=== PATIENT | female | born 1950 | race Caucasian/White ===

== ENCOUNTER → 2017-08-01 07:16 | Outpatient (CLI) | payer MEDICARE, BC, SELFPAY ==
[2017-08-01 10:32] LABS: Hemoglobin A1c 7.8 % (4.2-6.3)
[2017-08-01 10:50] LABS: Anion Gap 10 (5-15); BUN 14 mg/dL (7-18); BUN/Creat Ratio 23.4 RATIO (10-20); Chloride 99 mmol/L (98-107); Cholesterol 176 mg/dL (200); EST Glomerular Filtration Rate 106 mL/min (>60); Est Glom Filt Rate - Afr Amer 128 mL/min (>60); Glucose 83 mg/dL (74-106); High Density Lipoprotein 38 mg/dL; Potassium 3.8 mmol/L (3.5-5.1); Sodium Level 135 mmol/L (136-145); Triglycerides 194 mg/dL; Very Low Density Lipoprotein 39 mg/dL (5-40)
== END ==
PROVIDERS: Family Provider Family Medicine; PCP Family Medicine; Visit Provider Family Medicine
DX: I10 Essential (primary) hypertension (principal); E78.5 Hyperlipidemia, unspecified; E11.9 Type 2 diabetes mellitus without complications
CPT/HCPCS: 36415; 80048; 80061; 83036

== ENCOUNTER → 2018-01-31 08:13 | Outpatient (CLI) | payer MEDICARE, BC, SELFPAY ==
[2018-01-31 10:51] LABS: Hemoglobin A1c 7.4 % (4.2-6.3)
[2018-01-31 11:04] LABS: Cholesterol 183 mg/dL (200); Glucose 93 mg/dL (74-106); High Density Lipoprotein 36 mg/dL; Triglycerides 245 mg/dL; Very Low Density Lipoprotein 49 mg/dL (5-40)
== END ==
PROVIDERS: Family Provider Family Medicine; PCP Family Medicine; Visit Provider Family Medicine
DX: E11.9 Type 2 diabetes mellitus without complications (principal); E78.5 Hyperlipidemia, unspecified
CPT/HCPCS: 36415; 80061; 82947; 83036

== ENCOUNTER → 2018-07-31 07:00 | Outpatient (CLI) | payer MEDICARE, BC, SELFPAY ==
[2018-07-31 10:17] LABS: Anion Gap 9 (5-15); BUN 13 mg/dL (7-18); BUN/Creat Ratio 21.4 RATIO (10-20); Calcium,Total 8.7 mg/dL (8.5-10.1); Chloride 99 mmol/L (98-107); Cholesterol 175 mg/dL (200); Creatinine, Serum 0.61 mg/dL (0.55-1.02); EST Glomerular Filtration Rate 104 mL/min (>60); Est Glom Filt Rate - Afr Amer 125 mL/min (>60); Glucose 87 mg/dL (74-106); High Density Lipoprotein 41 mg/dL; Potassium 3.8 mmol/L (3.5-5.1); Sodium Level 134 mmol/L (136-145); Triglycerides 233 mg/dL; Very Low Density Lipoprotein 47 mg/dL (5-40)
== END ==
PROVIDERS: Family Provider Family Medicine; PCP Family Medicine; Referring Provider Family Medicine; Visit Provider Family Medicine
DX: E11.9 Type 2 diabetes mellitus without complications (principal); I10 Essential (primary) hypertension
CPT/HCPCS: 36415; 80048; 80061; 83036

== ENCOUNTER → 2019-03-22 09:38 | Outpatient (CLI) | payer MEDICARE, BC, SELFPAY ==
[2019-03-22 12:21] LABS: Hemoglobin A1c 7.6 % (4.2-6.3)
[2019-03-22 12:25] LABS: Anion Gap 6 (5-15); BUN 13 mg/dL (7-18); BUN/Creat Ratio 20.7 RATIO (10-20); Calcium,Total 9.1 mg/dL (8.5-10.1); Chloride 103 mmol/L (98-107); Cholesterol 193 mg/dL (200); Creatinine, Serum 0.63 mg/dL (0.55-1.02); EST Glomerular Filtration Rate 100 mL/min (>60); Est Glom Filt Rate - Afr Amer 121 mL/min (>60); Glucose 108 mg/dL (74-106); High Density Lipoprotein 40 mg/dL; Potassium 3.9 mmol/L (3.5-5.1); Sodium Level 135 mmol/L (136-145); Triglycerides 240 mg/dL; Very Low Density Lipoprotein 48 mg/dL (5-40)
== END ==
PROVIDERS: Family Provider Family Medicine; PCP Family Medicine; Referring Provider Family Medicine; Visit Provider Family Medicine
DX: E11.9 Type 2 diabetes mellitus without complications (principal); I10 Essential (primary) hypertension; E78.5 Hyperlipidemia, unspecified
CPT/HCPCS: 36415; 80048; 80061; 83036

== ENCOUNTER → 2019-03-27 09:10 | Outpatient (CLI) | payer MEDICARE, BC, SELFPAY ==
--- NOTE | 2019-03-27 09:13 | RAD_ITS ---
STUDY: X-RAY - PARANASAL SINUSES REASON FOR EXAM: Female, 68 years old. Sinus pain. TECHNIQUE: 3 view(s) of the paranasal sinuses were obtained. COMPARISON: None. FINDINGS: No air-fluid levels are seen. Increased density of the right maxillary sinus when compared to the left. This may represent mucosal thickening from chronic sinusitis. Normal visualized facial bones. The soft tissue structures are unremarkable. RAD/Sinuses min 3 Views IMPRESSION: No air-fluid levels are seen. Possible chronic sinusitis of the right maxillary sinus. Electronically Signed: Gino Norris MD at 23:20 EDT , Service support ,
== END ==
PROVIDERS: Family Provider Family Medicine; PCP Family Medicine; Referring Provider Family Medicine; Visit Provider Family Medicine
DX: J34.89 Other specified disorders of nose and nasal sinuses (principal)
CPT/HCPCS: 70220

== ENCOUNTER → 2019-04-17 07:57 | Outpatient (CLI) | payer MEDICARE, BC, SELFPAY ==
--- NOTE | 2019-04-17 08:03 | BI_ITS ---
MAMMOGRAPHY - BILATERAL SCREENING REASON FOR EXAM: Female, 68 years old. Routine annual screening examination. PERTINENT HISTORY: Non-contributory. TECHNIQUE: Digital bilateral breast mary anne (3D mammographic acquisition) in the CC and MLO projections. 2-D mediolateral oblique (MLO) and craniocaudad (CC) views of both breasts were obtained. CAD: Full Field Digital Mammography with Computer Added Detection was performed. COMPARISON: Comparison is made with prior study dated May 27, 2017 and August 07, 2013. FINDINGS: Breast Composition: The breasts are almost entirely fatty. There are no dominant masses or suspicious calcifications. Stable macrocalcifications in the medial retroareolar region of the right breast Stable benign-appearing left axillary lymph node. No other significant abnormalities are identified. There has been no significant change since the prior study. BI/SCREEN MAMM (CAD) W/MARY ANNE BILAT IMPRESSION: Stable bilateral screening mammogram. Yearly follow-up mammogram recommended. (A) ASSESSMENT CATEGORY: BIRADS Category 2: Benign. A letter regarding these results will be sent to the patient by the facility within 30 days. Approximately 10% of breast cancers are not detected by mammography. A normal mammogram should not delay biopsy of a clinically suspicious abnormality. [id number] Electronically Signed: Tez Purdy, at 9:04 EST , Service support ,
== END ==
PROVIDERS: Family Provider Family Medicine; PCP Family Medicine; Referring Provider Family Medicine; Visit Provider Family Medicine
DX: Z12.31 Encounter for screening mammogram for malignant neoplasm of breast (principal)
CPT/HCPCS: 77063; 77067

== ENCOUNTER → 2019-07-23 10:31 | Outpatient (CLI) | payer MEDICARE, BC, SELFPAY ==
[2019-07-23 12:49] LABS: Anion Gap 8 (5-15); BUN 13 mg/dL (7-18); BUN/Creat Ratio 18.7 RATIO (10-20); Calcium,Total 9.8 mg/dL (8.5-10.1); Chloride 102 mmol/L (98-107); EST Glomerular Filtration Rate 89 mL/min (>60); Est Glom Filt Rate - Afr Amer 107 mL/min (>60); Glucose 95 mg/dL (74-106); Potassium 3.8 mmol/L (3.5-5.1); Sodium Level 136 mmol/L (136-145)
[2019-07-23 13:40] LABS: Hemoglobin A1c 7.3 % (4.2-6.3)
== END ==
PROVIDERS: PCP Family Medicine; Referring Provider Family Medicine; Visit Provider Family Medicine
DX: E11.9 Type 2 diabetes mellitus without complications (principal)
CPT/HCPCS: 36415; 80048; 83036

== ENCOUNTER → 2020-01-14 09:56 | Outpatient (CLI) | payer MEDICARE, BC, SELFPAY ==
[2020-01-14 13:29] LABS: ALB/GLOB Ratio 0.9 RATIO (0.9-2.4); AST(SGOT) 17 U/L (15-37); Alanine Aminotransfer ALT/SGPT 19 U/L (13-56); Albumin, Serum 3.7 g/dL (3.2-5.0); Alkaline Phosphatase 129 U/L (45-117); Anion Gap 8 (5-15); BUN 13 mg/dL (7-18); BUN/Creat Ratio 19.9 RATIO (10-20); Calcium,Total 9.3 mg/dL (8.5-10.1); Chloride 101 mmol/L (98-107); Cholesterol 194 mg/dL (200); Creatinine, Serum 0.65 mg/dL (0.55-1.02); EST Glomerular Filtration Rate 95 mL/min (>60); Est Glom Filt Rate - Afr Amer 115 mL/min (>60); Globulin 3.9 g/dL (2.2-4.2); Glucose 61 mg/dL (74-106); High Density Lipoprotein 39 mg/dL; Potassium 3.6 mmol/L (3.5-5.1); Protein, Total 7.6 g/dL (6.4-8.2); Sodium Level 136 mmol/L (136-145); Triglycerides 202 mg/dL; Very Low Density Lipoprotein 40 mg/dL (5-40)
[2020-01-14 13:37] LABS: Hemoglobin A1c 6.6 % (3.8-5.6)
[2020-01-14 13:42] LABS: Microalbumin:Creatinine Ratio 282.4 mg/g CRE (<30 mg/g CRE)
== END ==
PROVIDERS: PCP Family Medicine; Referring Provider Family Medicine; Visit Provider Family Medicine
DX: E11.9 Type 2 diabetes mellitus without complications (principal)
CPT/HCPCS: 36415; 80053; 80061; 82043; 82570; 83036

== ENCOUNTER → 2020-02-21 | Outpatient (CLI) | payer MEDICARE, BC, SELFPAY | END | disposition home or self-care (01) | LOC: LABSPEC 15:37 | PROVIDERS: Referring Provider Family Medicine; Visit Provider Family Medicine | DX: Z03.818 Encounter for observation for suspected exposure to other biological agents ruled out (principal); Z11.59 Encounter for screening for other viral diseases | CPT/HCPCS: 87635; U0003 ==

== ENCOUNTER → 2020-03-06 06:50 | Outpatient (CLI) | payer MEDICARE, BC, SELFPAY ==
[2020-02-27 11:08] VITALS: BMI 39.9
--- NOTE | 2020-03-06 06:50 | ECHOCS_ITS ---
Reason For Study: MURMUR Procedure This was a 2D Doppler, Color Flow transthoracic echocardiogram. Exam performed in department. Left Ventricle Normal LV size. Left ventricular systolic function is normal. The estimated ejection fraction is 65 %. Stage 2 diastolic dysfunction. No regional wall motion abnormalities noted. Right Ventricle Normal RV size. Normal systolic function. Atria Normal left atrium. Normal right atrium. Mitral Valve Normal mitral valve. Tricuspid Valve Normal tricuspid valve. Aortic Valve Trisinus/trileaflet aortic valve. Mild focal aortic valve calcification. Peak aortic valve gradient 47 mmHg. Mean aortic valve gradient 30 mmHg. Moderate aortic stenosis. Mild (1+) eccentric aortic valve insufficiency. Pulmonic Valve Normal pulmonic valve. Great Vessels Normal aortic root. The pulmonary artery is normal size. Normal inferior vena cava. Pericardium/Pleural No pericardial effusion. Medication Diluted definity 2ml given slow IV push to enhance endocardial definition. MMode/2D Measurements & Calculations LVIDd: 4.7 cm IVSd: 1.0 cm LVOT diam: 2.0 cm LVIDs: 3.3 cm LVPWd: 1.1 cm RVDd: 3.5 cm FS: 29.5 % LVOT area: 3.1 cm2 Ao root diam: 3.0 cm LAV(MOD-bp): 78.1 ml LVAd ap4: 32.1 cm2 LAV(MOD-bp) Indexed: 39.4 ml/m2 EDV(MOD-sp4): 114.2 ml LAV(MOD-sp2): 63.2 ml EDV(sp4-el): 118.4 ml LAV(MOD-sp4): 71.7 ml LVAs ap4: 18.5 cm2 ESV(MOD-sp4): 44.9 ml ESV(sp4-el): 45.4 ml EF(MOD-sp4): 60.7 % EF(sp4-el): 61.6 % SV(MOD-sp4): 69.3 ml SV(sp4-el): 73.0 ml LA A4 area: 23.9 cm2 LA dimension(2D): 4.2 cm RA A4 area: 17.0 cm2 Time Measurements MV dec time: 0.27 sec Doppler Measurements & Calculations MV E max jeff: 113.9 cm/sec Lat Peak E' Jeff: 10.1 cm/sec Med Peak E' Jeff: 6.2 cm/sec MV A max jeff: 93.5 cm/sec E/E' lat: 11.2 E/E' med: 18.2 MV E/A: 1.2 Ao V2 max: 342.5 cm/sec AI max jeff: 297.0 cm/sec LV V1 max: 98.7 cm/sec Ao max P.0 mmHg AI max P.3 mmHg LV V1 max P.9 mmHg Ao V2 mean: 261.1 cm/sec AI dec slope: 145.5 cm/sec2 LV V1 mean P.9 mmHg Ao mean P.7 mmHg AI P1/2t: 597.7 msec LV V1 mean: 62.0 cm/sec Ao V2 VTI: 83.7 cm LV V1 VTI: 24.8 cm IAIN(I,D): 0.93 cm2 IAIN(V,D): 0.91 cm2 SV(LVOT): 78.1 ml PA V2 max: 118.5 cm/sec Interpretation Summary Normal LV size. Left ventricular systolic function is normal. The estimated ejection fraction is 65 %. Stage 2 diastolic dysfunction. Moderate aortic stenosis. Contrast injection was performed. Ordering Physician: Jesus Andrea Referring Physician: MIRTHA CARLIN Performed By: Katie Ackerman RDCS
--- NOTE | 2020-03-06 11:52 | STRESSREP ---
Stress Test Report Exercise myocardial perfusion stress test. 69-year-old lady with a history of hypertension, diabetes mellitus and mild aortic stenosis. Stress protocol: Resting EKG demonstrates normal sinus rhythm with a rate of 68 bpm normal intervals are noted resting blood pressure 144/72 mmHg. The patient exercised according to regular Adalid protocol for total duration of 3 minutes and 16 seconds. The maximum heart rate attained was 144 bpm which was 96% of max impacted heart rate the maximum workload was 4.6 metabolic equivalents. At rest there were no ST or T wave changes noted at peak exercise upsloping ST changes were noted with no meet the criteria for ischemia. The test was terminated due to dyspnea. The peak blood pressure 198/60 mmHg. Myocardial perfusion protocol. 11.2 mCi of technetium 99m sestamibi was injected at rest. The patient exercised for 3 minutes and 16 seconds attaining 96% of max impacted heart rate. At peak exercise 33.0 mCi of technetium 99m sestamibi was injected stress images were obtained stress and rest images were reconstructed and compared in the short axis vertical long horizontal long axis. Gated images were also obtained P Perfusion SPECT analysis: Review of the stress images demonstrate normal uptake of tracer noted in all areas of the myocardium the resting images similar demonstrate normal uptake of tracer noted in all areas of the myocardium. No reversibility is noted to suggest ischemia no previous infarct is noted. Gated SPECT analysis: The gated ejection fraction is 57%. Conclusion: Normal exercise myocardial perfusion stress test at a low workload. The low workload may affect sensitivity for detection of ischemia.
== END ==
PROVIDERS: PCP Family Medicine; Referring Provider Internal Medicine Cardiovascular Disease; Visit Provider Internal Medicine Cardiovascular Disease
DX: R07.9 Chest pain, unspecified (principal); Z03.818 Encounter for observation for suspected exposure to other biological agents ruled out; Z11.59 Encounter for screening for other viral diseases
CPT/HCPCS: 78452; 87635; 93017; 93306; A9500; Q9957; A4216; C8929; U0003

== ENCOUNTER → 2020-03-06 | Outpatient (CLI) | payer MEDICARE, BC, SELFPAY ==
[2020-02-27 11:08] VITALS: BMI 39.9
== END | disposition home or self-care (01) ==
LOC: LABSPEC 03-07 05:55
PROVIDERS: Referring Provider Family Medicine; Visit Provider Family Medicine
DX: Z03.818 Encounter for observation for suspected exposure to other biological agents ruled out (principal); Z11.59 Encounter for screening for other viral diseases
CPT/HCPCS: 87635; U0003

== ENCOUNTER → 2020-03-20 | Outpatient (CLI) | payer MEDICARE, BC, SELFPAY ==
[2020-02-27 11:08] VITALS: BMI 39.9
== END | disposition home or self-care (01) ==
PROVIDERS: Referring Provider Family Medicine; Visit Provider Family Medicine
DX: Z03.818 Encounter for observation for suspected exposure to other biological agents ruled out (principal); Z11.59 Encounter for screening for other viral diseases
CPT/HCPCS: 87635; U0003

== ENCOUNTER 2020-03-31 07:59 | Day surgery (SDC) | payer MEDICARE, BC, SELFPAY ==
[2020-02-27 11:08] VITALS: BMI 39.9
--- NOTE | 2020-03-25 11:55 | RAD_ITS ---
STUDY: X-RAY CHEST REASON FOR EXAM: Female, 69 years old. PRE HEART CATH TECHNIQUE: Frontal and lateral views of the chest COMPARISON: 08 February 2017 FINDINGS: The lungs are clear and expanded. There is no demonstrated pleural abnormality. Heart is mildly enlarged.. Normal mediastinum and jen. Normal visualized pulmonary arteries. Normal visualized aortic arch and descending thoracic aorta. There are expected age-related degenerative changes in the spine and shoulders. There is no demonstrated abnormality of the visualized soft tissue structures of the upper abdomen. Appearance is stable since prior. RAD/Chest PA and Lateral IMPRESSION: Unremarkable chest radiograph. No acute disease. Mild cardiac megaly. Electronically Signed: Brianna Cox, at 12:21 EDT Tel , Service support ,
[2020-03-25 12:33] LABS: Absolute Lymphocyte Count 2.21 X10^3/uL (0.83-4.51); Absolute Neutrophil Count 5.7 X10^3/uL (2.0-7.7); Basophil# 0.06 X10^3/uL; Basophil% 0.7 % (0-1); Eosinophil# 0.58 X10^3/uL; Eosinophils% 6.3 % (0-5); Hematocrit 36.6 % (37-47); Hemoglobin 11.2 g/dL (12.0-15.0); Lymphocyte # 2.21 X10^3/ul (4.0); Lymphocyte % 24.2 % (19-41); Mean Corp Hgb Conc 30.6 g/dL (32-36); Mean Corpuscular Volume 81.7 fL (81-99); Mean Platelet Vol. 9.7 fl (6.2-12.0); Monocyte# 0.53 X10^3/uL; Monocyte% 5.8 % (0-10); NRBC Flagged by Analyzer 0 % (0-5); Neutrophil # 5.73 X10^3/uL (2.7-7.7); Neutrophil % 62.7 % (47-70); Platelet Count 387 K/mm3 (150-450); RBC Distribution Width CV 15.4 % (11.6-14.6); RBC Distribution Width SD 46.3 fl (35.1-43.9); Red Blood Count 4.48 M/mm3 (4.2-5.4); White Blood Count 9.1 K/mm3 (4.4-11.0)
[2020-03-25 13:01] LABS: Anion Gap 10 (5-15); BUN 13 mg/dL (7-18); BUN/Creat Ratio 16.1 RATIO (10-20); Calcium,Total 9.5 mg/dL (8.5-10.1); Chloride 101 mmol/L (98-107); EST Glomerular Filtration Rate 75 mL/min (>60); Est Glom Filt Rate - Afr Amer 90 mL/min (>60); Glucose 139 mg/dL (74-106); Potassium 4.2 mmol/L (3.5-5.1); Sodium Level 136 mmol/L (136-145)
[2020-03-27 11:21] VITALS: BMI 39.9
[2020-03-31] VITALS (8 sets, daily range): BP systolic 136–158; BP diastolic 48–72; PULSE 71–84; RESP 16–18; TEMP 36.7–37; O2SAT 96–97; BMI 39.9
--- NOTE | 2020-03-31 09:43 | HP_ITS ---
HPI HPI History of Present Illness Details: Pleasant 69-year-old lady with no previously diagnosed history other than hypertension, obesity, diabetes mellitus and mild aortic stenosis. She tells me that over the last 6 months she has had chest discomfort as well as dyspnea with exertion or when going up an incline. It appears to dissipate when she is at rest. She mentioned this to you after she had seen you and prompted the referral. She has had no chest pain at rest no paroxysmal nocturnal dyspnea no pedal edema. 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 Her last echocardiogram had demonstrated mild aortic stenosis with an aortic valve area of 1.4 cm?. Her EKG from today demonstrates normal sinus rhythm with a rate of [address] changes noted. Her most recent lipid profile demonstrated a total cholesterol of 194, HDL of 39 and LDL of 115. She has been keeping track of her blood pressures at home and they have been elevated in the 150 to 160 mmHg range. Her physical exam here today demonstrates clear lung renteria regular rate and rhythm 2/6 systolic murmur noted left sternal border and no pedal edema. Intake Vital Signs 02/27/20 Height 5 ft 2 in 02/27/20 Weight: 218 lb 02/27/20 BMI 39.9 02/27/20 BP 164/77 H 02/27/20 Respiration 16 02/27/20 Pulse 74 02/27/20 Pulse Oximetry (%) 98 Intake Visit Reasons: PCP ref'd for AVS, HTN Allergies etodolac Allergy (Verified 02/25/20 21:38) Swelling Medications albuterol sulfate 90 mcg/actuation aerosol inhaler 2 puff INHALATION Q6H PRN 02/25/20 [History Confirmed 02/25/20] atorvastatin 10 mg tablet 10 mg PO QHS tab 02/25/20 [History Confirmed 02/27/20] calcium carbonate 200 mg calcium (500 mg) chewable tablet 200 mg PO BID PRN 02/25/20 [History Confirmed 02/27/20] fexofenadine 60 mg tablet 60 mg PO BID 02/25/20 [History Confirmed 02/27/20] glipizide 10 mg tablet, extended release 24 hr 10 mg PO DAILY tab 02/25/20 [History Confirmed 02/27/20] hydrochlorothiazide 25 mg tablet 25 mg PO DAILY tab 02/25/20 [History Confirmed 02/27/20] insulin glargine 100 unit/mL subcutaneous solution 50 unit SC BID ml 02/25/20 [History Confirmed 02/27/20] lisinopril 20 mg tablet 20 mg PO BID tab 02/25/20 [History Confirmed 02/27/20] metformin 500 mg tablet 1,000 mg PO BID tab 02/25/20 [History Confirmed 02/27/20] omeprazole 20 mg capsule,delayed release 20 mg PO DAILY 02/25/20 [History Confirmed 02/27/20] acetaminophen 500 mg capsule 500 mg PO Q6H PRN 02/27/20 [History Confirmed 02/27/20] amlodipine 5 mg tablet 5 mg PO DAILY tab 02/27/20 [History Confirmed 02/27/20] aspirin-caffeine 400 mg-32 mg tablet 2 tab PO BID tab 02/27/20 [History Confirmed 02/27/20] fluticasone propionate 50 mcg/actuation nasal spray,suspension 1 spray INTRANASAL DAILY 02/27/20 [History Confirmed 02/27/20] ibuprofen 200 mg capsule 200 mg PO Q6H PRN 02/27/20 [History Confirmed 02/27/20] omega-3 900 mg-dha 320 mg-epa 580 mg-fish oil 1,360 mg capsule cap PO 02/27/20 [History Confirmed 02/27/20] vit A 7,160 unit-vit C 113 mg-vit E 100 uevy-iytb-juaahi tablet tab PO 02/27/20 [History Confirmed 02/27/20] PFSH Medical History Nonrheumatic aortic (valve) stenosis (Chronic) Essential (primary) hypertension (Chronic) Hyperlipidemia (Chronic) Allergic rhinitis (Chronic) GERD (gastroesophageal reflux disease) (Chronic) Obesity (Chronic) Obstructive sleep apnea (Chronic) Type 2 diabetes mellitus (Chronic) Surgical History History of tonsillectomy (Resolved) Family History Father Heart disease Idiopathic CMP 73 2 brothers and sister with Idiopathic CMP Mother Hypertension Social History (Updated 02/27/20 @ 11:[address] Jesus Andrea MD) Smoking Status: Never smoker alcohol intake: never ROS Const Const: Negative for fatigue, weakness, headache(s), frequent falls, difficulty sleeping or excessive sweating Eyes Eyes: Negative for loss of peripheral vision, transient loss of vision, blurry vision, double vision or tunnel vision ENT ENT: Negative for headache(s), dizziness, Nosebleed/epistaxis or balance problems Cardio Chest Pain: Yes (when walking up an incline or hurrying) Character: tightness Onset: exercise Location: mid sternal Duration: minutes Exacerbation: activity Relieving: rest Palpitations: No Edema: None Muscle aches with walking: None Resp Respiratory: Positive for SOB with activity (when walking up an incline or hurrying); negative for SOB at rest, SOB orthopnea\SOB lying down, Cough or paroxysmal nocturnal dyspnea GI GI: Negative nausea, vomiting, heartburn or black,tarry stools : Negative for hematuria Musc Musc: Negative for muscle aches/ myalgia, muscle weakness, joint pain or balance problems Skin Skin: Negative non-healing lesions, rash or unusual bruising Neuro Neuro: Negative for dizziness, lightheadedness, near syncope, syncope, orthostatic symptoms, frequent falls, headache(s), weakness, blurry vision, double vision or lack of coordination [place] Hematologic/Lymphatic: Negative for easy bleeding or easy bruising Endo Endo: Negative for fatigue, excessive sweating or increased thirst/drinking Psych Psych: Negative for anxiety or depression Allergy Allergy/Immunology: Negative for hives, Negative for rash Cardiology Exam Const Appearance: cooperative, healthy appearing, no acute distress, well developed and well groomed Nutritional Appearance: average body habitus and well nourished Orientation: alert, awake and oriented x3 Head Head: normal to inspection, normocephalic and atraumatic Ears: hearing grossly normal bilaterally and external ears normal Nose: external nose normal, nares normal, nasal mucous membranes and turbinates normal, septum normal, no nasal discharge Face and Sinus: face symmetric Mouth: oral mucosae normal, tongue normal, oropharynx normal and moist mucous membranes Teeth and gingiva: dentition normal Throat: posterior oropharynx normal, tonsils normal and uvula midline Eyes General: appearance normal, both eyes and all related structures Eyelids: eyelids normal Conjunctivae: conjunctivae normal Pupils: PERRL, normal by confrontation and accommodation normal EOM: EOM intact bilaterally Neck Neck: normal visual inspection, trachea midline and no JVD JVD: +5 Carotids: normal carotid upstroke and bounding pulses Chest Chest inspection: normal inspection of the chest, symmetric chest movement and normal respiratory effort Auscultation: Bilateral: Clear to Auscultation Cardio Palpation: normal PMI Rate: regular rate Rhythm: regular rhythm Heart sounds: S1 normal, S2 normal and normal, physiologic split S2; negative rub, gallop or murmur Murmur: Grade 2/6, early systolic and LLSB GI GI: normal to inspection, soft, no hepatosplenomegaly and bowel sounds present Neuro General: alert, awake, oriented x3, gait normal, moves all extremities and no focal sensory deficit Skin Skin: no rashes or lesions noted Extremities Pulses: Normal: Right Femoral Pulse, Left Femoral Pulse, Right Dorsalis Pedis Pulse, Left Dorsalis Pedis Pulse, Right Posterior Tibial Pulse, Left Posterior Tibial Pulse, Right Radial Pulse, Left Radial Pulse Lower Extremity Edema: None: Bilateral Musculoskel Musculoskeletal: No joint tenderness Psych Psychological: normal affect Assessment & Plan 1. Chest pain R07.9 Plan She does have chest discomfort which is concerning for angina. She however has aortic stenosis and my recommendation at this time would be to control her blood pressure better, obtain an echocardiogram to assess her aortic valve area and also obtain an exercise myocardial perfusion stress test. Depending on the results of those tests further recommendations will then be made. I would however have a low threshold in performing a left heart catheterization. Orders Orders: Echo Complete Today Nuclear Stress Test - Treadmil Today 2. Nonrheumatic aortic (valve) stenosis I35.0 Plan She does have mild aortic stenosis. My recommendation at this time would be to obtain an echocardiogram to assess her left ventricular function as well as the aortic valve integrity. Orders Orders: 12 Lead EKG performed by [facility] Today 3. Essential (primary) hypertension I10 Plan She does have a history of hypertension which is not very well controlled. I would like to increase her amlodipine to 10 mg a day. I would have been more inclined to add a beta-anju but she is already on 3 blood pressure medications and I would cautiously increase this and see how she does. Orders Orders: 12 Lead EKG performed by [facility] Today 4. Hyperlipidemia E78.5 Plan She does have a history of hyperlipidemia with a total cholesterol 194, LDL 115 and HDL of 39. Risk factor modification have been emphasized. Thank you for allowing me to participate in the care of your patient. Please don't hesitate to call if any issues arise. 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) Coding Level of Care Code Off vis,new,level 4 Diagnoses Chest pain R07.9 Nonrheumatic aortic (valve) stenosis I35.0 Essential (primary) hypertension I10 Hyperlipidemia E78.5 Coding Level of Care Code Off vis,new,level 4 Diagnoses Chest pain R07.9 Nonrheumatic aortic (valve) stenosis I35.0 Essential (primary) hypertension I10 Hyperlipidemia E78.5 Supplemental Info Supplemental Information Labs LDL Cholesterol 115 mg/dL (0-130) 01/14/20 HDL Cholesterol 39 mg/dL (40-) L 01/14/20 Triglycerides 202 mg/dL (-199) H 01/14/20 VLDL Cholesterol 40 mg/dL (5-40) 01/14/20 Diagnostics Electrocardiogram 02/27/20 Chest X-Ray 02/08/17
--- NOTE | 2020-03-31 10:26 | CL.D_ITS ---
Patient Name: JITENDRA VASQUEZ Study Date: 03/31/2020 Performing: Jesus Andrea MD Ht: 61.81 inches 157 cm : 1950 Wt: 218.26 lbs 99 kg Age: 69 Gender: female BSA: 1.98 PROCEDURE(S) PERFORMED [id number] CLINICAL PROFILE AND INDICATIONS Indications: Worsening Angina Heart Failure: None Stress/Imaging Date: 03/06/2020Stress Test with SPECT MPI: Negative CAD Presentations: Unstable angina. CONCLUSIONS Coronary artery disease involving a diffusely diseased right coronary artery of up to 70%, preserved ejection fraction, mild LAD disease and mild to moderate aortic stenosis.. RECOMMENDATIONS Referred for immediate PCI DESCRIPTION OF PROCEDURE The patient arrived to the procedure lab. The risks and benefits of the procedure as well as a full d escription of our services here and current unavailability of surgical backup were fully explained to the patient and/or their significant other prior to the catheterization. The Timeout was completed, verifying the correct patient and procedure. The patient's procedural site was prepped and draped in the usual fashion. Local anesthetic was given subcutaneously to right radial region with Lidocaine 2% . Using a modified Seldinger technique, arterial access was obtained via the right radial artery, a 6 Fr sheath was inserted. Left Coronary Artery selective angiography was performed in multiple views u sing a 5 Fr. 4.0 Jones catheter. Right Coronary Artery selective angiography was then performed in mu ltiple views using a 5 Fr. 4.0 Jones catheter. Right Coronary Artery selective angiography was then p erformed in multiple views using a 5 Fr. JR 5 catheter. LV to AO pullback pressures were then recorded. CORONARY ANGIOGRAPHY DOMINANCE: Right Dominant LEFT HEART ASSESSMENT Left Ventricular Ejection Fraction: by Echo 60 % Normal LV wall motion Normal Left Ventricular systolic function LEFT MAIN: Mild calcification LEFT ANTERIOR DESCENDING ARTERY: Mild luminal irregularities less than 30% OSTIAL LAD: 60 % Stenosis CIRCUMFLEX ARTERY: Mild calcification, Mild luminal irregularities less than 30% RIGHT CORONARY ARTERY: MID RCA: Diffusely diseased up to 70 % RT PDA: Ostial - 60 % Stenosis VALVE FINDINGS: Aortic Valve Stenosis - moderate COMPLICATIONS PROCEDURE MEDICATIONS Versed 1 mg IV Versed 1 mg IV Oxygen: 2 L/min via nasal cannula Heparin diluted in 23cc Heparinized saline. Patient given 10cc IA of this solution. 03/31/2020 09:56 :06 Verapamil 2.5mg, Ntg 100mcgs, 2000 units of Heparin diluted in 23cc Heparinized saline. Patient give n 10cc IA of this solution. 03/31/2020 09:56:06 SUMMARY OF HEMODYNAMIC DATA Time AIR REST ECG 08:32:33 AO 155/77 (110) SA 10:02:16 LV 156/15, 29 10:11:52 LV 152/11, 22 10:12:00 LVp 154/18, 54 10:12:15 AOp 147/67 (101) 10:12:20 Signed By Jesus Andrea MD On 03/31/2020 10:25:32 Jesus Andrea MD
[2020-03-31] MEDS: 0.9% Normal Saline 1,000 ML 60 ML IV (11:20)
--- NOTE | 2020-03-31 11:30 | EKG12_ITS ---
Test Reason : POST PCI Blood Pressure : / mmHG Vent. Rate : 073 BPM Atrial Rate : 073 BPM P-R Int : 156 ms QRS Dur : 094 ms QT Int : 380 ms P-R-T Axes : 081 -02 046 degrees QTc Int : 418 ms Normal sinus rhythm with sinus arrhythmia Normal ECG Confirmed by AMANUEL BAZZI, CLAYTON ([id number]), assignment editor AGUSTINA JOHNSON ([id number]) on 04/03/2020 9:24:08 AM Referred By: Jesus Andrea Confirmed By:CLAYTON VITAL MD
--- NOTE | 2020-03-31 14:49 | CRPHASE1 ---
Patient Communication Former Patient:: Phase I PHII Cardiac Rehab Discussed with Patient:: Yes Guide to Cardiac Rehab Given to Patient:: Yes Cardiac Rehab Facility Choice List Given to Patient:: Yes Choice Program [facility] CR PHII:: Communication Given to CR Choice Program Other:: Communication Given to CR Last Puller:: Alfonso Owens Phase II Cardiac Rehab:: Yes Sessions:: 36 sessions - 3 days/wk, 12 weeks Risk Factors/Lifestyle Smoking Status: Never smoker Second-Hand Smoke:: No Hx Hypertension: Yes Hx Diabetes Mellitus Type 1: No Hx Diabetes Mellitus Type 2: Yes Hx Metabolic Disorders: No Hx Dyslipidemia: Yes Hx Obesity: Yes Post-Menopausal: Yes Stress: Long-standing ETOH: No Caffeine: No Substance Abuse: No Risk Factor for Sedentary Lifestyle: Moderate Risk Family History: Family History (Last Reviewed 02/27/20 @ 11:[address] Jesus Andrea MD) Father Heart disease Mother Hypertension Past Cardiac Illness: Coronary Artery Disease Phase I Education Given On:: [place], Nutrition, Antiplatelet medication, Diabetes - Type II Issues Affecting Care:: None Knowledge of Condition:: Yes Cardiac Rehabilitation Info Cardiac Rehabilitation Program Information: Cardiac Rehabilitation is important for patients like you who are recovering from a heart problem. Cardiac rehabilitation programs are recognized as integral to the continued care of the patient with coronary heart disease. The cardiac rehabilitation program is designed to optimize a patient's physical, psychological, and social functioning. Health career development counselor work in cardiac rehabilitation programs and assist you with getting the treatments you need to get stronger and healthier - like exercise, healthy eating habits, and medications. Cardiac rehabilitation has been show to help people with heart problems live longer and have better life enjoyment than people who do not go to cardiac rehabilitation. Please contact the Cardiac Rehabilitation Program at [facility] at in two weeks if you have not heard from them.
--- NOTE | 2020-03-31 14:51 | CRPH1.INSTRU ---
General Education CAD and cardiac anatomy and function:: Patient communicates acknowledgment Explanation of diagnoses and procedures:: Patient communicates acknowledgment Sign/Symptoms of ID:: Patient communicates acknowledgment Antiplatelet therapy: Patient communicates acknowledgment Proper use of NTG-SL: Patient communicates acknowledgment Emergency procedures and activation of EMS: Patient communicates acknowledgment Compliance of all prescribed medications: Patient communicates acknowledgment Dyslipidemia Patient Dyslipidemia Risk Factors Are:: Total Cholesterol, Triglycerides, HDL, LDL Recommendations Include:: Lipid profile provided, Reviewed NCEP/ATP guidelines, Therapeutic Lifestyle Change dietary guidelines Dyslipidemia Response Code:: Patient communicates acknowledgment Overweight/Obesity Patient Overweight/Obesity Risk Factors Are:: Obesity - > or = 30 Recommendations Include:: Weight loss of 5-10%, Reduced calorie diet, Exercise 5-7 times/week Overweight/Obesity:: Patient communicates acknowledgment Hypertension Recommendations Include:: Maintain BP <130/85, DASH dietary guidelines, Decrease/maintain normal body weight, Moderation of ETOH Hypertension:: Patient communicates acknowledgment Diabetes Patient Diabetes Risk Factors Are:: Elevated blood sugars Recommendations Include:: Maintain fasting blood sugars 70-110 md/dL, Maintain HgbA1c of 6% or less, Monitor blood sugar as prescribed, Diabetic dietary guidelines, Decrease/maintain body weight Diabetes:: Patient communicates acknowledgment Sedentary Patient Sedentary Risk Factors Are:: Lack of regular exercise Recommendations Include:: Aerobic exercise 5-7 times/week for 20-30 minutes continuously, Benefits of regular exercise, Discussed home walking program, Monitored Outpatient Cardiac Rehab Sedentary Response Code:: Patient communicates acknowledgment Stress Patient Stress Risk Factors Are:: Patient denies stress as a risk factor Recommendations Include:: Identification of stressors, and assessment of coping skills, Stress management techniques Stress Response Code:: Patient communicates acknowledgment
[2020-03-31] MEDS: metFORMIN HCl 1,000 MG Tablet 1000 MG PO (17:34)
[2020-03-31 21:01] LABS: Bedside Glucose 102 mg/dL (70-110)
[2020-03-31] MEDS: INSULIN GLARGINE,HUM.REC.ANLOG 100 UNIT/ML INSULN.PEN 50 UNIT SQ (21:03)
[2020-03-31] MEDS: Atorvastatin Calcium 10 MG Tablet PO (21:03)
[2020-03-31] MEDS: 0.9% Saline Lock 10 ML Syringe IV (21:03)
[2020-03-31] MEDS: Lisinopril 20 MG Tablet PO (21:03)
[2020-03-31] MEDS: Acetaminophen 500 MG Tablet PO (21:03)
--- NOTE | 2020-03-31 21:13 | NURSING ---
pt's BG 102. Asked patient what she would normally do if her sugar was 102 at home and she stated that she would take the 50 units because she was recently decreased from 55 units to 50 units. Pt administered her home medication (previously verified by Rx) to the [facility], per patient request.
[2020-04-01 03:00] VITALS: PULSE 74
[2020-04-01 03:14] VITALS: BP 124/58; PULSE 75; RESP 16; TEMP 36.9; O2SAT 95
[2020-04-01 06:19] LABS: Hematocrit 36.2 % (37-47); Hemoglobin 11.2 g/dL (12.0-15.0); Mean Corp Hgb Conc 30.9 g/dL (32-36); Mean Corpuscular Hgb 25.2 pg (27.0-32.0); Mean Corpuscular Volume 81.3 fL (81-99); Mean Platelet Vol. 9.6 fl (6.2-12.0); Platelet Count 358 K/mm3 (150-450); RBC Distribution Width CV 15.5 % (11.6-14.6); Red Blood Count 4.45 M/mm3 (4.2-5.4)
[2020-04-01 06:48] LABS: ALB/GLOB Ratio 0.9 RATIO (0.9-2.4); AST(SGOT) 17 U/L (15-37); Alanine Aminotransfer ALT/SGPT 19 U/L (13-56); Albumin, Serum 3.5 g/dL (3.2-5.0); Alkaline Phosphatase 120 U/L (45-117); Anion Gap 9 (5-15); BUN 16 mg/dL (7-18); BUN/Creat Ratio 24.9 RATIO (10-20); Calcium,Total 9.2 mg/dL (8.5-10.1); Chloride 101 mmol/L (98-107); Creatinine, Serum 0.64 mg/dL (0.55-1.02); EST Glomerular Filtration Rate 97 mL/min (>60); Est Glom Filt Rate - Afr Amer 117 mL/min (>60); Estimated Creatinine Clearance 40.81 ml/min; Globulin 3.8 g/dL (2.2-4.2); Glucose 55 mg/dL (74-106); Potassium 3.5 mmol/L (3.5-5.1); Protein, Total 7.3 g/dL (6.4-8.2); Sodium Level 136 mmol/L (136-145)
[2020-04-01 07:04] VITALS: PULSE 75
[2020-04-01 07:39] VITALS: O2SAT 98
--- NOTE | 2020-04-01 07:44 | PCM.PN.CARD ---
Subjectve: Patient seen and evaluated. Appears to be doing well. Has had no cardiac issues. Underwent angioplasty and stenting of the right coronary artery yesterday. Objective: Vital Signs Temp Pulse Resp BP Pulse Ox 98.5 F 75 16 124/58 H 95 04/01/20 03:14 04/01/20 03:14 04/01/20 03:14 04/01/20 03:14 04/01/20 03:14 Oxygen Delivery Method Room Air Weight: 214 lb 8.156 oz Body Mass Index (BMI) 39.9 Intake and Output for Last 24 Hours 03/30/20 03/31/20 04/01/20 23:59 23:59 23:59 Intake Total 935 / 935 700 / 700 Balance 935 / 935 700 / 700 General: Awake, Alert, Oriented x 3 HEENT: PERRL, EOMI, Sclera Non Icteric Neck: Supple, Good ROM, No Lymph Node Enlargement Lungs: Clear to auscultation Cardiovascular: Regular Rhythm, Normal S1, Normal S2, No Murmurs, No Rubs, No Gallops 04/01/20 05:20: WBC 10.0, RBC 4.45, Hgb 11.2 L, Hct 36.2 L, MCV 81.3, MCH 25.2 L, MCHC 30.9 L, Plt Count 358, MPV 9.6 04/01/20 05:20: Sodium 136, Potassium 3.5, Chloride 101, Carbon Dioxide 26.0, Anion Gap 9, BUN 16, Creatinine 0.64, Est GFR (MDRD) Af Amer 117, Est GFR (MDRD) Non-Af 97, BUN/Creatinine Ratio 24.9 H, Glucose 55 L, Calcium 9.2, Total Bilirubin 0.40 Rhythm: EKG: ECHO: Stress Test: Cardiac Cath: PCI: CT Surgery: Holter monitor: EPS: PPM: CXR: Chest CT Scan: Medical Necessity - Tobacco Use Smoking Status: Never smoker Assessment/Plan 1. Status post angioplasty and stenting of the right coronary artery. This morning patient appears to be asymptomatic. The plan will be to continue the current medical therapy with no changes. Cardiac rehabilitation will be instituted. We will discharge patient for outpatient follow-up.
--- NOTE | 2020-04-01 09:48 | PCM.DC.CCA ---
Discharge Diet: Low fat/ Low Cholesterol Call your doctor if your incision/area has: Increased Pain/ Swelling, Increased Redness, Foul Smelling Discharge, Swelling at the incision site Call your doctor if you observe: Fever of 101 or Higher Additional Dressing/Incision Instructions:: Keep the dressing (bandage) on until the next morning. You may then shower, but do not take a tub bath for 5 days after your test. It is normal to have some tenderness and discomfort at the puncture site. Sometimes bruising also occurs. However, if pain, numbness, or coldness occurs below the puncture site (in your leg, toes, arms or fingers) call your doctor at once. You may have a small, marble sized knot at the puncture site. This is normal. Do not rub it. It will go away in 4-6 weeks. Bleeding can occur from the area where the puncture was done. Blood may spurt or drip from the site. If blood spurts, apply pressure right away to stop bleeding and call 911. Although rare, bleeding into the tissue (hematoma) can also occur. If this happens, a large, firm area goose egg under the skin will appear. If any of these occur, lie down as flat as you can and have someone apply firm pressure to the cath site with a gauze pad or a clean washcloth for 10-15 minutes. Call 911 or go to the Emergency Department. Allergies/Adverse Reactions: Allergies etodolac Allergy (Verified 02/25/20 21:38) Swelling lodine Medications to take at Discharge albuterol sulfate 90 mcg/actuation aerosol inhaler 2 puff INHALATION Q6H PRN 02/25/20 atorvastatin 10 mg tablet 10 mg PO QHS tab 02/25/20 calcium carbonate 200 mg calcium (500 mg) chewable tablet 200 mg PO BID 02/25/20 fexofenadine 60 mg tablet 60 mg PO BID 02/25/20 glipizide 10 mg tablet, extended release 24 hr 10 mg PO DAILY tab 02/25/20 hydrochlorothiazide 25 mg tablet 25 mg PO DAILY tab 02/25/20 insulin glargine 100 unit/mL subcutaneous solution 50 unit SC BID ml 02/25/20 lisinopril 20 mg tablet 20 mg PO BID tab 02/25/20 metformin 500 mg tablet 1,000 mg PO BID tab 09/21/20 omeprazole 20 mg capsule,delayed release 20 mg PO DAILY 02/25/20 acetaminophen 500 mg capsule 500 mg PO Q6H PRN 02/27/20 aspirin-caffeine 400 mg-32 mg tablet 2 tab PO BID tab 02/27/20 fluticasone propionate 50 mcg/actuation nasal spray,suspension 1 spray INTRANASAL DAILY 02/27/20 ibuprofen 200 mg capsule 200 mg PO Q6H PRN 02/27/20 omega-3 900 mg-dha 320 mg-epa 580 mg-fish oil 1,360 mg capsule cap PO 02/27/20 vit A 7,160 unit-vit C 113 mg-vit E 100 knka-mraw-yqsppt tablet tab PO 02/27/20 amlodipine 10 mg tablet 10 mg PO DAILY #90 tab 02/28/20 clopidogrel 75 mg tablet 75 mg PO DAILY #30 tab 03/10/20 Aspirin E.C. [Ecotrin] 81 mg PO DAILY@0800 tab 04/01/20 Primary Care Physician: Julio Montes MD [Primary Care Provider] - Test Results: Test results from this visit will be discussed in further detail at your follow-up appointment, if applicable. When: office follow up Proposed Discharge Date: 04/01/20 Cardiac Rehabilitation Info Cardiac Rehabilitation Program Information: Cardiac Rehabilitation is important for patients like you who are recovering from a heart problem. Cardiac rehabilitation programs are recognized as integral to the continued care of the patient with coronary heart disease. The cardiac rehabilitation program is designed to optimize a patient's physical, psychological, and social functioning. Health long term acute care registered nurse work in cardiac rehabilitation programs and assist you with getting the treatments you need to get stronger and healthier - like exercise, healthy eating habits, and medications. Cardiac rehabilitation has been show to help people with heart problems live longer and have better life enjoyment than people who do not go to cardiac rehabilitation. Please contact the Cardiac Rehabilitation Program at [facility] at in two weeks if you have not heard from them.
[2020-04-01 10:13] VITALS: BP 146/70; PULSE 83; RESP 15; TEMP 36.6; O2SAT 98
--- NOTE | 2020-04-03 11:42 | CL.I_ITS ---
Patient Name: JITENDRA VASQUEZ Study Date: 03/31/2020 Performing: Stephen Owens MD Ht: 62 inches 157 cm : 1950 Wt: 218.5 lbs 99 kg Age: 69 Gender: female BSA: 1.98 PROCEDURE(S) PERFORMED [id number] W OR WO PTCA, SINGLE CORONARY ARTERY CLINICAL PROFILE AND CO-MORBIDITIES Indications: Worsening Angina Heart Failure: None Stress/Imaging Date: 03/06/2020 Stress Test with SPECT MPI: Negative CAD Presentations: Unstable angina. CONCLUSIONS Successful PCI with Drug eluting stent to the mRCA RECOMMENDATIONS ASA Indefinitely, DAPT for 1 year DESCRIPTION OF PROCEDURE The patient arrived to the procedure lab. The risks and benefits of the procedure as well as a full d escription of our services here and current unavailability of surgical backup were fully explained to the patient and/or their significant other prior to the catheterization. The Timeout was completed, verifying the correct patient and procedure. The patient's procedural site was prepped and draped in the usual fashion. Local anesthetic was given subcutaneously to right radial region with Lidocaine 2% Using a modified Seldinger technique,arterial access was obtained via the right radial artery, a 6Fr sheath was inserted. Left Coronary Artery selective angiography was performed in multiple views usin g a 5 Fr. 4.0 [place] catheter. Right Coronary Artery selective angiography was then performed in multi ple views using a 5 Fr. 4.0 [place] catheter. Right Coronary Artery selective angiography was then perf ormed in multiple views using a 5 Fr. JR 5 catheter. LV to AO pullback pressures were then recorded.The images were reviewed and options discussed. A decision was then made to proceed with an Intervention, IVUS or other adjunct procedure. JR4 Guide catheter was inserted and engaged into the RCA. [employer] [place] Guide wire was advanced t o the RCA. Emerge 3.0 x 20 Balloon catheter was inserted. Balloon catheter was advanced across lesion in the right coronary, mid. PTCA balloon inflated at 12 atms for 50 secs. PTCA balloon inflated at 1 2 atms for 27 secs. [place] 3.0 x 10 Cutting balloon catheter was inserted [place] 3.0 x 10 Cutti ng balloon catheter was inserted Cutting balloon catheter was advanced to the lesion in the right cor onary, mid. Cutting balloon catheter was advanced to the lesion in the right coronary, mid. [place] Emerge 3.0 x 12 Balloon catheter was inserted. Balloon catheter was advanced across lesion in the right cor onary, mid. PTCA balloon inflated at 18 atms for 12 secs. PTCA balloon inflated at 18 atms for 16 sec s. PTCA balloon inflated at 20 atms for 25 secs. Synergy 3.0 x 28 Drug Eluting stent was inserted. Dr ug Eluting stent was advanced across the lesion in the right coronary, mid. Angiogram performed pre stent deployment. Angiogram performed post stent deployment. The arterial sheath was pulled and a TR Band was applied for hemostasis INTERVENTION INFORMATION LESION SITE: RCA (Mid) Lesion Complexity: High/C, chronic total occlusion: No, lesion at bifurcation: No, thrombus present: No, lesion length: 28 mm, culprit lesion: Yes, Previously treated lesion: No Pre Stenosis: 80 % Pre intervention JEREMY flow: 3 PROCEDURE: Cutting Balloon Angioplasty, Drug Eluting Stent with pre dilatation. Post Stenosis: 0 % Post intervention JEREMY flow: 3 Lesion Devices: [place] .014 [employer] [place] Straight 190cm Medtronic 6 Fr JR4.0 100cm Guide Catheter Freddie Sci EMERGE MR 3.00x20 BALLOON Freddie Sci [place] cutting balloon 3.0x10 Freddie Sci [place] EMERGE MR 3.00x12 BALLOON Freddie Sci Synergy MR BERNADINE 3.00x28 COMPLICATIONS No Complications PROCEDURE MEDICATIONS Versed 1 mg IV Versed 1 mg IV Oxygen: 2 L/min via nasal cannula Heparin diluted in 23cc Heparinized saline. Patient given 10cc IA of this solution. 03/31/2020 09:56 :06 Heparin 7000 unit(s) IV 03/31/2020 10:43:37 Verapamil 2.5mg, Ntg 100mcgs, 2000 units of Heparin diluted in 23cc Heparinized saline. Patient give n 10cc IA of this solution. 03/31/2020 09:56:06 SUMMARY OF HEMODYNAMIC DATA Time AIR REST ECG 08:32:33 AO 155/77 (110) SA 10:02:16 LV 156/15, 29 10:11:52 LV 152/11, 22 10:12:00 LVp 154/18, 54 10:12:15 AOp 147/67 (101) 10:12:20 Signed By Stephen Owens MD On 04/03/2020 11:41:49 AM Stephen Owens MD
== END 2020-04-01 07:48 | disposition home or self-care (01) ==
LOC: CLSP 07:59 → PCU 04-01 10:28
PROVIDERS: Specialist; PCP Family Medicine; Referring Provider Internal Medicine Cardiovascular Disease; Visit Provider Internal Medicine Cardiovascular Disease
DX: I25.110 Atherosclerotic heart disease of native coronary artery with unstable angina pectoris (principal); E11.9 Type 2 diabetes mellitus without complications; I10 Essential (primary) hypertension; I35.0 Nonrheumatic aortic (valve) stenosis; E78.5 Hyperlipidemia, unspecified; K21.9 Gastro-esophageal reflux disease without esophagitis; G47.33 Obstructive sleep apnea (adult) (pediatric); E66.9 Obesity, unspecified; Z79.82 Long term (current) use of aspirin; Z79.4 Long term (current) use of insulin; Z79.899 Other long term (current) drug therapy
CPT/HCPCS: 36415; 71046; 80048; 80053; 82962; 85025; 85027; 92928; 93005; 93454; C1725; J7030; J7040; Q9967; A4216; C1769; C1874; C1887; C1894; C9600

== ENCOUNTER → 2020-04-10 11:57 | Outpatient (CLI) | payer MEDICARE, BC, SELFPAY ==
[2020-03-31 15:41] VITALS: BMI 39.9
--- NOTE | 2020-04-10 12:03 | CR.ITP_ITS ---
Diagnosis - General Information Admitting Diagnosis: PCI W/CORONARY STENT PLACEMENT Personal Learning Style:: Audio/Visual, Written Barriers to Learning: Vision Impairment Stage of change r/t lifestyle modifications:: Action Gave educational material for:: Treating Heart Disease, Emotions & Heart Disease, Stress Management & Relaxation, Sleep Disorders & Heart Disease, How The Heart Works, What it means to have Heart Disease, How Coronary Artery Disease is Diagnosed, Heart Procedures, What Heart Medications Do, Risk Factors & Modifications, Living an Active Life, Nutrition - Education/Goals Individual Counseling: Initial Assessment: Abnormal Cholesterol Levels, High Blood Pressure, Overweight/Obesity, Diabetes, B. Waist Circumference >35/Females >40/Males, C. High Triglycerides >150 - 202, Hypertension - 164/74, Low HDL <40/Males or <50/Females - 39 Cardiac Rehabilitation Goals: 1. Maintain the individual as the primary focus of care. 2. To improve the patient's quality of life. 3. Identification of cardiac risk factors and provide cardiac risk factor management. 4. Enhance the psychosocial status of the patient. 5. Reconditioning enough to allow the patient to resume customary activities. 6. Control symptoms of cardiac disease Personal Goals: Initial Assessment: Improve management of stress and emotions, Improve energy level, Participate in home exercise program, Improve muscle strength and endurance, Control risk factors (learn risk factor modification) Scale for measuring improvement of personal goals: Enter appropriate number in Comments. 2 = Unchanged. 3 = Slightly Better. 4 = Moderate Improvement. 5 = Met my Goal - Diagnosis & Disease Process Outcomes/Goals: Pt IDs own risk factors & lifestyle modifications by Session 10, Verbalizes symptoms of angina & response by session 3., Pt independently manages Plan/Interventions: Assist Pt to ID & engage in lifestyle modification to reduce CVD risk, Instruct on individual risk factors, Review symptoms of angina & emergency actions, Review secondary diagnosis & identify educational needs. - Safety Referral to Physical Therapy: No Referral to [facility] Case Management: No Fall Risk Assessed:: Yes Assistive Devices:: None Exercise - Initial Assessment - Visit Date of Eval: 04/10/20 Session #:: 0 - PRE-CARDIAC REHAB Mets: Pre-: >5 METS for 30 minutes by discharge - Physician Prescribed Exercise Modalities: Treadmill, Airdyne, NuStep, SciFit Frequency: 3x/week for 12 weeks [36 sessions] Intensity: 60-80% of age predicted maximum heart rate reserve Current METSs:: 3.0 Target Heart Rate:: 96-126 EKG Type: NSR w/ sinus arrhythmia - Outcomes & Goals Goals:: Verbalizes understanding of THR, RPE & goal METS by session 6, Documents in home exercise log/reports 30 min aerobic 5 day/wk by DC, Demonstrates accurate pulse taking by DC - Intervention & Plan Exercise Program Goals: Instruct on personal THR & RPE, Instruct on MET level & personal MET goal, Show patient to take own pulse /validate performance until accurate, Instruct on home exercise - Physical Activity Home Exercise Physical Activity - Home Exercise: Safe Exercise, Warm-up, Self-monitoring, Cool-Down, Home Exercise > 30 min Daily, Sitting Time <3 hours/daily - Outcomes & Goals Outcomes/Goals: Demonstrates correct Warm-up/exercise Cool-Down (S3) if = 2.5 METs, Verbalizes symptoms of exercise intolerance by Session 3 (S3), Demonstrate safe equipment use (S3) & follows exercise prescrition (6) - Intervention & Plan Plan/Intervention: Instruct warm-up & cool-down if exercising at > 2 METs, Instruct on symptoms of exercise intolerance & actions to take, Instruct & monitor on saf, Assess intial functional capacity & safety risk Nutrition - Initial Assessment - Program Goals Nutrition Program Goals: LDL <100 optimal. 100 - 129 Near optimal. 130 - 159 Borderline High. 160 - 189 High. Total Cholesterol <200 desirable. 200 - 239 Borderline High. >/= 240 High. HDL < 40 Low >/=60 High. Triglycerides <150 desirable. <199 optimal. VlDL 5 - 40. HgbA1C <7%. BMI <25 Patient has diagnosis of Hyperlipidemia (ICD E78)?: Yes - Visit Date of Assessment:: 04/10/20 Session #:: 0 - PRE-CARDIAC REHAB - Cholesterol/Lipids Triglycerides (mg/dL): 202 - 01/14/2020 Total Cholesterol (mg/dL): 150 LDL Cholesterol (mg/dL): 115 HDL Cholesterol (mg/dL): 39 Determine presence & major risk factors that modify LDL goal: Hypertension or hypertensive medication, Low HDL cholesterol <40 mg/dL*, Family history of premature CHD in Male < 55 years: female <65 yearsFa, Age men > 45 years; women >/= 55 years Outcomes/Goals: Pt IDs own risk factors & lifestyle modifications by Session 10, Verbalizes symptoms of angina & response by session 3., Pt independently manages Intervention/Plan: Instruct on personal lipid levels & lipid goals/NCEP guidelines, Instruct on cholesterol Referral to dietitian:: Yes - MEDICAL NUTRITION THERAPY and DSMN & MNT - Diabetes (Other Core Measures) Diabetes Type: Diagnosis Type II ICD-10 E11 Fasting blood glucose:: 55 Hgb A1C (4.2 - 6.3): 6.6% Insulin dependent injection/pump?: Yes - GLARGINE Non-Insulin Dependent?: Yes - METFORMIN Do you monitor your blood sugar at home?: Yes Referral to Diabetic Clinic:: Yes Outcomes/Goals:: Able to state symptoms of, Able to state, Able to state Intervention/Plan:: Instruct on, Refer to, Instruct on - Weight Mgt (Other Care) Not Applicable: No Height: 5 ft 2 in Weight:: 218 lb BMI: 39.9 Diagnosis Overweight/Obesity BMI> 30% ICD-10 E66: Yes Diagnosis High BMI/Morbid Obesity BMI> 35% ICD-10 Z68: Yes Outcomes/Goals: Pt sets, maintains & shows weight loss goal & trend during rehab Intervention/Plan: Instruct on ideal BMI & set weight loss goal w/patient, Assist pt to ID & incorporate diet changes for weight loss by S9, Refer to Structured Weight Loss program as appropriate, Encourage goal of using 250- 300dcal per session for weight loss - Healthy Eating Habits Will attend diet classes:: Yes Outcomes/Goals:: Consume diet rich in vegs,fruits,whole grain/high fiber,fish,lean meat, Limit sat/trans fats,cholesterol & added salts & sugars Intervention/Plan:: Assess current eating habits - Education Gave educational materials for:: Signs & symptoms of hypoglycemia, Signs & symptoms of hyperglycemia, Relate diabetes to coronary artery disease, Healthy eating Medical - Initial Assessment - Visit Date of Eval: 04/10/20 Session #:: 0 - PRE-CARDIAC REHAB - Medication Compliance Preventative Medication(s):: Aspirin, Clopidogrel/P2Y12 inhibit, Statin/lipid, Beta anju H/O mental health issues: depression, anxiety, or addiction?: No Doesn?t believe in the benefits of treatment?: No Believes medications are unnecessary or harmful?: No Has a concern about medication side effects?: No Expresses concern over the cost of medications?: No Outcomes/Goals: Verbalizes medications,desired effect & common side effects @ DC, Pt self-reports following medication regimen, Keeps card in wallet w/medications listed by DC Interventions/plans: Instruct on medication effects & side effects, Review medication list w/patient every two weeks, Instruct importance of taking meds as ordered & assist problem solving - Tobacco Use Tobacco Use: Non-smoker - Hypertension Hypertension Diagnosis:: Hypertension ICD-10 I10 Resting Blood Pressure:: 164/74 [place] [employer] Hypertension Guidelines: [place] [employer] Hypertension Guidelines. Normal BP Less than 120/80. Elevated BP 120/80. Hypertension Stage 1: BP 130-139/80-89. Hypertesnion Stage 2: BP 140 or higher/90 or higher. Hypertension Crisis: BP higher than 180/120 Outcomes/Goals: Able to verbalize/achieve optimal blood pressure <130/80, Incor porates diet changes & exercise for blood pressure control by DC Interventions/plan: Instruct on optimal blood pressure, hypertension & medications, Instruct on effects of sodium, alcohol, stress, exercise &hypertension - Tobacco Cessation Referral Smoking Cessation Referral:: No Individual Education/Counseling:: No Education Schedule Given:: Yes Psychosocial - Initial Assess - VIsit Date of Eval: 04/10/20 Session #:: 0 - PRE-CARDIAC REHAB Not Applicable: Yes History of previous Mental disease:: No - Target Goals Target Goals: Assess presence or absence of depression. Using a valid screening tool, maximizes coping skills. Positive support system - Psychosocial Test Tool Used:: Vince Houser QOL Cardiac, PHQ-9 Questionnaire phq-9 Severity: Severity. 1-4 Minimal Depression. 5-9 Mild Depression. 10-14 Moderate Depression. 15-19 Moderately Sever Depression. 20-27 Severe Depression. Rule: - Referral to Behavioral Health PS - Interventions: Yes Attend Stress Management Classes, No Referral to Behavioral Health if PHQ-9 score >9:, No Referral to [facility], No Referral to Physician if PHQ-9 if score is 5-9: - Outcomes/Goals: See list Psychosocial Outcomes/Goals:: ID's personal stressors & 2 strategies to manage stress by discharge - Intervention/Plan: See List Interventions/Plan:: Assess stressors,coping strategies & signs of derpression on admission, Instruct/assist pt to develop coping & personal stress Mgt strategies, Instruct patient to recognize signs & symptoms of depression, I nstruct patient to recog Patient Health Questionnaire Initial Assessment 1. Little interest or pleasure in doing things: Not at all 2. Feeling down, depressed, or hopeless: Not at all 3. Trouble falling or staying asleep, or sleeping too much: Not at all 4. Feeling tired or having little energy: Several days 5. Poor appetite or overeating: Not at all 6. Feeling bad about yourself -- or that you are a failure or have let yourself or your family down: Not at all 7. Trouble concentrating on things, such as reading the newspaper or watching television: Not at all 8. Moving or speaking so slowly that other people could have noticed. Or the opposite - being so fidgety or restless that you have been moving around a lot more than usual: Not at all 9. Thoughts that you would be better off , or of hurting yourself in some way: Not at all How difficult have these problems made it for you to do your work, take care of things at home, or get along with other people?: Not difficult at all Total Score: 1 YOLANDA-Q SV Test - Statements CAD is a disease of the arteries in the heart: False Examples of risk factors for heart disease: True Angina is chest pain or discomfort: True The benefits of resistance training include: True Eating more meat and dairy products: False Anti-platelet medications such as aspirin are important: True The only effective way to manage stress: False An exercise warm-up slowly increases heart rate: True Prepared, processed foods usually have high sodium: True Depression is common after a heart attack: True The statin medications lower cholesterol: True To control blood pressure, lower the amount of sodium: True If someone gets chest discomfort during walking: False Transfats are partially hydrogenated vegetable oils: True Sleep apnea that is not treated increases the risk: I Don't Know To control cholesterol, one should become a vegetarian: False Someone knows if he/she is exercising at the right level: True Diabetes cannot be prevented with exercise & health eating: False Stress is a large risk for heart attack: True A diet that can help lower blood pressure is rich in: True - Total Score Total Correct Responses: 19 Self-Efficacy Initial Assessment We would like to know how confident you are in doing certain activities. Please select your confidence level for:: Select your confidence level for the following using the scale 1-10 where 1 is not at all confident and 10 is totally confident. Your score is the average of all 6 responses. Fatigue: How confident are you that you can keep the fatigue caused by your disease from interfering with the things you want to do? Select Number: 2 Physical Discomfort or Pain: How confident are you that you can keep the physical discomfort or pain of your disease from interfering with the things you want to do? Select Number: 2 Emotional Distress: How confident are you that you can keep the emotional distress caused by your disease from interfering with the things you want to do? Select Number: 6 Other Symptoms or Health Problems: How confident are you that you can keep other symptoms or health problems from interfering with the things you want to do? Select Number: 4 Different Tasks and Activities: How confident are you that you can do the different tasks and activities needed to manage your health condition so as to reduce your need to see a doctor? Select Number: 3 Medication: How confident are you that you can do things other than just taking medication to reduce how much your illness affects your everyday life? Select Number: 4 Total Score:: 3 Nutrition Survey - Nutrition Survey Instructions Scoring Instructions: Scoring is as follows: Yes = 1 points. No = 0 point. Patient score that is >/=12 is considered to be at potential nutritional risk and could benefit from a referral to a registered dietitian. - Nutrition Survey Initial Have you lost >10 lbs over the past 2 months without trying?: No Are you following a special diet at home for diabetes, low fat, or low salt?: No Are you interested in meeting with a dietitian for help understanding your diet?: No Do you eat less than 3 meals a day?: No Do you eat fatty meats (carter, sausage, ribs, etc), fried foods, desserts, large amounts of salad dressings, margarine, butter, or cheese most days?: No Do you have food allergies? [Enter types in comment field]: No Do you eat in restaurants more than 3 times a week?: No Do you season food with salt, seasoning salt, or garlic salt?: Yes Do you used canned, boxed, frozen meals, or soups, seasoning packets?: Yes Total Score:: 2
--- NOTE | 2020-04-10 12:03 | PCM.CR.HP2 ---
CR - History & Physical - General Arrival date:: 04/10/20 Arrival time:: 12:06 Date of Referral:: 03/31/20 Date of CR Evaluation:: 04/10/20 Referring Physician: DR. JESUS BENAVIDES Primary Diagnosis: PCI W/CORONARY STENT PLACEMENT - History of Present Cardiac Event Onset Date: Enter Onset Date of cardiac illnesses in Comment field below PTCA or coronary stenting:: Yes - 03/31/2020 Type of Symptoms:: EXTREME SHORTNESS OF BREATH ON INCLINES AND FLAT END OF SUMMER TO PCP, WAS REFERRED TO DR. BENAVIDES DUE TO INCREASE IN SYMPTOMS AND AORTIC VALVE INSUFFICIENCY. DR. BENAVIDES THEN BEGAN WITH STRESS TEST, ECHO AND HEART CATH AND SUBSEQUENTLY HAD ONE STENT PLACED IN CORONARY ARTERY. Were there any complications?: NO - Medications Home Medications: Ambulatory Orders Medication Instructions Recorded albuterol sulfate 90 mcg/actuation 2 puff INHALATION Q6H PRN 02/25/20 aerosol inhaler atorvastatin 10 mg tablet 10 mg PO QHS tab 02/25/20 calcium carbonate 200 mg calcium 200 mg PO BID 02/25/20 (500 mg) chewable tablet fexofenadine 60 mg tablet 60 mg PO BID 02/25/20 glipizide 10 mg tablet, extended 10 mg PO DAILY tab 02/25/20 release 24 hr hydrochlorothiazide 25 mg tablet 25 mg PO DAILY tab 02/25/20 insulin glargine 100 unit/mL 50 unit SC BID ml 02/25/20 subcutaneous solution lisinopril 20 mg tablet 20 mg PO BID tab 02/25/20 metformin 500 mg tablet 1,000 mg PO BID tab 02/25/20 omeprazole 20 mg capsule,delayed 20 mg PO DAILY 02/25/20 release acetaminophen 500 mg capsule 500 mg PO Q6H PRN 02/27/20 fluticasone propionate 50 1 spray INTRANASAL DAILY 02/27/20 mcg/actuation nasal spray,suspension ibuprofen 200 mg capsule 200 mg PO Q6H PRN 02/27/20 omega-3 900 mg-dha 320 mg-epa 580 cap PO 02/27/20 mg-fish oil 1,360 mg capsule vit A 7,160 unit-vit C 113 mg-vit tab PO 02/27/20 E 100 [id number] tablet amlodipine 10 mg tablet 10 mg PO DAILY #90 tab 02/28/20 clopidogrel 75 mg tablet 75 mg PO DAILY #30 tab 03/10/20 Aspirin E.C. [Ecotrin] 81 mg PO DAILY@0800 tab 04/01/20 - Allergies Allergies/Adverse Reactions: Allergies etodolac Allergy (Verified 02/25/20 21:38) [facility] - Sleep Disorder Evaluation Hx of Sleep Apnea: Yes Do you snore loudly (louder than talking or can be heard through closed doors)?: Yes - Diagnosed with DIANA has home equipment. 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 Living Will: No Advance Directives Information Provided: Yes Advance Directives on File: No DNR Order?:: No - MOLST See MOLST form: No Past Medical History - Covid-19 Screening Fever: No Unexplained muscle aches: No Current respiratory symptoms: No Upper respiratory infections symptoms: No - Gastro-intestinal symptoms: Yes - H/O GERD Mng-Jvhk-Qfwesa symptoms: No Has tested positive for COVID-19 in last 30 days: No Had contact w/person w/symptoms or Covid-19 (+) last 14 days: No Has High Risk Exposures ID'd by Health dept/Inf Control team: No 65 years or older:: No Lives in Assisted Living facility:: No Has a chronic lung disease or moderate to severe asthma:: No Has a serious heart condition:: Yes Immunocompromised:: No Severely obese (Body Mass Index of 40 or higher):: Yes Diabetic:: Yes Has chronic kidney disease undergoing dialysis:: Yes Has liver disease:: No - Past Medical Illness Medical History: Past Medical History (Last Updated 03/31/20 @ 10:31 by Sandrita William) Atherosclerotic heart disease of [place] coronary artery without angina pectoris (Chronic) I25.10 Nonrheumatic aortic (valve) stenosis (Chronic) I35.0 Essential (primary) hypertension (Chronic) I10 Hyperlipidemia (Chronic) E78.5 Left ventricular diastolic dysfunction (Chronic) I51.9 Allergic rhinitis J30.9 GERD (gastroesophageal reflux disease) K21.9 Obesity E66.9 Obstructive sleep apnea G47.33 Type 2 diabetes mellitus E11.9 - Past Surgical History Surgical History: Past Surgical History (Last Updated 03/31/20 @ 20:08 by Sandrita William) History of coronary artery stent placement (Chronic) Onset Date: 03/31/20 Z95.5 PCI-Cutting balloon angioplasty and BERNADINE-Mid RCA w/ 3.0 x 28 mm Synergy Stent 03/31/2020 History of tonsillectomy Z90.89 - Family History Summary Family History: Family History (Last Reviewed 02/27/20 @ 11:[address] 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 - Hobbies, Recreation, Social Activities Hobbies: Reading, Other - grandchildren, family, volunteer work. Recreational Activities: I am able to engage in most, but not all activities Social Environment - Status Marital Status: - Current Living Arrangements Living Environment:: Alone - Children How many children do you have?: 4 - daughters Do any of your children live nearby?: Yes - Safety Do you feel safe in your surroundings?: Yes - Assistance Do you need any assistance at home?: no Review of Systems - Review of Systems Hints: Right click = Denies (Slash). Left click = Reports ([place]) Review of Present Symptoms: Reports: Shortness of Breath with Exertion - minimally shortness of breath still with inclines but not waht it was like prior to the stent., Angina - still has some occasional angina, Fatigue, Appetite - Normal, Sleep - Normal. Denies: Shortness of Breath at Rest, Dizziness/Lightheadedness, Appetite - Special Diet - Pain Is Patient Pain Free?: Yes Pain Location: none Pain Level: 0/10 Risk Factor Assessment - Chief Complaint Chief Complaint: [address] BENAVIDES WHO PRESENTS TO CARDIAC REHAB TODAY FOLLOWING RECENT HOSPITALIZATION AND CARDIAC TESTING. SHE UNDERWENT A HEART CATH ON 03/31/2020 AND SUBSEQUENTLY HAD COROANRY STENT PLACEMENT. - Vital Signs Temperature: 97.3 F Respiratory Rate: 16 Pulse Ox: 98 Blood Pressure: 164/74 - Pulse Pulse Rate: 74 Pulse Rhythm: Regular - Hypertension Blood Pressure Sitting - Left Arm: 164/74 - Blood Cholesterol/Lipids Total Cholesterol (mg/dL) Goal = less than 200 mg/dL: 150 - 01/14/2020 HDL Cholesterol (mg/dL) Goal = less than 40 mg/dL: 39 LDL Cholesterol (mg/dL) Goal = less than 70 mg/dL: 115 Triglycerides (mg/dL) Goal = less than 150 mg/dL: 202 - Diabetes Diabetic History: Type II Nutrition Referral for Diabetes: Yes - Obesity Height: 5 ft 2 in Weight:: 218 lb Weight in Pounds: 218.0 lbs Weight Source: Standing Scale Body Mass Index (BMI): 39.9 Nutritional Referral for Obesity: Yes - Physical Inactivity Physical Inactivity: Reg Exercise 30 min/day, Recreational activity - Risk Stratification Risk Guidelines: Lowest Risk: Risk Factor for Smoking, Risk Factor for Sedentary Lifestyle, Risk Factor for Depression, Moderate Risk: Risk Factor for Dyslipidemia, Risk Factor for Diabetes - FSBS 55; A1C 6.6%, Risk Factor for Hypertension - 164/74 ON MEDICATIONS, Highest Risk: Risk Factor for Obesity - For Smoking Smoking Risk Guidelines: Smoking Low Risk: None or quit greater than 6 months ago. Smoking Moderate Risk: Smoker or quit 6 months or less ago. Smoking High Risk: Smoker - For Dyslipidemia Dyslipidemia Risk Guidelines: Low Risk: Moderate Risk: High Risk: 15-25% fat 25.1-29% fat >/= 30% fat. <7% sat fat 7-9% sat fat >9% sat fat. <150 mg chol 150-299 mg chol >/= 300 mg chol. LDL <100 LDL 100-129 LDL >/= 130. Chol/HDL ratio <5.0 Chol/HDL ratio 5.0-6.0 Chol/HDL ratio >6.0. Triglycerides <100 Triglycerides 100-149 Triglycerides >/= 150 - For Diabetes Mellitus Diabetes Risk Guidelines: Diabetes Low Risk: HgA1c <6.5% and/or FBG <120. Diabetes Moderate Risk: HgA1c 6.6-7.9% and/or FBG 120-180. Diabetes High Risk: HgA1c >/= 8% and/or FBG >180 - For Obesity/Overweight Obesity/Overweight Risk Guidelines: Obesity Low Risk: BMI <25.0. Obesity Moderate Risk: BMI 25-29.9. Obesity High Risk: BMI >/= 30.0 - For Hypertension Hypertension Risk Guidelines: Hypertension Low Risk: Systolic <120 and Diastolic <80. Hypertension Moderate Risk: Systolic 120-139 and Diastolic 80-89. Hypertension High Risk: Systolic >/= 140 and Diastolic >/= 90 - For Sedentary Lifestyle Sedentary Lifestyle Risk Guidelines: Sedentary Lifestyle Low Risk: >/= 1,500 kcal/week. Sedentary Lifestyle Moderate Risk: 700-1,499 kcal/week. Sedentary Lifestyle High Risk: < 700 kcal/week - For Depression Depression Risk Guidelines: Depression Low Risk: Not clinically depressed. Depression Moderate Risk: Mildly depressed. Depression High Risk: Clinically depressed - Family History Family History: Family History (Last Reviewed 02/27/20 @ 11:[address] Jesus Benavides MD) Father Heart disease Mother Hypertension Motivation - Motivation to Participate On a scale of 1 to 10, how prepared are you to commit to attending program?: 4 - what my heart tells me. My head says a 9!! What do you see as barriers to successfully being able to complete the program?: Flat foot w/rigged braces, walk to much hurts arches-Dont use then hip hurt What do you see as the benefits of succesfully completing the program? In other words, what do you hope to get out of participating in the program?: Healthy, increase stamina and energy adn be able to do things normally. Are there issues you are dealing with that will interfere with completing the program?: still having some residual shortness of breath and angina. Do you have a spouse or signficant other, family or friends who will help support you to complete the program?: yes.
[2020-04-10 12:24] VITALS: BP 164/74; BMI 39.9
[2020-04-10 12:37] VITALS: BP 164/74; PULSE 74; RESP 16; TEMP 36.3; O2SAT 98; BMI 39.9
== END ==
PROVIDERS: PCP Family Medicine; Referring Provider Internal Medicine Cardiovascular Disease; Visit Provider Internal Medicine Cardiovascular Disease
DX: R06.00 Dyspnea, unspecified (principal); R07.9 Chest pain, unspecified; I25.10 Atherosclerotic heart disease of native coronary artery without angina pectoris; I35.0 Nonrheumatic aortic (valve) stenosis; E11.9 Type 2 diabetes mellitus without complications; I10 Essential (primary) hypertension; E78.5 Hyperlipidemia, unspecified; E66.9 Obesity, unspecified; Z95.5 Presence of coronary angioplasty implant and graft

== ENCOUNTER → 2020-04-17 | Outpatient (CLI) | payer MEDICARE, BC, SELFPAY ==
[2020-03-31 15:41] VITALS: BMI 39.9
[2020-04-10 12:24] VITALS: BMI 39.9
[2020-04-10 12:37] VITALS: BMI 39.9
== END | disposition home or self-care (01) ==
LOC: LABSPEC 13:38
PROVIDERS: PCP Family Medicine; Referring Provider Family Medicine; Visit Provider Family Medicine
DX: Z03.818 Encounter for observation for suspected exposure to other biological agents ruled out (principal)
CPT/HCPCS: 87635; U0003

== ENCOUNTER → 2020-04-21 09:49 | Outpatient (CLI) | payer MEDICARE, BC, SELFPAY ==
[2020-04-10 12:24] VITALS: BMI 39.9
[2020-04-10 12:37] VITALS: BMI 39.9
[2020-04-21 12:35] LABS: Absolute Lymphocyte Count 1.64 X10^3/uL (0.83-4.51); Absolute Neutrophil Count 5.3 X10^3/uL (2.0-7.7); Basophil# 0.04 X10^3/uL; Basophil% 0.5 % (0-1); Eosinophils% 6.2 % (0-5); Hematocrit 37.1 % (37-47); Hemoglobin 11.3 g/dL (12.0-15.0); Lymphocyte # 1.64 X10^3/ul (4.0); Lymphocyte % 20.3 % (19-41); Mean Corp Hgb Conc 30.5 g/dL (32-36); Mean Corpuscular Hgb 25.3 pg (27.0-32.0); Mean Platelet Vol. 9.7 fl (6.2-12.0); Monocyte# 0.56 X10^3/uL; Monocyte% 6.9 % (0-10); NRBC Flagged by Analyzer 0 % (0-5); Neutrophil # 5.33 X10^3/uL (2.7-7.7); Neutrophil % 65.9 % (47-70); Platelet Count 375 K/mm3 (150-450); RBC Distribution Width CV 15.7 % (11.6-14.6); RBC Distribution Width SD 47.6 fl (35.1-43.9); Red Blood Count 4.47 M/mm3 (4.2-5.4); White Blood Count 8.1 K/mm3 (4.4-11.0)
[2020-04-21 12:49] LABS: Vitamin B12 396 pg/mL (211-911)
[2020-04-21 13:35] LABS: Ferritin 8 ng/mL (8-252); Iron 38 ug/dL (50-170); Iron Binding Capacity,Total 432 ug/dL (250-450)
== END ==
PROVIDERS: PCP Family Medicine; Visit Provider Family Medicine
DX: D64.9 Anemia, unspecified (principal)
CPT/HCPCS: 36415; 82607; 82728; 82746; 83540; 83550; 85025

== ENCOUNTER → 2020-04-24 15:04 | Outpatient (CLI) | payer MEDICARE, BC, SELFPAY ==
[2020-04-10 12:24] VITALS: BMI 39.9
[2020-04-24 12:24] VITALS: BMI 39.9
[2020-04-24 16:58] LABS: BNP,B-Type NATRIURETIC PEPTIDE 42.6 pg/mL (0-100)
== END ==
PROVIDERS: PCP Family Medicine; Visit Provider Internal Medicine Cardiovascular Disease
DX: R06.00 Dyspnea, unspecified (principal)
CPT/HCPCS: 36415; 83880

== ENCOUNTER 2020-05-05 10:15 | Outpatient (RCR) | payer MEDICARE, BC, SELFPAY ==
[2020-04-10 12:24] VITALS: BMI 39.9
[2020-04-10 12:37] VITALS: BMI 39.9
== END 2020-05-05 23:59 ==
LOC: CR 10:15
PROVIDERS: PCP Family Medicine; Visit Provider Internal Medicine Cardiovascular Disease
DX: I25.10 Atherosclerotic heart disease of native coronary artery without angina pectoris (principal); Z95.5 Presence of coronary angioplasty implant and graft; I35.0 Nonrheumatic aortic (valve) stenosis; I10 Essential (primary) hypertension; E78.5 Hyperlipidemia, unspecified; R06.00 Dyspnea, unspecified; R07.9 Chest pain, unspecified
CPT/HCPCS: 93798

== ENCOUNTER 2020-05-26 10:15 | Outpatient (RCR) | payer MEDICARE, BC, SELFPAY ==
[2020-04-10 12:24] VITALS: BMI 39.9
[2020-04-24 12:24] VITALS: BMI 39.9
--- NOTE | 2020-05-09 09:26 | CR.ITP_ITS ---
Exercise - 30-day Assessment - Visit Date of Eval: 05/09/20 Session #:: 10 - Physician Prescribed Exercise Modalities: Treadmill, NuStep, SciFit Frequency: 3x/week for 12 weeks [36 sessions] Intensity: 60-80% of age predicted maximum heart rate reserve Current METSs:: 3 Target Heart Rate:: 96-126 Current RPE:: 12-13 Maximum Excercise HR:: 133 Resting Blood Pressure: 160/60 Maximum Exercise Blood Pressure: 180/70 EKG Type: NSR w/Sinus Arrythmia - Outcomes & Goals Goals:: Verbalizes understanding of THR, RPE & goal METS by session 6, Documents in home exercise log/reports 30 min aerobic 5 day/wk by DC, Demonstrates accurate pulse taking by DC, Other additional outcome/goals: see below - Intervention & Plan Exercise Program Goals: Instruct on personal THR & RPE, Instruct on MET level & personal MET goal, Show patient to take own pulse /validate performance until accurate, Instruct on home exercise, Other additional plan/int - 30-day Reassessments 30 day Reassessments:: Progressing - Physical Activity Home Exercise Physical Activity - Home Exercise: Safe Exercise, Warm-up, Self-monitoring, Cool-Down, Home Exercise > 30 min Daily, Sitting Time <3 hours/daily - Outcomes & Goals Outcomes/Goals: Demonstrates correct Warm-up/exercise Cool-Down (S3) if = 2.5 METs, Verbalizes symptoms of exercise intolerance by Session 3 (S3), Demonstrate safe equipment use (S3) & follows exercise prescrition (6), Other: See below - Intervention & Plan Plan/Intervention: Instruct warm-up & cool-down if exercising at > 2 METs, Instruct on symptoms of exercise intolerance & actions to take, Instruct & monitor on saf, Assess intial functional capacity & safety risk, Other See below - 30-day Reassessments 30 day Reassessments:: Progressing Nutrition - 30-Day Assessment - Program Goals Nutrition Program Goals: LDL <100 optimal. 100 - 129 Near optimal. 130 - 159 Borderline High. 160 - 189 High. Total Cholesterol <200 desirable. 200 - 239 Borderline High. >/= 240 High. HDL < 40 Low >/=60 High. Triglycerides <150 desirable. <199 optimal. VlDL 5 - 40. HgbA1C <7%. BMI <25 Patient has diagnosis of Hyperlipidemia (ICD E78)?: Yes - Visit Date of Assessment:: 05/09/20 Session #:: 10 - Cholesterol/Lipids Determine presence & major risk factors that modify LDL goal: Hypertension or hypertensive medication, Low HDL cholesterol <40 mg/dL*, Family history of premature CHD in Male < 55 years: female <65 yearsFa, Age men > 45 years; women >/= 55 years Outcomes/Goals: Pt IDs own risk factors & lifestyle modifications by Session 10, Verbalizes symptoms of angina & response by session 3., Pt independently manages, Other Additional Outcomes/Goals: Intervention/Plan: Advocate for lipid panel cholesterol medication if applicable, Instruct on personal lipid levels & lipid goals/NCEP guidelines, Instruct on cholesterol, Other additional plan/int Referral to dietitian:: Yes 30-day Reassessments:: Progressing - Diabetes (Other Core Measures) Diabetes Type: Diagnosis Type II ICD-10 E11 Insulin dependent injection/pump?: Yes - glargine Non-Insulin Dependent?: Yes - metformin Do you monitor your blood sugar at home?: Yes Referral to Diabetic Clinic:: Yes Outcomes/Goals:: Able to state symptoms of, Able to state, Able to state, Other additional Intervention/Plan:: Instruct on, Refer to, Instruct on, Other 30-day Reassessments:: Progressing - Weight Mgt (Other Care) Height: 5 ft 2 in Weight:: 98.883 kg BMI: 39.9 Diagnosis Overweight/Obesity BMI> 30% ICD-10 E66: Yes Diagnosis High BMI/Morbid Obesity BMI> 35% ICD-10 Z68: Yes Outcomes/Goals: Pt sets, maintains & shows weight loss goal & trend during rehab, Other additional outcomes/goals 30 day Reassessments:: Progressing - Healthy Eating Habits Will attend diet classes:: Yes Outcomes/Goals:: Consume diet rich in vegs,fruits,whole grain/high fiber,fish,lean meat, Limit sat/trans fats,cholesterol & added salts & sugars, Other additional outcome/goals: 30-day Reassessments:: Progressing Medical- 30-Day Assessment - Visit Date of Eval: 05/09/20 Session #:: 10 - Medication Compliance Preventative Medication(s):: Aspirin, Clopidogrel/P2Y12 inhibit, Statin/lipid, Beta anju H/O mental health issues: depression, anxiety, or addiction?: No Doesn?t believe in the benefits of treatment?: No Believes medications are unnecessary or harmful?: No Has a concern about medication side effects?: No Expresses concern over the cost of medications?: No Outcomes/Goals: Verbalizes medications,desired effect & common side effects @ DC, Pt self-reports following medication regimen, Keeps card in wallet w/medications listed by DC, Other additional outcome/goals: Interventions/plans: Instruct on medication effects & side effects, Review medication list w/patient every two weeks, Instruct importance of taking meds as ordered & assist problem solving, Other additional 30-day Reassessments:: Progressing - Tobacco Use Tobacco Use: Non-smoker Do you use smokeless tobacco?: No 30-day Reassessments:: Progressing - Hypertension Hypertension Diagnosis:: Hypertension ICD-10 I10 Resting Blood Pressure:: 160/60 Citizen [place] Heart [employer] Hypertension Guidelines: Citizen [place] Heart [employer] Hypertension Guidelines. Normal BP Less than 120/80. Elevated BP 120/80. Hypertension Stage 1: BP 130-139/80-89. Hypertesnion Stage 2: BP 140 or higher/90 or higher. Hypertension Crisis: BP higher than 180/120 Peak Exercise Blood Pressure:: 180/70 Outcomes/Goals: Able to verbalize/achieve optimal blood pressure <130/80, Incorporates diet changes & exercise for blood pressure control by DC, Other additional outcomes/goals Interventions/plan: Instruct on optimal blood pressure, hypertension & medications, Instruct on effects of sodium, alcohol, stress, exercise &hypertension, Other additional plan/interventions 30 day Reassessments:: Progressing - Tobacco Cessation Referral Smoking Cessation Referral:: No Individual Education/Counseling:: No Education Schedule Given:: Yes Psychosocial - 30-Day Assess - VIsit Date of Eval: 05/09/20 Session #:: 10 - Target Goals Target Goals: Assess presence or absence of depression. Using a valid screening tool, maximizes coping skills. Positive support system - Psychosocial Test phq-9 Severity: Severity. 1-4 Minimal Depression. 5-9 Mild Depression. 10-14 Moderate Depression. 15-19 Moderately Sever Depression. 20-27 Severe Depression. Rule: - Outcomes/Goals: See list Psychosocial Outcomes/Goals:: ID's personal stressors & 2 strategies to manage stress by discharge, Other Additional outcome/goals: - Intervention/Plan: See List Interventions/Plan:: Assess stressors,coping strategies & signs of derpression on admission, Instruct/assist pt to develop coping & personal stress Mgt strategies, Refer to Behavioral Health if appropriate, Refer to Physician if appropriate, Instruct patient to recognize signs & symptoms of depression, Instruct patient to recog, Other additional plan/intervention - 30-day Reassessments: 30 day Reassessments:: Progressing Patient Health Questionnaire 30-Day Re-eval Assessment 1. Little interest or pleasure in doing things: Not at all 2. Feeling down, depressed, or hopeless: Not at all 3. Trouble falling or staying asleep, or sleeping too much: Not at all 4. Feeling tired or having little energy: Several days 5. Poor appetite or overeating: Not at all 6. Feeling bad about yourself -- or that you are a failure or have let yourself or your family down: Not at all 7. Trouble concentrating on things, such as reading the newspaper or watching television: Not at all 8. Moving or speaking so slowly that other people could have noticed. Or the opposite - being so fidgety or restless that you have been moving around a lot more than usual: Not at all 9. Thoughts that you would be better off , or of hurting yourself in some way: Not at all How difficult have these problems made it for you to do your work, take care of things at home, or get along with other people?: Not difficult at all Total Score: 1 Self-Efficacy 30-Day Re-eval Assessment We would like to know how confident you are in doing certain activities. Please select your confidence level for:: Select your confidence level for the following using the scale 1-10 where 1 is not at all confident and 10 is totally confident. Your score is the average of all 6 responses. Fatigue: How confident are you that you can keep the fatigue caused by your disease from interfering with the things you want to do? Select Number: 2 Physical Discomfort or Pain: How confident are you that you can keep the physical discomfort or pain of your disease from interfering with the things you want to do? Select Number: 2 Emotional Distress: How confident are you that you can keep the emotional distress caused by your disease from interfering with the things you want to do? Select Number: 6 Other Symptoms or Health Problems: How confident are you that you can keep other symptoms or health problems from interfering with the things you want to do? Select Number: 4 Different Tasks and Activities: How confident are you that you can do the different tasks and activities needed to manage your health condition so as to reduce your need to see a doctor? Select Number: 3 Medication: How confident are you that you can do things other than just taking medication to reduce how much your illness affects your everyday life? Select Number: 4 Total Score:: 3
[2020-05-09 09:38] VITALS: BP 160/60; BP 180/70; BMI 39.9
== END 2020-06-05 23:59 ==
LOC: CR 10:15
PROVIDERS: PCP Family Medicine; Referring Provider Internal Medicine Cardiovascular Disease; Visit Provider Internal Medicine Cardiovascular Disease
DX: I25.10 Atherosclerotic heart disease of native coronary artery without angina pectoris (principal); I35.0 Nonrheumatic aortic (valve) stenosis; I11.9 Hypertensive heart disease without heart failure; E78.5 Hyperlipidemia, unspecified; R06.00 Dyspnea, unspecified; R07.9 Chest pain, unspecified; Z95.5 Presence of coronary angioplasty implant and graft
CPT/HCPCS: 93798

== ENCOUNTER → 2020-07-02 09:30 | Outpatient (CLI) | payer MEDICARE, BC, SELFPAY ==
[2020-04-24 12:24] VITALS: BMI 39.9
[2020-05-09 09:38] VITALS: BMI 39.9
[2020-07-02 11:29] LABS: Anion Gap 6 (5-15); BUN 12 mg/dL (7-18); BUN/Creat Ratio 19.3 RATIO (10-20); Calcium,Total 9.6 mg/dL (8.5-10.1); Chloride 103 mmol/L (98-107); Creatinine, Serum 0.62 mg/dL (0.55-1.02); EST Glomerular Filtration Rate 101 mL/min (>60); Est Glom Filt Rate - Afr Amer 122 mL/min (>60); Glucose 114 mg/dL (74-106); Potassium 4.2 mmol/L (3.5-5.1); Sodium Level 136 mmol/L (136-145)
== END ==
PROVIDERS: PCP Family Medicine; Referring Provider Internal Medicine Cardiovascular Disease; Visit Provider Internal Medicine Cardiovascular Disease
DX: I10 Essential (primary) hypertension (principal); E78.5 Hyperlipidemia, unspecified; I25.10 Atherosclerotic heart disease of native coronary artery without angina pectoris; I35.0 Nonrheumatic aortic (valve) stenosis; R06.00 Dyspnea, unspecified; Z95.5 Presence of coronary angioplasty implant and graft
CPT/HCPCS: 36415; 80048

== ENCOUNTER 2020-07-04 10:15 | Outpatient (RCR) | payer MEDICARE, BC, SELFPAY ==
[2020-04-24 12:24] VITALS: BMI 39.9
[2020-05-09 09:38] VITALS: BMI 39.9
[2020-06-06 00:33] VITALS: BP 160/60; BP 180/70
== END 2020-07-06 23:59 ==
LOC: CR 10:15
PROVIDERS: PCP Family Medicine; Referring Provider Internal Medicine Cardiovascular Disease; Visit Provider Internal Medicine Cardiovascular Disease
DX: I25.10 Atherosclerotic heart disease of native coronary artery without angina pectoris (principal); I35.0 Nonrheumatic aortic (valve) stenosis; I11.9 Hypertensive heart disease without heart failure; E78.5 Hyperlipidemia, unspecified; R06.00 Dyspnea, unspecified; R07.9 Chest pain, unspecified; Z95.5 Presence of coronary angioplasty implant and graft
CPT/HCPCS: 93798

== ENCOUNTER 2020-07-21 10:00 | Outpatient (RCR) | payer MEDICARE, BC, SELFPAY ==
[2020-04-24 12:24] VITALS: BMI 39.9
[2020-05-09 09:38] VITALS: BMI 39.9
[2020-07-07 00:30] VITALS: BP 160/60; BP 180/70
--- NOTE | 2020-07-11 08:15 | CR.ITP_ITS ---
Exercise - 90-day Assessment - Visit Date of Eval: 07/11/20 Session #:: 32 - Physician Prescribed Exercise Modalities: Treadmill, Airdyne, NuStep Frequency: 3x/week for 12 weeks [36 sessions] Intensity: 60-80% of age predicted maximum heart rate reserve Current METSs:: 3.5 limited by physical disability (feet ankles) Target Heart Rate:: 96-126 Current RPE:: 12-13 Maximum Excercise HR:: 128 Resting Blood Pressure: 128/64 Maximum Exercise Blood Pressure: 170/62 EKG Type: NSR to sinus tachycardia with rare PVCs - Outcomes & Goals Goals:: Verbalizes understanding of THR, RPE & goal METS by session 6, Documents in home exercise log/reports 30 min aerobic 5 day/wk by DC, Demonstrates accurate pulse taking by DC - Intervention & Plan Exercise Program Goals: Instruct on personal THR & RPE, Instruct on MET level & personal MET goal, Show patient to take own pulse /validate performance until accurate, Instruct on home exercise - 30-day Reassessments 30 day Reassessments:: Not Met - Physical Activity Home Exercise Physical Activity - Home Exercise: Safe Exercise, Warm-up, Self-monitoring, Cool-Down, Home Exercise > 30 min Daily, Sitting Time <3 hours/daily - Outcomes & Goals Outcomes/Goals: Demonstrates correct Warm-up/exercise Cool-Down (S3) if = 2.5 METs, Verbalizes symptoms of exercise intolerance by Session 3 (S3), Demonstrate safe equipment use (S3) & follows exercise prescrition (6) - Intervention & Plan Plan/Intervention: Instruct warm-up & cool-down if exercising at > 2 METs, Instruct on symptoms of exercise intolerance & actions to take, Instruct & monitor on saf, Assess intial functional capacity & safety risk - 30-day Reassessments 30 day Reassessments:: Not Met Nutrition - 90-Day Assessment - Program Goals Nutrition Program Goals: LDL <100 optimal. 100 - 129 Near optimal. 130 - 159 Borderline High. 160 - 189 High. Total Cholesterol <200 desirable. 200 - 239 Borderline High. >/= 240 High. HDL < 40 Low >/=60 High. Triglycerides <150 desirable. <199 optimal. VlDL 5 - 40. HgbA1C <7%. BMI <25 Patient has diagnosis of Hyperlipidemia (ICD E78)?: Yes - Visit Date of Assessment:: 07/11/20 Session #:: 32 - Cholesterol/Lipids Determine presence & major risk factors that modify LDL goal: Hypertension or hypertensive medication Outcomes/Goals: Pt IDs own risk factors & lifestyle modifications by Session 10, Verbalizes symptoms of angina & response by session 3., Pt independently manages Intervention/Plan: Instruct on personal lipid levels & lipid goals/NCEP guidelines, Instruct on cholesterol Referral to dietitian:: No - Patient declined 30-day Reassessments:: Progressing - Diabetes (Other Core Measures) Diabetes Type: Diagnosis Type II ICD-10 E11 Insulin dependent injection/pump?: Yes Do you monitor your blood sugar at home?: Yes Referral to Diabetic Clinic:: No - patient declined Outcomes/Goals:: Able to state symptoms of, Able to state, Able to state Intervention/Plan:: Instruct on, Instruct on 30-day Reassessments:: Progressing - Weight Mgt (Other Care) Not Applicable: No Height: 5 ft 2 in Weight:: 214 lb BMI: 39.1 Diagnosis Overweight/Obesity BMI> 30% ICD-10 E66: Yes Diagnosis High BMI/Morbid Obesity BMI> 35% ICD-10 Z68: Yes Outcomes/Goals: Pt sets, maintains & shows weight loss goal & trend during rehab Intervention/Plan: Instruct on ideal BMI & set weight loss goal w/patient, Assist pt to ID & incorporate diet changes for weight loss by S9, Encourage goal of using 250-300dcal per session for weight loss 30 day Reassessments:: Not Met - no weight loss - Healthy Eating Habits Will attend diet classes:: Yes Outcomes/Goals:: Consume diet rich in vegs,fruits,whole grain/high fiber,fish,lean meat, Limit sat/trans fats,cholesterol & added salts & sugars Intervention/Plan:: Assess current eating habits 30-day Reassessments:: Not Met Medical- 90-Day Assessment - Visit Date of Eval: 07/11/20 Session #:: 32 - Medication Compliance Preventative Medication(s):: Aspirin, Ticagrelor/P2Y12 inhibitor, Statin/lipid, Beta anju H/O mental health issues: depression, anxiety, or addiction?: No Doesn?t believe in the benefits of treatment?: No Believes medications are unnecessary or harmful?: No Has a concern about medication side effects?: No Expresses concern over the cost of medications?: No Outcomes/Goals: Verbalizes medications,desired effect & common side effects @ DC, Pt self-reports following medication regimen, Keeps card in wallet w/medications listed by DC Interventions/plans: Instruct on medication effects & side effects, Review medication list w/patient every two weeks, Instruct importance of taking meds as ordered & assist problem solving 30-day Reassessments:: Progressing - Tobacco Use Tobacco Use: Non-smoker - Hypertension Hypertension Diagnosis:: Hypertension ICD-10 I10 Resting Blood Pressure:: 128/64 [place] [employer] Hypertension Guidelines: [place] [employer] Hypertension Guidelines. Normal BP Less than 120/80. Elevated BP 120/80. Hypertension Stage 1: BP 130-139/80-89. Hypertesnion Stage 2: BP 140 or higher/90 or higher. Hypertension Crisis: BP higher than 180/120 Peak Exercise Blood Pressure:: 170/62 Outcomes/Goals: Able to verbalize/achieve optimal blood pressure <130/80, Incorporates diet changes & exercise for blood pressure control by DC Interventions/plan: Instruct on optimal blood pressure, hypertension & medications, Instruct on effects of sodium, alcohol, stress, exercise &hypertension 30 day Reassessments:: Progressing - Tobacco Cessation Referral Smoking Cessation Referral:: No Individual Education/Counseling:: No Education Schedule Given:: Yes Psychosocial - 90-Day Assess - VIsit Date of Eval: 07/11/20 Session #:: 32 Not Applicable: Yes History of previous Mental disease:: No - Target Goals Target Goals: Assess presence or absence of depression. Using a valid screening tool, maximizes coping skills. Positive support system - Psychosocial Test Tool Used:: PHQ-9 Questionnaire phq-9 Severity: Severity. 1-4 Minimal Depression. 5-9 Mild Depression. 10-14 Moderate Depression. 15-19 Moderately Sever Depression. 20-27 Severe Depression. Rule: - Referral to Behavioral Health PS - Interventions: Yes Attend Stress Management Classes, No Referral to Behavioral Health if PHQ-9 score >9:, No Referral to [facility], No Referral to Physician if PHQ-9 if score is 5-9: - Outcomes/Goals: See list Psychosocial Outcomes/Goals:: ID's personal stressors & 2 strategies to manage stress by discharge - Intervention/Plan: See List Interventions/Plan:: Assess stressors,coping strategies & signs of derpression on admission, Instruct/assist pt to develop coping & personal stress Mgt strategies, Instruct patient to recognize signs & symptoms of depression, Instruct patient to recog - 30-day Reassessments: 30 day Reassessments:: Progressing Patient Health Questionnaire 90-Day Re-eval Assessment 1. Little interest or pleasure in doing things: Not at all 2. Feeling down, depressed, or hopeless: Not at all 3. Trouble falling or staying asleep, or sleeping too much: Not at all 4. Feeling tired or having little energy: Not at all 5. Poor appetite or overeating: Not at all 6. Feeling bad about yourself -- or that you are a failure or have let yourself or your family down: Not at all 7. Trouble concentrating on things, such as reading the newspaper or watching television: Not at all 8. Moving or speaking so slowly that other people could have noticed. Or the opposite - being so fidgety or restless that you have been moving around a lot more than usual: Not at all 9. Thoughts that you would be better off , or of hurting yourself in some way: Not at all How difficult have these problems made it for you to do your work, take care of things at home, or get along with other people?: Not difficult at all Total Score: 0 Self-Efficacy 90-Day Re-eval Assessment We would like to know how confident you are in doing certain activities. Please select your confidence level for:: Select your confidence level for the following using the scale 1-10 where 1 is not at all confident and 10 is totally confident. Your score is the average of all 6 responses. Fatigue: How confident are you that you can keep the fatigue caused by your disease from interfering with the things you want to do? Select Number: 10 Physical Discomfort or Pain: How confident are you that you can keep the physical discomfort or pain of your disease from interfering with the things you want to do? Select Number: 10 Emotional Distress: How confident are you that you can keep the emotional distress caused by your disease from interfering with the things you want to do? Select Number: 10 Other Symptoms or Health Problems: How confident are you that you can keep other symptoms or health problems from interfering with the things you want to do? Select Number: 10 Different Tasks and Activities: How confident are you that you can do the dif ferent tasks and activities needed to manage your health condition so as to reduce your need to see a doctor? Select Number: 10 Medication: How confident are you that you can do things other than just taking medication to reduce how much your illness affects your everyday life? Select Number: 10 Total Score:: 10
[2020-07-11 08:24] VITALS: BP 128/64; BP 170/62; BMI 39.1
== END 2020-08-03 23:59 ==
LOC: CR 10:00
PROVIDERS: PCP Family Medicine; Referring Provider Internal Medicine Cardiovascular Disease; Visit Provider Internal Medicine Cardiovascular Disease
DX: I25.10 Atherosclerotic heart disease of native coronary artery without angina pectoris (principal); I35.0 Nonrheumatic aortic (valve) stenosis; I11.9 Hypertensive heart disease without heart failure; E78.5 Hyperlipidemia, unspecified; R06.00 Dyspnea, unspecified; R07.9 Chest pain, unspecified; Z95.5 Presence of coronary angioplasty implant and graft
CPT/HCPCS: 93798

== ENCOUNTER → 2020-08-28 10:51 | Outpatient (CLI) | payer MEDICARE, BC, SELFPAY ==
[2020-04-24 12:24] VITALS: BMI 39.9
[2020-07-11 08:24] VITALS: BMI 39.1
[2020-08-28 12:38] LABS: Absolute Neutrophil Count 6.5 X10^3/uL (2.0-7.7); Basophil# 0.04 X10^3/uL; Basophil% 0.5 % (0-1); Eosinophil# 0.34 X10^3/uL; Eosinophils% 3.8 % (0-5); Hemoglobin 13.2 g/dL (12.0-15.0); Lymphocyte % 14.7 % (19-41); Mean Corp Hgb Conc 32.2 g/dL (32-36); Mean Corpuscular Hgb 27.8 pg (27.0-32.0); Mean Corpuscular Volume 86.5 fL (81-99); Mean Platelet Vol. 9.8 fl (6.2-12.0); Monocyte# 0.63 X10^3/uL; Monocyte% 7.1 % (0-10); NRBC Flagged by Analyzer 0 % (0-5); Neutrophil # 6.52 X10^3/uL (2.7-7.7); Neutrophil % 73.4 % (47-70); Platelet Count 359 K/mm3 (150-450); RBC Distribution Width CV 13.3 % (11.6-14.6); RBC Distribution Width SD 42.1 fl (35.1-43.9); Red Blood Count 4.74 M/mm3 (4.2-5.4); White Blood Count 8.9 K/mm3 (4.4-11.0)
[2020-08-28 12:53] LABS: AST(SGOT) 22 U/L (15-37); Alanine Aminotransfer ALT/SGPT 29 U/L (13-56); Alkaline Phosphatase 177 U/L (45-117); Anion Gap 7 (5-15); BUN 10 mg/dL (7-18); BUN/Creat Ratio 15.2 RATIO (10-20); Calcium,Total 9.6 mg/dL (8.5-10.1); Chloride 97 mmol/L (98-107); Creatinine, Serum 0.66 mg/dL (0.55-1.02); EST Glomerular Filtration Rate 94 mL/min (>60); Est Glom Filt Rate - Afr Amer 114 mL/min (>60); Ferritin 17 ng/mL (8-252); Globulin 3.9 g/dL (2.2-4.2); Glucose 185 mg/dL (74-106); Protein, Total 7.9 g/dL (6.4-8.2); Sodium Level 130 mmol/L (136-145)
== END ==
PROVIDERS: PCP Family Medicine; Referring Provider Family Medicine; Visit Provider Family Medicine
DX: E11.9 Type 2 diabetes mellitus without complications (principal); D50.9 Iron deficiency anemia, unspecified
CPT/HCPCS: 36415; 80053; 82728; 85025

== ENCOUNTER → 2020-09-17 09:07 | Outpatient (CLI) | payer MEDICARE, BC, SELFPAY ==
[2020-04-24 12:24] VITALS: BMI 39.9
[2020-07-11 08:24] VITALS: BMI 39.1
[2020-09-17 10:46] LABS: BNP,B-Type NATRIURETIC PEPTIDE 100.4 pg/mL (0-100)
[2020-09-17 11:01] LABS: Albumin, Serum 3.6 g/dL (3.2-5.0); BUN 12 mg/dL (7-18); BUN/Creat Ratio 22.2 RATIO (10-20); Creatinine, Serum 0.54 mg/dL (0.55-1.02); EST Glomerular Filtration Rate 118 mL/min (>60); Est Glom Filt Rate - Afr Amer 143 mL/min (>60); Glucose 87 mg/dL (74-106); Protein, Total 7.1 g/dL (6.4-8.2)
[2020-09-17 11:02] LABS: AST(SGOT) 12 U/L (15-37); Alanine Aminotransfer ALT/SGPT 19 U/L (13-56); Alkaline Phosphatase 154 U/L (45-117); Anion Gap 7 (5-15); Chloride 103 mmol/L (98-107); Globulin 3.5 g/dL (2.2-4.2); Potassium 3.6 mmol/L (3.5-5.1); Sodium Level 136 mmol/L (136-145)
== END ==
PROVIDERS: PCP Family Medicine; Referring Provider Family Medicine; Visit Provider Family Medicine
DX: I10 Essential (primary) hypertension (principal); R06.00 Dyspnea, unspecified; R05 Cough
CPT/HCPCS: 36415; 80053; 83880

== ENCOUNTER → 2020-10-03 11:58 | Outpatient (CLI) | payer MEDICARE, BC, SELFPAY ==
[2020-04-24 12:24] VITALS: BMI 39.9
[2020-07-11 08:24] VITALS: BMI 39.1
[2020-10-03 18:45] LABS: ALB/GLOB Ratio 1.2 RATIO (0.9-2.4); AST(SGOT) 13 U/L (15-37); Alanine Aminotransfer ALT/SGPT 19 U/L (13-56); Albumin, Serum 3.8 g/dL (3.2-5.0); Alkaline Phosphatase 135 U/L (45-117); Anion Gap 12 (5-15); BUN 18 mg/dL (7-18); BUN/Creat Ratio 24.2 RATIO (10-20); Calcium,Total 9.4 mg/dL (8.5-10.1); Chloride 99 mmol/L (98-107); Creatinine, Serum 0.74 mg/dL (0.55-1.02); EST Glomerular Filtration Rate 82 mL/min (>60); Est Glom Filt Rate - Afr Amer 99 mL/min (>60); Globulin 3.2 g/dL (2.2-4.2); Glucose 262 mg/dL (74-106); Potassium 4.2 mmol/L (3.5-5.1); Sodium Level 134 mmol/L (136-145)
== END ==
PROVIDERS: PCP Family Medicine; Referring Provider Family Medicine; Visit Provider Family Medicine
DX: I10 Essential (primary) hypertension (principal)
CPT/HCPCS: 36415; 80053

== ENCOUNTER → 2020-10-29 08:08 | Outpatient (CLI) | payer MEDICARE, BC, SELFPAY ==
[2020-07-11 08:24] VITALS: BMI 39.1
[2020-10-22 09:34] VITALS: BMI 39.9
--- NOTE | 2020-10-29 10:27 | PFTCOMP_ITS ---
COMPLETE PULMONARY FUNCTION TEST INTERPRETATION Brief HPI: Patient is a 69 year old female, currently under the care of Julio Baldwin, who presents to [facility] for complete pulmonary function tests secondary to diagnosis of dyspnea. Respiratory therapist reports good effort and reproducible results. Interpretation: Forced expiration spirometry shows a mild large airways obstructive ventilatory defect with an FEV1 of 91% predicted. There is no significant bronchodilator response by strict ATS criteria. Spirograms are of good quality and plateau slowly, indicating slowly emptying areas of the lungs. The respiratory flow volume loop shows decreased expiratory flow rates at all lung volumes consistent with airway obstruction. Lung volumes by body plethysmography show a normal total lung capacity at 3.98 L, 90% predicted. All other lung volumes are within normal limits. Diffusion capacity by carbon monoxide is normal at 92% predicted. The airway resistance is elevated. No previous pulmonary function tests were available for review. Impression: Irreversible mild large airways obstructive ventilatory defect with preserved lung volumes and diffusing capacity.
== END ==
PROVIDERS: PCP Family Medicine; Referring Provider Nurse Practitioner Family; Visit Provider Nurse Practitioner Family
DX: R06.00 Dyspnea, unspecified (principal)
CPT/HCPCS: 94060; 94726; 94729

== ENCOUNTER → 2020-11-05 09:14 | Outpatient (CLI) | payer MEDICARE, BC, SELFPAY ==
[2020-07-11 08:24] VITALS: BMI 39.1
[2020-10-22 09:34] VITALS: BMI 39.9
[2020-11-05 10:34] LABS: Anion Gap 6 (5-15); BUN 12 mg/dL (7-18); BUN/Creat Ratio 24.2 RATIO (10-20); Calcium,Total 9.7 mg/dL (8.5-10.1); Chloride 99 mmol/L (98-107); EST Glomerular Filtration Rate 130 mL/min (>60); Est Glom Filt Rate - Afr Amer 158 mL/min (>60); Glucose 82 mg/dL (74-106); Potassium 3.9 mmol/L (3.5-5.1); Sodium Level 133 mmol/L (136-145)
== END ==
PROVIDERS: PCP Family Medicine; Referring Provider Family Medicine; Visit Provider Family Medicine
DX: I10 Essential (primary) hypertension (principal)
CPT/HCPCS: 36415; 80048

== ENCOUNTER → 2020-12-01 09:19 | Outpatient (CLI) | payer MEDICARE, BC, SELFPAY ==
[2020-07-11 08:24] VITALS: BMI 39.1
[2020-10-22 09:34] VITALS: BMI 39.9
[2020-12-01 10:19] LABS: Anion Gap 9 (5-15); BUN 10 mg/dL (7-18); BUN/Creat Ratio 18.3 RATIO (10-20); Calcium,Total 9.3 mg/dL (8.5-10.1); Chloride 100 mmol/L (98-107); Creatinine, Serum 0.55 mg/dL (0.55-1.02); EST Glomerular Filtration Rate 117 mL/min (>60); Est Glom Filt Rate - Afr Amer 141 mL/min (>60); Glucose 86 mg/dL (74-106); Potassium 3.8 mmol/L (3.5-5.1); Sodium Level 139 mmol/L (136-145)
== END ==
PROVIDERS: PCP Family Medicine; Visit Provider Family Medicine
DX: I10 Essential (primary) hypertension (principal)
CPT/HCPCS: 36415; 80048

== ENCOUNTER → 2021-01-29 13:56 | Outpatient (CLI) | payer MEDICARE, BC, SELFPAY ==
[2020-07-11 08:24] VITALS: BMI 39.1
--- NOTE | 2021-01-29 13:58 | ECHOD_ITS ---
Reason For Study: NONRHEUMATIC AORTIC VALVE STENOSIS Procedure This was a 2D Doppler, Color Flow transthoracic echocardiogram. Exam performed in department. Left Ventricle Normal LV size. Left ventricular systolic function is normal. The estimated ejection fraction is 55 %. Stage 1 diastolic dysfunction. No regional wall motion abnormalities noted. Right Ventricle Normal RV size. Normal systolic function. Atria Normal left atrium. Normal right atrium. Mitral Valve Normal mitral valve. Tricuspid Valve Normal tricuspid valve. Aortic Valve Trisinus/trileaflet aortic valve. Mild focal aortic valve calcification. Peak aortic valve gradient 50 mmHg. Mean aortic valve gradient 29 mmHg. Moderate aortic stenosis. Calculated aortic valve area (continuity equation) is 0.9 cm2. Mild (1+) aortic valve insufficiency. Pulmonic Valve Normal pulmonic valve. Great Vessels Normal aortic root. The pulmonary artery is normal size. Normal inferior vena cava. Pericardium/Pleural No pericardial effusion. MMode/2D Measurements & Calculations LVIDd: 5.1 cm IVSd: 1.1 cm LVOT diam: 2.0 cm LVIDs: 3.1 cm LVPWd: 1.1 cm LVOT area: 3.0 cm2 RVDd: 3.1 cm FS: 39.3 % Ao root diam: 3.3 cm LAV(MOD-bp): 57.0 ml LA A4 area: 19.0 cm2 LAV(MOD-bp) Indexed: 29.0 ml/m2 LAV(MOD-sp2): 54.9 ml LAV(MOD-sp4): 56.6 ml LA dimension(2D): 4.3 cm Time Measurements MV dec time: 0.24 sec Doppler Measurements & Calculations MV E max jeff: 95.3 cm/sec Lat Peak E' Jeff: 6.9 cm/sec Med Peak E' Jeff: 7.1 cm/sec MV A max jeff: 103.7 cm/sec E/E' lat: 13.8 E/E' med: 13.5 MV E/A: 0.92 Ao V2 max: 355.1 cm/sec LV V1 max: 115.1 cm/sec SV(LVOT): 75.3 ml Ao max P.5 mmHg LV V1 max P.3 mmHg Ao V2 mean: 258.1 cm/sec LV V1 mean P.3 mmHg Ao mean P.2 mmHg LV V1 mean: 87.6 cm/sec Ao V2 VTI: 75.0 cm LV V1 VTI: 24.8 cm IAIN(I,D): 1.0 cm2 IAIN(V,D): 0.98 cm2 PA V2 max: 107.7 cm/sec ECHO/Echo Complete Interpretation Summary Normal LV size. Left ventricular systolic function is normal. The estimated ejection fraction is 55 %. Moderate aortic stenosis. Stage 1 diastolic dysfunction. Compared to the previous echo the gradient across the aortic valve is essential ly unchanged. Ordering Physician: Julio Baldwin Referring Physician: Julio Montes Performed By: Orquidea Amaya RDCS, RVT
== END ==
PROVIDERS: PCP Family Medicine; Referring Provider Nurse Practitioner Family; Visit Provider Nurse Practitioner Family
DX: I35.0 Nonrheumatic aortic (valve) stenosis (principal); R06.00 Dyspnea, unspecified
CPT/HCPCS: 93306

== ENCOUNTER → 2021-02-05 06:53 | Outpatient (CLI) | payer MEDICARE, BC, SELFPAY ==
[2020-07-11 08:24] VITALS: BMI 39.1
[2021-02-05] MEDS: Methacholine Chloride 18 ml neb kit INHALATION (07:13)
--- NOTE | 2021-02-05 16:12 | BRONCHALL ---
Bronchoprovocation Challenge Bronchoprovocation Challenge Bronchoprovocation Challenge: BRONCHOPROVOCATION STUDY INTERPRETATION Brief HPI: Patient is a 70 year old female, currently under the care of Dr. Santillan, who presents to [facility] for a bronchoprovocation study secondary to diagnosis of dyspnea. Respiratory therapist reports good effort and reproducible results. Interpretation: Initial spirometry showed no large airways obstructive ventilatory defect. The patient was then given increasingly concentrated doses of methacholine in a stepwise/standardized fashion, using a modified ATS protocol. The patient had a significant reduction in FEV1 by 29% and a calculated PD20 of 0.314. Impression: Positive bronchoprovocation study in a range consistent with increased bronchial reactivity
== END ==
PROVIDERS: PCP Family Medicine; Referring Provider Internal Medicine Critical Care Medicine; Visit Provider Internal Medicine Critical Care Medicine
DX: R06.00 Dyspnea, unspecified (principal)
CPT/HCPCS: 94070; 95070

== ENCOUNTER 2021-06-08 08:09 | Outpatient (CLI) | payer MEDICARE, BC, SELFPAY ==
[2020-07-11 08:24] VITALS: BMI 39.1
[2021-06-08 10:12] LABS: Hemoglobin 12.9 g/dL (12.0-15.0); Mean Corp Hgb Conc 33.1 g/dL (32-36); Mean Corpuscular Hgb 29.1 pg (27.0-32.0); Mean Corpuscular Volume 87.8 fL (81-99); Mean Platelet Vol. 9.6 fl (6.2-12.0); Platelet Count 336 K/mm3 (150-450); RBC Distribution Width CV 12.9 % (11.6-14.6); RBC Distribution Width SD 41.5 fl (35.1-43.9); Red Blood Count 4.44 M/mm3 (4.2-5.4); White Blood Count 9.2 K/mm3 (4.4-11.0)
[2021-06-08 11:00] LABS: ALB/GLOB Ratio 0.8 RATIO (0.9-2.4); AST(SGOT) 12 U/L (15-37); Alanine Aminotransfer ALT/SGPT 23 U/L (13-56); Albumin, Serum 3.5 g/dL (3.2-5.0); Alkaline Phosphatase 152 U/L (45-117); Anion Gap 9 (5-15); BUN 15 mg/dL (7-18); BUN/Creat Ratio 22.8 RATIO (10-20); Calcium,Total 9.9 mg/dL (8.5-10.1); Chloride 101 mmol/L (98-107); Cholesterol 192 mg/dL (200); Creatinine, Serum 0.66 mg/dL (0.55-1.02); EST Glomerular Filtration Rate 94 mL/min (>60); Est Glom Filt Rate - Afr Amer 113 mL/min (>60); Globulin 4.2 g/dL (2.2-4.2); Glucose 107 mg/dL (74-106); High Density Lipoprotein 51 mg/dL; Potassium 3.7 mmol/L (3.5-5.1); Protein, Total 7.7 g/dL (6.4-8.2); Sodium Level 136 mmol/L (136-145); Triglycerides 174 mg/dL; Very Low Density Lipoprotein 35 mg/dL (5-40)
== END 2021-06-08 23:59 | disposition short-term general hospital (02) ==
LOC: MTLAB 08:11
PROVIDERS: Referring Provider Registered Nurse; Visit Provider Registered Nurse
DX: E11.9 Type 2 diabetes mellitus without complications (principal)
CPT/HCPCS: 36415; 80053; 80061; 83036; 85027

== ENCOUNTER → 2021-12-02 | Outpatient (CLI) | payer MEDICARE, BC, SELFPAY ==
[2020-07-11 08:24] VITALS: BMI 39.1
--- NOTE | 2021-12-02 08:15 | BI_ITS ---
MAMMOGRAPHY - BILATERAL SCREENING REASON FOR EXAM: Female, 70 years old. Routine annual screening examination. PERTINENT HISTORY: Non-contributory. TECHNIQUE: Digital bilateral breast mary anne (3D mammographic acquisition) in the CC and MLO projections. 2-D mediolateral oblique (MLO) and craniocaudad (CC) views of both breasts were obtained. CAD: Full Field Digital Mammography with Computer Added Detection was performed. COMPARISON: Comparison is made with prior study dated 04/17/2019 and 05/27/2017. FINDINGS: Breast Composition: The breasts are almost entirely fatty. There are no dominant masses or suspicious calcifications. Stable benign-appearing bilateral axillary lymph nodes. Stable calcifications along the medial inferior retroareolar region of the right breast. No other significant abnormalities are identified. There has been no significant change since the prior study. BI/SCRN MAMM (CAD)W/MARY ANNE BILAT IMPRESSION: Stable bilateral screening mammogram. Yearly follow-up mammogram recommended. (A) ASSESSMENT CATEGORY: BIRADS Category 2: Benign. A letter regarding these results will be sent to the patient by the facility within 30 days. Approximately 10% of breast cancers are not detected by mammography. A normal mammogram should not delay biopsy of a clinically suspicious abnormality. [id number] Electronically Signed: Tez Purdy MD at 10:33 EDT ,
== END | disposition home or self-care (01) ==
LOC: OPBI 08:14
PROVIDERS: PCP Family Medicine; Visit Provider Family Medicine
DX: Z12.31 Encounter for screening mammogram for malignant neoplasm of breast (principal)
CPT/HCPCS: 77063; 77067

== ENCOUNTER → 2022-01-06 | Outpatient (CLI) | payer MEDICARE, BC, SELFPAY ==
[2020-07-11 08:24] VITALS: BMI 39.1
[2022-01-06 10:03] LABS: Absolute Lymphocyte Count 2.26 X10^3/uL (0.83-4.51); Absolute Neutrophil Count 4.5 X10^3/uL (2.0-7.7); Basophil# 0.02 X10^3/uL; Basophil% 0.2 % (0-1); Eosinophil# 0.48 X10^3/uL; Eosinophils% 5.9 % (0-5); Hematocrit 38.5 % (37-47); Lymphocyte # 2.26 X10^3/ul (0.83-4.51); Mean Corp Hgb Conc 33.8 g/dL (32-36); Mean Corpuscular Hgb 29.3 pg (27.0-32.0); Mean Corpuscular Volume 86.7 fL (81-99); Mean Platelet Vol. 9.6 fl (6.2-12.0); Monocyte% 9.9 % (0-10); NRBC Flagged by Analyzer 0 % (0-5); Neutrophil # 4.48 X10^3/uL (2.7-7.7); Neutrophil % 55.6 % (47-70); Platelet Count 306 K/mm3 (150-450); RBC Distribution Width CV 12.5 % (11.6-14.6); RBC Distribution Width SD 39.8 fl (35.1-43.9); Red Blood Count 4.44 M/mm3 (4.2-5.4); White Blood Count 8.1 K/mm3 (4.4-11.0)
[2022-01-06 10:17] LABS: Hemoglobin A1c 6.8 % (3.8-5.6)
[2022-01-06 10:23] LABS: ALB/GLOB Ratio 1.1 RATIO (0.9-2.4); AST(SGOT) 20 U/L (15-37); Alanine Aminotransfer ALT/SGPT 24 U/L (13-56); Albumin, Serum 3.6 g/dL (3.2-5.0); Alkaline Phosphatase 113 U/L (45-117); Anion Gap 7 (5-15); BUN 10 mg/dL (7-18); BUN/Creat Ratio 17.6 RATIO (10-20); Calcium,Total 9.3 mg/dL (8.5-10.1); Chloride 99 mmol/L (98-107); Cholesterol 164 mg/dL (200); Creatinine, Serum 0.57 mg/dL (0.55-1.02); EST Glomerular Filtration Rate 111 mL/min (>60); Est Glom Filt Rate - Afr Amer 135 mL/min (>60); Globulin 3.2 g/dL (2.2-4.2); Glucose 85 mg/dL (74-106); High Density Lipoprotein 49 mg/dL; Potassium 3.7 mmol/L (3.5-5.1); Protein, Total 6.8 g/dL (6.4-8.2); Sodium Level 131 mmol/L (136-145); Triglycerides 164 mg/dL; Very Low Density Lipoprotein 33 mg/dL (5-40)
[2022-01-06 10:29] LABS: Microalbumin,Random Urine 53.5 mg/L (NO RANGE EST.)
== END | disposition home or self-care (01) ==
LOC: MTLAB 07:24
PROVIDERS: PCP Family Medicine; Referring Provider Family Medicine; Visit Provider Family Medicine
DX: E11.69 Type 2 diabetes mellitus with other specified complication (principal); J45.909 Unspecified asthma, uncomplicated
CPT/HCPCS: 36415; 80053; 80061; 82043; 82570; 83036; 85025

== ENCOUNTER → 2022-02-10 | Outpatient (CLI) | payer MEDICARE, BC, SELFPAY ==
[2020-07-11 08:24] VITALS: BMI 39.1
--- NOTE | 2022-02-10 14:34 | ECHOD_ITS ---
Version 2 Reason For Study: Valve Replacement Eval Procedure This was a 2D Doppler, Color Flow transthoracic echocardiogram. Exam performed in department. Left Ventricle Normal LV size. Left ventricular systolic function is normal. The estimated ejection fraction is 60 %. No regional wall motion abnormalities noted. Right Ventricle Normal RV size. Normal systolic function. Atria Normal left atrium. Normal right atrium. Patent foramen ovale. Mitral Valve There is mild mitral annular calcification. The mitral papillary muscle appears thickened and/or calcified. Trivial eccentric mitral valve insufficiency. Tricuspid Valve Normal tricuspid valve. Trivial tricuspid valve insufficiency. Aortic Valve Trisinus/trileaflet aortic valve. Moderate focal aortic valve calcification. Peak aortic valve gradient 70 mmHg. Mean aortic valve gradient 38 mmHg. Severe aortic stenosis. Pulmonic Valve Normal pulmonic valve. Great Vessels Calcified aortic root. The pulmonary artery is normal size. Normal inferior vena cava. Pericardium/Pleural No pericardial effusion. MMode/2D Measurements & Calculations LVIDd: 4.5 cm IVSd: 1.0 cm LVOT diam: 2.0 cm LVIDs: 3.1 cm LVPWd: 1.2 cm LVOT area: 3.1 cm2 RVDd: 2.8 cm FS: 29.8 % Ao root diam: 3.2 cm LAV(MOD-bp): 59.4 ml LVAd ap4: 22.6 cm2 LAV(MOD-bp) Indexed: 30.6 ml/m2 LVLd ap4: 6.7 cm LAV(MOD-sp2): 47.3 ml EDV(MOD-sp4): 63.6 ml LAV(MOD-sp4): 68.7 ml EDV(sp4-el): 64.2 ml LVAs ap4: 11.6 cm2 LVLs ap4: 5.2 cm ESV(MOD-sp4): 22.7 ml ESV(sp4-el): 21.8 ml EF(MOD-sp4): 64.3 % EF(sp4-el): 66.0 % SV(MOD-sp4): 40.9 ml SV(sp4-el): 42.3 ml Aortic Valve Planimetry: 0.78 cm2 LA A4 area: 21.7 cm2 LA dimension(2D): 3.8 cm RA A4 area: 9.6 cm2 Doppler Measurements & Calculations MV E max jeff: 93.2 cm/sec Lat Peak E' Jeff: 6.7 cm/sec Med Peak E' Jeff: 6.2 cm/sec MV A max jeff: 99.1 cm/sec E/E' lat: 13.9 E/E' med: 15.1 MV E/A: 0.94 Ao V2 max: 418.6 cm/sec LV V1 max: 95.8 cm/sec SV(LVOT): 61.7 ml Ao max P.2 mmHg LV V1 max P.7 mmHg Ao V2 mean: 286.3 cm/sec LV V1 mean P.0 mmHg Ao mean P.8 mmHg LV V1 mean: 66.8 cm/sec Ao V2 VTI: 92.7 cm LV V1 VTI: 20.1 cm IAIN(I,D): 0.67 cm2 IAIN(V,D): 0.70 cm2 PA V2 max: 119.2 cm/sec TR max jeff: 180.6 cm/sec TR max P.0 mmHg ECHO/Echo Complete Interpretation Summary Normal LV size. Left ventricular systolic function is normal. The estimated ejection fraction is 60 %. Moderate focal aortic valve calcification. Mean aortic valve gradient 38 mmHg. Severe aortic stenosis. Prior to the previous echo the aortic stenosis is worse. Patent foramen ovale. Ordering Physician: Jesus Andrea Referring Physician: Jareth Hidalgo Performed By: Elsy Baldwin, PABLO, RVT
== END | disposition home or self-care (01) ==
LOC: CVS 14:33
PROVIDERS: PCP Family Medicine; Referring Provider Internal Medicine Cardiovascular Disease; Visit Provider Internal Medicine Cardiovascular Disease
DX: I35.0 Nonrheumatic aortic (valve) stenosis (principal); R06.00 Dyspnea, unspecified; I25.10 Atherosclerotic heart disease of native coronary artery without angina pectoris; I10 Essential (primary) hypertension; E78.5 Hyperlipidemia, unspecified; I51.9 Heart disease, unspecified; J45.20 Mild intermittent asthma, uncomplicated; G47.10 Hypersomnia, unspecified; Z95.5 Presence of coronary angioplasty implant and graft
CPT/HCPCS: 93306

== ENCOUNTER → 2022-02-25 | Outpatient (CLI) | payer MEDICARE, BC, SELFPAY ==
[2020-07-11 08:24] VITALS: BMI 39.1
--- NOTE | 2022-02-25 14:44 | RAD_ITS ---
INDICATION: chest pain EXAMINATION/TECHNIQUE: X-RAY - XR Chest 2 Views COMPARISON: Chest x-rays dating back to 05/06/2016. FINDINGS: LINES/DEVICES: None. LUNGS: There is a soft tissue density visualized along the inferomedial aspect of the right hemithorax, this demonstrated gradual progression in comparison to the prior studies, also visualized on the lateral view measuring 8.8 x 4.9 cm on the frontal view, differential diagnosis would include a mass or a diaphragmatic hernia. Note is made of slight increased distance between the medial aspect of the right ribs at this level in comparison to the left Prominence of the right hilum is visualized, peribronchial cuffing is visualized. No evidence of focal lung consolidation is seen. No evidence of pneumothorax or pleural effusion. MEDIASTINUM AND CARDIOVASCULAR STRUCTURES: Cardiac silhouette not enlarged. BONES AND SOFT TISSUES: Degenerative bone changes seen. RAD/Chest PA and Lateral IMPRESSION: Soft tissue density along the inferomedial aspect of the right hemithorax would recommend a CT scan of the chest for optimal evaluation. Electronically Signed: Benjamin Mueller MD at 15:54 EDT ,
[2022-02-25 15:47] LABS: Absolute Lymphocyte Count 1.98 X10^3/uL (0.83-4.51); Basophil# 0.04 X10^3/uL; Basophil% 0.4 % (0-1); Eosinophil# 0.26 X10^3/uL; Eosinophils% 2.9 % (0-5); Hematocrit 37.3 % (37-47); Hemoglobin 12.5 g/dL (12.0-15.0); Lymphocyte # 1.98 X10^3/ul (0.83-4.51); Lymphocyte % 22.2 % (19-41); Mean Corp Hgb Conc 33.5 g/dL (32-36); Mean Corpuscular Hgb 28.7 pg (27.0-32.0); Mean Corpuscular Volume 85.6 fL (81-99); Mean Platelet Vol. 9.4 fl (6.2-12.0); Monocyte# 0.59 X10^3/uL; Monocyte% 6.6 % (0-10); NRBC Flagged by Analyzer 0 % (0-5); Neutrophil % 67.5 % (47-70); Platelet Count 330 K/mm3 (150-450); RBC Distribution Width CV 13.5 % (11.6-14.6); RBC Distribution Width SD 42.3 fl (35.1-43.9); Red Blood Count 4.36 M/mm3 (4.2-5.4); White Blood Count 8.9 K/mm3 (4.4-11.0)
[2022-02-25 16:53] LABS: Anion Gap 9 (5-15); BUN 9 mg/dL (7-18); BUN/Creat Ratio 14.5 RATIO (10-20); Calcium,Total 9.5 mg/dL (8.5-10.1); Chloride 97 mmol/L (98-107); Creatinine, Serum 0.62 mg/dL (0.55-1.02); EST Glomerular Filtration Rate 100 mL/min (>60); Est Glom Filt Rate - Afr Amer 121 mL/min (>60); Glucose 169 mg/dL (74-106); Potassium 3.7 mmol/L (3.5-5.1); Sodium Level 131 mmol/L (136-145)
== END | disposition home or self-care (01) ==
PROVIDERS: PCP Family Medicine; Referring Provider Internal Medicine Cardiovascular Disease; Visit Provider Internal Medicine Cardiovascular Disease
DX: R07.9 Chest pain, unspecified (principal); R06.00 Dyspnea, unspecified; I25.10 Atherosclerotic heart disease of native coronary artery without angina pectoris; I35.0 Nonrheumatic aortic (valve) stenosis; I10 Essential (primary) hypertension; E78.5 Hyperlipidemia, unspecified; Z95.5 Presence of coronary angioplasty implant and graft
CPT/HCPCS: 36415; 71046; 80048; 85025

== ENCOUNTER 2022-03-01 07:45 | Day surgery (SDC) | payer MEDICARE, BC, SELFPAY ==
[2020-07-11 08:24] VITALS: BMI 39.1
[2022-02-26 07:26] VITALS: BMI 38.0
--- NOTE | 2022-03-01 09:22 | CL.D_ITS ---
Patient Name: JITENDRA VASQUEZ Study Date: 03/01/2022 Performing: Jesus Andrea MD Ht: 62 inches 157.48 cm : 1950 Wt: 208.01 lbs 94.35 kg Age: 71 Gender: female BSA: 1.94 PROCEDURE(S) PERFORMED [id number]-([id number])[facility] CL[facility]ICAL PROFILE AND INDICATIONS Indications: Valvular Disease Heart Failure: None Stress/Imaging Stress/Image Study Performed: No CAD Presentations: Symptom unlikely to be ischemic. CONCLUSIONS Mild to moderate coronary disease with previously stented right coronary artery which is patent RECOMMENDATIONS We will send for TAVR evaluation DESCRIPTION OF PROCEDURE The patient arrived to the procedure lab. The risks and benefits of the procedure as well as a full description of our services here and current unavailability of surgical backup were fully explained to the patient and/or their significant other prior to the catheterization. The Timeout was completed, verifying the correct patient and procedure. The patient's procedural site was prepped and draped in the usual fashion. Local anesthetic was given subcutaneously to right radial region with Lidocaine 2%. Using a modified Seldinger technique, arterial access was obtained via the right radial artery, a 6Fr sheath was inserted. Left Coronary Artery selective angiography was performed in multiple views using a 5 Fr. 4.0 [place] catheter. Right Coronary Artery selective angiography was then performed in multiple views using a 5 Fr. 4.0 [place] catheter.The arterial sheath was pulled and a TR Band was applied for hemostasis CORONARY ANGIOGRAPHY DOMINANCE: Right Dominant LEFT HEART ASSESSMENT Left Ventricular Ejection Fraction: by LV Gram 70 % Normal LV wall motion Normal Left Ventricular systolic function LEFT MAIN: Mild calcification, Distal 30% % Stenosis LEFT ANTERIOR DESCENDING ARTERY: Mild luminal irregularities less than 30% DISTAL LAD: 65 % Stenosis CIRCUMFLEX ARTERY: Mild luminal irregularities RIGHT CORONARY ARTERY: Diffusely diseased up to 40 % MID RCA: Previously placed stent is patent RT PDA: Ostial - 60 % Stenosis VALVE FINDINGS: Aortic Valve Calcification - moderate Aortic Valve Stenosis - severe COMPLICATIONS No Complications PROCEDURE MEDICATIONS Fentanyl 50 mcg IV Versed 1 mg IV Oxygen: 2 L/min via nasal cannula Heparin given IA 03/01/2022 08:52:58 Verapamil 2.5mg, Ntg 100mcgs, 3000 units of Heparin given IA 03/01/2022 08:52:58 SUMMARY OF HEMODYNAMIC DATA Time AIR REST ECG 08:08:59 ECG 08:34:57 Art 176/58 (94) 08:46:21 AO 133/58 (88) SA 08:54:33 09:15:43 Signed By Jesus Andrea MD On 03/01/2022 09:21:51 Jesus Andrea MD
== END 2022-03-01 10:20 | disposition home or self-care (01) ==
LOC: CLSP 07:46
PROVIDERS: PCP Family Medicine; Referring Provider Internal Medicine Cardiovascular Disease; Visit Provider Internal Medicine Cardiovascular Disease
DX: I25.10 Atherosclerotic heart disease of native coronary artery without angina pectoris (principal); E11.9 Type 2 diabetes mellitus without complications; Z79.4 Long term (current) use of insulin; I35.0 Nonrheumatic aortic (valve) stenosis; Z95.5 Presence of coronary angioplasty implant and graft; I10 Essential (primary) hypertension; E66.9 Obesity, unspecified; G47.33 Obstructive sleep apnea (adult) (pediatric); Z79.82 Long term (current) use of aspirin; Z79.02 Long term (current) use of antithrombotics/antiplatelets; Z79.899 Other long term (current) drug therapy
CPT/HCPCS: 93454; 99152; 99153; J7040; C1769; C1894; Q9967

== ENCOUNTER → 2022-03-04 | Outpatient (CLI) | payer MEDICARE, BC, SELFPAY ==
[2020-07-11 08:24] VITALS: BMI 39.1
--- NOTE | 2022-03-04 13:35 | CT_ITS ---
STUDY: CT CHEST WITH CONTRAST REASON FOR EXAM: Female, 71 years old. Soft tissue density along the inferomedial aspect RADIATION DOSAGE (If Supplied By Facility): CTDIvol = ( 13.30 ) mGy, DLP = ( 741.18 ) mGycm TECHNIQUE: Transaxial imaging was performed following intravenous administration of IV 100mL Isovue-300. Multiplanar coronal and sagittal images were reformatted. Individualized dose optimization techniques were used for this CT. COMPARISON: Comparison is made with prior chest radiograph dated 02/25/2022. FINDINGS: CHEST Mild linear scarring at the lung bases. The possible soft tissue density seen on the chest radiograph represents large amount of pericardial fat deposition more prominent at the right lung base. There is no demonstrated pleural abnormality. There are calcifications of the coronary arteries. Normal mediastinum. Normal hilar regions. Normal unenhanced pulmonary arteries. There is atherosclerotic calcification of the aortic arch with tortuosity and elongation of the aortic arch and descending thoracic aorta. There are multi-level degenerative changes of the thoracic spine. There is no demonstrated abnormality of the visualized upper abdomen. CT/Chest WITH Contrast IMPRESSION: No acute abnormality is seen. Electronically Signed: Tez Purdy MD at 14:37 EDT ,
== END | disposition home or self-care (01) ==
LOC: CT 13:35
PROVIDERS: PCP Family Medicine; Referring Provider Internal Medicine Cardiovascular Disease; Visit Provider Internal Medicine Cardiovascular Disease
DX: R91.8 Other nonspecific abnormal finding of lung field (principal); R06.00 Dyspnea, unspecified; R07.9 Chest pain, unspecified; G47.33 Obstructive sleep apnea (adult) (pediatric); J45.909 Unspecified asthma, uncomplicated; I35.0 Nonrheumatic aortic (valve) stenosis; I25.10 Atherosclerotic heart disease of native coronary artery without angina pectoris; Z95.5 Presence of coronary angioplasty implant and graft
CPT/HCPCS: 71260; Q9967

== ENCOUNTER → 2022-03-29 | Outpatient (CLI) | payer MEDICARE, BC, SELFPAY ==
[2020-07-11 08:24] VITALS: BMI 39.1
[2022-03-29 09:38] LABS: Anion Gap 6 (5-15); BUN 10 mg/dL (7-18); BUN/Creat Ratio 18.8 RATIO (10-20); Calcium,Total 9.4 mg/dL (8.5-10.1); Chloride 98 mmol/L (98-107); Creatinine, Serum 0.53 mg/dL (0.55-1.02); EST Glomerular Filtration Rate 119 mL/min (>60); Est Glom Filt Rate - Afr Amer 144 mL/min (>60); Glucose 130 mg/dL (74-106); Sodium Level 132 mmol/L (136-145)
== END | disposition home or self-care (01) ==
LOC: LAB 08:26
PROVIDERS: PCP Family Medicine
DX: I35.0 Nonrheumatic aortic (valve) stenosis (principal)
CPT/HCPCS: 36415; 80048

== ENCOUNTER → 2022-05-04 | Outpatient (CLI) | payer MEDICARE, BC, SELFPAY ==
[2020-07-11 08:24] VITALS: BMI 39.1
[2022-05-04 16:22] LABS: Hematocrit 39.9 % (37-47); Hemoglobin 12.9 g/dL (12.0-15.0); Mean Corp Hgb Conc 32.3 g/dL (32-36); Mean Corpuscular Hgb 28.4 pg (27.0-32.0); Mean Corpuscular Volume 87.9 fL (81-99); Mean Platelet Vol. 9.4 fl (6.2-12.0); Platelet Count 373 K/mm3 (150-450); RBC Distribution Width CV 13.2 % (11.6-14.6); RBC Distribution Width SD 42.5 fl (35.1-43.9); Red Blood Count 4.54 M/mm3 (4.2-5.4); White Blood Count 11.9 K/mm3 (4.4-11.0)
[2022-05-04 17:18] LABS: Anion Gap 11 (5-15); BUN 15 mg/dL (7-18); BUN/Creat Ratio 17.3 RATIO (10-20); Calcium,Total 9.7 mg/dL (8.5-10.1); Chloride 98 mmol/L (98-107); Creatinine, Serum 0.87 mg/dL (0.55-1.02); EST Glomerular Filtration Rate 68 mL/min (>60); Est Glom Filt Rate - Afr Amer 82 mL/min (>60); Glucose 268 mg/dL (74-106); Potassium 4.3 mmol/L (3.5-5.1); Sodium Level 133 mmol/L (136-145); Thyroid Stim Hormone (TSH) 0.34 uIU/mL (0.358-3.74)
== END | disposition home or self-care (01) ==
LOC: LAB 15:55
PROVIDERS: PCP Family Medicine; Visit Provider Internal Medicine Cardiovascular Disease
DX: R00.0 Tachycardia, unspecified (principal); R00.2 Palpitations; Z95.2 Presence of prosthetic heart valve
CPT/HCPCS: 36415; 80048; 84443; 85027

== ENCOUNTER → 2022-05-06 | Outpatient (CLI) | payer MEDICARE, BC, SELFPAY ==
[2020-07-11 08:24] VITALS: BMI 39.1
[2022-05-06 11:10] LABS: Hemoglobin A1c 6.7 % (3.8-5.6)
[2022-05-06 11:32] LABS: ALB/GLOB Ratio 1.2 RATIO (0.9-2.4); AST(SGOT) 11 U/L (15-37); Alanine Aminotransfer ALT/SGPT 23 U/L (13-56); Albumin, Serum 3.7 g/dL (3.2-5.0); Alkaline Phosphatase 98 U/L (45-117); BUN 14 mg/dL (7-18); BUN/Creat Ratio 22.8 RATIO (10-20); Calcium,Total 9.2 mg/dL (8.5-10.1); Cholesterol 184 mg/dL (200); Creatinine, Serum 0.61 mg/dL (0.55-1.02); EST Glomerular Filtration Rate 102 mL/min (>60); Est Glom Filt Rate - Afr Amer 123 mL/min (>60); Globulin 3.1 g/dL (2.2-4.2); Glucose 118 mg/dL (74-106); Protein, Total 6.8 g/dL (6.4-8.2); Triglycerides 253 mg/dL
[2022-05-06 11:33] LABS: Anion Gap 11 (5-15); Chloride 96 mmol/L (98-107); High Density Lipoprotein 50 mg/dL; Potassium 3.5 mmol/L (3.5-5.1); Sodium Level 131 mmol/L (136-145); Very Low Density Lipoprotein 51 mg/dL (5-40)
== END | disposition home or self-care (01) ==
LOC: PSN 09:51 → LAB 10:19
PROVIDERS: PCP Family Medicine; Referring Provider Nurse Practitioner Family; Visit Provider Nurse Practitioner Family
DX: R00.0 Tachycardia, unspecified (principal); E11.69 Type 2 diabetes mellitus with other specified complication
CPT/HCPCS: 36415; 80053; 80061; 83036; 93225; 93226

== ENCOUNTER → 2022-05-12 | Outpatient (CLI) | payer MEDICARE, BC, SELFPAY ==
[2020-07-11 08:24] VITALS: BMI 39.1
== END | disposition home or self-care (01) ==
PROVIDERS: PCP Family Medicine; Referring Provider Nurse Practitioner Family; Visit Provider Nurse Practitioner Family
DX: R00.0 Tachycardia, unspecified (principal)
CPT/HCPCS: 93225; 93226

== ENCOUNTER → 2022-05-25 | Outpatient (CLI) | payer MEDICARE, BC, SELFPAY ==
[2020-07-11 08:24] VITALS: BMI 39.1
[2022-05-25 16:48] LABS: Hepatitis B Surface Antibody Non-Reactive; Hepatitis B Surface Antigen Non-Reactive (Nonreactive); Hepatitis C Antibody Non-Reactive (Nonreactive)
[2022-05-27 16:28] LABS: Hepatitis B Core Ab Total Negative (Negative)
== END | disposition home or self-care (01) ==
LOC: MTLAB 12:37
PROVIDERS: PCP Family Medicine; Referring Provider Physician Assistant; Visit Provider Physician Assistant
DX: L40.0 Psoriasis vulgaris (principal); L43.8 Other lichen planus; L89.319 Pressure ulcer of right buttock, unspecified stage; L89.159 Pressure ulcer of sacral region, unspecified stage
CPT/HCPCS: 36415; 86704; 86706; 86803; 87340

== ENCOUNTER → 2022-07-12 | Outpatient (CLI) | payer MEDICARE, BC, SELFPAY ==
[2020-07-11 08:24] VITALS: BMI 39.1
--- NOTE | 2022-07-12 09:30 | CR.HP_ITS ---
CR - History & Physical - General Arrival date:: 07/12/22 Arrival time:: 09:20 Date of Referral:: 06/17/22 Date of CR Evaluation:: 07/12/22 Referring Physician: DR. ALLYSSA BENAVIDES Primary Diagnosis: S/P TAVR PROCEDURE - History of Present Cardiac Event Onset Date: Enter Onset Date of cardiac illnesses in Comment field below Acute Myocardial Infarction within 12 months:: Yes - 03/31/2020 Heart valve replacement or repair:: Yes - TAVR PROCEDURE @ [facility] [place] PTCA or coronary stenting:: Yes - 03/31/2020 Were there any complications?: NO - Sleep Disorder Evaluation Hx of Sleep Apnea: Yes Do you snore loudly (louder than talking or can be heard through closed doors)?: Yes - HISTORY OF INSOMNIA & DIANA Do you often feel tired/ fatigued/ sleepy during daytime?: Yes - if it is a bad night of tossing & turning from insomnia Has anyone observed you stop breathing during sleep?: No History of Hypertension (for STOP score): Yes STOP Results: Positive - Medications Home Medications: Ambulatory Orders Medication Instructions Recorded albuterol sulfate 90 mcg/actuation 2 puff inhalation Q6H PRN Sob &/Or 02/25/20 aerosol inhaler Wheezing atorvastatin 10 mg tablet 10 mg PO QHS 02/25/20 glipizide 10 mg tablet, extended 10 mg PO DAILY 02/25/20 release 24 hr insulin glargine 100 unit/mL 50 unit subcut BID 02/25/20 subcutaneous solution lisinopril 20 mg tablet 20 mg PO BID 02/25/20 metformin 500 mg tablet 1,000 mg PO BID 02/25/20 omeprazole 20 mg capsule,delayed 20 mg PO DAILY 02/25/20 release acetaminophen 500 mg capsule 500 mg PO Q6H PRN Pain 1-10 Or 02/27/20 Fever ibuprofen 200 mg capsule 200 mg PO Q6H PRN Pain Score 1-10 02/27/20 amlodipine 10 mg tablet 10 mg PO DAILY #90 tabs 02/28/20 aspirin 81 mg tablet,delayed 81 mg PO DAILY@0800 04/01/20 release hydrochlorothiazide 25 mg tablet 25 mg PO DAILY 10/22/20 spacer #1 ea 04/15/21 montelukast 10 mg tablet 10 mg PO DAILY #90 tabs 08/11/21 fluticasone propionate 230 2 puff inhalation BID #12 grams 02/22/22 mcg-salmeterol 21 mcg/actuation HFA inhaler fluticasone propionate 50 1 spray intranasal DAILY #16 grams 02/22/22 mcg/actuation nasal spray,suspension clopidogrel 75 mg tablet (Plavix) 75 mg PO DAILY #90 tabs 06/08/22 calcium carbonate 500 mg calcium 500 mg PO DAILY 06/10/22 (1,250 mg) chewable tablet fexofenadine 180 mg tablet 180 mg PO DAILY 06/10/22 multivitamin,tx-minerals 1 tab PO DAILY 06/10/22 omega-3 fatty acids 1,000 mg 1,000 mg PO DAILY 06/10/22 capsule vit C 250 mg-vit E 90 mg-zinc 40 1 tab PO BID 06/10/22 mg-copper 1 [id number] capsule (PreserVision AREDS-2) amoxicillin 500 mg tablet 2,000 mg PO ONCE PRN SBE #4 tabs 06/17/22 zinc gluconate 30 mg tablet 30 mg PO DAILY 06/17/22 - Allergies Allergies/Adverse Reactions: Allergies etodolac Allergy (Verified 06/17/22 10:26) Swelling verito Advanced Directives - Advanced Directives Power of Building Performance Specialist: Yes Living Will: No Advance Directives Information Provided: Yes Advance Directives on File: No DNR Order?:: No - MOLST See MOLST form: No Past Medical History - Covid-19 Screening Fever: No Unexplained muscle aches: No Current respiratory symptoms: No Upper respiratory infections symptoms: No Gastro-intestinal symptoms: Yes - HISTORY OF GERD [id number] symptoms: Yes - ALLERGIC RHINITIS Has tested positive for COVID-19 in last 30 days: No Date of testin07/12/22 - fully vaccinated with both boosters Had contact w/person w/symptoms or Covid-19 (+) last 14 days: No Has High Risk Exposures ID'd by Health dept/Inf Control team: No 65 years or older:: Yes Lives in Assisted Living facility:: No Has a chronic lung disease or moderate to severe asthma:: No Has a serious heart condition:: Yes Immunocompromised:: No Severely obese (Body Mass Index of 40 or higher):: No Diabetic:: Yes Has chronic kidney disease undergoing dialysis:: No Has liver disease:: No - Past Medical Illness Medical History: Past Medical History (Last Updated 06/10/22 @ 09:57 by Anna Mccollum) Allergic rhinitis J30.9 Atherosclerotic heart disease of [place] coronary artery without angina pectoris I25.10 Essential (primary) hypertension I10 GERD (gastroesophageal reflux disease) K21.9 Hyperlipidemia E78.5 Hypersomnia G47.10 Left ventricular diastolic dysfunction I51.9 Nonrheumatic aortic (valve) stenosis I35.0 S/P TAVR on 04/12/2022 at [facility] with a 23 mm sapient S3 ultra valve; Obesity E66.9 Obstructive sleep apnea G47.33 Type 2 diabetes mellitus E11.9 - Past Surgical History Surgical History: Past Surgical History (Last Updated 06/10/22 @ 09:57 by Anna Mccollum) History of coronary artery stent placement Onset Date: 03/31/20 Z95.5 PCI-Cutting balloon angioplasty and BERNADINE-Mid RCA w/ 3.0 x 28 mm Synergy Stent 03/31/2020 History of left heart catheterization Onset Date: 03/01/22 Z98.890 History of tonsillectomy Z90.89 History of transcatheter aortic valve replacement (TAVR) Onset Date: 04/12/22 Z95.2 TAVR with 23 mm SILVESTRE S3 ultra 04/12/2022 - Family History Summary Family History: Family History (Last Updated 06/10/22 @ 09:59 by Anna Mccollum) Father Heart disease Idiopathic CMP 73 2 brothers and sister with Idiopathic CMP Mother Hypertension CAD (coronary artery disease) Grandmother Myocardial infarction Grandfather Myocardial infarction Social History - Smoking History Smoking Status: Never smoker Hx Tobacco Use: No Hx Smoking Exposure: No - Alcohol Use Alcohol Usage: No - Substance Abuse Hx Substance Use: No - Occupation Occupation (List type of work in comments):: Employed - Works at [employer], Contactual Hours worked per day:: 6 - 2 to 7 hours three days per week. - Hobbies, Recreation, Social Activities Hobbies: Sewing, Reading - reading, puzzles, Walking, Exercise, Other Recreational Activities: I am able to engage in most, but not all activities Social Environment - Status Marital Status: - Current Living Arrangements Living Environment:: Alone - Children How many children do you have?: 4 Do any of your children live nearby?: Yes - within 15 minutes - Safety Do you feel safe in your surroundings?: Yes - Assistance Do you need any assistance at home?: no Review of Systems - Review of Systems Hints: Right click = Denies (Slash). Left click = Reports ([place]) Review of Present Symptoms: Reports: Dizziness/Lightheadedness - occasionally in the morning when first waken, Fatigue - haven't been able to regain the energy, Appetite - Normal, Sleep - Normal. Denies: Shortness of Breath at Rest, Shortness of Breath with Exertion, Wound Healing, Appetite - Special Diet, Sexual Changes - Pain Pain Location: pelvis - Hips, when sleeping, upper extremity - shoulders at night sleeping Pain Level: 06/15 Risk Factor Assessment - Vital Signs Temperature: 98.6 F Respiratory Rate: 18 Pulse Ox: 96 Blood Pressure: 136/74 - Pulse Pulse Rate: 65 Pulse Rhythm: Regular - Hypertension Blood Pressure Sitting - Left Arm: 136/74 - Blood Cholesterol/Lipids Total Cholesterol (mg/dL) Goal = less than 200 mg/dL: 184 HDL Cholesterol (mg/dL) Goal = less than 40 mg/dL: 50 LDL Cholesterol (mg/dL) Goal = less than 70 mg/dL: 83 Triglycerides (mg/dL) Goal = less than 150 mg/dL: 253 - Diabetes Diabetic History: Type II, Medication Dependent, Insulin Dependent Nutrition Referral for Diabetes: Yes - Obesity Height: 5 ft 2 in Weight:: 205 lb Weight in Pounds: 205.0 lbs Weight Source: Estimated by Patient Body Mass Index (BMI): 37.5 Nutritional Referral for Obesity: Yes - Physical Inactivity Physical Inactivity: Recreational activity - Risk Stratification Risk Guidelines: Lowest Risk: Risk Factor for Smoking, Risk Factor for Sedentary Lifestyle, Risk Factor for Depression, Moderate Risk: Risk Factor for Dyslipidemia, Risk Factor for Diabetes - Glucose 118 A1c 6.7, Risk Factor for Hypertension - 136/74, Highest Risk: Risk Factor for Obesity - BMI 37.5 - Family History Family History: Family History (Last Updated 06/10/22 @ 09:59 by Anna Mccollum) Father Heart disease Mother Hypertension CAD (coronary artery disease) Grandmother Myocardial infarction Grandfather Myocardial infarction Motivation - Motivation to Participate On a scale of 1 to 10, how prepared are you to commit to attending program?: 9 What do you see as barriers to successfully being able to complete the program?: no What do you see as the benefits of succesfully completing the program? In other words, what do you hope to get out of participating in the program?: regain energy, stamina Are there issues you are dealing with that will interfere with completing the program?: no Do you have a spouse or signficant other, family or friends who will help support you to complete the program?: yes
--- NOTE | 2022-07-12 09:31 | CR.ITP_ITS ---
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[place], [place] Personal Learning Style:: Audio/Visual, Written Barriers to Learning: Hearing Impairment, Vision Impairment Stage of change r/t lifestyle modifications:: Action Gave educational material for:: Treating Heart Disease, Emotions & Heart Disease, Stress Management & Relaxation, Sleep Disorders & Heart Disease, How The Heart Works, What it means to have Heart Disease, How Coronary Artery Disease is Diagnosed, Heart Procedures, What Heart Medications Do, Risk Factors & Modifications, Living an Active Life, Nutrition - Education/Goals Individual Counseling: Initial Assessment: Abnormal Cholesterol Levels, High Blood Pressure, Overweight/Obesity, Diabetes, A. Fasting Blood Sugar >100 - 118 A1c 6.7%, B. Waist Circumference >35/Females >40/Males, C. High Triglycerides >150 - 253, Hypertension - 136/74 Cardiac Rehabilitation Goals: 1. Maintain the individual as the primary focus of care. 2. To improve the patient's quality of life. 3. Identification of cardiac risk factors and provide cardiac risk factor management. 4. Enhance the psychosocial status of the patient. 5. Reconditioning enough to allow the patient to resume customary activities. 6. Control symptoms of cardiac disease Personal Goals: Initial Assessment: Improve management of stress and emotions, Improve energy level, Improve muscle strength and endurance, Improve diet and eating habits (eat healthier), Control risk factors (learn risk factor modification) Scale for measuring improvement of personal goals: Enter appropriate number in Comments. 2 = Unchanged. 3 = Slightly Better. 4 = Moderate Improvement. 5 = Met my Goal - Diagnosis & Disease Process Outcomes/Goals: Pt IDs own risk factors & lifestyle modifications by Session 10, Verbalizes symptoms of angina & response by session 3., Pt independently manages Plan/Interventions: Assist Pt to ID & engage in lifestyle modification to reduce CVD risk, Instruct on individual risk factors, Review symptoms of angina & emergency actions, Review secondary diagnosis & identify educational needs. - Safety Referral to Physical Therapy: No Referral to [facility] Case Management: No Fall Risk Assessed:: Yes - wears braces on each ankle lower extremeties Assistive Devices:: None Exercise - Initial Assessment - Visit Date of Eval: 07/12/22 Session #:: 0 - Pre-cardiac rehab evaluation Mets: Pre-: >7 METS for 30 minutes by discharge - Physician Prescribed Exercise Modalities: Treadmill, NuStep, SciFit, Lateral [employer] Frequency: 3x/week for 12 weeks [36 sessions] Intensity: 60-80% of age predicted maximum heart rate reserve Duration: 30 - 45 minutes Current METSs:: 3.0 Target Heart Rate:: 96-110 with Maximum HR 13 Resting Blood Pressure: 136/74 EKG Type: Sinus Rhythm - Outcomes & Goals Goals:: Verbalizes understanding of THR, RPE & goal METS by session 6, Documents in home exercise log/reports 30 min aerobic 5 day/wk by DC, Demonstrates accurate pulse taking by DC - Intervention & Plan Exercise Program Goals: Instruct on personal THR & RPE, Instruct on MET level & personal MET goal, Show patient to take own pulse /validate performance until accurate, Instruct on home exercise - Physical Activity Home Exercise Physical Activity - Home Exercise: Safe Exercise, Warm-up, Self-monitoring, Cool-Down, Home Exercise > 30 min Daily, Sitting Time <3 hours/daily - Outcomes & Goals Outcomes/Goals: Demonstrates correct Warm-up/exercise Cool-Down (S3) if = 2.5 METs, Verbalizes symptoms of exercise intolerance by Session 3 (S3), Demonstrate safe equipment use (S3) & follows exercise prescrition (6) - Intervention & Plan Plan/Intervention: Instruct warm-up & cool-down if exercising at > 2 METs, Instruct on symptoms of exercise intolerance & actions to take, Instruct & monitor on saf, Assess intial functional capacity & safety risk Nutrition - Initial Assessment - Program Goals Nutrition Program Goals: LDL <100 optimal. 100 - 129 Near optimal. 130 - 159 Borderline High. 160 - 189 High. Total Cholesterol <200 desirable. 200 - 239 Borderline High. >/= 240 High. HDL < 40 Low >/=60 High. Triglycerides <150 desirable. <199 optimal. VlDL 5 - 40. HgbA1C <7%. BMI <25 Patient has diagnosis of Hyperlipidemia (ICD E78)?: Yes - Visit Date of Assessment:: 07/12/22 Session #:: 0 - Pre cardiac rehab evaluation - Cholesterol/Lipids (Other Core Measures) Triglycerides (mg/dL): 253 - 07/07/2021 Total Cholesterol (mg/dL): 184 LDL Cholesterol (mg/dL): 83 HDL Cholesterol (mg/dL): 50 Determine presence & major risk factors that modify LDL goal: Hypertension or hypertensive medication, Family history of premature CHD in Male < 55 years: female <65 yearsFa, Age men > 45 years; women >/= 55 years Outcomes/Goals: Pt IDs own risk factors & lifestyle modifications by Session 10, Verbalizes symptoms of angina & response by session 3., Pt independently manages Intervention/Plan: Instruct on personal lipid levels & lipid goals/NCEP guidelines, Instruct on cholesterol Referral to dietitian:: Yes - Medical Nutrition & DMSNT - Diabetes (Other Core Measures) Diabetes Type: Diagnosis Type II ICD-10 E11 Fasting blood glucose:: 118 Hgb A1C (4.2 - 6.3): 6.7 Insulin dependent injection/pump?: Yes Non-Insulin Dependent?: Yes Do you monitor your blood sugar at home?: Yes Referral to Diabetic Clinic:: Yes Outcomes/Goals:: Able to state symptoms of, Able to state, Able to state Intervention/Plan:: Instruct on, Refer to, Instruct on - Weight Mgt (Other Care) Not Applicable: No Height: 5 ft 2 in Weight:: 205 lb BMI: 37.5 Diagnosis Overweight/Obesity BMI> 30% ICD-10 E66: Yes Diagnosis High BMI/Morbid Obesity BMI> 35% ICD-10 Z68: Yes Outcomes/Goals: Pt sets, maintains & shows weight loss goal & trend during rehab Intervention/Plan: Instruct on ideal BMI & set weight loss goal w/patient, Assist pt to ID & incorporate diet changes for weight loss by S9, Refer to Structured Weight Loss program as appropriate, Encourage goal of using 250-300dc al per session for weight loss - Healthy Eating Habits Will attend diet classes:: Yes Outcomes/Goals:: Consume diet rich in vegs,fruits,whole grain/high fiber,fish,lean meat, Limit sat/trans fats,cholesterol & added salts & sugars Intervention/Plan:: Assess current eating habits - Education Gave educational materials for:: Signs & symptoms of hypoglycemia, Signs & symptoms of hyperglycemia, Relate diabetes to coronary artery disease, Healthy eating Nutrition - 30-Day Assessment Nutrition - 60-Day Assessment Nutrition - 90-Day Assessment Nutrition - Final Assessment Core - Initial Assessment - Visit Date of Eval: 07/12/22 Session #:: 0 - Pre-cardiac rehab evaluation - Medication Compliance Preventative Medication(s):: Aspirin, Clopidogrel/P2Y12 inhibit, Statin/lipid, Beta anju, Warfarin/Coumadin H/O mental health issues: depression, anxiety, or addiction?: No Doesn?t believe in the benefits of treatment?: No Believes medications are unnecessary or harmful?: No Has a concern about medication side effects?: No Expresses concern over the cost of medications?: No Outcomes/Goals: Verbalizes medications,desired effect & common side effects @ DC, Pt self-reports following medication regimen, Keeps card in wallet w/medications listed by DC Interventions/plans: Instruct on medication effects & side effects, Review medication list w/patient every two weeks, Instruct importance of taking meds as ordered & assist problem solving - Tobacco Use Tobacco Use: Non-smoker - Hypertension Hypertension Diagnosis:: Hypertension ICD-10 I10 Resting Blood Pressure:: 136/74 [place] [employer] Hypertension Guidelines: [place] [employer] Hypertension Guidelines. Normal BP Less than 120/80. Elevated BP 120/80. Hypertension Stage 1: BP 130-139/80-89. Hypertesnion Stage 2: BP 140 or higher/90 or higher. Hypertension Crisis: BP higher than 180/120 Outcomes/Goals: Able to verbalize/achieve optimal blood pressure <130/80, Incorporates diet changes & exercise for blood pressure control by DC Interventions/plan: Instruct on optimal blood pressure, hypertension & medications, Instruct on effects of sodium, alcohol, stress, exercise &hypertension - Tobacco Cessation Referral Smoking Cessation Referral:: No Individual Education/Counseling:: No Education Schedule Given:: Yes Core - 30-Day Assessment Core - 60-Day Assessment Core - 90 Day Assessment Core - Final Assessment Psychosocial - Initial Assess - VIsit Date of Eval: 07/12/22 Session #:: 0 - Pre-cardiac rehab evaluation Not Applicable: Yes History of previous Mental disease:: No - Psychosocial Test Tool Used:: [employer] QOL Cardiac, PHQ-9 Questionnaire phq-9 Severity: Severity. 1-4 Minimal Depression. 5-9 Mild Depression. 10-14 Moderate Depression. 15-19 Moderately Sever Depression. 20-27 Severe Depression. Rule: - Referral to Behavioral Health PS - Interventions: Yes Attend Stress Management Classes, No Referral to Behavioral Health if PHQ-9 score >9:, No Referral to [facility], No Referral to Physician if PHQ-9 if score is 5-9: - Outcomes/Goals: See list Psychosocial Outcomes/Goals:: ID's personal stressors & 2 strategies to manage stress by discharge - Intervention/Plan: See List Interventions/Plan:: Assess stressors,coping strategies & signs of derpression on admission, Instruct/assist pt to develop coping & personal stress Mgt stra gustaboies, Instruct patient to recognize signs & symptoms of depression, Instruct patient to recog Psychosocial - 30-Day Assess Psychosocial - 60-Day Assess Psychosocial - 90-Day Assess Psychosocial - Final Assessmen Patient Health Questionnaire Initial Assessment 1. Little interest or pleasure in doing things: Not at all 2. Feeling down, depressed, or hopeless: Several days 3. Trouble falling or staying asleep, or sleeping too much: More than half the days 4. Feeling tired or having little energy: Several days 5. Poor appetite or overeating: More than half the days 6. Feeling bad about yourself -- or that you are a failure or have let yourself or your family down: Not at all 7. Trouble concentrating on things, such as reading the newspaper or watching television: Not at all 8. Moving or speaking so slowly that other people could have noticed. Or the opposite - being so fidgety or restless that you have been moving around a lot more than usual: Not at all 9. Thoughts that you would be better off , or of hurting yourself in some wa y: Not at all Total Score: 6 YOLANDA-Q SV Test - Statements Examples of risk factors for heart disease: True Angina is chest pain or discomfort: True The benefits of resistance training include: True Eating more meat and dairy products: False Anti-platelet medications such as aspirin are important: True The only effective way to manage stress: False An exercise warm-up slowly increases heart rate: True Prepared, processed foods usually have high sodium: True Depression is common after a heart attack: False The statin medications lower cholesterol: True To control blood pressure, lower the amount of sodium: True If someone gets chest discomfort during walking: False Transfats are partially hydrogenated vegetable oils: True Sleep apnea that is not treated increases the risk: False To control cholesterol, one should become a vegetarian: False Someone knows if he/she is exercising at the right level: True Diabetes cannot be prevented with exercise & health eating: True Stress is a large risk for heart attack: True A diet that can help lower blood pressure is rich in: True Self-Efficacy Initial Assessment We would like to know how confident you are in doing certain activities. Please select your confidence level for:: Select your confidence level for the following using the scale 1-10 where 1 is not at all confident and 10 is totally confident. Your score is the average of all 6 responses. Fatigue: How confident are you that you can keep the fatigue caused by your disease from interfering with the things you want to do? Select Number: 7 Physical Discomfort or Pain: How confident are you that you can keep the physical discomfort or pain of your disease from interfering with the things you want to do? Select Number: 6 Emotional Distress: How confident are you that you can keep the emotional distress caused by your disease from interfering with the things you want to do? Select Number: 6 Other Symptoms or Health Problems: How confident are you that you can keep other symptoms or health problems from interfering with the things you want to do? Select Number: 7 Different Tasks and Activities: How confident are you that you can do the diffe rent tasks and activities needed to manage your health condition so as to reduce your need to see a doctor? Select Number: 6 Medication: How confident are you that you can do things other than just taking medication to reduce how much your illness affects your everyday life? Select Number: 7 Total Score:: 6 Nutrition Survey - Nutrition Survey Initial Have you lost >10 lbs over the past 2 months without trying?: No Are you following a special diet at home for diabetes, low fat, or low salt?: No Are you interested in meeting with a dietitian for help understanding your diet? : No Do you eat less than 3 meals a day?: No Do you eat fatty meats (carter, sausage, ribs, etc), fried foods, desserts, large amounts of salad dressings, margarine, butter, or cheese most days?: No Do you have food allergies? [Enter types in comment field]: No Do you eat in restaurants more than 3 times a week?: No Do you season food with salt, seasoning salt, or garlic salt?: Yes Do you used canned, boxed, frozen meals, or soups, seasoning packets?: Yes Total Score:: 2
[2022-07-12 10:00] VITALS: BP 136/74; PULSE 65; RESP 18; TEMP 37; O2SAT 96; BMI 37.5
[2022-07-12 10:09] VITALS: BP 136/74; BMI 37.5
== END | disposition home or self-care (01) ==
LOC: CR 09:26
PROVIDERS: PCP Family Medicine; Visit Provider Internal Medicine Cardiovascular Disease
DX: Z95.2 Presence of prosthetic heart valve (principal)

== ENCOUNTER 2022-08-02 11:30 | Outpatient (RCR) | payer MEDICARE, BC, SELFPAY ==
[2020-07-11 08:24] VITALS: BMI 39.1
== END 2022-08-03 23:59 ==
LOC: CR 11:30
PROVIDERS: PCP Family Medicine; Visit Provider Internal Medicine Cardiovascular Disease
DX: I25.10 Atherosclerotic heart disease of native coronary artery without angina pectoris (principal); I35.0 Nonrheumatic aortic (valve) stenosis; Z95.5 Presence of coronary angioplasty implant and graft; Z95.2 Presence of prosthetic heart valve
CPT/HCPCS: 93798

== ENCOUNTER 2022-09-03 11:30 | Outpatient (RCR) | payer MEDICARE, BC, SELFPAY ==
[2022-07-12 10:09] VITALS: BMI 37.5
--- NOTE | 2022-08-11 08:21 | PCM.CR.ITP ---
Diagnosis Exercise - 30-day Assessment - Visit Date of Eval: 08/11/22 Session #:: 12 - Physician Prescribed Exercise Modalities: Treadmill, NuStep, Lateral [place] Frequency: 3x/week for 12 weeks [36 sessions] Intensity: 60-80% of age predicted maximum heart rate reserve Duration: 30 - 45 minutes Current METSs:: 4.5 Target Heart Rate:: 110-124 Current RPE:: 12 Maximum Excercise HR:: 126 Resting Blood Pressure: 162/60 Maximum Exercise Blood Pressure: 174/70 EKG Type: NSR to sinus tach w/rare PVCs PACs Current Physical Activity or Exercising minutes: 39 - Outcomes & Goals Goals:: Verbalizes understanding of THR, RPE & goal METS by session 6, Documents in home exercise log/reports 30 min aerobic 5 day/wk by DC, Demonstrates accurate pulse taking by DC - Intervention & Plan Exercise Program Goals: Instruct on personal THR & RPE, Instruct on MET level & personal MET goal, Show patient to take own pulse /validate performance until accurate, Instruct on home exercise - Physical Activity Home Exercise Physical Activity - Home Exercise: Safe Exercise, Warm-up, Self-monitoring, Cool-Down, Home Exercise > 30 min Daily, Sitting Time <3 hours/daily - Outcomes & Goals Outcomes/Goals: Demonstrates correct Warm-up/exercise Cool-Down (S3) if = 2.5 METs, Verbalizes symptoms of exercise intolerance by Session 3 (S3), Demonstrate safe equipment use (S3) & follows exercise prescrition (6) - Intervention & Plan Plan/Intervention: Instruct warm-up & cool-down if exercising at > 2 METs, Instruct on symptoms of exercise intolerance & actions to take, Instruct & monitor on saf, Assess intial functional capacity & safety risk - 30-day Reassessments 30 day Reassessments:: Progressing Nutrition - Initial Assessment Nutrition - 30-Day Assessment - Program Goals Nutrition Program Goals: LDL <100 optimal. 100 - 129 Near optimal. 130 - 159 Borderline High. 160 - 189 High. Total Cholesterol <200 desirable. 200 - 239 Borderline High. >/= 240 High. HDL < 40 Low >/=60 High. Triglycerides <150 desirable. <199 optimal. VlDL 5 - 40. HgbA1C <7%. BMI <25 Patient has diagnosis of Hyperlipidemia (ICD E78)?: Yes - Visit Date of Assessment:: 08/11/22 Session #:: 12 - Cholesterol/Lipids (Other Core Measures) Triglycerides (mg/dL): 253 - 05/06/2022 Total Cholesterol (mg/dL): 184 LDL Cholesterol (mg/dL): 83 HDL Cholesterol (mg/dL): 50 Determine presence & major risk factors that modify LDL goal: Hypertension or hypertensive medication, Low HDL cholesterol <40 mg/dL*, Age men > 45 years; women >/= 55 years Outcomes/Goals: Pt IDs own risk factors & lifestyle modifications by Session 10, Verbalizes symptoms of angina & response by session 3., Pt independently manages Intervention/Plan: Instruct on personal lipid levels & lipid goals/NCEP guidelines, Instruct on cholesterol Referral to dietitian:: Yes - Medical Nutrition Therapy 30-day Reassessments:: Progressing - Diabetes (Other Core Measures) Diabetes Type: Diagnosis Type II ICD-10 E11 Fasting blood glucose:: 118 - 05/06/2022 Hgb A1C (4.2 -6.3): 6.7 Insulin dependent injection/pump?: Yes Non-Insulin Dependent?: Yes Do you monitor your blood sugar at home?: Yes Referral to Diabetic Clinic:: Yes Outcomes/Goals:: Able to state symptoms of, Able to state, Able to state Intervention/Plan:: Instruct on, Refer to, Instruct on 30-day Reassessments:: Progressing - Weight Mgt (Other Care) Not Applicable: No Height: 5 ft 2 in Weight:: 206 lb 8 oz BMI: 37.8 Diagnosis Overweight/Obesity BMI> 30% ICD-10 E66: Yes Diagnosis High BMI/Morbid Obesity BMI> 35% ICD-10 Z68: Yes Outcomes/Goals: Pt sets, maintains & shows weight loss goal & trend during rehab Intervention/Plan: Instruct on ideal BMI & set weight loss goal w/patient, Assist pt to ID & incorporate diet changes for weight loss by S9, Refer to Structured Weight Loss program as appropriate, Encourage goal of using 250-300dcal per session for weight loss 30 day Reassessments:: Not Met - No weight change in 30 days - Healthy Eating Habits Will attend diet classes:: Yes Outcomes/Goals:: Consume diet rich in vegs,fruits,whole grain/high fiber,fish,lean meat, Limit sat/trans fats,cholesterol & added salts & sugars Intervention/Plan:: Assess current eating habits 30-day Reassessments:: Progressing - Education Gave educational materials for:: Signs & symptoms of hypoglycemia, Signs & symptoms of hyperglycemia, Relate diabetes to coronary artery disease, Healthy eating Nutrition - 60-Day Assessment Nutrition - 90-Day Assessment Nutrition - Final Assessment Core - Initial Assessment Core - 30-Day Assessment - Visit Date of Eval: 08/11/22 Session #:: 12 - Medication Compliance Preventative Medication(s):: Aspirin, Clopidogrel/P2Y12 inhibit, Statin/lipid, Beta anju H/O mental health issues: depression, anxiety, or addiction?: No Doesn?t believe in the benefits of treatment?: No Believes medications are unnecessary or harmful?: No Has a concern about medication side effects?: No Expresses concern over the cost of medications?: No Outcomes/Goals: Verbalizes medications,desired effect & common side effects @ DC, Pt self-reports following medication regimen, Keeps card in wallet w/medications listed by DC Interventions/plans: Instruct on medication effects & side effects, Review medication list w/patient every two weeks, Instruct importance of taking meds as ordered & assist problem solving 30-day Reassessments:: Met - Tobacco Use Tobacco Use: Non-smoker - Hypertension Hypertension Diagnosis:: Hypertension ICD-10 I10 Resting Blood Pressure:: 162/60 - Resting BPs remain > 140/80 [place] [employer] Hypertension Guidelines: [place] [employer] Hypertension Guidelines. Normal BP Less than 120/80. Elevated BP 120/80. Hypertension Stage 1: BP 130-139/80-89. Hypertesnion Stage 2: BP 140 or higher/90 or higher. Hypertension Crisis: BP higher than 180/120 Peak Exercise Blood Pressure:: 174/70 Outcomes/Goals: Able to verbalize/achieve optimal blood pressure <130/80, Incorporates diet changes & exercise for blood pressure control by DC Interventions/plan: Instruct on optimal blood pressure, hypertension & medications, Instruct on effects of sodium, alcohol, stress, exercise &hypertension 30 day Reassessments:: Progressing - Tobacco Cessation Referral Smoking Cessation Referral:: No Individual Education/Counseling:: No Education Schedule Given:: Yes Core - 60-Day Assessment Core - 90 Day Assessment Core - Final Assessment Psychosocial - Initial Assess Psychosocial - 30-Day Assess - VIsit Date of Eval: 08/11/22 Session #:: 12 Not Applicable: Yes History of previous Mental disease:: No - Psychosocial Test Tool Used:: PHQ-9 Questionnaire phq-9 Severity: Severity. 1-4 Minimal Depression. 5-9 Mild Depression. 10-14 Moderate Depression. 15-19 Moderately Sever Depression. 20-27 Severe Depression. Rule: - Referral to Behavioral Health PS - Interventions: Yes Attend Stress Management Classes, No Referral to Behavioral Health if PHQ-9 score >9:, No Referral to [facility], No Referral to Physician if PHQ-9 if score is 5-9: - Outcomes/Goals: See list Psychosocial Outcomes/Goals:: ID's personal stressors & 2 strategies to manage stress by discharge - Intervention/Plan: See List Interventions/Plan:: Assess stressors,coping strategies & signs of derpression on admission, Instruct/assist pt to develop coping & personal stress Mgt strategies, Instruct patient to recognize signs & symptoms of depression, Instruct patient to recog - 30-day Reassessments: 30 day Reassessments:: Progressing Psychosocial - 60-Day Assess Psychosocial - 90-Day Assess Psychosocial - Final Assessmen Patient Health Questionnaire 30-Day Re-eval Assessment 1. Little interest or pleasure in doing things: Not at all 2. Feeling down, depressed, or hopeless: Not at all 3. Trouble falling or staying asleep, or sleeping too much: Several days 4. Feeling tired or having little energy: Not at all 5. Poor appetite or overeating: More than half the days - Overeating 6. Feeling bad about yourself -- or that you are a failure or have let yourself or your family down: Not at all 7. Trouble concentrating on things, such as reading the newspaper or watching television: Not at all 8. Moving or speaking so slowly that other people could have noticed. Or the opposite - being so fidgety or restless that you have been moving around a lot more than usual: Not at all 9. Thoughts that you would be better off , or of hurting yourself in some way: Not at all How difficult have these problems made it for you to do your work, take care of things at home, or get along with other people?: Not difficult at all Total Score: 3 Self-Efficacy 30-Day Re-eval Assessment We would like to know how confident you are in doing certain activities. Please select your confidence level for:: Select your confidence level for the following using the scale 1-10 where 1 is not at all confident and 10 is totally confident. Your score is the average of all 6 responses. Fatigue: How confident are you that you can keep the fatigue caused by your disease from interfering with the things you want to do? Select Number: 8 Physical Discomfort or Pain: How confident are you that you can keep the physical discomfort or pain of your disease from interfering with the things you want to do? Select Number: 7 Emotional Distress: How confident are you that you can keep the emotional distress caused by your disease from interfering with the things you want to do? Select Number: 7 Other Symptoms or Health Problems: How confident are you that you can keep other symptoms or health problems from interfering with the things you want to do? Select Number: 8 Different Tasks and Activities: How confident are you that you can do the different tasks and activities needed to manage your health condition so as to reduce your need to see a doctor? Select Number: 7 Medication: How confident are you that you can do things other than just taking medication to reduce how much your illness affects your everyday life? Select Number: 8 Total Score:: 7 Nutrition Survey
[2022-08-11 08:30] VITALS: BP 162/60; BP 174/70; BMI 37.8
== END 2022-09-03 23:59 ==
LOC: CR 11:30
PROVIDERS: PCP Family Medicine; Visit Provider Internal Medicine Cardiovascular Disease
DX: I25.10 Atherosclerotic heart disease of native coronary artery without angina pectoris (principal); I35.0 Nonrheumatic aortic (valve) stenosis; Z95.5 Presence of coronary angioplasty implant and graft; Z95.2 Presence of prosthetic heart valve
CPT/HCPCS: 93798

== ENCOUNTER 2022-10-01 11:30 | Outpatient (RCR) | payer MEDICARE, BC, SELFPAY ==
[2022-08-11 08:30] VITALS: BMI 37.8
[2022-09-04 01:57] VITALS: BP 162/60; BP 174/70
--- NOTE | 2022-09-08 08:31 | PCM.CR.ITP ---
Diagnosis Exercise - 60-day Assessment - Visit Date of Eval: 09/08/22 Session #:: 21 - Physician Prescribed Exercise Modalities: Treadmill, NuStep, Lateral [place] Frequency: 3x/week for 12 weeks [36 sessions] Intensity: 60-80% of age predicted maximum heart rate reserve Duration: 30 - 45 minutes Current METSs:: 5.0 Target Heart Rate:: 110-124 Current RPE:: 12-13 Maximum Excercise HR:: 127 Resting Blood Pressure: 144/60 - BPs Ranging > 130/80 see Multi Session Report Maximum Exercise Blood Pressure: 178/60 EKG Type: NSR to sinus tachycardia with rare occasional PACs PVCs noted - Outcomes & Goals Goals:: Verbalizes understanding of THR, RPE & goal METS by session 6, Documents in home exercise log/reports 30 min aerobic 5 day/wk by DC, Demonstrates accurate pulse taking by DC - Intervention & Plan Exercise Program Goals: Instruct on personal THR & RPE, Instruct on MET level & personal MET goal, Show patient to take own pulse /validate performance until accurate, Instruct on home exercise - 30-day Reassessments 30 day Reassessments:: Met - Physical Activity Home Exercise Physical Activity - Home Exercise: Safe Exercise, Warm-up, Self-monitoring, Cool-Down, Home Exercise > 30 min Daily, Sitting Time <3 hours/daily - Outcomes & Goals Outcomes/Goals: Demonstrates correct Warm-up/exercise Cool-Down (S3) if = 2.5 METs, Verbalizes symptoms of exercise intolerance by Session 3 (S3), Demonstrate safe equipment use (S3) & follows exercise prescrition (6) - Intervention & Plan Plan/Intervention: Instruct warm-up & cool-down if exercising at > 2 METs, Instruct on symptoms of exercise intolerance & actions to take, Instruct & monitor on saf, Assess intial functional capacity & safety risk - 30-day Reassessments 30 day Reassessments:: Met Nutrition - Initial Assessment Nutrition - 30-Day Assessment Nutrition - 60-Day Assessment - Program Goals Nutrition Program Goals: LDL <100 optimal. 100 - 129 Near optimal. 130 - 159 Borderline High. 160 - 189 High. Total Cholesterol <200 desirable. 200 - 239 Borderline High. >/= 240 High. HDL < 40 Low >/=60 High. Triglycerides <150 desirable. <199 optimal. VlDL 5 - 40. HgbA1C <7%. BMI <25 Patient has diagnosis of Hyperlipidemia (ICD E78)?: Yes - Visit Date of Assessment:: 09/08/22 Session #:: 21 - Cholesterol/Lipids (Other Core Measures) Triglycerides (mg/dL): 253 Total Cholesterol (mg/dL): 184 LDL Cholesterol (mg/dL): 83 HDL Cholesterol (mg/dL): 50 Determine presence & major risk factors that modify LDL goal: Hypertension or hypertensive medication, Low HDL cholesterol <40 mg/dL*, Family history of premature CHD in Male < 55 years: female <65 yearsFa, Age men > 45 years; women >/= 55 years Outcomes/Goals: Pt IDs own risk factors & lifestyle modifications by Session 10, Verbalizes symptoms of angina & response by session 3., Pt independently manages Intervention/Plan: Instruct on personal lipid levels & lipid goals/NCEP guidelines, Instruct on cholesterol Referral to dietitian:: No - After speaking with patient, they declined 30-day Reassessments:: Progressing - Diabetes (Other Core Measures) Diabetes Type: Diagnosis Type II ICD-10 E11 Fasting blood glucose:: 118 Hgb A1C (4.2 -6.3): 6.7 Insulin dependent injection/pump?: Yes Non-Insulin Dependent?: Yes Do you monitor your blood sugar at home?: Yes Referral to Diabetic Clinic:: No - After speaking with the patient, they declined. Outcomes/Goals:: Able to state symptoms of, Able to state, Able to state Intervention/Plan:: Instruct on, Instruct on 30-day Reassessments:: Progressing - Weight Mgt (Other Care) Not Applicable: No Height: 5 ft 2 in Weight:: 204 lb 8 oz BMI: 37.3 Diagnosis Overweight/Obesity BMI> 30% ICD-10 E66: Yes Diagnosis High BMI/Morbid Obesity BMI> 35% ICD-10 Z68: Yes Outcomes/Goals: Pt sets, maintains & shows weight loss goal & trend during rehab Intervention/Plan: Instruct on ideal BMI & set weight loss goal w/patient, Assist pt to ID & incorporate diet changes for weight loss by S9 30 day Reassessments:: Progressing - Healthy Eating Habits Will attend diet classes:: Yes Outcomes/Goals:: Consume diet rich in vegs,fruits,whole grain/high fiber,fish,lean meat, Limit sat/trans fats,cholesterol & added salts & sugars Intervention/Plan:: Assess current eating habits 30-day Reassessments:: Progressing - Education Gave educational materials for:: Signs & symptoms of hypoglycemia, Signs & symptoms of hyperglycemia, Relate diabetes to coronary artery disease, Healthy eating Nutrition - 90-Day Assessment Nutrition - Final Assessment Core - Initial Assessment Core - 30-Day Assessment Core - 60-Day Assessment - Visit Date of Eval: 09/08/22 Session #:: 21 - Medication Compliance Preventative Medication(s):: Aspirin, Clopidogrel/P2Y12 inhibit, Statin/lipid, Beta anju H/O mental health issues: depression, anxiety, or addiction?: No Doesn?t believe in the benefits of treatment?: No Believes medications are unnecessary or harmful?: No Has a concern about medication side effects?: No Expresses concern over the cost of medications?: No Outcomes/Goals: Verbalizes medications,desired effect & common side effects @ DC, Pt self-reports following medication regimen, Keeps card in wallet w/medications listed by DC Interventions/plans: Instruct on medication effects & side effects, Review medication list w/patient every two weeks, Instruct importance of taking meds as ordered & assist problem solving 30-day Reassessments:: Progressing - Tobacco Use Tobacco Use: Non-smoker - Hypertension Hypertension Diagnosis:: Hypertension ICD-10 I10 Resting Blood Pressure:: 144/40 [place] [employer] Hypertension Guidelines: [place] [employer] Hypertension Guidelines. Normal BP Less than 120/80. Elevated BP 120/80. Hypertension Stage 1: BP 130-139/80-89. Hypertesnion Stage 2: BP 140 or higher/90 or higher. Hypertension Crisis: BP higher than 180/120 Peak Exercise Blood Pressure:: 178/60 Outcomes/Goals: Able to verbalize/achieve optimal blood pressure <130/80, Incorporates diet changes & exercise for blood pressure control by DC Interventions/plan: Instruct on optimal blood pressure, hypertension & medications, Instruct on effects of sodium, alcohol, stress, exercise &hypertension 30 day Reassessments:: Progressing - Tobacco Cessation Referral Smoking Cessation Referral:: No Individual Education/Counseling:: No Education Schedule Given:: Yes Core - 90 Day Assessment Core - Final Assessment Psychosocial - Initial Assess Psychosocial - 30-Day Assess Psychosocial - 60-Day Assess - VIsit Date of Eval: 09/08/22 Session #:: 21 Not Applicable: Yes History of previous Mental disease:: No - Psychosocial Test Tool Used:: PHQ-9 Questionnaire phq-9 Severity: Severity. 1-4 Minimal Depression. 5-9 Mild Depression. 10-14 Moderate Depression. 15-19 Moderately Sever Depression. 20-27 Severe Depression. Rule: - Referral to Behavioral Health PS - Interventions: Yes Attend Stress Management Classes, No Referral to Behavioral Health if PHQ-9 score >9:, No Referral to [facility], No Referral to Physician if PHQ-9 if score is 5-9: - Outcomes/Goals: See list Psychosocial Outcomes/Goals:: ID's personal stressors & 2 strategies to manage stress by discharge - Intervention/Plan: See List Interventions/Plan:: Assess stressors,coping strategies & signs of derpression on admission, Instruct/assist pt to develop coping & personal stress Mgt strategies, Instruct patient to recognize signs & symptoms of depression, Instruct patient to recog - 30-day Reassessments: 30 day Reassessments:: Met Psychosocial - 90-Day Assess Psychosocial - Final Assessmen Patient Health Questionnaire 60-Day Re-eval Assessment 1. Little interest or pleasure in doing things: Not at all 2. Feeling down, depressed, or hopeless: Not at all 3. Trouble falling or staying asleep, or sleeping too much: Several days 4. Feeling tired or having little energy: Several days 5. Poor appetite or overeating: Several days 6. Feeling bad about yourself -- or that you are a failure or have let yourself or your family down: Not at all 7. Trouble concentrating on things, such as reading the newspaper or watching television: Not at all 8. Moving or speaking so slowly that other people could have noticed. Or the opposite - being so fidgety or restless that you have been moving around a lot more than usual: Not at all 9. Thoughts that you would be better off , or of hurting yourself in some way: Not at all How difficult have these problems made it for you to do your work, take care of things at home, or get along with other people?: Not difficult at all Total Score: 3 Self-Efficacy 60-Day Re-eval Assessment We would like to know how confident you are in doing certain activities. Please select your confidence level for:: Select your confidence level for the following using the scale 1-10 where 1 is not at all confident and 10 is totally confident. Your score is the average of all 6 responses. Fatigue: How confident are you that you can keep the fatigue caused by your disease from interfering with the things you want to do? Select Number: 8 Physical Discomfort or Pain: How confident are you that you can keep the physical discomfort or pain of your disease from interfering with the things you want to do? Select Number: 8 Emotional Distress: How confident are you that you can keep the emotional distress caused by your disease from interfering with the things you want to do? Select Number: 8 Other Symptoms or Health Problems: How confident are you that you can keep other symptoms or health problems from interfering with the things you want to do? Select Number: 8 Different Tasks and Activities: How confident are you that you can do the different tasks and activities needed to manage your health condition so as to reduce your need to see a doctor? Select Number: 8 Medication: How confident are you that you can do things other than just taking medication to reduce how much your illness affects your everyday life? Select Number: 8 Total Score:: 8 Nutrition Survey
[2022-09-08 08:40] VITALS: BP 144/40; BP 144/60; BP 178/60; BMI 37.3
== END 2022-10-03 23:59 ==
LOC: CR 11:30
PROVIDERS: PCP Family Medicine; Visit Provider Internal Medicine Cardiovascular Disease
DX: I25.10 Atherosclerotic heart disease of native coronary artery without angina pectoris (principal); I35.0 Nonrheumatic aortic (valve) stenosis; Z95.5 Presence of coronary angioplasty implant and graft; Z95.2 Presence of prosthetic heart valve
CPT/HCPCS: 93798

== ENCOUNTER 2022-10-11 11:30 | Outpatient (RCR) | payer MEDICARE, BC, SELFPAY ==
[2022-09-08 08:40] VITALS: BMI 37.3
[2022-10-04 00:38] VITALS: BP 144/40; BP 144/60; BP 178/60
== END 2022-11-03 23:59 ==
LOC: CR 11:30
PROVIDERS: PCP Family Medicine; Referring Provider Internal Medicine Cardiovascular Disease; Visit Provider Internal Medicine Cardiovascular Disease
DX: I25.10 Atherosclerotic heart disease of native coronary artery without angina pectoris (principal); I35.0 Nonrheumatic aortic (valve) stenosis; Z95.5 Presence of coronary angioplasty implant and graft; Z95.2 Presence of prosthetic heart valve
CPT/HCPCS: 93798

== ENCOUNTER → 2022-11-25 | Outpatient (CLI) | payer MEDICARE, BC, SELFPAY ==
[2022-09-08 08:40] VITALS: BMI 37.3
[2022-11-25 17:09] LABS: Hematocrit 37.7 % (37-47); Hemoglobin 12.2 g/dL (12.0-15.0); Mean Corp Hgb Conc 32.4 g/dL (32-36); Mean Corpuscular Hgb 27.7 pg (27.0-32.0); Mean Corpuscular Volume 85.5 fL (81-99); Mean Platelet Vol. 10.2 fl (6.2-12.0); Platelet Count 277 K/mm3 (150-450); RBC Distribution Width CV 13.3 % (11.6-14.6); RBC Distribution Width SD 42.1 fl (35.1-43.9); Red Blood Count 4.41 M/mm3 (4.2-5.4); White Blood Count 6.9 K/mm3 (4.4-11.0)
[2022-11-25 17:32] LABS: BNP,B-Type NATRIURETIC PEPTIDE 104.7 pg/mL (0-100)
[2022-11-25 18:16] LABS: Anion Gap 8 (5-15); BUN 11 mg/dL (7-18); BUN/Creat Ratio 19.5 RATIO (10-20); Calcium,Total 9.2 mg/dL (8.5-10.1); Chloride 100 mmol/L (98-107); Creatinine, Serum 0.56 mg/dL (0.55-1.02); EST Glomerular Filtration Rate 112 mL/min (>60); Est Glom Filt Rate - Afr Amer 135 mL/min (>60); Glucose 69 mg/dL (74-106); Magnesium 1.8 mg/dL (1.6-2.6); Potassium 3.9 mmol/L (3.5-5.1); Sodium Level 134 mmol/L (136-145); Thyroid Stim Hormone (TSH) 0.98 uIU/mL (0.358-3.74)
== END | disposition home or self-care (01) ==
LOC: LAB 15:40
PROVIDERS: PCP Family Medicine; Referring Provider Nurse Practitioner Family; Visit Provider Nurse Practitioner Family
DX: R07.9 Chest pain, unspecified (principal); R06.00 Dyspnea, unspecified; I25.10 Atherosclerotic heart disease of native coronary artery without angina pectoris; Z95.2 Presence of prosthetic heart valve; R00.2 Palpitations; R00.0 Tachycardia, unspecified; R53.83 Other fatigue
CPT/HCPCS: 36415; 80048; 83735; 83880; 84443; 85027

== ENCOUNTER → 2022-12-03 | Outpatient (CLI) | payer MEDICARE, BC, SELFPAY ==
[2022-09-08 08:40] VITALS: BMI 37.3
--- NOTE | 2022-12-03 09:57 | ECHOD_ITS ---
Reason For Study: PROSTHETIC HEART VALVE Procedure This was a 2D Doppler, Color Flow transthoracic echocardiogram. Exam performed in department. Left Ventricle Normal LV size. Left ventricular systolic function is normal. The estimated ejection fraction is 65 %. Stage 2 diastolic dysfunction. No regional wall motion abnormalities noted. Right Ventricle Normal RV size. Normal systolic function. Tricuspid Valve Normal tricuspid valve. Mild tricuspid valve insufficiency. Pulmonary artery systolic pressure is 34 mmHg. Aortic Valve Peak aortic valve gradient 33 mmHg. Mean aortic valve gradient 19 mmHg. Trivial aortic valve insufficiency. Bioprosthetic aortic valve functioning normally. Pulmonic Valve The pulmonic valve is not well visualized. Great Vessels Normal aortic root. The pulmonary artery is normal size. Normal inferior vena cava. Pericardium/Pleural No pericardial effusion. MMode/2D Measurements & Calculations LVIDd: 5.9 cm IVSd: 0.82 cm LVOT diam: 2.0 cm LVIDs: 3.5 cm LVPWd: 0.99 cm LVOT area: 3.2 cm2 RVDd: 3.3 cm FS: 40.2 % Ao root diam: 3.1 cm LAV(MOD-bp): 84.8 ml LVAd ap4: 27.2 cm2 LAV(MOD-bp) Indexed: 44.4 ml/m2 LVLd ap4: 7.1 cm LAV(MOD-sp2): 82.0 ml EDV(MOD-sp4): 86.9 ml LAV(MOD-sp4): 78.9 ml EDV(sp4-el): 89.0 ml LVAs ap4: 14.3 cm2 LVLs ap4: 5.8 cm ESV(MOD-sp4): 30.1 ml ESV(sp4-el): 29.8 ml EF(MOD-sp4): 65.4 % EF(sp4-el): 66.5 % SV(MOD-sp4): 56.8 ml SV(sp4-el): 59.2 ml LA A4 area: 24.9 cm2 LA dimension(2D): 4.4 cm TAPSE: 2.3 cm RA A4 area: 14.1 cm2 Time Measurements MV dec time: 0.27 sec Doppler Measurements & Calculations MV E max jeff: 132.8 cm/sec Lat Peak E' Jeff: 8.1 cm/sec Med Peak E' Jeff: 7.7 cm/sec MV A max jeff: 94.9 cm/sec E/E' lat: 16.4 E/E' med: 17.2 MV E/A: 1.4 MV V2 max: 144.2 cm/sec Ao V2 max: 285.5 cm/sec MV max P.3 mmHg MV dec slope: 484.3 cm/sec2 Ao max P.8 mmHg MV V2 mean: 76.5 cm/sec Ao V2 mean: 201.1 cm/sec MV mean P.9 mmHg Ao mean P.8 mmHg MV V2 VTI: 50.8 cm Ao V2 VTI: 71.2 cm AV (velocity ratio): 0.71 MVA(VTI): 3.1 cm2 IAIN(I,D): 2.2 cm2 IAIN(V,D): 2.1 cm2 AI max jeff: 356.6 cm/sec LV V1 max: 185.9 cm/sec MR max jeff: 489.7 cm/sec AI max P.9 mmHg LV V1 max P.8 mmHg MR max P.9 mmHg AI dec slope: 125.1 cm/sec2 LV V1 mean P.1 mmHg AI P1/2t: 834.9 msec LV V1 mean: 155.6 cm/sec LV V1 VTI: 50.3 cm SV(LVOT): 158.6 ml PA V2 max: 93.3 cm/sec TR max jeff: 264.1 cm/sec PA V2 mean: 67.0 cm/sec TR max P.9 mmHg ECHO/Echo Complete Interpretation Summary Normal LV size. Left ventricular systolic function is normal. The estimated ejection fraction is 65 %. Stage 2 diastolic dysfunction. Bioprosthetic aortic valve functioning normally. Mean aortic valve gradient 19 mmHg. Trivial aortic valve insufficiency. Ordering Physician: Julio Baldwin Referring Physician: Julio Baldwin Performed By: Justine He RCS
== END | disposition home or self-care (01) ==
LOC: CVS 09:56
PROVIDERS: PCP Family Medicine; Referring Provider Nurse Practitioner Family; Visit Provider Nurse Practitioner Family
DX: R07.9 Chest pain, unspecified (principal); R06.00 Dyspnea, unspecified; R00.0 Tachycardia, unspecified; I25.10 Atherosclerotic heart disease of native coronary artery without angina pectoris; I51.9 Heart disease, unspecified; Z95.2 Presence of prosthetic heart valve
CPT/HCPCS: 93306

== ENCOUNTER → 2023-03-31 | Outpatient (CLI) | payer MEDICARE, BC, SELFPAY ==
[2022-09-08 08:40] VITALS: BMI 37.3
--- NOTE | 2023-03-31 13:05 | ECHOD_ITS ---
Reason For Study: Prosthetic Heart Valve Procedure This was a 2D Doppler, Color Flow transthoracic echocardiogram. The study was technically difficult. Exam performed in department. Left Ventricle Normal LV size. Left ventricular systolic function is normal. The estimated ejection fraction is 60 %. No regional wall motion abnormalities noted. Right Ventricle Normal RV size. Normal systolic function. Atria Normal left atrium. Normal right atrium. Mitral Valve There is mild mitral annular calcification. Tricuspid Valve Normal tricuspid valve. Aortic Valve Peak aortic valve gradient 31 mmHg. Mean aortic valve gradient 16 mmHg. Bioprosthetic aortic valve. Pulmonic Valve Normal pulmonic valve. Great Vessels Normal aortic root. The pulmonary artery is normal size. Normal inferior vena cava. Pericardium/Pleural No pericardial effusion. MMode/2D Measurements & Calculations LVIDd: 4.9 cm IVSd: 1.2 cm LVOT diam: 2.0 cm LVIDs: 2.5 cm LVPWd: 1.1 cm LVOT area: 3.2 cm2 RVDd: 3.2 cm FS: 49.7 % LA dimension: 4.8 cm LAV(MOD-bp): 63.6 ml LA A4 area: 19.9 cm2 LAV(MOD-bp) Indexed: 33.0 ml/m2 LAV(MOD-sp2): 65.8 ml LAV(MOD-sp4): 60.8 ml TAPSE: 2.1 cm RA A4 area: 13.2 cm2 Time Measurements MV dec time: 0.21 sec Doppler Measurements & Calculations MV E max jeff: 98.3 cm/sec Lat Peak E' Jeff: 6.4 cm/sec Med Peak E' Jeff: 9.3 cm/sec MV A max jeff: 84.6 cm/sec E/E' lat: 15.3 E/E' med: 10.6 MV E/A: 1.2 MV V2 max: 126.5 cm/sec MV P1/2t max jeff: 126.5 cm/sec Ao V2 max: 281.2 cm/sec MV max P.4 mmHg MV P1/2t: 81.3 msec Ao max P.6 mmHg MV V2 mean: 64.7 cm/sec MV dec slope: 456.0 cm/sec2 Ao V2 mean: 179.5 cm/sec MV mean P.0 mmHg Ao mean P.4 mmHg MV V2 VTI: 39.3 cm MVA(P1/2t): 2.7 cm2 Ao V2 VTI: 59.0 cm MVA(VTI): 2.6 cm2 AV (velocity ratio): 0.54 IAIN(I,D): 1.7 cm2 IAIN(V,D): 1.6 cm2 LV V1 max: 145.3 cm/sec SV(LVOT): 101.6 ml PA V2 max: 78.9 cm/sec LV V1 max P.5 mmHg LV V1 mean P.3 mmHg LV V1 mean: 94.8 cm/sec LV V1 VTI: 32.1 cm ECHO/Echo Complete Interpretation Summary Normal LV size. Left ventricular systolic function is normal. The estimated ejection fraction is 60 %. Mean aortic valve gradient 16 mmHg. Bioprosthetic aortic valve. Ordering Physician: Jesus Andrea Referring Physician: Jesus Andrea Performed By: Marquise Mckenna RCS
== END | disposition home or self-care (01) ==
LOC: CVS 13:02
PROVIDERS: PCP Family Medicine; Referring Provider Internal Medicine Cardiovascular Disease; Visit Provider Internal Medicine Cardiovascular Disease
DX: R00.2 Palpitations (principal); R00.0 Tachycardia, unspecified; I25.10 Atherosclerotic heart disease of native coronary artery without angina pectoris; Z95.2 Presence of prosthetic heart valve; R07.9 Chest pain, unspecified
CPT/HCPCS: 93005; 93306

== ENCOUNTER → 2023-05-10 | Outpatient (CLI) | payer MEDICARE, BC, SELFPAY ==
[2022-09-08 08:40] VITALS: BMI 37.3
[2023-05-10 12:09] LABS: Absolute Lymphocyte Count 1.81 X10^3/uL (0.83-4.51); Absolute Neutrophil Count 5.4 X10^3/uL (2.0-7.7); Basophil# 0.05 X10^3/uL; Basophil% 0.6 % (0-1); Eosinophils% 4.9 % (0-5); Hematocrit 39.8 % (37-47); Hemoglobin 13.2 g/dL (12.0-15.0); Lymphocyte # 1.81 X10^3/ul (0.83-4.51); Mean Corp Hgb Conc 33.2 g/dL (32-36); Mean Corpuscular Hgb 28.9 pg (27.0-32.0); Mean Corpuscular Volume 87.1 fL (81-99); Mean Platelet Vol. 9.2 fl (6.2-12.0); Monocyte# 0.54 X10^3/uL; Monocyte% 6.6 % (0-10); NRBC Flagged by Analyzer 0 % (0-5); Neutrophil # 5.39 X10^3/uL (2.7-7.7); Neutrophil % 65.4 % (47-70); Platelet Count 351 K/mm3 (150-450); RBC Distribution Width CV 13.2 % (11.6-14.6); RBC Distribution Width SD 41.6 fl (35.1-43.9); Red Blood Count 4.57 M/mm3 (4.2-5.4); White Blood Count 8.2 K/mm3 (4.4-11.0)
[2023-05-10 12:36] LABS: Creatinine, Urine (random) < 13.00 mg/dL (NO RANGE EST.); Microalbumin,Random Urine 14.5 mg/L (NO RANGE EST.)
[2023-05-10 13:07] LABS: ALB/GLOB Ratio 1.1 RATIO (0.9-2.4); AST(SGOT) 16 U/L (15-37); Alanine Aminotransfer ALT/SGPT 20 U/L (13-56); Albumin, Serum 3.8 g/dL (3.2-5.0); Alkaline Phosphatase 121 U/L (45-117); Anion Gap 8 (5-15); BUN 10 mg/dL (7-18); BUN/Creat Ratio 16.8 RATIO (10-20); Calcium,Total 9.6 mg/dL (8.5-10.1); Chloride 97 mmol/L (98-107); Creatinine, Serum 0.59 mg/dL (0.55-1.02); EST Glomerular Filtration Rate 105 mL/min (>60); Est Glom Filt Rate - Afr Amer 127 mL/min (>60); Globulin 3.6 g/dL (2.2-4.2); Glucose 127 mg/dL (74-106); Potassium 3.6 mmol/L (3.5-5.1); Protein, Total 7.4 g/dL (6.4-8.2); Sodium Level 131 mmol/L (136-145); Thyroid Stim Hormone (TSH) 1.57 uIU/mL (0.358-3.74)
[2023-05-10 14:04] LABS: Hemoglobin A1c 6.7 % (3.8-5.6)
== END | disposition home or self-care (01) ==
LOC: MFPLAB 11:12
PROVIDERS: PCP Family Medicine; Visit Provider Family Medicine
DX: R53.81 Other malaise (principal); E11.69 Type 2 diabetes mellitus with other specified complication
CPT/HCPCS: 36415; 80053; 82043; 82570; 83036; 84443; 85025

== ENCOUNTER → 2023-06-24 | Outpatient (CLI) | payer MEDICARE, BC, SELFPAY ==
[2022-09-08 08:40] VITALS: BMI 37.3
--- OUTSIDE RECORDS SUMMARY | 2023-06-24 09:09 | XMS RPT_ITS | CCD ---
Author Name Unknown Address [address] [place] [address] Organization [facility] Care Team Providers Care Food Quality Technician Name Role Phone Unavailable Primary Care Provider Unavailabl e DOTTIE NELSON Attending Unavailable Jorge L Hidalgo Referring Unavailable Jorge L Hidalgo Primary Care Unavailable Jorge L Hidalgo Referring Unavailable Jorge L Hidalgo Primary Care Unavailable DOTTIE NELSON Unavailable Jorge L Hidalgo Primary Care Provider [phone] [place], [place] Unavailable DOTTIE NELSON Referring Unavailable DOTTIE NELSON Attending Unavailable DOTTIE NELSON Attending Unavailable Allergies Allergy Classification Reported Allergen(s) Allergy Type Date of Onset Reaction(s) Facility (7 sources) Etodolac Propensity to adverse reactions 04-09-2022 [facility] Medications Current Medications Medication Drug Class(es) Dates Sig (Normalized) Sig (Original) acetaminophen 500 mg oral tablet (7 sources) take 1 tablet by mouth every six hours as needed acetaminophen (Tylenol) 500 MG tablet Take 500 mg by mouth every 6 hours as needed. 0 Active [id number] 200 actuat albuterol 0.09 mg/actuat metered dose inhaler (7 sources) beta2-Adrenergic Agonist take 2 puff(s) by inhalation every six hours as needed albuterol 108 (90 Base) MCG/ACT inhaler Inhale 2 puffs every 6 hours as needed. 0 Active amLODIPine 10 mg oral tablet (7 sources) Dihydropyridine Calcium Channel Leonardo take 1 tablet by mouth in the morning amLODIPine (Norvasc) 10 MG tablet Take 10 mg by mouth in the morning. 0 Active aspirin 81 mg chewable tablet (7 sources) Platelet Aggregation Inhibitor, Nonsteroidal Anti-inflammatory Drug aspirin 81 MG chewab le tablet Chew 81 mg in the morning. 0 Active atorvastatin 10 mg oral tablet (7 sources) HMG-CoA Reductase Inhibitor Start: 02-22-20 22 take 1 tablet by mouth in the morning atorvastatin (Lipitor) 10 MG tablet Take 1 tablet by mouth in the morning. 0 02/21/2022 Active calcium carbonate 1250 mg chewable tablet (7 sources) calcium carbonat e (Os-Marcelino) 1250 (500 Ca) MG chewable tablet Chew 1 tablet in the morning. 0 Active clopidogrel 75 mg oral tablet (7 sources) P2Y12 Platelet Inhibitor take 1 tablet by mouth in the morning clopidogrel (Plavix) 75 MG tablet Take 75 mg by mouth in the morning. 0 Active docosahexaenoic acid 120 mg / eicosapentaenoic acid 180 mg oral capsule (7 sources) omega-3 (Fish Oi l) 1000 MG capsule Take by mouth daily. 0 Active fexofenadine hydrochloride 180 mg oral tablet (7 sources) Histamine-1 Receptor Antagonist take 1 tablet by mouth in the morning fexofenadine (Miladys) 180 MG tablet Take 180 mg by mouth in the morning. 0 Active fluticasone propionate 0.05 mg/actuat metered dose nasal spray (7 sources) Corticosteroid Start: 02-23-20 22 take 1 spray(s) nasal route in the morning fluticasone (Flonase) 50 MCG/ACT nasal spray Administer 1 spray into each nostril in the morning. 0 02/22/2022 Active 120 actuat fluticasone propionate 0.23 mg/actuat / salmeterol 0.021 mg/actuat metered dose inhaler (7 sources) Corticosteroid, beta2-Adrenergic Agonist Start: 03-01-20 take 2 puff(s) by inhalation in the morning fluticasone-salmeterol (Advair HFA) 230-21 MCG/ACT inhaler 2 puffs in the morning and 2 puffs in the evening. 0 03/01/2022 Active glipiZIDE er 10 mg 24 hr extended release oral tablet (7 sources) Sulfonylurea take 1 tablet by mouth every twenty-four hours in the morning glipiZIDE XL (Glucotrol XL) 10 MG 24 hr tablet Take 10 mg by mouth in the morning. 0 Active hydroCHLOROthiazide 25 mg oral tablet (7 sources) Thiazide Diuretic Start: 02-21-20 22 take 1 tablet by mouth in the morning hydroCHLOROthiazide (HYDRODiuril) 25 MG tablet Take 1 tablet by mouth in the morning. 0 02/20/2022 Active ibuprofen 200 mg oral tablet (7 sources) Nonsteroidal Anti-inflammatory Drug take 1 tablet by mouth every six hours as needed ibuprofen 200 MG tablet Take 200 mg by mouth every 6 hours as needed. 0 Active 3 ml insulin glargine 100 unt/ml pen injector (7 sources) Insulin Analog Start: 02-24-20 insulin glargine (Basaglar KwikPen) 100 UNIT/ML pen Inject 50 Units under the skin 2 times daily. Depending on BS 0 02/23/2022 Active lisinopril 20 mg oral tablet (7 sources) Angiotensin Converting Enzyme Inhibitor take 1 tablet by mouth in the morning lisinopril 20 MG tablet Take 20 mg by mouth in the morning and 20 mg before bedtime. 0 Active metFORMIN hydrochloride 500 mg oral tablet (7 sources) Biguanide Start: 04-15-20 metFORMIN (Glucophage) 500 MG tablet take 2 tablets by mouth twice a day FOR SUGAR Strength: 500 mg Do not start before April 15, 2022. 30 tablet 1 04/15/2022 Active montelukast 10 mg oral tablet (7 sources) Leukotriene Receptor Antagonist Start: 12-24-19 take 1 tablet by mouth in the morning montelukast (Singulair) 10 MG tablet Take 1 tablet by mouth in the morning. 0 12/23/2021 Active Multiple Vitamins-Minerals (PRESERVISION AREDS 2 PO) (7 sources) Multiple Vitamins-Minerals (PRESERVISION AREDS 2 PO) Take by mouth. 0 Active omeprazole 20 mg delayed release oral capsule (7 sources) Proton Pump Inhibitor take 1 capsule by mouth in the morning omeprazole (PriLOSEC) [address] capsule Take 20 mg by mouth in the morning. 0 Active Completed/Discontinued Medications Medication Drug Class(es) Dates Sig (Normalized) Sig (Original) iopamidol (ISOVUE-370) 76 % injection 100 mL (1 source) Start: 04-01-2022 End: 04-01-2022 iopamidol (ISOVUE-370) 76 % injection 100 mL Problems Active Problems Problem Classification Problem Date Documented Date Episodic/Chronic Chronic obstructive pulmonary disease and bronchiectasis (7 sources) Chronic obstructive lung disease; Translations: [Chronic obstructive pulmonary disease, unspecified] Onset: 04-12-2022 04-12-2022 Chronic Coronary atherosclerosis and other heart disease (9 sources) Coronary arteriosclerosis; Translations: [Atherosclerotic heart disease of [place] coronary artery without angina pectoris] Onset: 04-12-2022 04-12-2022 Chronic Diabetes mellitus without complication (7 sources) Type 2 diabetes mellitus; Translations: [Type 2 diabetes mellitus without complications] Onset: 04-12-2022 04-12-2022 Chronic Disorders of lipid metabolism (7 sources) Mixed hyperlipidemia; Translations: [Mixed hyperlipidemia] Onset: 04-23-2022 04-23-2022 Chronic Esophageal disorders (7 sources) Gastroesophageal reflux disease without esophagitis; Translations: [Gastro-esophageal reflux disease without esophagitis] Onset: 04-12-2022 04-12-2022 Chronic Essential hypertension (9 sources) Essential hypertension; Translations: [Essential (primary) hypertension] Onset: 04-12-2022 04-12-2022 Chronic Heart valve disorders (19 sources) Nonrheumatic aortic (valve) stenosis; Translations: [Aortic valve disorders] Onset: 04-01-2022 Chronic Other lower respiratory disease (2 sources) Dyspnea, unspecified; Translations: [Dyspnea, unspecified] Onset: 04-01-2022 Episodic Residual codes; unclassified (7 sources) Obstructive sleep apnea syndrome; Translations: [Obstructive sleep apnea (adult) (pediatric)] Onset: 04-12-2022 04-12-2022 Chronic Residual codes; unclassified (2 sources) Obstructive sleep apnea (adult) (pediatric); Translations: [Obstructive sleep apnea (adult) (pediatric)] Onset: 04-12-2022 Chronic Past or Other Problems Problem Classification Problem Date Documented Da te Episodic/Chronic Cardiac dysrhythmias (9 sources) Palpitations; Translations: [Palpitations] Onset: 05-19-2022 05-19-2022 Episodic Results Test Name Value Interpretation Reference Range Facil ity Encounters Encounter Date Encounter Type Care Provider Facility Start: 03-17-2023 Telephone encounter Dottie garcia APRN - [employer] Work Phone: [facility] Procedures Date Procedure Procedure Detail Performing Clinician Start: 04-01-2022 Antibody screen Dottie Nelson APRN - [employer] Work Phone: Start: 04-01-2022 Blood typing serologic abo Dottie Nelson CASER - [employer] Work Phone: Start: 04-01-2022 Comprehensive metabo lic panel Dottie Nelson CASER - [employer] Work Phone: Start: 04-01-2022 Radiologic exam ches t 2 views Dottie Nelson CASER - [employer] Work Phone: Start: 12-02-2021 Mammography Dottie Mayorga radha CASER - [employer] Work Phone: Plan of Treatment Date Care Activity Detail Author Start: 11-21-2029 DTaP/Tdap/Td vaccine (2 - Td or Tdap) DTaP/Tdap/Td vaccine (2 - Td or Tdap) [facility] Start: 11-21-2029 DTaP/Tdap/Td Vaccines (2 - Td or Tdap) DTaP/Tdap/Td Vaccines (2 - Td or Tdap) [facility] Start: 04-07-2023 End: 04-07-2023 Patient encounter procedure 04/07/2023 1:30 PM EDT Office Visit [facility] [address] [place] [phone] Dottie Nelson CASER - [employer] [address] [place], [place] [id number] [facility] Start: 02-22-2023 End: 02-22-2025 US Heart Transthoracic Transthoracic echocardiogram (TTE) complete with contrast, bubble, strain, and 3D PRN CV Echocardiography Routine Severe aortic stenosis Expected: 02/22/2023 (Approximate), Expires: 02/22/2025 [facility] Work Phone: Immunizations Immunization Date Immunization Notes Care Provider Fa ciliansley 03-10-2021 influenza virus vacc ine, unspecified formulation Dottie Nelson CASER - [employer] Work Phone: [facility] Payers Date Payer Category Payer Unknown 2016 Unknown [id number] 2013 Medicare 2013 Medicare [id number] 1950 Unknown [id number] 1950 Unknown [id number] Social History Date Type Detail Facility Tobacco smoking stat [facility] Tobacco smoking consumption unknown [facility] Start: 1950 Sex Assigned At Not on file [employer] Work Phone: Start: 04-23-2022 Tobacco smoking stat [facility] Never smoked tobacco [facility] Start: 04-23-2022 Tobacco use and exposure Smokeless tobacco non-user [facility] Start: 05-20-2022 Alcohol intake Lifetime non-d chi (finding) [facility] Start: 05-20-2022 History of Social function [facility] Start: 05-20-2022 Tobacco use panel [facility] Medical Equipment Procedure Code Equipment Code Equipment Origin al Text Equipment Identifier Dates Valve Aortic Edw ards Arnie 3 Ultra Commander [id number] Mm Delivery System - [id number] - [id number] Start: 04-12-2022 Clinical Notes 04-13-2022 to 04-11-2023 Telephone Encounter - Toma Salinas RN - 04/11/2023 11:21 AM ESTTelephone Encounter - Toma Salinas RN - 04/11/2023 11:21 AM ESTTelephone Encounter - Toma Salinas RN - 04/11/2023 10:56 AM EST Note Date & Type Note Facility 04-11-2023 Telephone encount er Note Records scanned in [facility] 04-11-2023 Miscellaneous Notes Formattin g of this note might be different from the original. Records scanned in Dr Andrea's office faxing records. Patient notified. Appt cancelled and I will call Zully's office tomorrow to get results. Chart reviewed, Sherri Salinas notified to call Dr. 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 Patient had her EKG and Echo done last 03/31/23 She is sched on 08/04/23 w/ Dr Andrea. Does she need to come in and see us sooner? I spoke w/ Dr. Andrea's office, they will contact pt for 1 year post TAVR echo & EKG. KCCQ mailed to pt. documented in this encounter [facility] 04-11-[address] er Note Dr Andrea's office faxing records. [facility] 04-06-2023 Telephone encount er Note Patient notified. Appt cancelled and I will call Zully's office tomorrow to get results. [facility] 04-06-2023 Miscellaneous Notes Formattin g of this note might be different from the original. Patient notified. Appt cancelled and I will call Zully's office tomorrow to get results. Chart reviewed, Sherri Salinas notified to call Dr. Andrea's office for pt OV note/EKG and echo results, cancel Alcon Nelson OV appt w/ echo that is scheduled next month, call pt and let her know she can follow up w/ Dr. Andrea [facility], she does not need to return to [place]. Patient had her EKG and Echo done last 03/31/23 She is sched on 08/04/23 w/ Dr Andrea. Does she need to come in and see us sooner? I spoke w/ Dr. Andrea's office, they will contact pt for 1 year post TAVR echo & EKG. KCCQ mailed to pt. documented in this encounter [facility] 04-04-2023 Telephone encount er Note Chart reviewed, Sherri Salinas notified to call Dr. Andrea's office for pt OV note/EKG and echo results, cancel Alcon Nelson OV appt w/ echo that is scheduled next month, call pt and let her know she can follow up w/ Dr. Andrea [facility], she does not need to return to [place]. [facility] 04-04-2023 Miscellaneous Notes Formattin g of this note might be different from the original. Chart reviewed, Sherri Salinas notified to call Dr. 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 Patient had her EKG and Echo done last 03/31/23 She is sched on 08/04/23 w/ Dr Andrea. Does she need to come in and see us sooner? I spoke w/ Dr. Andrea's office, they will contact pt for 1 year post TAVR echo & EKG. KCCQ mailed to pt. documented in this encounter [facility] 04-04-2023 Telephone encount er Note Patient had her EKG and Echo done last 03/31/23 She is sched on 08/04/23 w/ Dr Andrea. Does she need to come in and see us sooner? [facility] 03-17-2023 Telephone encount er Note I spoke w/ Dr. Andrea's office, they will contact pt for 1 year post TAVR echo & EKG. KCCQ mailed to pt. [facility] 04-13-2022 Note Attestation signed by Shaka Mcrae MD at 04/14/2022 10:27 AM I, Dr. Mcrae, saw and evaluated the patient on 04/13/2022. I personally obtained the black and critical portions of the history and physical exam. I reviewed the chart and discussed the patient with the Nurse Practitioner. I agree with the Nurse Practitioner's medical decision making. Hospital Summary: Patient was admitted for elective transcatheter aortic valve replacement. she did well with this procedure. she is now POD1 s/p TF TAVR. she is back to her baseline activity with no symptoms. she will be discharged today on her current medication list. she will follow up in valve clinic in 1-2 weeks. Name: Linda Rai Date of : 1950 Date of Admission: 04/12/2022 Date of Discharge: 04/13/2022 Admitting physician: Shaka Mcrae MD Discharge Attending: NANCY Salazar CNP Primary Care Physician: JORGE L HIDALGO Reason for Admission: Severe Symptomatic Aortic Stenosis Consultants: cardiac rehab HOSPITAL ADMISSION PROBLEM LIST: Patient Active Problem List Diagnosis Nonrheumatic aortic valve stenosis Severe aortic stenosis CAD (coronary artery disease) Primary hypertension DIANA (obstructive sleep apnea) Gastroesophageal reflux disease without esophagitis Chronic obstructive pulmonary disease (HCC) Diabetes mellitus, type 2 (HCC) Review of Systems Review of Systems Constitutional: Positive for fatigue. Negative for chills, diaphoresis and fever. HENT: Negative for nosebleeds. Eyes: Negative for visual disturbance. Respiratory: Positive for cough (chronic moist cough, clear). Negative for chest tightness, shortness of breath (progressively worsening SOB) and wheezing. Cardiovascular: Positive for chest pain (chest tightness with exertion). Negative for palpitations and leg swelling. Gastrointestinal: Negative for abdominal pain, blood in stool and diarrhea. Genitourinary: Negative for difficulty urinating and hematuria. Musculoskeletal: Negative for gait problem and myalgias. Neurological: Negative for dizziness and syncope. Hematological: Does not bruise/bleed easily. Psychiatric/Behavioral: Negative for confusion. Physical Exam Physical Exam Constitutional: General: She is not in acute distress. Appearance: She is not diaphoretic. HENT: Mouth/Throat: Pharynx: No oropharyngeal exudate. Eyes: General: No scleral icterus. Right eye: No discharge. Left eye: No discharge. Cardiovascular: Rate and Rhythm: Normal rate and regular rhythm. Pulses: Normal pulses. Radial pulses are 2+ on the right side. Dorsalis pedis pulses are 2+ on the right side and 2+ on the left side. Posterior tibial pulses are 2+ on the right side and 2+ on the left side. Heart sounds: Normal heart sounds. Comments: R radial cath site without hematoma, ecchymosis or oozing. R hand with brisk capillary refill R femoral cath site without hematoma, ecchymosis, oozing or bruit Pulmonary: Effort: Pulmonary effort is normal. Breath sounds: Normal breath sounds. Abdominal: General: Bowel sounds are normal. There is no distension. Tenderness: There is no abdominal tenderness. Musculoskeletal: General: Normal range of motion. Cervical back: Normal range of motion. Right lower leg: No edema. Left lower leg: No edema. Skin: General: Skin is warm and dry. Neurological: Mental Status: She is oriented to person, place, and time. Psychiatric: Behavior: Behavior normal. Procedures: Transfemoral transcatheter AVR with 23 mm Arnie S3 valve under moderate sedation Transthoracic echocardiogram HOSPITAL COURSE : The patient was admitted to the hospital for elective TAVR on 04/12/22 . A 23 Arnie S3 valve was implanted. The patient returned to [facility] for recovery. Vital signs and labs were stable. There were no groin complications. The patient was ambulatory the evening of the procedure. Post procedure echocardiogram demonstrated : Aortic Valve: Briscoe Arnie 3 Ultra transthoracic bioprosthetic valve that is well-seated with a size of 23 mm. Trace paravalvular regurgitation. No intravalvular regurg. Normal prosthetic gradient. AV mean gradient is 5 mmHg. AV peak velocity is 1.6 m/s. AV area by continuity VTI is 2.0 cm2. Left Ventricle: Mildly increased wall thickness. Ventricular mass is normal. Normal left ventricular systolic function. EF by 2D Simpsons Biplane is 64%. Normal wall motion. Pericardium: The pericardium is normal. No pericardial effusion. Pre-TAVR findings - severe AV stenosis. Complete echo to follow Patient education including SBE prophylaxis, activity, access site care, follow up appointments, and medications was provided. The patient verbalized understanding, rasheeda (more content not included)... [facility] 04-13-2022 Note IMPRESSION: Sinus rhythm Poor R wave progression Electronically Signed On 04-13-2022 8:12:22 EST by Aurea Bajwaarjarrod [facility] documented in this encounter [facility] Health Summary Purpose Family History No Family History Records FoundNo Family History Records FoundNo Family History Records Found Advance Directives No Advanced Directives Records FoundLatest Code Status on File Code Status Date Activated Date Inactivated Comments Full Code 04/12/2022 9:05 AM 04/13/2022 3:41 PM Latest Code Status on File Code Status Date Activated Date Inactivated Comments Full Code 04/12/2022 9:05 AM 04/13/2022 3:41 PM Reason for Referral Specialty Diagnoses / Procedures Referred By Contac t Referred To Contact Cardiology Diagnoses Severe aortic stenosis Procedures Transthoracic echocardiogram (TTE) complete with contrast, bubble, strain, and 3D PRN CT ECHO TTHRC R-T 2D W/WOM-MODE COMPL SPEC&COLR D CT TTE W OR WO FOL WCON,DOPPLER Dottie Nelson, CASER - [employer] [address] [place] [address] Referral ID Status Reason Start Date Expiration Date V isits Requested Visits Authorized [id number] Pending Review 02/22/2023 08/21/2023 1 1 Additional Source Comments INFORMATION SOURCE (unrecogn ized section and content) DATE CREATED AUTHOR AUTHOR'S ORGANIZ ATION 04/03/2022 [facility] DATE CREATED AUTHOR AUTHOR'S ORGANIZ ATION 04/12/2023 [facility] Care Teams (unrecognized sec tion and content) Food Quality Technician Relationship Specialty Start Date End Date Jorge L Hidalgo [address] [place] [phone] PCP - General Family Medicine 04/12/22 Jesus Andrea [address] [place] [phone] [facility] Cardiovascular Disease 05/24/22 Food Quality Technician Relationship Specialty Start Date End Date Jorge L Hidalgo [address] [place] [phone] PCP - General Family Medicine 04/12/22 Jseus Andrea [address] [place] [phone] [facility] Cardiovascular Disease 05/24/22 Reason for Visit (unrecogniz ed section and content) FOR RECORDS PERTAINING TO PATIENTS WHO ARE OR HAVE BEEN ENROLLED IN A CHEMICAL DEPENDENCY/SUBSTANCEABUSE PROGRAM, SOME INFORMATION MAY BE OMITTED. This clinical summary was aggregated from multiple sources. Caution should be exercised in using it in the provision of clinical care. This summary normalizes information from multiple sources, and as a consequence, information in this document may materially change the coding, format and clinical context of patient data. In addition, data may be omitted in some cases. CLINICAL DECISIONS SHOULD BE BASED ON THE PRIMARY CLINICAL RECORDS. [employer] provides no warranty or guarantee of the accuracy or completeness of information in this document.
[2023-06-24 10:31] LABS: Anion Gap 6 (5-15); BUN 9 mg/dL (7-18); BUN/Creat Ratio 16.7 RATIO (10-20); Calcium,Total 9.7 mg/dL (8.5-10.1); Chloride 102 mmol/L (98-107); Creatinine, Serum 0.54 mg/dL (0.55-1.02); EST Glomerular Filtration Rate 118 mL/min (>60); Est Glom Filt Rate - Afr Amer 142 mL/min (>60); Glucose 84 mg/dL (74-106); Microalbumin,Random Urine 30.5 mg/L (NO RANGE EST.); Microalbumin:Creatinine Ratio 83.8 mg/g CRE (<30 mg/g CRE); Potassium 3.8 mmol/L (3.5-5.1); Sodium Level 135 mmol/L (136-145)
[2023-06-24 11:26] LABS: Osmolality, Serum 279 mOsm/KG (280-301)
== END | disposition home or self-care (01) ==
LOC: MFPLAB 08:44
PROVIDERS: PCP Family Medicine; Visit Provider Family Medicine
DX: E11.69 Type 2 diabetes mellitus with other specified complication (principal)
CPT/HCPCS: 36415; 80048; 82043; 82570; 83930

== ENCOUNTER → 2023-07-12 | Outpatient (CLI) | payer MEDICARE, BC, SELFPAY ==
[2022-09-08 08:40] VITALS: BMI 37.3
--- NOTE | 2023-07-12 16:15 | RAD_ITS ---
STUDY: X-RAY CHEST REASON FOR EXAM: Female, 72 years old. Wheezing, ongoing TECHNIQUE: PA and lateral views of the chest. COMPARISON: 02/25/2022. FINDINGS: The lungs are clear and expanded. There is no demonstrated pleural abnormality. Stent projecting over the heart otherwise normal size heart. Normal mediastinum and jen. Normal visualized pulmonary arteries. Normal visualized aortic arch and descending thoracic aorta. There is an increased kyphosis of the thoracic spine. There is degenerative osteoarthritis of the bilateral shoulders. There is no demonstrated abnormality of the visualized soft tissue structures of the upper abdomen. RAD/Chest PA and Lateral IMPRESSION: No acute cardiopulmonary disease. Electronically Signed: Mónica Olmedo MD at 23:30 EST ,
== END | disposition home or self-care (01) ==
LOC: MTRAD 16:00
PROVIDERS: PCP Family Medicine; Referring Provider Family Medicine; Visit Provider Family Medicine
DX: R06.2 Wheezing (principal)
CPT/HCPCS: 71046

== ENCOUNTER → 2023-07-18 | Outpatient (CLI) | payer MEDICARE, BC, SELFPAY ==
[2022-09-08 08:40] VITALS: BMI 37.3
--- NOTE | 2023-07-18 09:06 | RAD_ITS ---
STUDY: X-RAY - PARANASAL SINUSES REASON FOR EXAM: Female, 72 years old. Chronic cough. Nasal congestion. TECHNIQUE: view(s) of the paranasal sinuses were obtained. COMPARISON: None. FINDINGS: Normal visualized frontal, maxillary, ethmoidal and sphenoid sinuses. Normal visualized facial bones. The soft tissue structures are normal. RAD/Sinuses min 3 Views IMPRESSION: Normal x-rays of the paranasal sinuses. Electronically Signed: Everette Mckay MD at 9:30 EST ,
[2023-07-18 10:27] LABS: Absolute Lymphocyte Count 2.83 X10^3/uL (0.83-4.51); Absolute Neutrophil Count 8.9 X10^3/uL (2.0-7.7); Basophil# 0.06 X10^3/uL; Basophil% 0.5 % (0-1); Eosinophil# 0.22 X10^3/uL; Eosinophils% 1.7 % (0-5); Hematocrit 39.9 % (37-47); Hemoglobin 12.8 g/dL (12.0-15.0); Lymphocyte # 2.83 X10^3/ul (0.83-4.51); Lymphocyte % 21.8 % (19-41); Mean Corp Hgb Conc 32.1 g/dL (32-36); Mean Corpuscular Hgb 28.4 pg (27.0-32.0); Mean Corpuscular Volume 88.5 fL (81-99); Mean Platelet Vol. 9.6 fl (6.2-12.0); Monocyte# 0.84 X10^3/uL; Monocyte% 6.5 % (0-10); NRBC Flagged by Analyzer 0 % (0-5); Neutrophil # 8.93 X10^3/uL (2.7-7.7); Neutrophil % 68.7 % (47-70); Platelet Count 361 K/mm3 (150-450); RBC Distribution Width CV 13.4 % (11.6-14.6); RBC Distribution Width SD 43.7 fl (35.1-43.9); Red Blood Count 4.51 M/mm3 (4.2-5.4)
[2023-07-18 12:00] LABS: Erythrocyte Sedimentation Rate 8 mm/hr (0-30)
[2023-07-18 12:34] LABS: ALB/GLOB Ratio 1.3 RATIO (0.9-2.4); AST(SGOT) 14 U/L (15-37); Alanine Aminotransfer ALT/SGPT 23 U/L (13-56); Albumin, Serum 3.8 g/dL (3.2-5.0); Alkaline Phosphatase 80 U/L (45-117); Anion Gap 9 (5-15); BUN 14 mg/dL (7-18); BUN/Creat Ratio 23.2 RATIO (10-20); CRP < 2.90 mg/L (0.0-3.0); Calcium,Total 9.9 mg/dL (8.5-10.1); Chloride 101 mmol/L (98-107); EST Glomerular Filtration Rate 103 mL/min (>60); Est Glom Filt Rate - Afr Amer 125 mL/min (>60); Glucose 98 mg/dL (74-106); Potassium 3.4 mmol/L (3.5-5.1); Protein, Total 6.8 g/dL (6.4-8.2); Sodium Level 137 mmol/L (136-145); Thyroid Stim Hormone (TSH) 1.12 uIU/mL (0.358-3.74)
== END | disposition home or self-care (01) ==
PROVIDERS: PCP Family Medicine; Referring Provider Family Medicine; Visit Provider Family Medicine
DX: R05.3 Chronic cough (principal); R09.81 Nasal congestion
CPT/HCPCS: 36415; 70220; 80053; 84443; 85025; 85652; 86140; 87015; 87070; 87077; 87101; 87116; 87205; 87206

== ENCOUNTER → 2023-07-27 | Outpatient (CLI) | payer MEDICARE, BC, SELFPAY ==
[2022-09-08 08:40] VITALS: BMI 37.3
--- NOTE | 2023-07-27 16:49 | CT_ITS ---
INDICATION: chronic cough post covid; ASTHMA EXAMINATION: CT CHEST WITHOUT CONTRAST - CT Chest W/O Contrast Injection TECHNIQUE: Helically acquired images were obtained of the chest. A radiation dose optimization technique was used for this scan. IV Contrast dosage and agent: None. COMPARISON: None. FINDINGS: LUNGS, PLEURA AND LARGE AIRWAYS: There is decreased inspiratory effort with mild vascular crowding. There is elevation of the left hemidiaphragm with mild bilateral lower lobe atelectasis, left more than right. No pleural effusion or thickening. No pneumothorax. THYROID: Indeterminate calcification within the right thyroid lobe. Otherwise normal thyroid gland. HEART AND PERICARDIUM: Mild cardiomegaly with coronary artery calcifications. No pericardial effusion. VESSELS: Atherosclerosis of aorta with no aneurysm. MEDIASTINUM AND JOHN: No mediastinal or hilar adenopathy. Esophagus is unremarkable. No hiatal hernia. UPPER ABDOMEN: Mild left perinephric study otherwise upper abdomen unremarkable. BONES: Advanced multilevel degenerative disease of the spine. CT/Chest without Contrast IMPRESSION: Mild bilateral lower lobe atelectasis, left more than right. Otherwise no acute cardiopulmonary disease. No pleural effusion or pneumothorax. Electronically Signed: Mónica Olmedo MD at 0:02 EST ,
--- OUTSIDE RECORDS SUMMARY | 2023-07-27 19:55 | XMS RPT_ITS | CCD ---
Author Name Unknown Address [address] [place] [address] Organization [facility] Care Team Providers Care Secretary To Board Of Commissioners Name Role Phone Unavailable Primary Care Provider Unavailabl e DOTTIE NELSON Attending Unavailable Jorge L Hidalgo Referring Unavailable Jorge L Hidalgo Primary Care Unavailable Jorge L Hidalgo Referring Unavailable Jorge L Hidalgo Primary Care Unavailable DOTTIE NELSON Unavailable Jorge L Hidalgo Primary Care Provider [phone] Zully, Jesus Unavailable DOTTIE NELSON Referring Unavailable DOTTIE NELSON Attending Unavailable DOTTIE NELSON Attending Unavailable Allergies Allergy Classification Reported Allergen(s) Allergy Type Date of Onset Reaction(s) Facility (7 sources) Etodolac Propensity to adverse reactions 04-09-2022 [facility] Medications Current Medications Medication Drug Class(es) Dates Sig (Normalized) Sig (Original) acetaminophen 500 mg oral tablet (7 sources) take 1 tablet by mouth every six hours as needed acetaminophen (Tylenol) 500 MG tablet Take 500 mg by mouth every 6 hours as needed. 0 Active [id number] 200 actuat albuterol 0.09 mg/actuat metered dose [...] Coronary arteriosclerosis; Translations: [Atherosclerotic heart disease of [place] coronary artery without angina pectoris] Onset: 04-12-2022 [...] 03-17-2023 Telephone encounter Dottie garcia APRN - CLASSIFICATION ANALYST Work Phone: [facility] Cardiology Procedures Date Procedure Procedure Detail Performing Clinician Start: 04-01-2022 Antibody screen Dottie Nelson APRN - CLASSIFICATION ANALYST Work Phone: Start: 04-01-2022 Blood typing serologic abo Dottie Nelson FIREMAN - CLASSIFICATION ANALYST Work Phone: Start: 04-01-2022 Comprehensive metabo lic panel Dottie Nelson FIREMAN - CLASSIFICATION ANALYST Work Phone: Start: 04-01-2022 Radiologic exam ches t 2 views Dottie Nelson FIREMAN - CLASSIFICATION ANALYST Work Phone: Start: 12-02-2021 Mammography Dottie Mayorga radha FIREMAN - CLASSIFICATION ANALYST Work Phone: Plan of Treatment Date Care Activity Detail Author Start: 11-21-2029 DTaP/Tdap/Td vaccine (2 - Td or Tdap) DTaP/Tdap/Td vaccine (2 - Td or Tdap) [facility] Start: 11-21-2029 DTaP/Tdap/Td Vaccines (2 - Td or Tdap) DTaP/Tdap/Td Vaccines (2 - Td or Tdap) [facility] Start: 04-07-2023 End: 04-07-2023 Patient encounter procedure 04/07/2023 1:30 PM EDT Office Visit [facility] Cardiology [address] [place] [phone] Dottie Nelson FIREMAN - CLASSIFICATION ANALYST [address] [place], [place] [id number] [facility] Start: 02-22-2023 End: 02-22-2025 US Heart Transthoracic Transthoracic echocardiogram (TTE) complete with contrast, bubble, strain, and 3D PRN CV Echocardiography Routine Severe aortic stenosis Expected: 02/22/2023 (Approximate), Expires: 02/22/2025 [facility] Work Phone: Immunizations Immunization Date Immunization Notes Care Provider Fa ciliansley 03-10-2021 influenza virus vacc ine, unspecified formulation Dottie Nelson FIREMAN - CLASSIFICATION ANALYST Work Phone: [facility] Payers Date Payer Category Payer Unknown 2016 Unknown [id number] 2013 Medicare 2013 Medicare [id number] 1950 Unknown [id number] 1950 Unknown [id number] Social History Date Type Detail Facility Tobacco smoking stat [facility] Tobacco smoking consumption unknown [facility] Start: 1950 Sex Assigned At Not on file S [employer] Work Phone: Start: 04-23-[address] [facility] Never smoked tobacco [facility] Start: 04-23-2022 Tobacco use and exposure Smokeless tobacco non-user [facility] Start: 05-20-2022 Alcohol intake Lifetime non-d chi (finding) [facility] Start: 05-20-2022 History of Social function [facility] Start: 05-20-2022 Tobacco use panel [facility] Medical Equipment Procedure Code Equipment Code Equipment Origin al Text Equipment Identifier Dates Valve Aortic Edw ards Arnie 3 Ultra Commander Od23 Mm Delivery System - [id number] - [id number] Start: 04-12-2022 Clinical Notes 04-13-2022 to 04-11-2023 Telephone Encounter - Toma Salinas RN - 04/11/2023 11:21 AM ESTTelephone Encounter - Toma Salinas RN - 04/11/2023 11:21 AM ESTTelephone Encounter - Toma Salinas RN - 04/11/2023 10:56 AM EST Note Date & Type Note Facility 04-11-2023 Telephone encount er Note Records scanned in [facility] 04-11-2023 Miscellaneous Notes Formattin g of this [...] she 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 Patient had her EKG and Echo done last 03/31/23 She is sched on 08/04/23 w/ Dr Andrea. Does she need to come in and see us sooner? I spoke w/ Dr. Andrea's office, they will contact pt for 1 year post TAVR echo & EKG. KCCQ mailed to pt. documented in this encounter [facility] 04-11-[address] enc[address] er Note Dr Andrea's office faxing records. [facility] 04-06-2023 Telephone encount er Note Patient notified. Appt cancelled and I will call Zully's office tomorrow to get results. [facility] 04-06-2023 Miscellaneous Notes Formattin g of this [...] she can follow up w/ Dr. Andrea mcfp, she does not need to return to [place]. Patient had her EKG and Echo done last 03/31/23 She is sched on 08/04/23 w/ Dr Andrea. Does she need to come in and see us sooner? I spoke w/ Dr. Andrea's office, they will contact pt for 1 year post TAVR echo & EKG. KCCQ mailed to pt. documented in this encounter [facility] 04-04-2023 Telephone encount er Note Chart reviewed, Sherri Salinas notified to call Dr. Andrea's office for pt OV note/EKG and echo results, cancel Alcon Nelson OV appt w/ echo that is scheduled next month, call pt and let her know she can follow up w/ Dr. Andrea mcfp, she does not need to return to [place]. [facility] 04-04-2023 Miscellaneous Notes Formattin g of this note might be different from the original. Chart reviewed, Sherri Salinas notified to call Dr. Andrea's office for pt OV note/EKG and echo results, cancel Alcon Nelson OV appt w/ echo that is scheduled next month, call pt and let her know she can follow up w/ Dr. Andrea mcfp, she does not need to return to [place]. Patient had her EKG and Echo done last 03/31/23 She is sched on 08/04/23 w/ Dr Andrea. Does she need to come in and see us sooner? I spoke w/ Dr. Andrea's office, they will contact pt for 1 year post TAVR echo & EKG. KCCQ mailed to pt. documented in this encounter [facility] 04-04-2023 Telephone encount er Note Patient had her EKG and Echo done last 03/31/23 She is sched on 08/04/23 w/ Dr Andrea. Does she need to come in and see us sooner? [facility] 03-17-2023 Telephone encount er Note I spoke w/ Dr. Andrea's office, they will contact pt for 1 year post TAVR echo & EKG. KCCQ mailed to pt. [facility] 04-13-2022 Note Attestation signed by Shaka Mcrae [...] verbalized understanding, rasheeda (more content not included)... [facility] 04-13-2022 Note IMPRESSION: Sinus rhythm Poor R wave progression Electronically Signed On 04-13-2022 8:12:22 EST by Aurea Bajwandjarrod [facility] documented in this encounter [facility] Health Summary Purpose Family History No [...] with contrast, bubble, strain, and 3D PRN [place] ECHO TTHRC R-T 2D W/WOM-MODE COMPL SPEC&COLR D [place] TTE W OR WO FOL WCON,DOPPLER Dottie Nelson, FIREMAN - CLASSIFICATION ANALYST [address] [place] [address] Referral ID Status Reason Start Date Expiration Date V isits Requested Visits Authorized [id number] Pending Review 02/22/2023 08/21/2023 1 1 Additional Source Comments INFORMATION SOURCE (unrecogn ized section and content) DATE CREATED AUTHOR AUTHOR'S ORGANIZ ATION 04/03/2022 [facility] DATE CREATED AUTHOR AUTHOR'S ORGANIZ ATION 04/12/2023 [facility] Care Teams (unrecognized sec tion and content) Secretary To Board Of Commissioners Relationship Specialty Start Date End Date Jorge L Hidalgo [address] [place] [phone] PCP - General Family Medicine 04/12/22 Jesus Andrea [address] [place] [phone] Addiction Medicine Physician Internal Medicine Cardiovascular Disease 05/24/22 Secretary To Board Of Commissioners Relationship Specialty Start Date End Date Jorge L Hidalgo [address] [place] [phone] PCP - General Family Medicine 04/12/22 Jesus Andrea [address] [place] [address] Addiction Medicine Physician Internal Medicine Cardiovascular Disease 05/24/22 Reason for [...] BE BASED ON THE PRIMARY CLINICAL RECORDS. [employer] provides no warranty or guarantee of the accuracy or completeness of information in this document.
== END | disposition home or self-care (01) ==
LOC: CT 16:48
PROVIDERS: PCP Family Medicine; Referring Provider Family Medicine; Visit Provider Family Medicine
DX: J45.901 Unspecified asthma with (acute) exacerbation (principal)
CPT/HCPCS: 71250

== ENCOUNTER → 2023-08-08 | Outpatient (CLI) | payer MEDICARE, BC, SELFPAY ==
[2022-09-08 08:40] VITALS: BMI 37.3
--- NOTE | 2023-08-08 08:49 | CDU_ITS ---
Reason For Study: Carotid artery stenosis Rt. Velocities/BP Lt. Velocities/BP Prox CCA 83.4/18.2 cm/sec. Prox CCA 94.9/17.9 cm/sec. Mid CCA 78.7/18.2 cm/sec. Mid CCA 75.1/14.6 cm/sec. Dist CCA 83.4/15.4 cm/sec. Dist CCA 92.7/19 cm/sec. Prox ICA 62.6/15.4 cm/sec. Prox ICA 83.9/18.8 cm/sec. Mid ICA 93.8/25.6 cm/sec. Mid ICA 112.1/32.3 cm/sec. Dist ICA 86.1/21.2 cm/sec. Dist ICA 92.5/26.2 cm/sec. Rt. ICA/CCA = 1.12. Lt. ICA/CCA = 1.21. Prox ECA 96/5.8 cm/sec. Prox ECA 106/7.7 cm/sec. Rt. Vert. 45.6/3.8 cm/sec. Lt. Vert. 67.9/18.8 cm/sec. Right Extracranial There is intimal thickening but no significant atherosclerotic plaque noted in the right common carotid artery. There is heterogeneous, irregular atherosclerotic plaque noted in the right internal carotid artery. There is intimal thickening but no significant atherosclerotic plaque noted in the right external carotid artery. Antegrade flow is noted in the right vertebral artery. Left Extracranial There is homogeneous, smooth atherosclerotic plaque noted in the left common carotid artery. There is heterogeneous, irregular atherosclerotic plaque noted in the left internal carotid artery. There is heterogeneous, irregular atherosclerotic plaque noted in the left external carotid artery. Antegrade flow is noted in the left vertebral artery. Procedure Carotid Duplex [id number]. This is a Carotid Duplex examination using B-mode, color flow and specral Doppler. Exam performed in department. VL/Carotid Duplex Ultrasound Interpretation Summary Mild (<50%) stenosis right extracranial internal carotid. Mild (<50%) stenosis left extracranial internal carotid. Patent and antegrade vertebrals bilaterally. Ordering Physician: Larissa Thompson Referring Physician: Jareth Hidalgo MD Performed By: Brittaney Gomez RVT
--- OUTSIDE RECORDS SUMMARY | 2023-08-08 09:09 | XMS RPT_ITS | CCD ---
Author Name Unknown Address [address] [place] [address] Organization [facility] Care Team Providers Care Check Clerk Name Role Phone Unavailable Primary Care Provider Unavailabl e DOTTIE NELSON Attending Unavailable Jorge L Hidalgo Referring Unavailable Jorge L Hidalgo Primary Care Unavailable Jorge L Hidalgo Referring Unavailable Jorge L Hidalgo Primary Care Unavailable DOTTIE NELSON Unavailable Jorge L Hidalgo Primary Care Provider Zully, Jesus Unavailable DOTTIE NELSON Referring Unavailable DOTTIE NELSON Attending Unavailable DOTTIE NELSON Attending Unavailable Allergies Allergy Classification Reported Allergen(s) Allergy Type Date of Onset Reaction(s) Facility (7 sources) Etodolac Propensity to adverse reactions 04-09-2022 [facility] Medications Current Medications Medication Drug Class(es) Dates Sig (Normalized) Sig (Original) acetaminophen 500 mg oral tablet (7 sources) take 1 tablet by mouth every six hours as needed acetaminophen (Tylenol) 500 MG tablet Take 500 mg by mouth every 6 hours as needed. 0 Active [id number] 200 actuat albuterol 0.09 mg/actuat metered dose [...] Coronary arteriosclerosis; Translations: [Atherosclerotic heart disease of [place] coronary artery without angina pectoris] Onset: 04-12-2022 [...] 03-17-2023 Telephone encounter Dottie garcia APRN - CURBER Work Phone: [facility] Cardiology Procedures Date Procedure Procedure Detail Performing Clinician Start: 04-01-2022 Antibody screen Dottie Nelson APRN - CURBER Work Phone: Start: 04-01-2022 Blood typing serologic abo Dottie Nelson WELLNESS GUIDE - CURBER Work Phone: Start: 04-01-2022 Comprehensive metabo lic panel Dottie Nelson WELLNESS GUIDE - CURBER Work Phone: Start: 04-01-2022 Radiologic exam ches t 2 views Dottie Nelson WELLNESS GUIDE - CURBER Work Phone: Start: 12-02-2021 Mammography Dottie Mayorga radha WELLNESS GUIDE - CURBER Work Phone: Plan of Treatment Date Care Activity Detail Author Start: 11-21-2029 DTaP/Tdap/Td vaccine (2 - Td or Tdap) DTaP/Tdap/Td vaccine (2 - Td or Tdap) [facility] Start: 11-21-2029 DTaP/Tdap/Td Vaccines (2 - Td or Tdap) DTaP/Tdap/Td Vaccines (2 - Td or Tdap) [facility] Start: 04-07-2023 End: 04-07-2023 Patient encounter procedure 04/07/2023 1:30 PM EDT Office Visit [facility] Cardiology [address] [place] [phone] Dottie Nelson WELLNESS GUIDE - CURBER [address] [place], [place] [phone] [facility] Start: 02-22-2023 End: 02-22-2025 US Heart Transthoracic Transthoracic echocardiogram (TTE) complete with contrast, bubble, strain, and 3D PRN CV Echocardiography Routine Severe aortic stenosis Expected: 02/22/2023 (Approximate), Expires: 02/22/2025 [facility] Work Phone: Immunizations Immunization Date Immunization Notes Care Provider Fa ciliansley 03-10-2021 influenza virus vacc ine, unspecified formulation Dottie Nelson WELLNESS GUIDE - CURBER Work Phone: [facility] Payers Date Payer Category Payer Unknown 2016 Unknown [id number] 2013 Medicare 2013 Medicare [id number] 1950 Unknown [id number] 1950 Unknown [id number]. [id number] Social History Date Type Detail Facility Tobacco smoking stat [facility] Tobacco smoking consumption unknown [facility] Start: 1950 Sex Assigned At Not on file S [employer] Work Phone: Start: 04-23-2022 Tobacco smoking stat [facility] Never smoked tobacco [facility] Start: 04-23-2022 Tobacco use and exposure Smokeless tobacco non-user [facility] Start: 05-20-2022 Alcohol intake Lifetime non-d chi (finding) [facility] Start: 05-20-2022 History of Social function [facility] Start: 05-20-2022 Tobacco use panel [facility] Medical Equipment Procedure Code Equipment Code Equipment Origin al Text Equipment Identifier Dates Valve Aortic Edw ards Arnie 3 Ultra Commander Od23 Mm Delivery System - [id number] - [id number] Start: 04-12-2022 Clinical Notes 04-13-2022 to 04-11-2023 Telephone Encounter - Toma Salinas RN - 04/11/2023 11:21 AM ESTTelephone Encounter - Toma Salinas RN - 04/11/2023 11:21 AM ESTTelephone Encounter - Toma Salinas RN - 04/11/2023 10:56 AM EST Note Date & Type Note Facility 04-11-2023 Telephone encount er Note Records scanned in [facility] 04-11-2023 Miscellaneous Notes Formattin g of [...] can 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 Patient had her EKG and Echo done last 03/31/23 She is sched on 08/04/23 w/ Dr Andrea. Does she need to come in and see us sooner? I spoke w/ Dr. Andrea's office, they will contact pt for 1 year post TAVR echo & EKG. KCCQ mailed to pt. documented in this encounter [facility] 04-11-[address] enc[address] er Note Dr Andrea's office faxing records. [facility] 04-06-2023 Telephone encount er Note Patient notified. Appt cancelled and I will call Zully's office tomorrow to get results. 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 Patient had her EKG and Echo done last 03/31/23 She is sched on 08/04/23 w/ Dr Andrea. Does she need to come in and see us sooner? I spoke w/ Dr. Andrea's office, they will contact pt for 1 year post TAVR echo & EKG. KCCQ mailed to pt. documented in this encounter [facility] 04-04-2023 Telephone encount er Note Chart reviewed, Sherri Salinas notified to call Dr. Andrea's office for pt OV note/EKG and echo results, cancel Alcon Nelson OV appt w/ echo that is scheduled next month, call pt and let her know she can follow up w/ Dr. Andrea chcf, she does not need to return to [place]. [facility] 04-04-2023 Miscellaneous Notes Formattin g of this note might be different from the original. Chart reviewed, Sherri Salinas notified to call Dr. Andrea's office for pt OV note/EKG and echo results, cancel Alcon Nelson OV appt w/ echo that is scheduled next month, call pt and let her know she can follow up w/ Dr. Andrea chcf, she does not need to return to [place]. Patient had her EKG and Echo done last 03/31/23 She is sched on 08/04/23 w/ Dr Andrea. Does she need to come in and see us sooner? I spoke w/ Dr. Andrea's office, they will contact pt for 1 year post TAVR echo & EKG. KCCQ mailed to pt. documented in this encounter [facility] 04-04-2023 Telephone encount er Note Patient had her EKG and Echo done last 03/31/23 She is sched on 08/04/23 w/ Dr Andrea. Does she need to come in and see us sooner? [facility] 03-17-2023 Telephone encount er Note I spoke w/ Dr. Andrea's office, they will contact pt for 1 year post TAVR echo & EKG. KCCQ mailed to pt. [facility] 04-13-2022 Note Attestation signed by Shaka [...] verbalized understanding, rasheeda (more content not included)... [facility] 04-13-2022 Note IMPRESSION: Sinus rhythm Poor R wave progression Electronically Signed On 04-13-2022 8:12:22 EST by Aurea Bajwanejarrod [facility] documented in this encounter [facility] Health Summary Purpose Family History No [...] with contrast, bubble, strain, and 3D PRN [place] ECHO TTHRC R-T 2D W/WOM-MODE COMPL SPEC&COLR D [place] TTE W OR WO FOL WCON,DOPPLER Dottie Nelson, WELLNESS GUIDE - CURBER [address] [place] [address] Referral ID Status Reason Start Date Expiration Date V isits Requested Visits Authorized [id number] Pending Review 02/22/2023 08/21/2023 1 1 Additional Source Comments INFORMATION SOURCE (unrecogn ized section and content) DATE CREATED AUTHOR AUTHOR'S ORGANIZ ATION 04/03/2022 [facility] DATE CREATED AUTHOR AUTHOR'S ORGANIZ ATION 04/12/2023 [facility] Care Teams (unrecognized sec tion and content) Check Clerk Relationship Specialty Start Date End Date Jorge L Hidalgo [address] [place] [phone] PCP - General Family Medicine 04/12/22 Jesus Andrea [address] [place] [phone] Admission Nurse Coordinator Internal Medicine Cardiovascular Disease 05/24/22 Check Clerk Relationship Specialty Start Date End Date Jorge L Hidalgo [address] [place] [phone] PCP - General Family Medicine 04/12/22 Jesus Andrea [address] [place] [address] Admission Nurse Coordinator Internal Medicine Cardiovascular Disease 05/24/22 Reason for [...] BE BASED ON THE PRIMARY CLINICAL RECORDS. [employer] provides no warranty or guarantee of the accuracy or completeness of information in this document.
== END | disposition home or self-care (01) ==
LOC: CVS 08:47
PROVIDERS: PCP Family Medicine; Referring Provider Physician Assistant; Visit Provider Physician Assistant
DX: I65.22 Occlusion and stenosis of left carotid artery (principal)
CPT/HCPCS: 93880

== ENCOUNTER → 2023-08-24 | Outpatient (CLI) | payer MEDICARE, BC, SELFPAY ==
[2022-09-08 08:40] VITALS: BMI 37.3
--- NOTE | 2023-08-24 14:21 | CT_ITS ---
STUDY: CT MAXILLOFACIAL SINUSES REASON FOR EXAM: Female, 72 years old. Other chronic sinusitis RADIATION DOSAGE (If Supplied By Facility): CTDIvol = ( 28.14 ) mGy, DLP = ( 633.63 ) mGycm TECHNIQUE: The patient was scanned in a multi detector CT scanner. High resolution axial imaging was performed without the administration of intravenous contrast material. Sagittal and coronal images were reconstructed. Individualized dose optimization techniques were used for this CT. COMPARISON: Comparison is made with prior study July 18, 2023. FINDINGS: FRONTAL SINUSES: Normal aeration, without mucosal inflammatory disease. ETHMOIDAL SINUSES: Minimal mucosal thickening along the posterior aspect of the right ethmoid sinus. MAXILLARY SINUSES: Normal aeration, without mucosal inflammatory disease. SPHENOIDAL SINUSES: Normal aeration, without mucosal inflammatory disease. There is patency of the bilateral maxillary infundibuli with normal uncinate processes, ethmoid bullae, and hiatus semilunaris. Normal bilateral middle turbinates. Normal bilateral inferior turbinates. Normal midline nasal septum. There is patency of the bilateral nasal airways. The visualized osseous structures are normal. The visualized bilateral orbital contents are normal. CT/Sinus/Facial Bone IMPRESSION: Minimal mucosal thickening along the posterior aspect of the right ethmoid sinus. Electronically Signed: Tez Purdy MD at 14:45 EDT ,
== END | disposition home or self-care (01) ==
PROVIDERS: PCP Family Medicine; Referring Provider Otolaryngology; Visit Provider Otolaryngology
DX: J32.9 Chronic sinusitis, unspecified (principal)
CPT/HCPCS: 70486

== ENCOUNTER → 2023-09-02 | Outpatient (CLI) | payer MEDICARE, BC, SELFPAY ==
[2022-09-08 08:40] VITALS: BMI 37.3
--- NOTE | 2023-09-02 09:44 | RAD_ITS ---
STUDY: X-RAY - ESOPHAGUS (BARIUM SWALLOW) WITH FLUOROSCOPY REASON FOR EXAM: Female, 72 years old. Dysphagia, unspecified TECHNIQUE: 14 view(s) of the esophagus were obtained following swallowing of barium. FLUOROSCOPY TIME (if supplied): (22 seconds) minutes/seconds. 16.3 mGy COMPARISON: None. FINDINGS: There is no demonstrated esophageal foreign body. There is no demonstrated stricture or mucosal abnormality. Normal gastroesophageal junction, without a demonstrated hiatal hernia. The patient ingested a 12 mm tablet of barium without difficulty. There is atherosclerotic calcification of the aortic arch with tortuosity of the descending aorta. Prior aortic valve replacement. There are degenerative changes of the visualized thoracic spine. RAD/Esophagus Dual Contrast IMPRESSION: Normal plain film x-ray examination (barium swallow) of the esophagus. Electronically Signed: Tez Purdy MD at 10:52 EDT ,
== END | disposition home or self-care (01) ==
LOC: RAD 09:44
PROVIDERS: PCP Family Medicine; Referring Provider Family Medicine; Visit Provider Family Medicine
DX: R13.10 Dysphagia, unspecified (principal)
CPT/HCPCS: 74221

== ENCOUNTER → 2023-09-06 | Outpatient (CLI) | payer MEDICARE, BC, SELFPAY ==
[2022-09-08 08:40] VITALS: BMI 37.3
[2023-09-13 16:09] LABS: Clam <0.10 kU/L (Class 0); Codfish <0.10 kU/L (Class 0); Corn <0.10 kU/L (Class 0); Egg, White <0.10 kU/L (Class 0); Milk (Cow) <0.10 kU/L (Class 0); Peanut 0.11 kU/L (Class 0/I); SCALLOP <0.10 kU/L (Class 0); SESAME SEED <0.10 kU/L (Class 0); Shrimp <0.10 kU/L (Class 0); Soybean <0.10 kU/L (Class 0); Walnut, (Food) <0.10 kU/L (Class 0); Wheat <0.10 kU/L (Class 0)
== END | disposition home or self-care (01) ==
LOC: LAB 13:50
PROVIDERS: PCP Family Medicine; Referring Provider Otolaryngology; Visit Provider Otolaryngology
DX: T78.40XA Allergy, unspecified, initial encounter (principal); X58.XXXA Exposure to other specified factors, initial encounter
CPT/HCPCS: 36415; 86003

== ENCOUNTER → 2023-09-09 | Outpatient (CLI) | payer MEDICARE, BC, SELFPAY ==
[2022-09-08 08:40] VITALS: BMI 37.3
[2023-09-09 10:48] LABS: Basophil# 0.04 X10^3/uL; Basophil% 0.5 % (0-1); Eosinophil# 0.59 X10^3/uL; Eosinophils% 8.1 % (0-5); Hematocrit 38.3 % (37-47); Hemoglobin 12.5 g/dL (12.0-15.0); Lymphocyte % 27.5 % (19-41); Mean Corp Hgb Conc 32.6 g/dL (32-36); Mean Corpuscular Hgb 28.7 pg (27.0-32.0); Mean Platelet Vol. 9.8 fl (6.2-12.0); Monocyte% 8.2 % (0-10); NRBC Flagged by Analyzer 0 % (0-5); Neutrophil # 4.01 X10^3/uL (2.7-7.7); Neutrophil % 55.2 % (47-70); Platelet Count 314 K/mm3 (150-450); RBC Distribution Width CV 13.6 % (11.6-14.6); RBC Distribution Width SD 43.8 fl (35.1-43.9); Red Blood Count 4.35 M/mm3 (4.2-5.4); White Blood Count 7.3 K/mm3 (4.4-11.0)
[2023-09-15 16:09] LABS: Alternaria alternata <0.10 kU/L (Class 0); Bermuda Grass <0.10 kU/L (Class 0); Bluegrass, Kentucky <0.10 kU/L (Class 0); Cat Hair/Dander, Standard <0.10 kU/L (Class 0); D farinae Mite <0.10 kU/L (Class 0); D pteronyssinus <0.10 kU/L (Class 0); Dog Epithelia <0.10 kU/L (Class 0); Elm, American White <0.10 kU/L (Class 0); Mouse Urine <0.10 kU/L (Class 0); Oak, White <0.10 kU/L (Class 0); Plantain, English <0.10 kU/L (Class 0); Ragweed, Short/Common <0.10 kU/L (Class 0)
[2023-09-16 02:08] LABS: Aspirgillus flavus Negative (Neg:<1:1); Aspirgillus fumigatus Negative (Neg:<1:1); Aspirgillus niger Negative (Neg:<1:1); Cytoplasmic Ab (C-ANCA) <1:20 titer (Neg:<1:20); Immunoglobulin E 33 IU/mL (6-495); Perinuclear Ab (P-ANCA) <1:20 titer (Neg:<1:20)
== END | disposition home or self-care (01) ==
LOC: LAB 08:41
PROVIDERS: PCP Family Medicine; Referring Provider Nurse Practitioner Acute Care; Visit Provider Nurse Practitioner Acute Care
DX: J30.1 Allergic rhinitis due to pollen (principal)
CPT/HCPCS: 36415; 82785; 85025; 86003; 86256; 86606

== ENCOUNTER → 2023-11-10 | Outpatient (CLI) | payer MEDICARE, BC, SELFPAY ==
[2022-09-08 08:40] VITALS: BMI 37.3
--- NOTE | 2023-11-10 13:51 | ECHOD_ITS ---
Reason For Study: DYSPNEA Procedure This was a 2D Doppler, Color Flow transthoracic echocardiogram. Exam performed in department. Left Ventricle Normal LV size. Mild concentric left ventricular hypertrophy. The left ventricular ejection fraction is 65 %. Normal diastology for age. Right Ventricle Normal right ventricle. Atria The left atrium is mildly enlarged. Normal right atrium. Patent foramen ovale. Mitral Valve There is Mild focal posterior mitral annular calcification. Tricuspid Valve Trivial tricuspid valve insufficiency. Unable to estimate RV systolic pressure due to insufficient tricuspid regurgitant envelope. Aortic Valve Bioprosthetic aortic valve. Mean peak gradient 14.4 mmHg. Pulmonic Valve The pulmonic valve is not well visualized. Great Vessels The aortic root is not well visualized. Pericardium/Pleural No pericardial effusion. MMode/2D Measurements & Calculations LVIDd: 5.1 cm IVSd: 0.95 cm LVOT diam: 1.9 cm LVIDs: 3.6 cm LVPWd: 1.2 cm LVOT area: 2.7 cm2 FS: 30.3 % Ao root diam: 3.4 cm LAV(MOD-bp): 63.1 ml LVAd ap4: 24.7 cm2 LAV(MOD-bp) Indexed: 32.3 ml/m2 LVLd ap4: 7.0 cm LAV(MOD-sp2): 70.6 ml EDV(MOD-sp4): 73.6 ml LAV(MOD-sp4): 53.1 ml EDV(sp4-el): 73.3 ml LVAs ap4: 11.9 cm2 LVLs ap4: 5.5 cm ESV(MOD-sp4): 25.3 ml ESV(sp4-el): 21.9 ml EF(MOD-sp4): 65.7 % EF(sp4-el): 70.2 % SV(MOD-sp4): 48.3 ml SV(sp4-el): 51.5 ml LA A4 area: 19.1 cm2 LA dimension(2D): 4.0 cm RA A4 area: 10.3 cm2 TAPSE: 2.7 cm Time Measurements MV dec time: 0.20 sec Doppler Measurements & Calculations MV E max jeff: 86.0 cm/sec Lat Peak E' Jeff: 8.5 cm/sec Med Peak E' Jeff: 5.3 cm/sec MV A max jeff: 65.6 cm/sec E/E' lat: 10.2 E/E' med: 16.1 MV E/A: 1.3 MV V2 max: 91.6 cm/sec Ao V2 max: 255.2 cm/sec MV max P.4 mmHg MV dec slope: 445.3 cm/sec2 Ao max P.1 mmHg MV V2 mean: 50.8 cm/sec Ao V2 mean: 178.1 cm/sec MV mean P.2 mmHg Ao mean P.4 mmHg MV V2 VTI: 28.0 cm Ao V2 VTI: 48.4 cm AV (velocity ratio): 0.77 MVA(VTI): 3.6 cm2 IAIN(I,D): 2.1 cm2 IAIN(V,D): 1.7 cm2 LV V1 max: 161.6 cm/sec SV(LVOT): 101.8 ml PA V2 max: 105.7 cm/sec LV V1 max P.4 mmHg PA V2 mean: 71.3 cm/sec LV V1 mean P.8 mmHg LV V1 mean: 124.8 cm/sec LV V1 VTI: 37.5 cm ECHO/Echo Complete Interpretation Summary Mild concentric left ventricular hypertrophy. The left ventricular ejection fraction is 65 %. The left atrium is mildly enlarged. Patent foramen ovale. There is Mild focal posterior mitral annular calcification. Bioprosthetic aortic valve. Mean peak gradient 14.4 mmHg. Ordering Physician: Jareth Hidalgo Referring Physician: Jareth Hidalgo Performed By: Justine He RCS
[2023-11-10 15:59] LABS: Absolute Lymphocyte Count 2.27 X10^3/uL (0.83-4.51); Absolute Neutrophil Count 6.7 X10^3/uL (2.0-7.7); Basophil# 0.07 X10^3/uL; Basophil% 0.7 % (0-1); Eosinophil# 0.36 X10^3/uL; Eosinophils% 3.6 % (0-5); Hematocrit 39.9 % (37-47); Hemoglobin 13.1 g/dL (12.0-15.0); Lymphocyte # 2.27 X10^3/ul (0.83-4.51); Lymphocyte % 22.5 % (19-41); Mean Corp Hgb Conc 32.8 g/dL (32-36); Mean Corpuscular Hgb 28.8 pg (27.0-32.0); Mean Corpuscular Volume 87.7 fL (81-99); Mean Platelet Vol. 9.9 fl (6.2-12.0); Monocyte# 0.69 X10^3/uL; Monocyte% 6.8 % (0-10); NRBC Flagged by Analyzer 0 % (0-5); Neutrophil # 6.65 X10^3/uL (2.7-7.7); Platelet Count 333 K/mm3 (150-450); RBC Distribution Width CV 13.2 % (11.6-14.6); RBC Distribution Width SD 42.4 fl (35.1-43.9); Red Blood Count 4.55 M/mm3 (4.2-5.4); White Blood Count 10.1 K/mm3 (4.4-11.0)
[2023-11-10 16:02] LABS: Urine Sodium 64 mmol/L (Not Establ.)
[2023-11-10 16:19] LABS: BNP,B-Type NATRIURETIC PEPTIDE 58.9 pg/mL (0-100)
[2023-11-10 16:39] LABS: ALB/GLOB Ratio 1.1 RATIO (0.9-2.4); AST(SGOT) 26 U/L (15-37); Alanine Aminotransfer ALT/SGPT 24 U/L (13-56); Albumin, Serum 3.9 g/dL (3.2-5.0); Alkaline Phosphatase 120 U/L (45-117); Anion Gap 12 (5-15); BUN 15 mg/dL (7-18); BUN/Creat Ratio 16.6 RATIO (10-20); Calcium,Total 10.5 mg/dL (8.5-10.1); Chloride 97 mmol/L (98-107); EST Glomerular Filtration Rate 65 mL/min (>60); Est Glom Filt Rate - Afr Amer 78 mL/min (>60); Globulin 3.5 g/dL (2.2-4.2); Glucose 119 mg/dL (74-106); Potassium 3.7 mmol/L (3.5-5.1); Protein, Total 7.4 g/dL (6.4-8.2); Sodium Level 134 mmol/L (136-145)
[2023-11-10 16:40] LABS: D-Dimer Quantitative (DVT/PE) 0.47 FEU/ug/m (0.27-0.49)
[2023-11-10 20:19] LABS: Osmolality, Serum 293 mOsm/KG (280-301)
== END | disposition home or self-care (01) ==
PROVIDERS: PCP Family Medicine; Referring Provider Family Medicine; Visit Provider Family Medicine
DX: R06.09 Other forms of dyspnea (principal); Q21.12 Patent foramen ovale; R60.0 Localized edema
CPT/HCPCS: 80053; 83880; 83930; 84300; 85025; 85379; 93306

== ENCOUNTER → 2024-04-05 | Outpatient (CLI) | payer MEDICARE, BC, SELFPAY ==
[2022-09-08 08:40] VITALS: BMI 37.3
[2024-04-05 09:26] LABS: Absolute Lymphocyte Count 2.51 X10^3/uL (0.83-4.51); Absolute Neutrophil Count 5.9 X10^3/uL (2.0-7.7); Basophil# 0.05 X10^3/uL; Basophil% 0.5 % (0-1); Eosinophil# 0.55 X10^3/uL; Eosinophils% 5.6 % (0-5); Hematocrit 39.5 % (37-47); Hemoglobin 13.1 g/dL (12.0-15.0); Lymphocyte # 2.51 X10^3/ul (0.83-4.51); Lymphocyte % 25.7 % (19-41); Mean Corp Hgb Conc 33.2 g/dL (32-36); Mean Corpuscular Volume 87.6 fL (81-99); Mean Platelet Vol. 9.6 fl (6.2-12.0); Monocyte# 0.71 X10^3/uL; Monocyte% 7.3 % (0-10); NRBC Flagged by Analyzer 0 % (0-5); Neutrophil # 5.89 X10^3/uL (2.7-7.7); Neutrophil % 60.4 % (47-70); Platelet Count 318 K/mm3 (150-450); RBC Distribution Width CV 13.1 % (11.6-14.6); RBC Distribution Width SD 41.7 fl (35.1-43.9); Red Blood Count 4.51 M/mm3 (4.2-5.4); White Blood Count 9.8 K/mm3 (4.4-11.0)
[2024-04-05 09:48] LABS: PTHIN 89.3 pg/mL (18.4-80.1)
[2024-04-05 09:52] LABS: Vitamin D,25 Hydroxy 45.2 ng/mL
[2024-04-05 10:03] LABS: ALB/GLOB Ratio 1.1 RATIO (0.9-2.4); AST(SGOT) 18 U/L (15-37); Alanine Aminotransfer ALT/SGPT 20 U/L (13-56); Albumin, Serum 3.8 g/dL (3.2-5.0); Alkaline Phosphatase 128 U/L (45-117); Anion Gap 8 (5-15); BUN 12 mg/dL (7-18); BUN/Creat Ratio 20.7 RATIO (10-20); Calcium,Total 9.5 mg/dL (8.5-10.1); Chloride 102 mmol/L (98-107); Creatinine, Serum 0.58 mg/dL (0.55-1.02); EST Glomerular Filtration Rate 107 mL/min (>60); Est Glom Filt Rate - Afr Amer 130 mL/min (>60); Globulin 3.6 g/dL (2.2-4.2); Glucose 91 mg/dL (74-106); Magnesium 1.9 mg/dL (1.6-2.6); Potassium 3.7 mmol/L (3.5-5.1); Protein, Total 7.4 g/dL (6.4-8.2); Sodium Level 136 mmol/L (136-145)
[2024-04-05 10:26] LABS: Creatinine, Urine (random) < 13.00 mg/dL (NO RANGE EST.); Microalbumin,Random Urine 5.1 mg/L (NO RANGE EST.)
== END | disposition home or self-care (01) ==
LOC: PAVLAB 08:48
PROVIDERS: PCP Family Medicine; Referring Provider Family Medicine; Visit Provider Family Medicine
DX: E83.52 Hypercalcemia (principal); E11.69 Type 2 diabetes mellitus with other specified complication; J45.909 Unspecified asthma, uncomplicated
CPT/HCPCS: 36415; 80053; 82043; 82306; 82570; 83735; 83970; 84443; 85025

== ENCOUNTER → 2024-05-14 | Outpatient (CLI) | payer MEDICARE, BC, SELFPAY ==
[2022-09-08 08:40] VITALS: BMI 37.3
--- NOTE | 2024-05-14 12:50 | CDU_ITS ---
Reason For Study: Retinal Ischemia Rt. Velocities/BP Lt. Velocities/BP Prox CCA 91/11 cm/sec. Prox CCA 90/13 cm/sec. Mid CCA 89/8 cm/sec. Mid CCA 99/16 cm/sec. Dist CCA 88/11 cm/sec. Dist CCA 88/10 cm/sec. Prox ICA 67/12 cm/sec. Prox ICA 95/11 cm/sec. Mid ICA 73/17 cm/sec. Mid ICA 84/13 cm/sec. Dist ICA 76/14 cm/sec. Dist ICA 72/18 cm/sec. Rt. ICA/CCA = 0.8. Lt. ICA/CCA = 1.0. Prox ECA 125/3 cm/sec. Prox ECA 153/0 cm/sec. Rt. Vert. 20/0 cm/sec. Lt. Vert. 56/13 cm/sec. Right Extracranial There is heterogeneous, irregular atherosclerotic plaque noted in the right common carotid artery. There is heterogeneous, irregular atherosclerotic plaque noted in the right internal carotid artery. There is heterogeneous, irregular atherosclerotic plaque noted in the right external carotid artery. Antegrade flow is noted in the right vertebral artery. Left Extracranial There is heterogeneous, irregular atherosclerotic plaque noted in the left common carotid artery. There is heterogeneous, irregular atherosclerotic plaque noted in the left internal carotid artery. There is heterogeneous, irregular atherosclerotic plaque noted in the left external carotid artery. Antegrade flow is noted in the left vertebral artery. Procedure Carotid Duplex [id number]. This is a Carotid Duplex examination using B-mode, color flow and specral Doppler. Exam performed in department. VL/Carotid Duplex Ultrasound Interpretation Summary Mild (<50%) stenosis right extracranial internal carotid. Mild (<50%) stenosis left extracranial internal carotid. Patent and antegrade vertebrals bilaterally. Ordering Physician: Chay Zhou Referring Physician: Jareth Hidalgo Performed By: Elsy Baldwin, PABLO, RVT
== END | disposition home or self-care (01) ==
LOC: CVS 12:48
PROVIDERS: PCP Family Medicine; Referring Provider Ophthalmology; Visit Provider Ophthalmology
DX: H35.82 Retinal ischemia (principal)
CPT/HCPCS: 93880

== ENCOUNTER → 2024-06-08 | Outpatient (CLI) | payer MEDICARE, BC, SELFPAY ==
[2022-09-08 08:40] VITALS: BMI 37.3
== END | disposition home or self-care (01) ==
LOC: LABSPEC 12:07
PROVIDERS: PCP Family Medicine; Referring Provider Nurse Practitioner Family; Visit Provider Nurse Practitioner Family
DX: J45.50 Severe persistent asthma, uncomplicated (principal)
CPT/HCPCS: 87070; 87077; 87205

== ENCOUNTER → 2024-07-12 | Outpatient (CLI) | payer MEDICARE, BC, SELFPAY ==
[2022-09-08 08:40] VITALS: BMI 37.3
[2024-07-12 18:15] LABS: Vitamin D,25 Hydroxy 35.7 ng/mL
[2024-07-16 12:07] LABS: Vitamin D 1,25-Dihydroxy 59.7 pg/mL (24.8-81.5)
[2024-07-16 15:07] LABS: Alkaline Phosphatase, Serum 122 IU/L (44-121); Bone Fraction 39 % (14-68); Intestinal Fraction 0 % (0-18); Liver Fraction 61 % (18-85)
== END | disposition home or self-care (01) ==
LOC: MTLAB 14:41
PROVIDERS: PCP Family Medicine; Referring Provider Family Medicine; Visit Provider Family Medicine
DX: E83.52 Hypercalcemia (principal)
CPT/HCPCS: 36415; 82306; 82652; 84075; 84080

== ENCOUNTER → 2024-08-09 | Outpatient (CLI) | payer MEDICARE, BC, SELFPAY ==
[2022-09-08 08:40] VITALS: BMI 37.3
--- NOTE | 2024-08-09 09:22 | BD_ITS ---
PROCEDURE: DEXA BONE DENSITY STUDY REASON FOR EXAM: F, age 73 y/o . Postmenopausal. TECHNIQUE: DEXA scan of the lumbar spine and both hips. COMPARISON: None. FINDINGS: Lumbar Spine (L1-L4): g/cm2 (1.372)/T-score (3.0)/Z-score (5.4) findings are suggestive of normal with a low fracture risk. Left Femur Total: g/cm2 (0.974)/T-score (0.3)/Z-score (2.1) Left Femoral Neck: g/cm2 (0.742)/T-score (-1.0)/Z-score (1.1) Right Femur Total: g/cm2 (1.061)/T-score (1.0)/Z-score (2.8) Right Femoral Neck: g/cm2 (0.793)/T-score (-0.5)/Z-score (1.6) BD/Dexa Bone Density Study IMPRESSION: The patient is considered normal as outlined below according to [employer] anization (WHO) criteria with a low fracture risk. Reading Location: [facility]
--- NOTE | 2024-08-09 09:22 | BI_ITS ---
PROCEDURE: SCRN MAMM (CAD)W/MARY ANNE BILAT REASON FOR EXAM: F, Age 73 y/o, no family history. Routine annual follow-up. TECHNIQUE: Bilateral screening digital breast tomosynthesis with 2D and 3D images. Computer aided detection. COMPARISON: Prior exam(s) dating back to December 02, 2021.. FINDINGS: The breasts are almost entirely fatty. Stable fat containing bilateral axillary lymph nodes. Stable examination. No suspicious masses, areas of developing architectural distortion, or suspicious calcifications. BI/SCRN MAMM (CAD)W/MARY ANNE BILAT IMPRESSION: BI-RADS 2: BENIGN. RECOMMEND ANNUAL MAMMOGRAPHIC SCREENING. Follow-up code: Routine Follow-up The patient will be notified of the results by letter. Reading Location: [id number]
== END | disposition home or self-care (01) ==
LOC: OPBD 09:20
PROVIDERS: PCP Family Medicine
DX: Z12.31 Encounter for screening mammogram for malignant neoplasm of breast (principal); Z13.820 Encounter for screening for osteoporosis; Z78.0 Asymptomatic menopausal state
CPT/HCPCS: 77063; 77067; 77080

== ENCOUNTER → 2025-01-18 | Outpatient (CLI) | payer MEDICARE, BC, SELFPAY ==
[2022-09-08 08:40] VITALS: BMI 37.3
--- NOTE | 2025-01-18 09:21 | RAD_ITS ---
PROCEDURE: CHEST PA AND LATERAL 01/18/2025 REASON FOR EXAM: R CHEST WALL PIAN, SOB, COPD. CONCERN BRONCHIECTASIS TECHNIQUE: CHEST PA AND LATERAL COMPARISON: Chest x-ray study dated 07/12/2023 FINDINGS: Hardware: Radiopaque stent is projected over the cardiac region Cardiomediastinal silhouette is stable. Arteriosclerotic vascular disease of the aorta is noted. Trachea is midline. Pulmonary vasculature is within normal limits. Lungs are expanded and clear without evidence of atelectasis, consolidation, effusion, pneumothoraces or pneumonic infiltrate. Diffuse osteopenia of the bony thorax is noted. There is a dextroscoliosis of the thoracic spine and a levoscoliosis of the lumbar spine. Degenerative changes of the thoracic and lumbar spine are noted. Degenerative disc disease is seen involving multiple thoracic and lumbar disc spaces. RAD/Chest PA and Lateral IMPRESSION: No acute cardiopulmonary process is identified radiographically. Arteriosclerotic vascular disease of the aorta. Reading Location: [id number]
[2025-01-18 10:31] LABS: Hematocrit 40.0 % (37-47); Hemoglobin 13.2 g/dL (12.0-15.0); Immature Granulocytes Count 0.030 X10^3/uL (0.0-0.0); Mean Corp Hgb Conc 33.0 g/dL (32-36); Mean Corpuscular Volume 86.6 fL (81-99); Mean Platelet Vol. 9.9 fl (6.2-12.0); NRBC Flagged by Analyzer 0 % (0-5); Platelet Count 307 K/mm3 (150-450); RBC Distribution Width CV 13.9 % (11.6-14.6); RBC Distribution Width SD 44.3 fl (35.1-43.9); Red Blood Count 4.62 M/mm3 (4.2-5.4); White Blood Count 10.4 K/mm3 (4.4-11.0)
[2025-01-18 10:48] LABS: Ammonia 18.9 umol/L (11-51)
[2025-01-18 11:01] LABS: AST(SGOT) 27 U/L (<=31); Alanine Aminotransfer ALT/SGPT 17 U/L (<=34); Albumin, Serum 4.5 g/dL (3.4-4.8); Alkaline Phosphatase 147 U/L (35-104); Anion Gap 14 (5-15); BUN 13 mg/dL (4-19); BUN/Creat Ratio 20.1 RATIO (10-20); Calcium,Total 10.3 mg/dL (7.6-11.0); Carbon Dioxide 24.7 mmol/L (21.0-32.0); Chloride 97 mmol/L (98-108); Globulin 3.1 g/dL (2.2-4.2); Glucose 105 mg/dL (70-99); Potassium 4.0 mmol/L (3.3-5.1); Uric Acid 5.2 mg/dL (2.6-6.0)
[2025-01-18 11:08] LABS: Creatinine, Urine (random) 25.50 mg/dL (28.00-217.00); Microalbumin,Random Urine 28.2 mg/L (<20 mg/L)
[2025-01-19 04:07] LABS: GGTP 129 IU/L (0-60)
== END | disposition home or self-care (01) ==
LOC: MTLAB 09:17
PROVIDERS: PCP Family Medicine; Referring Provider Family Medicine; Visit Provider Family Medicine
DX: J44.9 Chronic obstructive pulmonary disease, unspecified (principal); E11.69 Type 2 diabetes mellitus with other specified complication; R07.89 Other chest pain; R06.02 Shortness of breath; E78.5 Hyperlipidemia, unspecified
CPT/HCPCS: 71046; 80053; 82043; 82140; 82570; 82977; 84443; 84550; 85025

== ENCOUNTER → 2025-01-28 | Outpatient (CLI) | payer MEDICARE, BC, SELFPAY ==
[2022-09-08 08:40] VITALS: BMI 37.3
--- NOTE | 2025-01-28 08:45 | ECHOD_ITS ---
Reason For Study Reason For Study: AORTIC VALVE REPLACEMENT Procedure This was a 2D Doppler, Color Flow transthoracic echocardiogram. The study was technically difficult. Exam performed in department. Left Ventricle Normal LV size. The left ventricular ejection fraction is 65 %. Stage 2 diastolic dysfunction. No regional wall motion abnormalities noted. Right Ventricle Normal RV size. Normal systolic function. Atria The left atrium is mildly enlarged. Normal right atrium. Mitral Valve There is mild mitral annular calcification. Tricuspid Valve Normal tricuspid valve. Mild (1+) tricuspid valve insufficiency. Pulmonary artery systolic pressure is 37 mmHg. Aortic Valve Peak aortic valve gradient 29 mmHg. Mean aortic valve gradient 16 mmHg. Bioprosthetic aortic valve functioning normally. Pulmonic Valve Normal pulmonic valve. Great Vessels Normal aortic root. The pulmonary artery is normal size. Inferior vena cava collapse with respiration. Pericardium/Pleural No pericardial effusion. MMode/2D Measurements & Calculations LVIDd: 5.2 cm IVSd: 1.1 cm LVOT diam: 2.0 cm LVIDs: 3.4 cm LVPWd: 1.1 cm LVOT area: 3.0 cm2 RVDd: 3.6 cm FS: 34.8 % asc Aorta Diam: 3.4 cm LAV(MOD-bp): 67.9 ml LVAd ap4: 20.8 cm2 LAV(MOD-bp) Indexed: 34.8 ml/m2 LVLd ap4: 6.8 cm LAV(MOD-sp2): 51.1 ml EDV(MOD-sp4): 53.7 ml LAV(MOD-sp4): 84.2 ml EDV(sp4-el): 54.2 ml LVAs ap4: 11.7 cm2 LVLs ap4: 5.9 cm ESV(MOD-sp4): 20.2 ml ESV(sp4-el): 19.8 ml EF(MOD-sp4): 62.4 % EF(sp4-el): 63.5 % LVAd ap2: 18.7 cm2 SV(MOD-sp4): 33.5 ml SV(MOD-sp2): 29.8 ml LVLd ap2: 6.6 cm SI(MOD-sp4): 17.2 ml/m2 SI(MOD-sp2): 15.3 ml/m2 EDV(MOD-sp2): 45.5 ml EDV(sp2-el): 45.1 ml LVAs ap2: 10.0 cm2 LVLs ap2: 5.5 cm ESV(MOD-sp2): 15.7 ml ESV(sp2-el): 15.6 ml EF(MOD-sp2): 65.5 % SV(sp4-el): 34.4 ml Ao sinus diam: 2.7 cm LA A4 area: 25.0 cm2 LA dimension(2D): 4.5 cm RA A4 area: 12.4 cm2 TAPSE: 1.7 cm Time Measurements MV dec time: 0.16 sec Doppler Measurements & Calculations MV E max jeff: 96.6 cm/sec Lat Peak E' Jeff: 8.2 cm/sec Med Peak E' Jeff: 7.8 cm/sec MV A max jeff: 71.7 cm/sec E/E' lat: 11.7 E/E' med: 12.4 MV E/A: 1.3 Ao V2 max: 269.6 cm/sec LV V1 max: 153.2 cm/sec MV dec slope: 614.3 cm/sec2 Ao max P.1 mmHg LV V1 max P.4 mmHg Ao V2 mean: 188.1 cm/sec LV V1 mean P.8 mmHg Ao mean P.9 mmHg LV V1 mean: 115.3 cm/sec Ao V2 VTI: 62.3 cm LV V1 VTI: 38.5 cm AV (velocity ratio): 0.62 IAIN(I,D): 1.9 cm2 IAIN(V,D): 1.7 cm2 SV(LVOT): 115.8 ml PA V2 max: 88.5 cm/sec TR max jeff: 292.5 cm/sec TR max P.2 mmHg ECHO/Echo Complete Interpretation Summary Normal LV size. The left ventricular ejection fraction is 65 %. Stage 2 diastolic dysfunction. Bioprosthetic aortic valve functioning normally. Mean aortic valve gradient 16 mmHg. Ordering Physician: Julio Baldwin Referring Physician: Jareth Hidalgo MD Performed By: Pauline Moreno RDCS
== END | disposition home or self-care (01) ==
LOC: CVS 08:45
PROVIDERS: PCP Family Medicine; Referring Provider Nurse Practitioner Family; Visit Provider Nurse Practitioner Family
DX: Z95.2 Presence of prosthetic heart valve (principal); R06.09 Other forms of dyspnea; Z95.5 Presence of coronary angioplasty implant and graft; I35.0 Nonrheumatic aortic (valve) stenosis; I10 Essential (primary) hypertension; E78.2 Mixed hyperlipidemia
CPT/HCPCS: 93306

== ENCOUNTER → 2025-01-31 | Outpatient (CLI) | payer MEDICARE, BC, SELFPAY ==
[2022-09-08 08:40] VITALS: BMI 37.3
--- NOTE | 2025-01-31 16:00 | CT_ITS ---
PROCEDURE: CHEST WITH CONTRAST 01/31/2025 REASON FOR EXAM: R ANTERIR CHEST WALL PAIN WITH PROGRESSIVE SOB, KNOWN COPD. SHARON Shortness of breath with exertion. Known bronchiectasis. TECHNIQUE: Procedure Code: CTCHW Modality: CT Procedure: CHEST WITH CONTRAST Coronal and Sagittal reconstruction series were provided. CONTRAST: Isovue-300 VOLUME: 100 mL One or more dose reduction techniques were used (e.g., Automated exposure control, adjustment of the mA and/or kV according to patient size, use of iterative reconstruction technique). RADIATION DOSE SUMMARY: CTDlvol: 17.8 mGy DLP: 657.61 mGycm COMPARISON: Prior study dated July 27, 2023. FINDINGS: Hardware: None Lymph nodes: No significant lymphadenopathy is seen. Small bilateral axillary lymph nodes. Heart and Vasculature: The heart is not enlarged. Coronary artery calcification. Aortic valve replacement. Lungs and Airways: Stable mild increased interstitial markings at the lung bases suggestive of mild basilar scarring. This is unchanged. Pleura: No pleural effusion. Upper Abdomen: Unremarkable Bones: Degenerative changes of the thoracic spine. Small hypodensity in the right lobe of the thyroid suggestive of colloid cyst. CT/Chest WITH Contrast IMPRESSION: Coronary artery calcification (CAC) is is present Stable examination. Reading Location: [id number]
== END | disposition home or self-care (01) ==
LOC: CT 15:40
PROVIDERS: PCP Family Medicine; Referring Provider Family Medicine; Visit Provider Family Medicine
DX: R07.89 Other chest pain (principal); J44.9 Chronic obstructive pulmonary disease, unspecified; R06.02 Shortness of breath
CPT/HCPCS: 71260; Q9967; A4216

== ENCOUNTER → 2025-02-01 | Outpatient (CLI) | payer MEDICARE, BC, SELFPAY ==
[2022-09-08 08:40] VITALS: BMI 37.3
--- NOTE | 2025-02-01 07:45 | US_ITS ---
PROCEDURE: ABD LIMITED W/ ELASTOGRAPHY REASON FOR EXAM: BILIARY DISEASE Elevated liver function tests. COMPARISON: None TECHNIQUE: Procedure Code: [id number] Modality: US Procedure: ABD LIMITED W/ ELASTOGRAPHY Right upper quadrant abdominal ultrasound. [place] ElastQ Imaging shear wave elastography for non-invasive assessment of liver tissue stiffness. [place] EPIQ Elite. FINDINGS: LIVER: Size: Enlarged (hepatomegaly) Length: 20.5 cm Echotexture: Diffusely echogenic suggesting fatty infiltration Contour: Normal Lesions: None identified Elastography: EQI Med: 10 kPa EQI Med Jeff: 1.82 m/s IQR/Med: 18.4 %* GALLBLADDER: No stones sludge wall thickening or tenderness. COMMON BILE DUCT: Normal measuring 3 mm . PANCREAS: Normal Visualized portions of the right kidney are unremarkable. No right upper quadrant ascites. US/ABD Limited w/ Elastography IMPRESSION: MODERATE TO SEVERE HEPATIC FIBROSIS Hepatomegaly. Diffuse fatty infiltration of the liver. Reference Values: SRU <1.37 m/s (5.7kPa): No to mild fibrosis 1.37 m/s - 2.2 m/s: Moderate to severe fibrosis >2.2 m/s (15kPa): Significant fibrosis / cirrhosis METAVIR Score F2 or higher: 1.34 m/s (5.7kPa) F3 or higher: 1.55 m/s (7.3kPa) F4: 1.80 m/s (10kPa) * If the IQR/Med is >30%, the variance in the measurements is a large and the a ccuracy of the measurement may be in question. Reading Location: [facility]
== END | disposition home or self-care (01) ==
LOC: US 07:44
PROVIDERS: PCP Family Medicine; Referring Provider Family Medicine; Visit Provider Family Medicine
DX: R74.8 Abnormal levels of other serum enzymes (principal)
CPT/HCPCS: 76705; 76981

== ENCOUNTER → 2025-02-27 | Outpatient (CLI) | payer MEDICARE, BC, SELFPAY ==
[2022-09-08 08:40] VITALS: BMI 37.3
--- OUTSIDE RECORDS SUMMARY | 2025-02-27 06:28 | XMS RPT_ITS | CCD ---
Author Organization [facility] Care Team Providers Care Vice President Biostatistics Name Role Phone Dr. Julio Montes Referring Provider Dr. Jesus Andrea Attending Provider [phone] Care Physician, No Primary Primary Care Provider Unavailable Dr. Adalid Shelton Attending Provider Care Physician, No Primary Referring Provider Un available Massimo AUTOMATIC PINSETTER MECHANIC, AUTOMATIC PINSETTER MECHANIC-C Marlene Attending Provider [phone] Dr. Jorge L Hidalgo Primary Care Provider Dr. Jorge L Hidalgo Primary Care Provider [phone] Dr. Jesus Andrea Attending Provider [phone] Care Physician, No Primary Referring Provider Un available Dr. Adalid Shelton Attending Provider Unavailable Primary Care Provider Unavailabl DOTTIE Owens Attending Unavailable Rocky Jorge L Referring Unavailable Jorge L Hidalgo Primary Care Unavailable Rocky, Jorge L Referring Unavailable Rocky, Jorge L Primary Care Unavailable DOTTIE NELSON Attending Unavailable Dr. Jorge L Hidalgo Primary Care Provider Dr. Jesus Andrea Attending Provider [phone] Care Physician, No Primary Referring Provider Un available Dr. Adalid Shelton Attending Provider Dr. Jorge L Hidalgo Referring Provider Dr. Jorge L Hidalgo Primary Care Provider Dr. Jesus Andrea Attending Provider Nolt, Anna Attending Provider Unavailable Denny BRAVO, SÁNCHEZ Oleary Attending Provider Dr. Jorge L Hidalgo Primary Care Provider Anna Mccollum Attending Provider Unavailable Dr. Jorge L Hidalgo Referring Provider Denny AUTOMATIC PINSETTER MECHANIC, AUTOMATIC PINSETTER MECHANIC-C Julio Oleary Attending Provider Massimo AUTOMATIC PINSETTER MECHANIC, AUTOMATIC PINSETTER MECHANIC-C Marlene Attending Provider Dr. Jorge L Hidalgo Primary Care Provider Dr. Jorge L Hidalgo Referring Provider Denny AUTOMATIC PINSETTER MECHANIC, AUTOMATIC PINSETTER MECHANIC-C Julio Oleary Attending Provider Dr. Jorge L Dean Attending Provider Jorge L Hidalgo Primary Care Provider Jesus Andrea Unavailable Dr. Jorge L Hidalgo Primary Care Provider Roof AUTOMATIC PINSETTER MECHANIC, AUTOMATIC PINSETTER MECHANIC-C Julio Oleary Attending Provider Dr. Jorge L Hidalgo Referring Provider Dr. Adalid Shelton Attending Provider Dr. Jesus Andrea Attending Provider Tobias AUTOMATIC PINSETTER MECHANIC, AUTOMATIC PINSETTER MECHANIC-C Grecia Attending Provider DOTTIE NELSON Referring Unavailable DOTTIE NELSON Attending Unavailable DOTTIE NELSON Attending Unavailable Dr. Jorge L Hidalgo Primary Care Provider Dr. Jorge L Hidalgo Referring Provider Dr. Adalid Shelton Attending Provider Denny AUTOMATIC PINSETTER MECHANIC, AUTOMATIC PINSETTER MECHANIC-C Julio Oleary Attending Provider Dr. Jesus Andrea Attending Provider Tobias BRAVO, AUTOMATIC PINSETTER MECHANIC-C Grecia Attending Provider Dr. Jorge L Hidalgo Primary Care Provider Dr. Jorge L Hidalgo Referring Provider Dr. Jorge L Hidalgo Primary Care Provider Dr. Jorge L Hidalgo Referring Provider Massimo AUTOMATIC PINSETTER MECHANIC, AUTOMATIC PINSETTER MECHANIC-C Marlene Attending Provider [phone] Dr. Jorge L Hidalgo Primary Care Provider Zully, Dr. Jesus Attending Provider [phone] Jorge L Dean Attending Provider Dr. Jorge L Hidalgo Primary Care Provider Dr. Jorge L Hidalgo Referring Provider Keys AUTOMATIC PINSETTER MECHANIC, AUTOMATIC PINSETTER MECHANIC-C Marlene Attending Provider Dr. Jesus Andrea Attending Provider [phone] Jorge L Dean Attending Provider [phone] STANISLAV Thompson Referring Provider [phone] STANISLAV Thompson Attending Provider [phone] Jorge L Hidalgo Primary Care Provider Jesus Andrea Unavailable Dr. Jorge L Hidalgo MD Primary Care Provider Abelardo BAZZI, Dr. Cartwright Attending Provider Dr. Chay Zhou MD Referring Provider Dr. Jorge L Dean MD Attending Provider Dr. Jorge L Hidalgo MD Referring Provider Blanca BRAVO-CVeronica Attending Provider Blanca BRAVO-Veronica Amaya Referring Provider Dr. Jorge L Hidalgo MD Attending Provider Denny AUTOMATIC PINSETTER MECHANIC-CJulio Attending Provider McMorrow AUTOMATIC PINSETTER MECHANIC-CRaghav Attending Provider [facility] AUTOMATIC PINSETTER MECHANIC-CRaghav Referring Provider Dr. Jorge L Hidaglo MD Referring Provider Veronica Felix Attending Provider Dr. Jorge L Hidalgo MD Primary Care Provider Dr. Jorge L Hidalgo MD Attending Provider Denny AUTOMATIC PINSETTER MECHANIC-CJulio Attending Provider Denny AUTOMATIC PINSETTER MECHANIC-C, Julio Oleary Referring Provider Zully BAZZI, Dr. Lee Attending Provider [phone] Dr. Jorge L Hidalgo MD Referring Provider Hidalgo, Jorge L Referring Unavailable Hidalgo, Jorge L Attending Unavailable Hidalgo, Jorge L Primary Care Unavailable Roof AUTOMATIC PINSETTER MECHANIC, Julio H Referring Unavailable Roof AUTOMATIC PINSETTER MECHANIC, Julio H Attending Unavailable Hidalgo, Jorge L Primary Care Unavailable Veronica Rios Referring Unavailable Veronica Rios Attending Unavailable Hidalgo, Jorge L Primary Care Unavailable Hidalgo, Jorge L Referring Unavailable Hidalgo, Jorge L Attending Unavailable Hidalgo, Jorge L Primary Care Unavailable ChenChay jay Referring Unavailable Chay Zhou Attending Unavailable Hidalgo, Jorge L Primary Care Unavailable Hidalgo, Jorge L Primary Care Unavailable McMorrow AUTOMATIC PINSETTER MECHANIC, Raghav Referring Unavailable McMorrow AUTOMATIC PINSETTER MECHANIC, Raghav Attending Unavailable Hidalgo, Jorge L Primary Care Unavailable Hidalgo, Jorge L Referring Unavailable Hidalgo, Jorge L Attending Unavailable Roof AUTOMATIC PINSETTER MECHANIC, Julio H Attending Unavailable Hidalgo, Jorge L Primary Care Unavailable Hidalgo, Jorge L Referring Unavailable Hidalgo, Jorge L Primary Care Unavailable Hidalgo, Jorge L Referring Unavailable Roof AUTOMATIC PINSETTER MECHANIC, Julio Oleary Attending Unavailable Hidalgo, Jorge L Referring Unavailable Veronica Rios Attending Unavailable Hidalgo, Jorge L Primary Care Unavailable Roof AUTOMATIC PINSETTER MECHANIC, Julio H Referring Unavailable Roof AUTOMATIC PINSETTER MECHANIC, Julio H Attending Unavailable Hidalgo, Jorge L Referring Unavailable Hidalgo, Jorge L Attending Unavailable Hidalgo, Jorge L Primary Care Unavailable Hidalgo, Jorge L Primary Care Unavailable Hidalgo, Jorge L Referring Unavailable Hidalgo, Jorge L Attending Unavailable Abelardo, Chay Referring Unavailable Maud, Jorge L Attending Unavailable Hidalgo, Jorge L Primary Care Unavailable Hidalgo, Jorge L Referring Unavailable Hidalgo, Jorge L Primary Care Unavailable Massimo AUTOMATIC PINSETTER MECHANIC, Marlene Attending Unavailable Hidalgo, Jorge L Referring Unavailable Veronica Rios Attending Unavailable Hidalgo, Jorge L Primary Care Unavailable Hidalgo, Jorge L Primary Care Unavailable Jesus Andrea Attending Unavailable Allergies Allergy Classification Reported Allergen(s) Allergy Type Date of Onset Reaction(s) Facility (20 sources) Etodolac Drug Allergy 2 [facility] Comment on above: lodine (8 sources) Etodolac Propensity to adverse reactions 2 [facility] (1 source) Etodolac Drug Allergy [address] [place] [address] Repository Medications Current Medications Medication Drug Class(es) Dates Sig (Normalized) Sig (Original) acetaminophen 500 mg oral capsule (20 sources) Start: 02-27-2020 take 1-10 capsules by mouth every six hours as needed for pain Acetaminophen 500 mg capsule Active 500 mg PO EVERY 6 HOURS as needed for Pain 1-10 Or Fever February 27, 2020 12:00am take 1 tablet by alex th every six hours as needed acetaminophen (Tylenol) 500 MG tablet Ta ke 500 mg by mouth every 6 hours as needed. 0 Active acetylcysteine 600 mg oral capsule (4 sources) Antidote, Mucolytic, Antidote for Acetaminophen Overdose Start: 01-30-2025 take 1 capsule by mouth twice daily Acetylcysteine 600 mg capsule Active 600 mg PO TWICE A DAY January 30, 2025 12:00am amLODIPine 5 mg oral tablet (20 sources) Dihydropyridine Calcium Channel Anju Start: 04-05-2024 take 1 tablet by mouth once daily Amlodipine 5 mg tablet Active 5 mg PO daily April 05, 2024 12:00am Start: 02-28-2020 End: 04-05-2024 take 1 tablet by mouth once daily Amlodipine 10 mg tablet Discontinued 10 mg PO DAILY 90 3 February 28, 2020 2:08pm April 05, 2024 8:21am Start: 02-27-2020 End: 02-28-2020 take 1 tablet by mouth once daily Amlodipine 5 mg tablet Discontinued 5 mg PO DAILY February 27, 2020 12:00am February 28, 2020 1:36pm amoxicillin 500 mg oral capsule (20 sources) Penicillin-class Antibacterial Start: 08-02-2024 take 4 capsules by mouth every hour as needed Amoxicillin 500 mg capsule Active 2000 mg PO .COMPLEX as needed August 02, 2024 1:00am 2,000 mg orally 1 hour prior to dental visits; PRN; Start: 06-10-2022 End: 09-20-2023 take 4 tablets by mouth once as needed Amoxicillin 500 mg tablet Discontinued 2000 mg PO ONCE as needed for SBE July 22, 2023 10:16am September 20, 2023 7:45am Start: 06-10-2022 End: 07-22-2023 take 2000 mg by mouth once Amoxicillin Discontinued 20 00 MG PO ONCE June 17, 2022 11:56am July 22, 2023 10:20am aspirin 81 mg delayed release oral tablet (20 sources) Platelet Aggregation Inhibitor, Nonsteroidal Anti-inflammatory Drug Start: 04-01-2020 take 1 tablet by mouth once daily Aspirin 81 MG tablet Active 81 mg PO DAILY@0800 0 April 01, 2020 12:00am aspirin 81 MG ch ewable tablet Chew 81 mg in the morning. 0 Active atenolol 25 mg oral tablet (20 sources) beta-Adrenergic Anju Start: 12-05-2022 take 1 tablet by mouth once daily Atenolol 25 mg tablet Active 25 mg PO DAILY 30 December 05, 2022 8:24am STOP Metoprolol Start: 09-20-2022 End: 12-05-2022 take 1 tablet by mouth twice daily Atenolol 25 mg tablet Discontinued 25 mg PO TWICE A DAY 60 December 03, 2022 10:39am December 05, 2022 8:24am STOP Metoprolol atorvastatin 10 mg oral tablet (20 sources) HMG-CoA Reductase Inhibitor Start: 02-25-2020 take 1 tablet by mouth at bedtime Atorvastatin 10 mg tablet Active 10 mg PO AT BEDTIME February 25, 2020 12:00am Azelastine 205.5 mcg (0.15 %) spray,non-aerosol (6 sources) Start: 05-02-2024 Azelastine 205 .5 mcg (0.15 %) spray,non-aerosol Active 1 NMA INTRANASAL TWICE A DAY as needed for alergic rhinitis 05 05May 02, 2024 1:03pm Chronic obstructive pulmonary disease, unspecified administer into each nostril Start: 05-02-2024 Azelastine 205 .5 mcg (0.15 %) spray,non-aerosol Active 1 NMA INTRANASAL TWICE A DAY as needed for alergic rhinitis May 02, 2024 1:03pm administer into each nostril calcium carbonate 1250 mg chewable tablet (20 sources) Start: 06-10-2022 take 1 tablet by mouth once daily Calcium Carbonate 500 mg calcium (1,250 mg) tablet,chewable Active 500 mg PO DAILY June 10, 2022 1:00am Start: 02-25-2020 End: 06-10-2022 take 1 tablet by mouth twice daily Calcium Carbonate (Tums) 200 mg calcium (500 mg) tablet,chewable Discontinued 200 mg PO TWICE A DAY February 25, 2020 12:00am June 10, 2022 10:43am docosahexaenoic acid 120 mg / eicosapentaenoic acid 180 mg oral capsule (7 sources) omega-3 (Fish Oi l) 1000 MG capsule Take by mouth daily. 0 Active famotidine 20 mg oral tablet (20 sources) Histamine-2 Receptor Antagonist Start: take 1 tablet by mouth twice daily Famotidine 20 mg tablet Active 20 mg PO TWICE A DAY March 10, 2023 3:36pm Start: 08-24-2022 End: 03-10-2023 take 1 tablet by mouth once daily Famotidine 20 mg tablet Discontinued 20 mg PO DAILY August 24, 2022 12:00am March 10, 2023 3:40pm fexofenadine hydrochloride 180 mg oral tablet (20 sources) Histamine-1 Receptor Antagonist Start: 06-10-2022 take 1 tablet by mouth once daily Fexofenadine 180 mg tablet Active 180 mg PO DAILY June 10, 2022 1:00am Start: 02-25-2020 End: 06-10-2022 take 1 tablet by mouth twice daily Fexofenadine (Miladys Allergy) 60 mg tablet Discontinued 60 mg PO TWICE A DAY May 06, 2021 3:20pm June 10, 2022 10:44am Fluticasone Propion-Salmeterol (20 sources) Corticosteroid, beta2-Adrenergic Agonist Start: 10-09-2024 Fluticasone Propion-Salmeterol (Advair Hfa) 230-21 mcg/actuation HFA aerosol inhaler Active 2 NMA INHALATION TWICE A DAY 05 16October 09, 2024 2:25pm Start: 10-09-2024 End: 10-09-2024 Fluticasone Propion-Salmeter ol (Advair Hfa) 230-21 mcg/actuation HFA aerosol inhaler Discontinued 2 NMA INHALATION TWICE A DAY 12 October 09, 2024 11:13am October 09, 2024 2:26pm Start: 09-20-2023 End: 10-09-2024 Fluticasone Propion-Salmeter ol (Advair Hfa) 230-21 mcg/actuation HFA aerosol inhaler Discontinued 2 NMA INHALATION TWICE A DAY 05 16September 20, 2023 8:05am October 09, 2024 11:13am Start: 09-20-2023 Fluticasone Pr opion-Salmeterol (Advair Hfa) 230-21 mcg/actuation HFA aerosol inhaler Active 2 NMA INHALATION TWICE A DAY September 20, 2023 8:05am Start: 03-10-2023 End: 09-20-2023 Fluticasone Propion-Salmeter ol 230-21 mcg/actuation HFA aerosol inhaler Discontinued 2 NMA INHALATION TWICE A DAY March 10, 2023 3:36pm September 20, 2023 8:06am Start: 03-10-2023 take 1 puff(s) by in halation twice daily Fluticasone Propion-Salmeterol Active 2 PUFF INHALATION TWICE A DAY March 10, 2023 2:36pm Start: 03-10-2023 take 1 puff(s) by in halation twice daily Fluticasone Propion-Salmeterol Active 2 PUFF INHALATION TWICE A DAY March 10, 2023 3:36pm Start: 08-24-2022 End: 03-10-2023 Fluticasone Propion-Salmeter ol 230-21 mcg/actuation HFA aerosol inhaler Discontinued 2 NMA INHALATION TWICE A DAY 05 16August 24, 2022 11:11am March 10, 2023 3:40pm Start: 08-24-2022 End: 03-10-2023 Fluticasone Propion-Salmeter ol 230-21 mcg/actuation HFA aerosol inhaler Discontinued 2 NMA INHALATION TWICE A DAY August 24, 2022 11:11am March 10, 2023 3:40pm Start: 08-24-2022 End: 03-10-2023 take 1 puff(s) by inhalation twice daily Fluticasone Propion-Salmeterol Discontinued 2 PUFF INHALATION TWICE A DAY August 24, 2022 10:11am March 10, 2023 2:40pm Start: 08-24-2022 End: 03-10-2023 take 1 puff(s) by inhalation twice daily Fluticasone Propion-Salmeterol Discontinued 2 PUFF INHALATION TWICE A DAY August 24, 2022 11:11am March 10, 2023 3:40pm Start: 08-24-2022 take 1 puff(s) by in halation twice daily Fluticasone Propion-Salmeterol Active 2 PUFF INHALATION TWICE A DAY August 24, 2022 11:11am Start: 03-01-2022 take 2 puff(s) by in halation in the morning fluticasone-salmeterol (Advair HFA) 230-21 MCG/ACT inhaler 2 puffs in the morning and 2 puffs in the evening. 0 03/01/2022 Active Start: 02-22-2022 End: 08-24-2022 Fluticasone Propion-Salmeter ol 230-21 mcg/actuation HFA aerosol inhaler Discontinued 2 NMA INHALATION TWICE A DAY 12 February 22, 2022 11:09am August 24, 2022 11:13am Start: 02-22-2022 End: 08-24-2022 Fluticasone Propion-Salmeter ol 230-21 mcg/actuation HFA aerosol inhaler Discontinued 2 NMA INHALATION TWICE A DAY February 22, 2022 11:09am August 24, 2022 11:13am Start: 02-22-2022 End: 08-24-2022 take 1 puff(s) by inhalation twice daily Fluticasone Propion-Salmeterol Discontinued 2 PUFF INHALATION TWICE A DAY February 22, 2022 10:09am August 24, 2022 10:13am Start: 02-22-2022 End: 08-24-2022 take 1 puff(s) by inhalation twice daily Fluticasone Propion-Salmeterol Discontinued 2 PUFF INHALATION TWICE A DAY February 22, 2022 11:09am August 24, 2022 11:13am Start: 02-22-2022 take 1 puff(s) by in halation twice daily Fluticasone Propion-Salmeterol Active 2 PUFF INHALATION TWICE A DAY February 22, 2022 10:09am Start: 02-22-2022 take 1 puff(s) by in halation twice daily Fluticasone Propion-Salmeterol Active 2 PUFF INHALATION TWICE A DAY February 22, 2022 11:09am Start: 06-30-2021 End: 02-22-2022 Fluticasone Propion-Salmeter ol 230-21 mcg/actuation HFA aerosol inhaler Discontinued 2 NMA INHALATION TWICE A DAY 05 16June 30, 2021 12:29pm February 22, 2022 11:10am Start: 06-30-2021 End: 02-22-2022 Fluticasone Propion-Salmeter ol 230-21 mcg/actuation HFA aerosol inhaler Discontinued 2 NMA INHALATION TWICE A DAY June 30, 2021 12:29pm February 22, 2022 11:10am Start: 06-30-2021 End: 02-22-2022 take 1 puff(s) by inhalation twice daily Fluticasone Propion-Salmeterol Discontinued 2 PUFF INHALATION TWICE A DAY June 30, 2021 11:29am February 22, 2022 10:10am Start: 06-30-2021 End: 02-22-2022 take 1 puff(s) by inhalation twice daily Fluticasone Propion-Salmeterol Discontinued 2 PUFF INHALATION TWICE A DAY June 30, 2021 12:29pm February 22, 2022 11:10am Start: 06-30-2021 take 1 puff(s) by in halation twice daily Fluticasone Propion-Salmeterol Active 2 PUFF INHALATION TWICE A DAY June 30, 2021 12:29pm Start: 04-15-2021 End: 06-30-2021 Fluticasone Propion-Salmeter ol 230-21 mcg/actuation HFA aerosol inhaler Discontinued 2 NMA INHALATION TWICE A DAY 05 06April 15, 2021 1:00am June 30, 2021 12:29pm Start: 04-15-2021 End: 06-30-2021 Fluticasone Propion-Salmeter ol 230-21 mcg/actuation HFA aerosol inhaler Discontinued 2 NMA INHALATION TWICE A DAY April 15, 2021 1:00am June 30, 2021 12:29pm Start: 04-15-2021 End: 06-30-2021 take 1 puff(s) by inhalation twice daily Fluticasone Propion-Salmeterol Discontinued 2 PUFF INHALATION TWICE A DAY April 15, 2021 12:00am June 30, 2021 11:29am Start: 04-15-2021 End: 06-30-2021 take 1 puff(s) by inhalation twice daily Fluticasone Propion-Salmeterol Discontinued 2 PUFF INHALATION TWICE A DAY April 15, 2021 1:00am June 30, 2021 12:29pm Fluticasone Propion-Salmeterol (2 sources) Start: 08-24-2022 take 1 puff(s) by inhalation twice daily Fluticasone Propion-Salmeterol Active 2 PUFF INHALATION TWICE A DAY August 24, 2022 11:11am furosemide 40 mg oral tablet (20 sources) Loop Diuretic Start: 04-05-2024 take 1 tablet by mouth once daily Furosemide 40 mg tablet Active 40 mg PO daily April 05, 2024 12:00am Start: 02-08-2023 End: 04-05-2024 take 1 tablet by mouth once daily Furosemide (Lasix) 20 mg tablet Discontinued 20 mg PO DAILY August 04, 2023 11:02am April 05, 2024 8:22am Start: 04-24-2020 End: 06-18-2020 take 1 tablet by mouth once daily Furosemide (Lasix) 40 mg tablet Discontinued 40 mg PO DAILY 60 2 April 24, 2020 1:00am June 18, 2020 3:15pm glipiZIDE er 10 mg 24 hr extended release oral tablet (20 sources) Sulfonylurea Start: 02-25-2020 take 1 tablet by mouth once daily Glipizide 10 mg tablet extended release 24hr Active 10 mg PO DAILY February 25, 2020 12:00am take 1 tablet by alex th every twenty-four hours in the morning glipiZIDE XL (Glucotrol XL) 10 MG 24 hr tablet Take 10 mg by mouth in the morning. 0 Active 12 hr guaiFENesin 600 mg extended release oral tablet (12 sources) Start: 06-08-2024 End: 08-02-2024 take 1 tablet by mouth twice daily as needed, then take 1 tablet by mouth every twelve hours as needed Guaifenesin (Mucinex) 600 mg tablet extended release 12hr Active 600 mg PO TWICE A DAY as needed August 02, 2024 10:42am hydroCHLOROthiazide 12.5 mg oral tablet (20 sources) Thiazide Diuretic Start: 08-02-2024 take 1 tablet by mouth once daily Hydrochlorothiazide 12.5 mg tablet Active 12.5 mg PO daily August 02, 2024 1:00am Start: 07-22-2023 End: 08-02-2024 Hydrochlorothiazide 25 mg ta blet Discontinued 12.5 mg PO DAILY July 22, 2023 10:17am August 02, 2024 10:42am Start: 07-22-2023 take 12.5 mg by mout h once daily Hydrochlorothiazide Active 12.5 MG PO DAILY July 22, 2023 10:17am Start: 10-22-2020 End: 07-22-2023 take 1 tablet by mouth once daily Hydrochlorothiazide 25 mg tablet Discontinued 25 mg PO DAILY October 22, 2020 12:00am July 22, 2023 10:20am Start: 06-18-2020 End: 09-04-2020 take 1 tablet by mouth once daily Hydrochlorothiazide 25 mg tablet Discontinued 25 mg PO DAILY 90 June 18, 2020 1:00am September 04, 2020 2:29pm Start: 02-25-2020 End: 04-24-2020 take 1 tablet by mouth once daily Hydrochlorothiazide 25 mg tablet Discontinued 25 mg PO DAILY February 25, 2020 12:00am April 24, 2020 3:47pm ibuprofen 200 mg oral capsule (20 sources) Nonsteroidal Anti-inflammatory Drug Start: 02-27-2020 take 1 capsule by mouth every six hours as needed for pain Ibuprofen 200 mg capsule Active 200 mg PO EVERY 6 HOURS as needed for Pain Score 1-10 February 27, 2020 12:00am take 1 tablet by alex th every six hours as needed ibuprofen 200 MG tablet Take 200 mg by mouth every 6 hours as needed. 0 Active Insulin Glargine-Yfgn 100 unit/mL (3 mL) insulin pen (4 sources) Start: 01-30-2025 Insulin Glargi ne-Yfgn 100 unit/mL (3 mL) insulin pen Active 50 U SC TWICE A DAY January 30, 2025 12:00am Ipratropium (14 sources) Anticholinergic Start: 08-24-2022 Ipratropium Br omide Active 2 SPRAY INTRANASAL 2 to 3 times per day August 23, 2022 11:00pm administer into each nostril Start: 08-24-2022 Ipratropium Br omide Active 2 SPRAY INTRANASAL 2 to 3 times per day August 24, 2022 12:00am administer into each nostril Ipratropium [place] 21 mcg ( 0.03 %) spray,non-aerosol (6 sources) Start: 08-24-2022 Ipratropium Br omide 21 mcg (0.03 %) spray,non-aerosol Active 2 NMA INTRANASAL 2 to 3 times per day as needed for allergy symptoms 02 11August 24, 2022 12:00am administer into each nostril Start: 08-24-2022 Ipratropium Br omide 21 mcg (0.03 %) spray,non-aerosol Active 2 NMA INTRANASAL 2 to 3 times per day as needed for allergy symptoms August 24, 2022 12:00am administer into each nostril metFORMIN hydrochloride 500 mg oral tablet (20 sources) Biguanide Start: 02-25-2020 take 2 tablets by mouth twice daily Metformin 500 mg tablet Active 1000 mg PO TWICE A DAY February 25, 2020 12:00am Start: 02-25-2020 take 1000 mg by mout h twice daily Metformin Active 1000 MG PO TWICE A DAY February 25, 2020 12:00am Multiple Vitamins-Minerals (PRESERVISION AREDS 2 PO) (7 sources) Multiple Vitamin s-Minerals (PRESERVISION AREDS 2 PO) Take by mouth. 0 Active [place]-3 Fatty Acids (15 sources) Start: 06-10-2022 take 1000 mg by mouth once daily [place]-3 Fatty Acids Active 1000 MG PO DAILY June 10, 2022 1:00am Start: 06-10-2022 take 1000 mg by mouth once anival ly [place]-3 Fatty Acids Active 1000 MG PO DAILY June 10, 2022 12:00am [place]-3 Fatty Acids 1,000 mg capsule (6 sources) Start: 06-10-2022 take 1 capsule by mouth once daily [place] Fatty Acids 1,000 mg capsule Active 1000 mg PO DAILY June 10, 2022 1:00am omeprazole 20 mg delayed release oral capsule (20 sources) Proton Pump Inhibitor Start: 01-30-2025 take 1 capsule by mouth once daily Omeprazole 20 mg capsule,delayed release(DR/EC) Active 20 mg PO daily January 30, 2025 12:00am heartburn Alternates Q2W with famotadine Start: 02-25-2020 End: 03-10-2023 take 1 capsule by mouth once daily Omeprazole 20 mg capsule,delayed release(DR/EC) Discontinued 20 mg PO DAILY February 25, 2020 12:00am March 10, 2023 3:39pm spacer (20 sources) Start: 04-15-2021 spacer Active 0 .ROUTE .MEDSUPPLY 1 April 15, 2021 1:00am As directed Start: 04-15-2021 spacer Active 0 .ROUTE .MEDSUPPLY April 15, 2021 12:00am As directed Start: 04-15-2021 spacer Active 0 .ROUTE .MEDSUPPLY 1 April 15, 2021 1:00am As directed telmisartan 40 mg oral tablet (16 sources) Angiotensin 2 Receptor Anju Start: 02-08-2023 take 1 tablet by mouth once daily Telmisartan 40 mg tablet Active 40 mg PO DAILY February 08, 2023 12:00am 30 actuat umeclidinium 0.0625 mg/actuat dry powder inhaler (16 sources) Anticholinergic Start: 10-05-2024 End: 11-28-2024 take 62.5 ug by inhalation once daily Umeclidinium (Incruse Ellipta) 62.5 mcg/actuation blister with device Active 1 NMA INHALATION daily 05 05November 28, 2024 11:05am Start: 05-02-2024 End: 06-08-2024 take 62.5 ug by inhalation once daily Umeclidinium (Incruse Ellipta) 62.5 mcg/actuation blister with device Discontinued 1 NMA INHALATION daily 02 09May 02, 2024 1:00am June 08, 2024 10:53am Start: 05-02-2024 End: 06-08-2024 take 62.5 ug by inhalation once daily Umeclidinium (Incruse Ellipta) 62.5 mcg/actuation blister with device Discontinued 1 NMA INHALATION daily May 02, 2024 1:00am June 08, 2024 10:53am Vit C,Q-De-Zkwed-Lutein-Zeax an (Preservision Areds-2) 250-90-40-1 mg capsule (20 sources) Start: 06-10-2022 take 2 capsules by mouth twice daily Vit C,O-Hc-Alisu-Lutein-Zeaxan (Preservision Areds-2) 250-90-40-1 mg capsule Active 1 {tbl} PO TWICE A DAY June 10, 2022 1:00am Start: 06-10-2022 Vit C,E-Zn-[employer] mb-Axcqcx-Yhovyi (Preservision Areds-2) 250-90-40-1 mg capsule Active 1 TABLET PO TWICE A DAY June 10, 2022 1:00am Start: 06-10-2022 Vit C,E-Zn-Ordnance [employer] dr-Nlmkkz-Hcltng (Preservision Areds-2) 250-90-40-1 mg capsule Active 1 TABLET PO TWICE A DAY June 10, 2022 12:00am zinc gluconate 30 mg oral tablet (20 sources) Start: 06-17-2022 take 1 tablet by mouth once daily Zinc Gluconate 30 mg tablet Active 30 mg PO DAILY June 17, 2022 1:00am Completed/Discontinued Medications Medication Drug Class(es) Dates Sig (Normalized) Sig (Original) [id number] 200 actuat albuterol 0.09 mg/actuat metered dose inhaler (20 sources) beta2-Adrenergic Agonist Start: 11-25-2022 take 2.5 mg by inhalation every four hours as needed for wheezing Albuterol Sulfate 2.5 mg /3 mL (0.083 %) solution for nebulization Active 2.5 mg INHALATION Q4H as needed for Sob &/Or Wheezing 180 3 November 25, 2022 12:00am Asthma Moderate persistent asthma, uncomplicated Start: 02-25-2020 End: 05-02-2024 Albuterol Sulfate 90 mcg/act uation HFA aerosol inhaler Discontinued 2 NMA INHALATION EVERY 6 HOURS as needed for Sob &/Or Wheezing 8.5 6 November 25, 2022 11:47am May 02, 2024 1:04pm Start: 02-25-2020 End: 11-25-2022 take 1 puff(s) by inhalation every six hours Albuterol Sulfate Active 2 PUFF INHALATION EVERY 6 HOURS 8.5 November 25, 2022 11:47am take 2 puff(s) by in halation every six hours as needed albuterol 108 (90 Base) MCG/ACT inhaler Inhale 2 puffs every 6 hours as needed. 0 Active amoxicillin 875 mg / clavulanate 125 mg oral tablet (20 sources) Penicillin-class Antibacterial Start: 04-24-2021 End: 05-06-2021 Amoxicillin-Pot Clavulanate (Augmentin) 875-125 mg tablet Discontinued 1 {tbl} PO TWICE A DAY 10 0 April 241 1:00am May 06, 2021 3:01pm apremilast 30 mg oral tablet (5 sources) Start: 10-05-2024 End: 01-30-2025 take 1 tablet by mouth once daily Apremilast (Otezla) 30 mg tablet Discontinued 30 mg PO daily October 05, 2024 12:00am January 30, 2025 8:39am azelastine hydrochloride 0.206 mg/actuat metered dose nasal spray (20 sources) Histamine-1 Receptor Antagonist Start: 11-25-2022 End: 05-02-2024 Azelastine 205.5 mcg (0.15 %) spray,non-aerosol Discontinued 1 NMA INTRANASAL TWICE A DAY as needed March 10, 2023 3:36pm May 02, 2024 1:04pm Chronic obstructive pulmonary disease, unspecified administer into each nostril Start: 11-25-2022 End: 03-10-2023 take 1 spray(s) nasal route twice daily Azelastine Active 1 SPRAY INTRANASAL TWICE A DAY March 10, 2023 3:36pm administer into each nostril azithromycin 250 mg oral tablet (20 sources) Macrolide Antimicrobial Start: 04-23-2024 End: 06-08-2024 take 2-5 tablets by mouth once daily Azithromycin 250 mg tablet Discontinued 0 PO .COMPLEX 6 0 April 23, 2024 1:00am June 08, 2024 10:52am take 500 mg today (day 1), then 250 mg for 4 days (days 2-5) PO Start: 09-27-2022 End: 10-07-2022 take 2-5 tablets by mouth once daily Azithromycin 250 mg tablet Discontinued 0 PO .COMPLEX 6 0 September 27, 2022 12:00am October 07, 2022 9:08am take 500 mg today (day 1), then 250 mg for 4 days (days 2-5) PO Start: 04-27-2022 End: 06-10-2022 take 2-5 tablets by mouth once daily Azithromycin 250 mg tablet Discontinued 0 PO .COMPLEX 6 0 April 27, 2022 1:00am June 10, 2022 10:43am take 500 mg today (day 1), then 250 mg for 4 days (days 2-5) PO Start: 08-28-2021 End: 09-02-2021 take 2-5 tablets by mouth once daily Azithromycin 250 mg tablet Discontinued 0 PO .COMPLEX 6 0 August 28, 2021 12:00am September 02, 2021 9:47am take 500 mg today (day 1), then 250 mg for 4 days (days 2-5) PO carvedilol 6.25 mg oral tablet (20 sources) alpha-Adrenergic Anju, beta-Adrenergic Anju Start: 09-04-2020 End: 10-22-2020 take 1 tablet by mouth twice daily at mealtime Carvedilol (Coreg) 6.25 mg tablet Discontinued 6.25 mg PO TWICE A DAY September 04, 2020 12:00am October 22, 2020 9:55am must administer with a meal/food clopidogrel 75 mg oral tablet (20 sources) [id number] Platelet Inhibitor Start: 03-08-2020 End: 08-02-2024 take 1 tablet by mouth once daily Clopidogrel (Plavix) 75 mg tablet Discontinued 75 mg PO DAILY 90 0 May 14, 2024 10:13am August 02, 2024 11:28am dexamethasone 6 mg oral tablet (20 sources) Corticosteroid Start: 07-14-2021 End: 08-11-2021 take 1 tablet by mouth once daily Dexamethasone (Decadron) 6 mg tablet Discontinued 6 mg PO DAILY 10 July 14, 2021 1:00am August 11, 2021 10:19am doxycycline hyclate 100 mg oral capsule (6 sources) Tetracycline-class Drug Start: 06-08-2024 End: 08-02-2024 take 1 capsule by mouth twice daily Doxycycline Hyclate 100 mg capsule Discontinued 100 mg PO TWICE A DAY 14 June 08, 2024 1:00am August 02, 2024 10:41am Asthma Severe persistent asthma, uncomplicated ferrous sulfate 325 mg oral tablet (20 sources) Start: 04-24-2020 End: 05-06-2021 take 1 tablet by mouth once daily Ferrous Sulfate 325 mg (65 mg iron) tablet Discontinued 325 mg PO DAILY April 24, 2020 1:00am May 06, 2021 3:03pm fluticasone propionate 0.05 mg/actuat metered dose nasal spray (20 sources) Corticosteroid Start: 02-22-2022 take 1 spray(s) nasal route in the morning fluticasone (Flonase) 50 MCG/ACT nasal spray Administer 1 spray into each nostril in the morning. 0 02/22/2022 Active Start: 02-27-2020 End: 12-18-2024 Fluticasone Propionate 50 mc g/actuation spray,suspension Discontinued 1 NMA INTRANASAL DAILY 3 3 October 19, 2023 7:53am December 18, 2024 10:58am administer into each nostril Start: 02-27-2020 End: 08-24-2022 take 1 spray(s) nasal route once daily Fluticasone Propionate Discontinued 1 SPRAY INTRANASAL DAILY February 22, 2022 11:09am August 24, 2022 11:13am administer into each nostril 3 ml insulin glargine 100 unt/ml pen injector (20 sources) Insulin Analog Start: 03-10-2023 End: 01-30-2025 Insulin Glargine (Basaglar Kwikpen U-100 Insulin) 100 unit/mL (3 mL) insulin pen Discontinued 50 U SC TWICE A DAY March 10, 2023 12:00am January 30, 2025 8:41am Patient adjusts with BS Start: 02-23-2022 insulin glargi ne (Basaglar KwikPen) 100 UNIT/ML pen Inject 50 Units under the skin 2 times daily. Depending on BS 0 02/23/2022 Active Start: 02-25-2020 End: 03-10-2023 Insulin Glargine 100 unit/mL solution Discontinued 50 U SC TWICE A DAY February 25, 2020 12:00am March 10, 2023 3:38pm iopamidol (ISOVUE-370) 76 % injection 100 mL (1 source) Start: 04-01-2022 End: 04-01-2022 iopamidol (ISOVUE-370) 76 % injection 100 mL lisinopril 20 mg oral tablet (20 sources) Angiotensin Converting Enzyme Inhibitor Start: 02-25-2020 End: 02-08-2023 take 1 tablet by mouth twice daily Lisinopril 20 mg tablet Discontinued 20 mg PO TWICE A DAY February 25, 2020 12:00am February 08, 2023 1:19pm 24 hr metoprolol succinate 50 mg extended release oral tablet (20 sources) beta-Adrenergic Anju Start: 07-16-2022 End: 09-20-2022 take 1 tablet by mouth once daily Metoprolol Succinate (Toprol Xl) 50 mg tablet extended release 24 hr Discontinued 50 mg PO DAILY 90 3 July 16, 2022 1:00am September 20, 2022 5:22pm montelukast 10 mg oral tablet (20 sources) Leukotriene Receptor Antagonist Start: 05-06-2021 End: 10-12-2024 take 1 tablet by mouth once daily Montelukast 10 mg tablet Discontinued 10 mg PO DAILY 90 October 13, 2023 12:06pm October 12, 2024 10:54am Multivitamin,Tx-Min erals (15 sources) Start: 06-10-2022 End: 08-04-2023 take 1 tablet by mouth once daily Multivitamin,Tx-Mi nerals Discontinued 1 TABLET PO DAILY June 10, 2022 1:00am August 04, 2023 11:04am Start: 06-10-2022 End: 08-04-2023 take 1 tablet by mouth once daily Multivitamin,Tx-Minerals Discontinued 1 TABLET PO DAILY June 10, 2022 12:00am August 04, 2023 10:04am Start: 06-10-2022 take 1 tablet by alex th once daily Multivitamin,Tx-Minerals Active 1 TABLET PO DAILY June 10, 2022 1:00am Start: 06-10-2022 take 1 tablet by alex th once daily Multivitamin,Tx-Minerals Active 1 TABLET PO DAILY June 10, 2022 12:00am Multivitamin,Tx-Minerals tablet (6 sources) Start: 06-10-2022 End: 08-04-2023 Multivitamin,Tx-Minerals tablet Discontinued 1 {tbl} PO DAILY June 10, 2022 1:00am August 04, 2023 11:04am nystatin [id number] unt/ml oral suspension (5 sources) Polyene Antifungal Start: 10-05-2024 End: 01-30-2025 take 1 mL by mouth three times daily Nystatin 100,000 unit/mL suspension Discontinued 1 mL PO THREE TIMES A DAY 60 5 1 October 05, 2024 12:00am January 30, 2025 8:42am swish and swallow [place] 3-Tbp-Eae-Fish Oil (Fish Oil) 900 mg (320 mg- 580mg)-1,360 mg capsule (20 sources) Start: 02-27-2020 End: 06-10-2022 [place] 0-Gik-Svi-Fish Oil (Fish Oil) 900 mg (320 mg- 580mg)-1,360 mg capsule Discontinued 1 NMA PO DAILY February 27, 2020 12:00am June 10, 2022 10:46am Start: 02-27-2020 End: 06-10-2022 take 1 capsule by mouth once daily [place] 1-Tdt-Qba-Fish Oil (Fish Oil) 900 mg (320 mg- 580mg)-1,360 mg capsule Discontinued 1 CAP PO DAILY February 27, 2020 12:00am June 10, 2022 10:46am Start: 02-27-2020 End: 06-10-2022 take 1 capsule by mouth once daily [place] 0-Vdz-Vpy-Fish Oil (Fish Oil) 900 mg (320 mg- 580mg)-1,360 mg capsule Discontinued 1 CAP PO DAILY February 26, 2020 11:00pm June 10, 2022 9:46am Start: 02-27-2020 take 1 capsule by mo uth once daily [place] 5-Hul-Bgs-Fish Oil (Fish Oil) 900 mg (320 mg- 580mg)-1,360 mg capsule Active 1 CAP PO DAILY February 26, 2020 11:00pm Start: 02-27-2020 take 1 capsule by mo uth once daily [place] 6-Zmc-Ebm-Fish Oil (Fish Oil) 900 mg (320 mg- 580mg)-1,360 mg capsule Active 1 CAP PO DAILY February 27, 2020 12:00am Start: 02-27-2020 [place] 3-Dha-Ep a-Fish Oil (Fish Oil) 900 mg (320 mg- 580mg)-1,360 mg capsule Active CAP PO February 27, 2020 12:00am predniSONE 10 mg oral tablet (20 sources) Start: 04-18-2024 End: 01-30-2025 Prednisone 10 mg tablet Discontinued 10 mg PO daily 30 0 June 08, 2024 1:00am August 02, 2024 10:44am Asthma Severe persistent asthma, uncomplicated take 4 tabs for three days, then 3 tabs for three days, then 2 tabs for three days, then 1 tab for 3 days Start: 09-22-2022 End: 09-27-2022 take 3 tablets by mouth once daily at mealtime Prednisone 20 mg tablet Discontinued 60 mg PO daily 15 0 September 22, 2022 12:00am September 27, 2022 1:39pm administer with food or milk Start: 09-22-2022 End: 09-27-2022 take 60 mg by mouth once daily at mealtime Prednisone Discontinued 60 MG PO daily September 22, 2022 12:00am September 27, 2022 1:39pm administer with food or milk Start: 09-02-2021 End: 02-22-2022 Prednisone 10 mg tablet Discontinued 10 mg PO daily 30 January 29, 2022 10:47am February 22, 2022 11:09am take 4 tabs for three days, then 3 tabs for three days, then 2 tabs for three days, then 1 tab for 3 days Start: 08-24-2021 End: 08-28-2021 take 3 tablets by mouth once daily at mealtime Prednisone 20 mg tablet Discontinued 60 mg PO daily August 24, 2021 12:00am August 28, 2021 3:22pm administer with food or milk Start: 08-24-2021 End: 08-28-2021 take 60 mg by mouth once daily at mealtime Prednisone Discontinued 60 MG PO daily August 24, 2021 12:00am August 28, 2021 3:22pm administer with food or milk Start: 04-24-2021 End: 05-06-2021 take 3 tablets by mouth once daily at mealtime Prednisone 20 mg tablet Discontinued 60 mg PO daily April 24, 2021 1:00am May 06, 2021 3:02pm administer with food or milk Start: 04-24-2021 End: 05-06-2021 take 60 mg by mouth once daily at mealtime Prednisone Discontinued 60 MG PO daily April 24, 2021 1:00am May 06, 2021 3:02pm administer with food or milk 60 actuat tiotropium 0.75641 mg/actuat inhalation spray (18 sources) Anticholinergic Start: 06-08-2024 End: 10-05-2024 take 1.25 ug by inhalation once daily Tiotropium [place] (Spiriva Respimat) 1.25 mcg/actuation mist Discontinued 2 NMA INHALATION daily June 08, 2024 1:00am October 05, 2024 8:23am Start: 07-22-2023 End: 05-02-2024 take 1.25 ug by inhalation once daily Tiotropium [place] (Spiriva Respimat) 1.25 mcg/actuation mist Discontinued 2 NMA INHALATION DAILY 09 14July 22, 2023 1:00am May 02, 2024 1:04pm Start: 07-22-2023 take 1 puff(s) by in halation once daily Tiotropium [place] (Spiriva Respimat) 1.25 mcg/actuation mist Active 2 PUFF INHALATION DAILY July 22, 2023 1:00am Vit A-Vit C-Vit X-Gdvq-Axjqww (20 sources) Start: 02-27-2020 End: 06-10-2022 take 1 tablet by mouth once daily Vit A-Vit C-Vit E-Qqhu-Xggevw Discontinued 1 TABLET PO DAILY February 27, 2020 12:00am June 10, 2022 10:47am Start: 02-27-2020 End: 06-10-2022 take 1 tablet by mouth once daily Vit A-Vit C-Vit L-Dvdb-Htcstc Discontinued 1 TABLET PO DAILY February 26, 2020 11:00pm June 10, 2022 9:47am Start: 02-27-2020 take 1 tablet by alex th once daily Vit A-Vit C-Vit F-Fhfs-Phcyee Active 1 TABLET PO DAILY February 26, 2020 11:00pm Start: 02-27-2020 take 1 tablet by alex th once daily Vit A-Vit C-Vit M-Cuyy-Myqbui Active 1 TABLET PO DAILY February 27, 2020 12:00am Start: 02-27-2020 Vit A-Vit C-Vi t G-Qemr-Fhdbml Active TABLET PO February 27, 2020 12:00am Vit A-Vit C-Vit N-Ikgg-Lutld r 7,160-113-100 tbnt-wm-ptrj tablet (6 sources) Start: 02-27-2020 End: 06-10-2022 Vit A-Vit C-Vit H-Grfk-Ivnbj r 7,160-113-100 lmvt-qj-hpsl tablet Discontinued 1 {tbl} PO DAILY February 27, 2020 12:00am June 10, 2022 10:47am Problems Active Problems Problem Classification Problem Date Documented Date Episodic/Chronic Asthma (20 sources) Asthma; Translations: [Unspecified asthma, uncomplicated] Onset: 08-02-2024 Chronic Cardiac dysrhythmias (20 sources) Palpitations; Translations: [Palpitations] Onset: 05-19-2022 05-04-2022 Episodic Chronic obstructive pulmonary disease and bronchiectasis (9 sources) Chronic obstructive lung disease; Translations: [Chronic obstructive pulmonary disease, unspecified] Onset: 04-12-2022 04-12-2022 Chronic Coronary atherosclerosis and other heart disease (20 sources) Coronary atherosclerosis; Translations: [Atherosclerotic heart disease of campo coronary artery without angina pectoris] Onset: 04-12-2022 03-31-2020 Chronic Coronary atherosclerosis and other heart disease (20 sources) Presence of coronary angioplasty implant and graft; Translations: [Percutaneous transluminal coronary angioplasty status] Onset: 03-31-2020 Episodic Diabetes mellitus without complication (20 sources) Type 2 diabetes mellitus; Translations: [Type 2 diabetes mellitus without complications] Onset: 04-12-2022 02-24-2022 Chronic Disorders of lipid metabolism (20 sources) Hyperlipidemia; Translations: [Hyperlipidemia, unspecified] Onset: 04-23-2022 Chronic Esophageal disorders (8 sources) Gastroesophageal reflux disease without esophagitis; Translations: [Gastro-esophageal reflux disease without esophagitis] Onset: 04-12-2022 04-12-2022 Chronic Essential hypertension (20 sources) Essential hypertension; Translations: [Essential (primary) hypertension] Onset: 04-12-2022 Chronic Heart valve disorders (20 sources) Aortic stenosis, non-rheumatic ; Translations: [Nonrheumatic aortic (valve) stenosis] Onset: 04-01-2022 Chronic Comment on above: TAVR with 23 mm SAPI EN S3 ultra 04/12/2022 S/P TAVR on at [facility] with a 23 mm sapient S3 ultra valve; Malaise and fatigue (17 sources) Fatigue; Translations: [Other fatigue] 11-25-2022 Episodic Mycoses (8 sources) Candidiasis of mouth; Translations: [Candidal stomatitis] 10-05-2024 Episodic Nonspecific chest pain (20 sources) Chest pain; Translations: [Chest pain, unspecified] Onset: 01-30-2025 02-25-2022 Episodic Comment on above: PCI-Cutting balloon angioplasty and BERNADINE-Mid RCA w/ 3.0 x 28 mm Synergy Stent 03/31/2020 Occlusion or stenosis of precerebral arteries (20 sources) Carotid artery stenosis; Translations: [Occlusion and stenosis of unspecified carotid artery] 10-07-2022 Chronic Other and ill-defined heart disease (20 sources) Left ventricular diastolic dysfunction ; Translations: [Heart disease, unspecified] 03-06-2020 Chronic Other liver diseases (1 source) Abnormal levels of other serum enzymes; Translations: [Abnormal levels of other serum enzymes] Onset: 02-07-2025 Episodic Other lower respiratory disease (20 sources) Dyspnea; Translations: [Dyspnea, unspecified] 02-25-2020 Episodic Other lower respiratory disease (20 sources) Dyspnea, unspecified; Translations: [Other respiratory abnormalities] Onset: 04-01-2022 Episodic Other lower respiratory disease (2 sources) Other forms of dyspnea; Translations: [Other forms of dyspnea] Onset: 01-30-2025 Episodic Other nutritional; endocrine; and metabolic disorders (20 sources) Obesity; Translations: [Obesity, unspecified] 02-24-2022 Chronic Other nutritional; endocrine; and metabolic disorders (4 sources) Obesity, unspecified; Translations: [Obesity, unspecified] 08-24-2022 Chronic Other nutritional; endocrine; and metabolic disorders (1 source) Hypercalcemia; Translations: [Hypercalcemia] Onset: 07-26-2024 Chronic Other upper respiratory disease (16 sources) Allergic rhinitis; Translations: [Allergic rhinitis, unspecified] 07-22-2023 Chronic Other upper respiratory disease (6 sources) Allergic rhinitis, unspecified; Translations: [Allergic rhinitis, cause unspecified] 07-22-2023 Chronic Residual codes; unclassified (20 sources) Hypersomnia; Translations: [Hypersomnia, unspecified] 02-24-2022 Chronic Residual codes; unclassified (1 source) Hypersomnia, unspecified; Translations: [Hypersomnia, unspecified] Chronic Residual codes; unclassified (20 sources) Obstructive sleep apnea syndrome; Translations: [Obstructive sleep apnea (adult) (pediatric)] Onset: 04-12-2022 02-24-2022 Chronic Residual codes; unclassified (2 sources) Obstructive sleep apnea (adult) (pediatric); Translations: [Obstructive sleep apnea (adult) (pediatric)] Onset: 04-12-2022 Chronic Retinal detachments; defects; vascular occlusion; and retinopathy (1 source) Retinal ischemia; Translations: [Retinal ischemia] Onset: 06-14-2024 Chronic Past or Other Problems Problem Classification Problem Date Documented Da te Episodic/Chronic Other screening for suspected conditions (not mental disorders or infectious disease) (1 source) Encounter for screening mammogram for malignant neoplasm of breast; Translations: [Encounter for screening mammogram for malignant neoplasm of breast] Onset: 08-24-2024 Episodic Results Test Name Value Interpretation Reference Range Facility ABD Limited w/ Elastographyo n 02-01-2025 ABD Limited w/ Elastography [facility] Imaging Services [address] [place], [place] [id number] ABD Limited w/ Elastography MR#: [id number] Acct: [id number] Name: LINDA RAI Rep #: [id number] : 1950 F 74 From: Tez james MD PCP: Dr. Jorge L Hidalgo MD Status: REG CLI Study: ABD Limited w/ Elastography Date of Exam: 01/05 02/28 Exam# [id number] Ordering Dr: Jorge L Hidalgo MD PROCEDURE: ABD LIMITED W/ ELASTOGRAPHY REASON FOR EXAM: BILIARY DISEASE Elevated liver function tests. COMPARISON: None TECHNIQUE: Procedure Code: USABDLELPARO Modality: US Procedure: ABD LIMITED W/ ELASTOGRAPHY Right upper quadrant abdominal ultrasound. [place] ElastQ [facility] shear wave elastography for non- invasive assessment of liver tissue stiffness. [place] EPIQ Elite. FINDINGS: LIVER: Size: Enlarged (hepatomegaly) Length: 20.5 cm Echotexture: Diffusely echogenic suggesting fatty infiltration Contour: Normal Lesions: None identified Elastography: EQI Med: 10 kPa EQI Med Geri: 1.82 m/s IQR/Med: 18.4 %* GALLBLADDER: No stones sludge wall thickening or tenderness. COMMON BILE DUCT: Normal measuring 3 mm . PANCREAS: Normal Visualized portions of the right kidney are unremarkable. No right upper quadrant ascites. US/ABD Limited w/ Elastography IMPRESSION: MODERATE TO SEVERE HEPATIC FIBROSIS Hepatomegaly. Diffuse fatty infiltration of the liver. Reference Values: SRU <1.37 m/s (5.7kPa): No to mild fibrosis 1.37 m/s - 2.2 m/s: Moderate to severe fibrosis >2.2 m/s (15kPa): Significant fibrosis / cirrhosis METAVIR Score F2 or higher: 1.34 m/s (5.7kPa) F3 or higher: 1.55 m/s (7.3kPa) F4: 1.80 m/s (10kPa) * If the IQR/Med is >30%, the variance in the measurements is a large and the accuracy of the measurement may be in question. Reading Location: [facility] CC: Dr. Jorge L Hidalgo MD Reverberatory Furnace Supervisor: Signed Normal [facility] Chest WITH Contraston 2024 Chest WITH Contrast [facility] Imaging Services [address] [place], [place] [address] Chest WITH Contrast MR#: [id number] Acct: [id number] Name: LINDA RAI Rep #: [id number] : 1950 F 74 From: Tez james MD PCP: Dr. Jorge L Hidalgo MD Status: REG CLI Study: Chest WITH Contrast Date of Exam: 01/31/25 Exam# [id number] Ordering Dr: Jorge L Hidalgo MD PROCEDURE: CHEST WITH CONTRAST 01/31/2025 REASON FOR EXAM: R ANTERIR CHEST WALL PAIN WITH PROGRESSIVE SOB, KNOWN COPD. SHARON Shortness of breath with exertion. Known bronchiectasis. TECHNIQUE: Procedure Code: CTCHW Modality: CT Procedure: CHEST WITH CONTRAST Coronal and Sagittal reconstruction series were provided. CONTRAST: Isovue-300 VOLUME: 100 mL One or more dose reduction techniques were used (e.g., Automated exposure control, adjustment of the mA and/or kV according to patient size, use of iterative reconstruction technique). RADIATION DOSE SUMMARY: CTDlvol: 17.8 mGy DLP: 657.61 mGycm COMPARISON: Prior study dated July 27, 2023. FINDINGS: Hardware: None Lymph nodes: No significant lymphadenopathy is seen. Small bilateral axillary lymph nodes. Heart and Vasculature: The heart is not enlarged. Coronary artery calcification. Aortic valve replacement. Lungs and Airways: Stable mild increased interstitial markings at the lung bases suggestive of mild basilar scarring. This is unchanged. Pleura: No pleural effusion. Upper Abdomen: Unremarkable Bones: Degenerative changes of the thoracic spine. Small hypodensity in the right lobe of the thyroid suggestive of colloid cyst. CT/Chest WITH Contrast IMPRESSION: Coronary artery calcification (CAC) is is present Stable examination. Reading Location: [id number] CC: Dr. Jorge L Hidalgo MD Reverberatory Furnace Supervisor: Signed Normal [facility] Cardiology Visit Reporton Cardiology Visit Report [facility] [address] [place] [address] OFFICE VISIT Date of Service: 01/30/25 MR#: [id number] Acct: [id number] Name: LINDA RAI Rep #: [id number] : 1950 Provider: SÁNCHEZ soni Age/Sex: 74/F Location: [facility] Status: Signed HPI HPI History of Present Illness Details: Pleasant 74-year-old lady with hypertension, obesity, diabetes mellitus, and aortic valve stenosis. She had presented with shortness of breath in March 2020 and underwent a stress test which was normal but at a low workload. She underwent a cardiac catheterization which demonstrated high-grade stenosis in the mid right coronary artery for which she received a drug-eluting stent. She says that more recently she has had chest discomfort on ambulation and also noted that her heart rate has been going up. She had a repeat echocardiogram which demonstrated an ejection fraction of 60% with no wall motion abnormalities and a peak mean gradient across the aortic valve of 70/38 mmHg. A PFO was also noted. She had heart catheterization 03/01/2022 that showed mild to moderate coronary disease with previously stented right coronary artery as patent. She was transferred to [facility] for TAVR evaluation. She proceeded with TAVR procedure on 04/12/2022 with a 23 mm sapient S3 ultra valve. Her echocardiogram on 05/20/2022 showed ejection fraction 65%, AV mean gradient of 11 mmHg, AV peak gradient of 22 mmHg, and aortic valve area of 1.5 cm???. Follow-up echocardiogram in January 2025 showed LV function 65% and mean aortic valve gradient 16 mmHg. She acknowledges chest tightness when walking uphill. This is located midsternal and right chest. This lasts for minutes and improves with rest. This worsens with deep breathing and has been ongoing for over a year. She acknowledges rare episodes of palpitations. She acknowledges bilateral lower extreme edema. She acknowledges shortness breath activity. She denies shortness of breath at rest, cough, orthopnea, or PND. She denies lightheadedness, dizziness, near-syncope, syncope, weakness, or fatigue. Intake Vital Signs 08/02/24 09:34 10/05/24 07:53 01/30/25 08:33 Height 5 ft 2 in 5 ft 2 in 5 ft 2 in Weight: 202 lb 204 lb BMI 36.9 37.3 BP 141/67 H 136/78 H Blood Pressure Location Lt brachial Lt brachial Position Sitting Sitting Respiration 18 16 Pulse 59 L 61 Pulse Source Monitor NIBP Temp 97.2 F L Temperature Source Temporal Artery Pulse Oximetry (%) 97 Oxygen Delivery Method room air Intake Visit Reasons: 6 M FU Traveling Operator Required: No Is patient in pain?: No Allergies etodolac Allergy (Verified 01/30/25 08:38) Swelling Medications ???Medication ???Instructions ???Recorded ???Confirmed ???Type atorvastatin 10 mg tablet 10 mg PO QHS 02/25/20 01/30/25 His tory glipizide 10 mg tablet, extended 10 mg PO DAILY 02/25/20 01/30/25 H istory release 24 hr metformin 500 mg tablet 1,000 mg PO BID 02/25/20 01/30/25 History acetaminophen 500 mg capsule 500 mg PO Q6H PRN Pain 1-10 Or 01/30/25 History Fever ibuprofen 200 mg capsule 200 mg PO Q6H PRN Pain Score 1-10 02/27/20 01/30/25 History aspirin 81 mg tablet,delayed 81 mg PO DAILY@0800 04/01/2001/30 Rx release spacer #1 ea 04/15/21 06/08/24 Rx calcium carbonate 500 mg PO DAILY 06/10/22 01/30/25 History fexofenadine 180 mg tablet 180 mg PO DAILY 06/10/22 01/30/25 History omega-3 fatty acids 1,000 mg 1,000 mg PO DAILY 06/10/22 5 History capsule vit C 250 mg-vit E 90 mg-zinc 40 1 tab PO BID 06/10/22 01/30/25 His tory mg-copper 1 de-munidg-nqitbs capsule (PreserVision AREDS-2) zinc gluconate 30 mg tablet 30 mg PO DAILY 06/17/22 01/30/25 H istory ipratropium bromide 21 mcg (0.03 2 spray intranasal BID-TID PRN 01/30/25 Rx %) nasal spray allergy symptoms #30 mL albuterol sulfate 2.5 mg/3 mL 2.5 mg (3 mL) inhalation Q4H PRN 0 11/25/22 01/30/25 Rx (0.083 %) solution for nebulization Sob /Or Wheezing #180 mL atenolol 25 mg tablet 25 mg PO DAILY STOP Metoprolol #30 12/05/22 01/30/25 Rx tabs telmisartan 40 mg tablet 40 mg PO DAILY 02/08/23 01/30/25 H istory famotidine 20 mg tablet 20 mg PO BID 03/10/23 01/30/25 His tory pen needle, diabetic 31 gauge x #1,200 ea 03/10/23 06/08/24 Histor y 3/16 (Droplet Pen Needle) amlodipine 5 mg tablet 5 mg PO QDAY 04/05/24 01/30/25 His tory furosemide 40 mg tablet 40 mg PO QDAY 04/05/24 01/30/25 Hi story albuterol sulfate 90 mcg/actuation 2 puff inhalation Q6H PRN Sob / Or 05/02/24 01/30/25 Rx aerosol inhaler Wheezing #8.5 grams azelastine 205.5 mcg (0.15 %) 1 spray intranasal BID PRN alergic 05/02/24 01/30/25 Rx nasal spray rhinitis #30 mL amoxicil (more content not included)... Normal [facility] 01-28-2025 Echo [facility] Cardiovascular Services [address] 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 The study was technically difficult. Exam performed in department. Left Ventricle Normal LV size. The left ventricular ejection fraction is 65 %. Stage 2 diastolic dysfunction. No regional wall motion abnormalities noted. Right Ventricle Normal RV size. Normal systolic function. Atria The left atrium is mildly enlarged. Normal right atrium. Mitral Valve There is mild mitral annular calcification. Tricuspid Valve Normal tricuspid valve. Mild (1+) tricuspid valve insufficiency. Pulmonary artery systolic pressure is 37 mmHg. Aortic Valve Peak aortic valve gradient 29 mmHg. Mean aortic valve gradient 16 mmHg. Bioprosthetic aortic valve functioning normally. Pulmonic Valve Normal pulmonic valve. Great Vessels Normal aortic root. The pulmonary artery is normal size. Inferior vena cava collapse with respiration. Pericardium/Pleural No pericardial effusion. MMode/2D Measurements Calculations LVIDd: 5.2 cm IVSd: 1.1 cm LVOT diam: 2.0 cm LVIDs: 3.4 cm LVPWd: 1.1 cm LVOT area: 3.0 cm2 RVDd: 3.6 cm FS: 34.8 % asc Aorta Diam: 3.4 cm LAV(MOD-bp): 67.9 ml LVAd ap4: 20.8 cm2 LAV(MOD-bp) Indexed: 34.8 ml/m2 LVLd ap4: 6.8 cm LAV(MOD-sp2): 51.1 ml EDV(MOD-sp4): 53.7 ml LAV(MOD-sp4): 84.2 ml EDV(sp4-el): 54.2 ml LVAs ap4: 11.7 cm2 LVLs ap4: 5.9 cm ESV(MOD-sp4): 20.2 ml ESV(sp4-el): 19.8 ml EF(MOD-sp4): 62.4 % EF(sp4-el): 63.5 % LVAd ap2: 18.7 cm2 SV(MOD-sp4): 33.5 ml SV(MOD-sp2): 29.8 ml LVLd ap2: 6.6 cm SI(MOD-sp4): 17.2 ml/m2 SI(MOD-sp2): 15.3 ml/m2 EDV(MOD-sp2): 45.5 ml EDV(sp2-el): 45.1 ml LVAs ap2: 10.0 cm2 LVLs ap2: 5.5 cm ESV(MOD-sp2): 15.7 ml ESV(sp2-el): 15.6 ml EF(MOD-sp2): 65.5 % SV(sp4-el): 34.4 ml Ao sinus diam: 2.7 cm LA A4 area: 25.0 cm2 LA dimension(2D): 4.5 cm RA A4 area: 12.4 cm2 TAPSE: 1.7 cm Time Measurements MV dec time: 0.16 sec Doppler Measurements Calculations MV E max geri: 96.6 cm/sec Lat Peak E' Geri: 8.2 cm/sec Med Peak E' Geri: 7.8 cm/sec MV A max geri: 71.7 cm/sec E/E' lat: 11.7 E/E' med: 12.4 MV E/A: 1.3 Ao V2 max: 269.6 cm/sec LV V1 max: 153.2 cm/sec MV dec slope: 614.3 cm/sec2 Ao max P.1 mmHg LV V1 max P.4 mmHg Ao V2 mean: 188.1 cm/sec LV V1 mean P.8 mmHg Ao mean P.9 mmHg LV V1 mean: 115.3 cm/sec Ao V2 VTI: 62.3 cm LV V1 VTI: 38.5 cm AV (velocity ratio): 0.62 IAIN(I,D): 1.9 cm2 IAIN(V,D): 1.7 cm2 SV(LVOT): 115.8 ml PA V2 max: 88.5 cm/sec TR max geri: 292.5 cm/sec TR max P.2 mmHg ECHO/Echo Complete Interpretation Summary Normal LV size. The left ventricular ejection fraction is 65 %. Stage 2 diastolic dysfunction. Bioprosthetic aortic valve functioning normally. Mean aortic valve gradient 16 mmHg. Ordering Physician: Julio Baldwin Referring Physician: Jorge L Hidalgo MD Performed By: Pauline Moreno RDCS 01/28/25 1034 Date Jesus Andrea MD CC: AUTOMATIC PINSETTER MECHANIC-C Julio Baldwin; Dr. Jorge L Hidalgo MD Date Dictated: 01/28/25 0854 Date Transcribed: 01/28/25 103 [employer] Supervisor: Signed Normal [facility] Echocardiogram study reportO rdered By: Jesus Andrea on 01-28-[address] [facility] Cardiovascular Services [address] [place] [address] Echo Complete 01/28/25 0854 MR#: [id number] Acct: [id number] Name: LINDA RAI Rep #:[id number] : 1950 74 From: Jesus Jimenez Attending Dr: SÁNCHEZ Stephen Sta tus: REG CLI Ordering Dr: Julio Baldwin NP Date: 01/28/25 Location: [facility] Sex: F C Admitted: Reason For Study Reason For Study: AORTIC VALVE REPLACEMENT Procedure This was a 2D Doppler, Color Flow transthoracic echocardiogram. The study was technically difficult. Exam performed in department. Left Ventricle Normal LV size. The left ventricular ejection fraction is 65 %. Stage 2 diastolic dysfunction. No regional wall motion abnormalities noted. Right Ventricle Normal RV size. Normal systolic function. Atria The left atrium is mildly enlarged. Normal right atrium. Mitral Valve There is mild mitral annular calcification. Tricuspid Valve Normal tricuspid valve. Mild (1+) tricuspid valve insufficiency. Pulmonary artery systolic pressure is 37 mmHg. Aortic Valve Peak aortic valve gradient 29 mmHg. Mean aortic valve gradient 16 mmHg. Bioprosthetic aortic valve functioning normally. Pulmonic Valve Normal pulmonic valve. Great Vessels Normal aortic root. The pulmonary artery is normal size. Inferior vena cava collapse with respiration. Pericardium/Pleural No pericardial effusion. MMode/2D Measurements & Calculations LVIDd: 5.2 cm IVSd: 1.1 cm LVOT diam: 2.0 cm LVIDs: 3.4 cm LVPWd: 1.1 cm LVOT area: 3.0 cm2 RVDd: 3.6 cm FS: 34.8 % asc Aorta Diam: 3.4 cm LAV(MOD-bp): 67.9 ml LVAd ap4: 20.8 cm2 LAV(MOD-bp) Indexed: 34.8 ml/m2 LVLd ap4: 6.8 cm LAV(MOD-sp2): 51.1 ml EDV(MOD-sp4): 53.7 ml LAV(MOD-sp4): 84.2 ml EDV(sp4-el): 54.2 ml LVAs ap4: 11.7 cm2 LVLs ap4: 5.9 cm ESV(MOD-sp4): 20.2 ml ESV(sp4-el): 19.8 ml EF(MOD-sp4): 62.4 % EF(sp4-el): 63.5 % LVAd ap2: 18.7 cm2 SV(MOD-sp4): 33.5 ml SV(MOD-sp2): 29.8 ml LVLd ap2: 6.6 cm SI(MOD-sp4): 17.2 ml/m2 SI(MOD-sp2): 15.3 ml/m2 EDV(MOD-sp2): 45.5 ml EDV(sp2-el): 45.1 ml LVAs ap2: 10.0 cm2 LVLs ap2: 5.5 cm ESV(MOD-sp2): 15.7 ml ESV(sp2-el): 15.6 ml EF(MOD-sp2): 65.5 % SV(sp4-el): 34.4 ml Ao sinus diam: 2.7 cm LA A4 area: 25.0 cm2 LA dimension(2D): 4.5 cm RA A4 area: 12.4 cm2 TAPSE: 1.7 cm Time Measurements MV dec time: 0.16 sec Doppler Measurements & Calculations MV E max geri: 96.6 cm/sec Lat Peak E' Geri: 8.2 cm/sec Med Peak E' Geri: 7.8 cm/sec MV A max geri: 71.7 cm/sec E/E' lat: 11.7 E/E' med: 12.4 MV E/A: 1.3 Ao V2 max: 269.6 cm/sec LV V1 max: 153.2 cm/sec MV dec slope: 614.3 cm/sec2 Ao max P.1 mmHg LV V1 max P.4 mmHg Ao V2 mean: 188.1 cm/sec LV V1 mean P.8 mmHg Ao mean P.9 mmHg LV V1 mean: 115.3 cm/sec Ao V2 VTI: 62.3 cm LV V1 VTI: 38.5 cm AV (velocity ratio): 0.62 IAIN(I,D): 1.9 cm2 IAIN(V,D): 1.7 cm2 SV(LVOT): 115.8 ml PA V2 max: 88.5 cm/sec TR max geri: 292.5 cm/sec TR max P.2 mmHg ECHO/Echo Complete Interpretation Summary Normal LV size. The left ventricular ejection fraction is 65 %. Stage 2 diastolic dysfunction. Bioprosthetic aortic valve functioning normally. Mean aortic valve gradient 16 mmHg. Ordering Physician: Julio Baldwin Referring Physician: Jorge L Hidalgo MD Performed By: Pauline Moreno RDCS 01/28/25 1034 Date _ Jesus Andrea MD CC: AUTOMATIC PINSETTER MECHANIC-C Julio Baldwin; Dr. Jorge L Hidalgo MD ~ Date Dictated: 01/28/2554 Date Transcribed: 01/28/251033 [employer] Supervisor: Signed [facility] Work Phone: [phone] 01-19-2025 GGTP 129 IU/L Abnormal 0-60 [facility] Comment on above: Order Comment: Order Date: 01/18/25Order Info: [id number] - GGTP Result Comment: Perf ormed at: - [facility] [address] [id number] Commutator Tester: Mich Fernandez PhD, Phone: [phone] Performed By: #### L 501.6986, L500.7080, L100.0100, L501.8257, L501.1400 ####[facility] [id number] [facility] [place], [place], [id number] Absolute lymphocyte countOrd ered By: Jorge L Hidalgo on 01-18-2025 Lymphocytes Auto (Unsp spec) [#/Vol] 2.04 10*3/uL 0.83-4.51 [facility] Absolute neutrophil countOrd ered By: Jorge L Hidalgo on 01-18-2025 Neutrophils (Bld) [#/Vol] 7.0 10*3/uL 2.0-7.7 [facility] Ammoniaon 01-18-2025 Ammonia (P) [Moles/Vol] 18.9 umol/L Normal 11-51 [facility] Comment on above: Performed By: #### L 503.5510, L502.0250 #### [facility] Laboratory [address] [place], [address] Anion gap in Serum or Plasma Ordered By: Jorge L Hidalgo on 01-18-2025 Anion gap [Moles/Vol] 14 mmol/L 10-18 [facility] Automated lymphocyte count a s percentage of total leukocytesOrdered By: Jorge L Hidalgo on 01-18-2025 Lymphocytes/100 WBC Auto (Unsp spec) 19.7 % [facility] BUN/creatinine ratioOrdered By: Jorge L Hidalgo on 01-18-2025 Urea nitrogen/Creatinine [Mass ratio] 20.1 mg/mg High 10- [facility] Basophil percentageOrdered B y: Jorge L Hidalgo on 01-18-2025 Basophils/100 WBC (Bld) 0.4 % 0-1 [facility] Bilirubin, totalOrdered By: Jorge L Hidalgo on 01-18-2025 Bilirubin [Mass/Vol] 0.46 mg/dL 0.00-1.30 [facility] CBC W/Diff, Automatedon 01-04 Absolute Lymph 2.04 X10 3/uL Normal 0.83-4.51 [facility] Comment on above: Order Comment: Order Date: 01/18/25 Order Info: 0184-1 - CBCD Performed By: #### L 501.5101, L500.4050, L100.0100, L501.9520, L501.1400 #### [facility] Laboratory [address] [place], [place], [id number] Absolute Neut 7.0 X10 3/uL Normal 2.0-7.7 [facility] Comment on above: Order Comment: Order Date: 01/18/25 Order Info: 0184-1 - CBCD Performed By: #### L 501.5101, L500.4050, L100.0100, L501.9520, L501.1400 #### [facility] Laboratory [address] [place], [address] Basophils/100 WBC (Bld) 0.4 % Normal 0-1 [facility] Comment on above: Order Comment: Order Date: 01/18/25 Order Info: 0184-1 - CBCD Performed By: #### L 501.5101, L500.4050, L100.0100, L501.9520, L501.1400 #### [facility] Laboratory [address] [place], [address] Eosinophils/100 WBC (Bld) 5.2 % High 0-5 [facility] Comment on above: Order Comment: Order Date: 01/18/25 Order Info: 0184-1 - CBCD Performed By: #### L 501.5101, L500.4050, L100.0100, L501.9520, L501.1400 #### [facility] Laboratory [address] [place], [address] Erythrocyte distribution width (RBC) [Ratio] 13.9 % Normal 11.6-14.6 [facility] Comment on above: Order Comment: Order Date: 01/18/25 Order Info: 0184- - CBCD Performed By: #### L 501.5101, L500.4050, L100.0100, L501.9520, L501.1400 #### [facility] Laboratory [address] [place], [address] Hematocrit (Bld) [Volume fraction] 40.0 % Normal 37-47 [facility] Comment on above: Order Comment: Order Date: 01/18/25 Order Info: 0184- - CBCD Performed By: #### L 501.5101, L500.4050, L100.0100, L501.9520, L501.1400 #### [facility] Laboratory [address] [place], [address] Hemoglobin (Bld) [Mass/Vol] 13.2 g/dL Normal 12.0-15.0 [facility] Comment on above: Order Comment: Order Date: 01/18/25 Order Info: 0184- - CBCD Performed By: #### L 501.5101, L500.4050, L100.0100, L501.9520, L501.1400 #### [facility] Laboratory [address] [place], [address] IG% 0.300 Normal 0.0-0.9 [facility] Comment on above: Order Comment: Order Date: 01/18/25 Order Info: 0184-1 - CBCD Result Comment: IG% - Immature Granulocytes (promyelocytes, myelocytes and metamyelocytes) > 1% indicates that a LEFT SHIFT is Present. Performed By: #### L 501.5101, L500.4050, L100.0100, L501.9520, L501.1400 #### [facility] [address] [place], [address] Lymphocytes/100 WBC (Bld) 19.7 % Normal 19-41 [facility] Comment on above: Order Comment: Order Date: 01/18/25 Order Info: 0184-1 - CBCD Performed By: #### L 501.5101, L500.4050, L100.0100, L501.9520, L501.1400 #### [facility] [address] [place], [address] MCH (RBC) [Entitic mass] 28.6 pg Normal 27.0-32.0 [facility] Comment on above: Order Comment: Order Date: 01/18/25 Order Info: 0184-1 - CBCD Performed By: #### L 501.5101, L500.4050, L100.0100, L501.9520, L501.1400 #### [facility] [address] [place], [address] MCHC (RBC) [Mass/Vol] 33.0 g/dL Normal 32-36 [facility] Comment on above: Order Comment: Order Date: 01/18/25 Order Info: 0184-1 - CBCD Performed By: #### L 501.5101, L500.4050, L100.0100, L501.9520, L501.1400 #### [facility] [address] [place], [address] MCV (RBC) [Entitic vol] 86.6 fL Normal 81-99 [facility] Comment on above: Order Comment: Order Date: 01/18/25 Order Info: 0184-1 - CBCD Performed By: #### L 501.5101, L500.4050, L100.0100, L501.9520, L501.1400 #### [facility] [address] [place], [address] Monocytes/100 WBC (Bld) 7.0 % Normal 0-10 [facility] Comment on above: Order Comment: Order Date: 01/18/25 Order Info: 0184- - CBCD Performed By: #### L 501.5101, L500.4050, L100.0100, L501.9520, L501.1400 #### [facility] [address] [place], [address] Neutrophils/100 WBC (Bld) 67.4 % Normal 47-70 [facility] Comment on above: Order Comment: Order Date: 01/18/25 Order Info: 0184- - CBCD Performed By: #### L 501.5101, L500.4050, L100.0100, L501.9520, L501.1400 #### [facility] [address] [place], [address] Nucleated RBC (Bld) [#/Vol] 0 10*3/uL Normal 0-5 [facility] Comment on above: Order Comment: Order Date: 01/18/25 Order Info: 0184-1 - CBCD Performed By: #### L 501.5101, L500.4050, L100.0100, L501.9520, L501.1400 #### [facility] [address] [place], [address] Platelet mean volume (Bld) [Entitic vol] 9.9 fL Normal 6.2-12.0 [facility] Comment on above: Order Comment: Order Date: 01/18/25 Order Info: 0184-1 - CBCD Performed By: #### L 501.5101, L500.4050, L100.0100, L501.9520, L501.1400 #### [facility] [address] [place], [address] Platelets (Bld) [#/Vol] 307 10*3/uL Normal 150-450 [facility] Comment on above: Order Comment: Order Date: 01/18/25 Order Info: 0184-1 - CBCD Performed By: #### L 501.5101, L500.4050, L100.0100, L501.9520, L501.1400 #### [facility] [address] [place], [address] RBC (Bld) [#/Vol] 4.62 10*6/uL Normal 4.2-5.4 [facility] Comment on above: Order Comment: Order Date: 01/18/25 Order Info: 0184-1 - CBCD Performed By: #### L 501.5101, L500.4050, L100.0100, L501.9520, L501.1400 #### [facility] Laboratory [address] [place], [address] RDW SD 44.3 fl High 35.1-43.9 [facility] Comment on above: Order Comment: Order Date: 01/18/25 Order Info: 0184-1 - CBCD Performed By: #### L 501.5101, L500.4050, L100.0100, L501.9520, L501.1400 #### [facility] [address] [place], [address] WBC (Bld) [#/Vol] 10.4 10*3/uL Normal 4.4-11.0 [facility] Comment on above: Order Comment: Order Date: 01/18/25 Order Info: 0184-1 - CBCD Performed By: #### L 501.5101, L500.4050, L100.0100, L501.9520, L501.1400 #### [facility] [address] [place], [address] Carbon dioxide, total [Moles /volume] in Central venous bloodOrdered By: Jorge L Hidalgo on 01-18-2025 CO2 [Moles/Vol] 24.7 mmol/L 21.0-32.0 [facility] Chest PA and Lateralon 01-18 Chest PA and Lateral [facility] Imaging Services [address] [place] [address] Chest PA and Lateral MR#: [id number] Acct: [id number] Name: LINDA RAI Rep #: [id number] : 1950 F 74 From: Stephanie Adams PCP: Dr. Jorge L Hidalgo MD Status: REG CLI Study: Chest PA and Lateral Date of Exam: 01/18/25 Exam# [id number] Ordering Dr: Jorge L Hidalgo MD PROCEDURE: CHEST PA AND LATERAL 01/18/2025 REASON FOR EXAM: R CHEST WALL PIAN, SOB, COPD. CONCERN BRONCHIECTASIS TECHNIQUE: CHEST PA AND LATERAL COMPARISON: Chest x-ray study dated 07/12/2023 FINDINGS: Hardware: Radiopaque stent is projected over the cardiac region Cardiomediastinal silhouette is stable. Arteriosclerotic vascular disease of the aorta is noted. Trachea is midline. Pulmonary vasculature is within normal limits. Lungs are expanded and clear without evidence of atelectasis, consolidation, effusion, pneumothoraces or pneumonic infiltrate. Diffuse osteopenia of the bony thorax is noted. There is a dextroscoliosis of the thoracic spine and a levoscoliosis of the lumbar spine. Degenerative changes of the thoracic and lumbar spine are noted. Degenerative disc disease is seen involving multiple thoracic and lumbar disc spaces. RAD/Chest PA and Lateral IMPRESSION: No acute cardiopulmonary process is identified radiographically. Arteriosclerotic vascular disease of the aorta. Reading Location: [facility] CC: Dr. Jorge L Hidalgo MD [employer] Supervisor: Signed Normal [facility] Chloride assayOrdered By: Elian Hidalgo on 01-18-2025 Chloride [Moles/Vol] 97 mmol/L Low 98-108 [facility] Comprehensive Metabolic Prof ilon 01-18-2025 Albumin [Mass/Vol] 4.5 g/dL Normal 3.4-4.8 [facility] Comment on above: Order Comment: Order Date: 01/18/25 Order Info: 86-1 - CMP Order Info: 3083-06 - URIC Order Info: 3 - TSH Performed By: #### L 501.5101, L500.4050, L100.0100, L501.9520, L501.1400 #### [facility] Laboratory [address] [place], [address] Albumin/Globulin [Mass ratio] 1.5 {ratio} Normal 0.9-2.4 [facility] Comment on above: Order Comment: Order Date: 01/18/25 Order Info: 785-06 - CMP Order Info: 3083-06 - URIC Order Info: 3 - TSH Performed By: #### L 501.5101, L500.4050, L100.0100, L501.9520, L501.1400 #### [facility] [address] [place], [address] ALK PHOS 147 U/L High 35-104 [facility] Comment on above: Order Comment: Order Date: 01/18/25 Order Info: [id number] - CMP Order Info: 1 - URIC Order Info: 3 - TSH Performed By: #### L 501.5101, L500.4050, L100.0100, L501.9520, L501.1400 #### [facility] Laboratory [address] [place], [address] ALT [Catalytic activity/Vol] 17 U/L Normal <=34 [facility] Comment on above: Order Comment: Order Date: 01/18/25 Order Info: 861 - CMP Order Info: 3083-06 - URIC Order Info: 3015-08 - TSH Performed By: #### L 501.5101, L500.4050, L100.0100, L501.9520, L501.1400 #### [facility] [address] [place], [address] AST [Catalytic activity/Vol] 27 U/L Normal <=31 [facility] Comment on above: Order Comment: Order Date: 01/18/25 Order Info: 86-1 - CMP Order Info: 1 - URIC Order Info: 6-3 - TSH Performed By: #### L 501.5101, L500.4050, L100.0100, L501.9520, L501.1400 #### [facility] [address] [place], [address] Bilirubin [Mass/Vol] 0.46 mg/dL Normal 0.00-1.30 [facility] Comment on above: Order Comment: Order Date: 01/18/25 Order Info: 785-06 - CMP Order Info: 3083-06 - URIC Order Info: 6-3 - TSH Performed By: #### L 501.5101, L500.4050, L100.0100, L501.9520, L501.1400 #### [facility] [address] [place], [address] BUN/CRE 20.1 RATIO High 10-20 [facility] Comment on above: Order Comment: Order Date: 01/18/25 Order Info: 0786 - CMP Order Info: [id number] - URIC Order Info: 6-3 - TSH Performed By: #### L 501.5101, L500.4050, L100.0100, L501.9520, L501.1400 #### [facility] [address] [place], [address] Calcium [Mass/Vol] 10.3 mg/dL Normal 7.6-11.0 [facility] Comment on above: Order Comment: Order Date: 01/18/25 Order Info: 0786-1 - CMP Order Info: 3083-06 - URIC Order Info: 3015-08 - TSH Performed By: #### L 501.5101, L500.4050, L100.0100, L501.9520, L501.1400 #### [facility] [address] [place], [address] Chloride [Moles/Vol] 97 mmol/L Low 98-108 [facility] Comment on above: Order Comment: Order Date: 01/18/25 Order Info: 07 - CMP Order Info: 3083-06 - URIC Order Info: [id number] - TSH Performed By: #### L 501.5101, L500.4050, L100.0100, L501.9520, L501.1400 #### [facility] [address] [place], [address] CO2 [Moles/Vol] 24.7 mmol/L Normal 21.0-32.0 [facility] Comment on above: Order Comment: Order Date: 01/18/25 Order Info: 0786 - CMP Order Info: 3083-06 - URIC Order Info: [id number] - TSH Performed By: #### L 501.5101, L500.4050, L100.0100, L501.9520, L501.1400 #### [facility] [address] [place], [address] Creatinine [Mass/Vol] 0.65 mg/dL Low 0.70-1.20 [facility] Comment on above: Order Comment: Order Date: 01/18/25 Order Info: 0786- - CMP Order Info: 3083-06 - URIC Order Info: 3015-08 - TSH Performed By: #### L 501.5101, L500.4050, L100.0100, L501.9520, L501.1400 #### [facility] [address] [place], [address] GAP 14 Normal 5-15 [facility] Comment on above: Order Comment: Order Date: 01/18/25 Order Info: 785-06 - CMP Order Info: 3083-06 - URIC Order Info: 3015-08 - TSH Performed By: #### L 501.5101, L500.4050, L100.0100, L501.9520, L501.1400 #### [facility] [address] [place], [place], [address] GFR/1.73 sq M.predicted among non-blacks MDRD (S/P/Bld) [Vol rate/Area] 91 mL/min/{1.73_m2} Normal >60 [facility] Comment on above: Order Comment: Order Date: 01/18/25 Order Info: 785-06 - CMP Order Info: 3083-06 - URIC Order Info: 3015-08 - TSH Result Comment: mL/m in/1.73m2 CKD-EPI Creatinine Equation (2020) Performed By: #### L 501.5101, L500.4050, L100.0100, L501.9520, L501.1400 #### [facility] [address] [place], [address] Globulin (S) [Mass/Vol] 3.1 g/dL Normal 2.2-4.2 [facility] Comment on above: Order Comment: Order Date: 01/18/25 Order Info: 785-06 - CMP Order Info: 3083-06 - URIC Order Info: 3015-08 - TSH Performed By: #### L 501.5101, L500.4050, L100.0100, L501.9520, L501.1400 #### [facility] [address] [place], [address] Glucose [Mass/Vol] 105 mg/dL High 70-99 [facility] Comment on above: Order Comment: Order Date: 01/18/25 Order Info: 785-06 - CMP Order Info: 3083-06 - URIC Order Info: 3015-08 - TSH Performed By: #### L 501.5101, L500.4050, L100.0100, L501.9520, L501.1400 #### [facility] [address] [place], [address] Potassium [Moles/Vol] 4.0 mmol/L Normal 3.3-5.1 [facility] Comment on above: Order Comment: Order Date: 01/18/25 Order Info: 785- - CMP Order Info: 3083-06 - URIC Order Info: 3015-08 - TSH Performed By: #### L 501.5101, L500.4050, L100.0100, L501.9520, L501.1400 #### [facility] [address] [place], [address] Sodium [Moles/Vol] 136 mmol/L Normal 133-145 [facility] Comment on above: Order Comment: Order Date: 01/18/25 Order Info: 785-06 - CMP Order Info: 3083-06 - URIC Order Info: 3015-08 - TSH Performed By: #### L 501.5101, L500.4050, L100.0100, L501.9520, L501.1400 #### [facility] [address] [place], [address] T PROT 7.6 g/dL Normal 5.9-8.4 [facility] Comment on above: Order Comment: Order Date: 01/18/25 Order Info: 785-06 - CMP Order Info: 3083-06 - URIC Order Info: 3015-08 - TSH Performed By: #### L 501.5101, L500.4050, L100.0100, L501.9520, L501.1400 #### [facility] [address] [place], [address] Urea nitrogen [Mass/Vol] 13 mg/dL Normal 4-19 [facility] Comment on above: Order Comment: Order Date: 01/18/25 Order Info: 785-06 - CMP Order Info: 3083-06 - URIC Order Info: 3015-08 - TSH Performed By: #### L 501.5101, L500.4050, L100.0100, L501.9520, L501.1400 #### [facility] [place], [address] Eosinophil percentageOrdered By: Jorge L Hidalgo on 01-18-2025 Eosinophils/100 WBC (Bld) 5.2 % High 0-5 [facility] Erythrocyte distribution wid th ratioOrdered By: Jorge L Hidalgo on 01-18-2025 Erythrocyte distribution width (RBC) [Ratio] 13.9 % 11.6-14.6 [facility] Erythrocyte distribution wid th standard deviationOrdered By: Jorge L Hidalgo on 01-18-2025 Erythrocyte distribution width (RBC) [Ratio] 44.3 fl High 35.1-43.9 [facility] Gamma glutamyl transferase ( GGT) measurementOrdered By: Jorge L Hidalgo on 01-18-2025 Amylase [Catalytic activity/Vol] 129 U/L High 0-60 [facility] Comment on above: Performed at: [place] [id number] Director: Mich Fernandez PhD, Phone: [phone] Glomerular filtration rate ( GFR) estimation/1.73 sq m using serum, plasma, or whole bOrdered By: Jorge L Hidalgo on 01-18-2025 GFR/1.73 sq M.predicted among non-blacks MDRD (S/P/Bld) [Vol rate/Area] 91 mL/min/{1.73_m2} >60 [facility] Comment on above: mL/min/1.73m2 CKD-EP I Creatinine Equation (2020) Hematocrit Auto (Bld) [Volum e fraction]Ordered By: Jorge L Hidalgo on 01-18-2025 Hematocrit (Bld) [Volume fraction] 40.0 % 37-47 [facility] Hemoglobin measurementOrdere d By: JorgeL Hidalgo on 01-18-2025 Hemoglobin (Bld) [Mass/Vol] 13.2 g/dL 12.0-15.0 [facility] Immature granulocytes/100 WB C Auto (Bld)Ordered By: Jorge L Hidalgo on 01-18-2025 Immature granulocytes/100 WBC (Bld) 0.300 % 0.0-0.9 [facility] Comment on above: IG% - Immature Granu locytes (promyelocytes, myelocytes and metamyelocytes) > 1% indicates that a LEFT SHIFT is Present. Laboratory - Chemistry and C hemistry - challengeOrdered By: Jorge L Hidalgo on 01-18-2025 AST [Catalytic activity/Vol] 27 U/L <32 [facility] MCV (mean corpuscular volume ) determinationOrdered By: Jorge L Hidalgo on 01-18-2025 MCV (RBC) [Entitic vol] 86.6 fL 81-99 [facility] Mean corpuscular hemoglobin (MCH) determinationOrdered By: Jorge L Hidalgo on 01-18-2025 MCH (RBC) [Entitic mass] 28.6 pg 27.0-32.0 [facility] Mean corpuscular hemoglobin concentration (MCHC) determinationOrdered By: Jorge L Hidalgo on 01-18-2025 MCHC (RBC) [Mass/Vol] 33.0 g/dL 32-36 [facility] Mean platelet volume determi nationOrdered By: Jorge L Hidalgo on 01-18-2025 Platelet mean volume (Bld) [Entitic vol] 9.9 fL 6.2-12.0 [facility] Microalb:Creat Ratio,Random URon 01-18-2025 Creatinine [Mass/Vol] 25.50 mg/dL Low 28.00-217.00 [facility] Comment on above: Order Comment: Order Date: 01/18/25 Order Info: 70198-7 - MIALB Performed By: #### L 503.5510, L502.0250 #### [facility] [address] [place], [place], [address] MALB:CREAT 110.6 mg/g CRE High <30 mg/g CRE [facility] Comment on above: Order Comment: Order Date: 01/18/25 Order Info: [id number] - MIALB Performed By: #### L 503.5510, L502.0250 #### [facility] [address] [place], [place], [id number] MICROALBUMIN,UR 28.2 mg/L Normal <20 mg/L [facility] Comment on above: Order Comment: Order Date: 01/18/25 Order Info: [id number] - MIALB Performed By: #### L 503.5510, L502.0250 #### [facility] [address] [place], [address] Monocyte percentageOrdered B y: Jorge L Hidalgo on 01-18-2025 Monocytes/100 WBC (Bld) 7.0 % 0-10 [facility] Neutrophil percentageOrdered By: Jorge L Hidalgo on 01-18-2025 Neutrophils/100 WBC (Bld) 67.4 % 47-70 [facility] Nucleated red blood cell per centageOrdered By: Jorge L Hidalgo on 01-18-2025 Nucleated RBC/100 WBC (Bld) [Ratio] 0 % 0-5 [facility] Platelet countOrdered By: Elian Hidalgo on 01-18-2025 Platelets (Bld) [#/Vol] 307 10*3/uL 150-450 [facility] Potassium measurement (mass/ volume)Ordered By: Jorge L Hidalgo on 01-18-2025 Potassium (Unsp spec) [Mass/Vol] 4.0 mmol/L 3.3-5.1 [facility] RBC Auto (Bld) [#/Vol]Ordere d By: Jorge L Hidalgo on 01-18-2025 RBC (Bld) [#/Vol] 4.62 10*6/uL 4.2-5.4 [facility] Random urine creatinine shagufta urement (mass/volume)Ordered By: Jorge L Hidalgo on 01-18-2025 Creatinine Unsp time (U) [Mass/Vol] 25.50 mg/dL Low 28.00-217.00 [facility] Serum creatinine measurement (mass/volume)Ordered By: Jorge L Hidalgo on 01-18-2025 Creatinine [Mass/Vol] 0.65 mg/dL Low 0.70-1.20 [facility] Serum globulin measurementOr dered By: Jorge L Hidalgo on 01-18-2025 Globulin (S) [Mass/Vol] 3.1 g/dL 2.2-4.2 [facility] Serum glucose measurement (m ass/volume)Ordered By: Jorge L Hidalgo on 08-15-2025 Glucose [Mass/Vol] 105 mg/dL High 70-99 [facility] Serum or plasma alanine whittaker otransferase (ALT) measurementOrdered By: Jorge L Hidalgo on 01-18-2025 ALT [Catalytic activity/Vol] 17 U/L <35 [facility] Serum or plasma albumin shagufta urement (mass/volume)Ordered By: Jorge L Hidalgo on 01-18-2025 Albumin [Mass/Vol] 4.5 g/dL 3.4-4.8 [facility] Serum or plasma albumin/glob ulin mass ratioOrdered By: Jorge L Hidalgo on 01-18-2025 Albumin/Globulin [Mass ratio] 1.5 {ratio} 0.9-2.4 [facility] Serum or plasma alkaline carmen sphatase measurementOrdered By: Jorge L Hidalgo on 01-18-2025 ALP [Catalytic activity/Vol] 147 U/L High 35-104 [facility] Serum or plasma calcium shagufta urement (mass/volume)Ordered By: Jorge L Hidalgo on 01-18-2025 Calcium [Mass/Vol] 10.3 mg/dL 7.6-11.0 [facility] Serum or plasma urea nitroge n measurement (mass/volume)Ordered By: Jorge L Hidalgo on 01-18-2025 Urea nitrogen [Mass/Vol] 13 mg/dL 4-19 [facility] Serum or plasma uric acid me asurement (mass/volume)Ordered By: Jorge L Hidalgo on 01-18-2025 Urate [Mass/Vol] 5.2 mg/dL 2.6-6.0 [facility] Comment on above: The drugs N-Acetylcy steine and Metamizole may falsely depress this assay. Sodium levelOrdered By: Jorge L Hidalgo on 01-18-2025 Sodium [Moles/Vol] 136 mmol/L 133-145 [facility] TSH DL <= 0.005 mIU/L QnOrde red By: Jorge L Hidalgo on 01-18-2025 TSH Qn 2.130 uIU/mL 0.300-4.200 [facility] Thyroid Stim Hormone (TSH)on 01-18-2025 TSH 2.130 uIU/mL Normal 0.300-4.200 [facility] Comment on above: Order Comment: Order Date: 01/18/25 Order Info: 0786-1 - CMP Order Info: 3081 - URIC Order Info: 3016-3 - TSH Performed By: #### L 501.5101, L500.4050, L100.0100, L501.9520, L501.1400 #### [facility] [address] [place], [address] Total proteinOrdered By: Gia Hidalgo on 01-18-2025 Protein [Mass/Vol] 7.6 g/dL 5.9-8.4 [facility] Uric Acidon 01-18-2025 URIC 5.2 mg/dL Normal 2.6-6.0 [facility] Comment on above: Order Comment: Order Date: 01/18/25 Order Info: 0786 - CMP Order Info: 3083-06 - URIC Order Info: 3015-3 - TSH Result Comment: The drugs N-Acetylcysteine and Metamizole may falsely depress this assay. Performed By: #### L 501.5101, L500.4050, L100.0100, L501.9520, L501.1400 #### [facility] [address] [place], [address] Urine albumin measurement [facility] detection limit of 20 mg/L or less (mass/volume)Ordered By: Jorge L Hidalgo on 01-18-2025 Albumin DL <= 20 mg/L (U) [Mass/Vol] 28.2 mg/L <20 mg/L [facility] Venous blood ammonia measure mentOrdered By: Jorge L Hidalgo on 01-18-2025 Ammonia (P) [Moles/Vol] 18.9 umol/L 11-51 [facility] White blood cell (WBC) count Ordered By: Jorge L Hidalgo on 01-18-2025 WBC (Bld) [#/Vol] 10.4 10*3/uL 4.4-11.0 [facility] Pulmonary Visit Reporton Pulmonary Visit Report [facility] [place] [address] [place] [address] OFFICE VISIT Date of Service: 10/05/24 MR#: [id number] Acct: [id number] Name: LINDA RAI Rep #: [id number] : 1950 Provider: Veronica Rios NP Age/Sex: 73/F Location: [facility] Status: Signed Assessment and Plan Assessment and Plan (1) Asthma: Status: Chronic Qualifiers: Asthma complication type: with acute exacerbation Asthma persistence: persistent Asthma severity: severe Qualified Code(s): J45.51 - Severe persistent asthma with (acute) exacerbation Plan: Slight flare in respiratory symptoms due to the season and NIOX is intermediately elevated today. There is no wheeze or cough on exam today. There is no wheeze with forced expiration. With shared decision making and due to the patient's type 2 diabetes, the plan will be to hold off on oral prednisone use and instead increase albuterol use. The patient will continue to aggressively treat allergy symptoms. The patient will notify this practice if he has worsening respiratory symptoms and a course of oral prednisone will be prescribed at that time. Continue with use of Advair 2 puffs twice daily along with Incruse. Follow-up in 6 months but follow-up should be advanced if she has worsening respiratory symptoms. (2) Allergic rhinitis: Status: Chronic Qualifiers: Allergic rhinitis seasonality: seasonal Allergic rhinitis trigger: pollen Qualified Code(s): J30.1 - Allergic rhinitis due to pollen Plan: Continue to aggressively treat with current regimen. The patient understands correlation between active allergy symptoms and asthma. (3) Oral candidiasis: Status: Acute Plan: White exudates seen to soft palate today. I have recommended treatment for oral candidiasis with nystatin. This could be producing hoarseness as well. Inhaler use and oral care after inhaler use was reviewed with patient today. Orders: Orders NIOX Today J45.51 - Severe persistent asthma with (acute) exacerbation Medications: New nystatin swish and swallow 1 mL PO TID 5 days 60 mL 1RF Plan Details Follow Up: 6-month (LMR) HPI HPI Comments Details: This patient presents to the office today for follow-up appointment with a history of asthma. She is ambulatory and currently on room air. At last visit she was experiencing an asthma exacerbation secondary to haemophilus influenza and was treated with doxycycline and oral prednisone. She reports that she returned to baseline. She has not required additional oral prednisone or antibiotics since then. She is compliant with the use of Advair 2 puffs twice daily. She does report rinsing her mouth out after each use. She denies any medication side effect such as sore throat or thrush. She is hoarse off and on. She is also compliant with Flonase daily as well as Singulair, Incruse and Miladys daily. She does not use her rescue inhaler or nebulized albuterol at this point. This tends to be difficult time of year for her. She reports shortness of breath will occur with exertion. She does cough off and on which is dry. She has wheeze with exertion. She has continued to experience the same pain in the right side of her chest which has been going on for a long time. She denies fever, chills, body aches. She is a lifetime non smoker. Intake Vital Signs 04/05/24 07:35 10/05/24 07:53 Height 5 ft 2 in 5 ft 2 in Weight: 202 lb BMI 36.9 BP 141/67 H Blood Pressure Location Lt brachial Position Sitting Respiration 18 Pulse 59 L Pulse Source Monitor Temp 97.2 F L Temperature Source Temporal Artery Pulse Oximetry (%) 97 Oxygen Delivery Method room air Intake Visit Reasons: 6 M FU Traveling Operator Required: No DME Vendor: n/a Accompanied by: Self Is patient in pain?: No Allergies etodolac Allergy (Verified 10/05/24 08:17) Swelling Medications ???Medication ???Instructions ???Recorded ???Confirmed ???Type atorvastatin 10 mg tablet 10 mg PO QHS 02/25/20 08/02/24 His tory glipizide 10 mg tablet, extended 10 mg PO DAILY 02/25/20 08/02/24 H istory release 24 hr metformin 500 mg tablet 1,000 mg PO BID 02/25/20 08/02/24 History acetaminophen 500 mg capsule 500 mg PO Q6H PRN Pain 1-10 Or 08/02/24 History Fever ibuprofen 200 mg capsule 200 mg PO Q6H PRN Pain Score 1-10 02/27/20 08/02/24 History aspirin 81 mg tablet,delayed 81 mg PO DAILY@0800 04/01/2008/02 Rx release spacer #1 ea 04/15/21 06/08/24 Rx calcium carbonate 500 mg PO DAILY 06/10/22 08/02/24 History fexofenadine 180 mg tablet 180 mg PO DAILY 06/10/22 08/02/24 History omega-3 fatty acids 1,000 mg 1,000 mg PO DAILY 06/10/22 5 History capsule vit C 250 mg-vit E 90 mg-zinc 40 1 tab PO BID 06/10/22 08/02/24 His (more content not included)... Normal [facility] Bone density reportOrdered B y: Tez Purdy on 08-09-2024 Study report Skeletal system DXA [facility] Imaging Services [address] [place], [place] [id number] Dexa Bone Density Study MR#: [id number] Acct: [id number] Name: LINDA RAI Rep #: [id number] : 1950 F 73 From: Koko Purdy MD PCP: Dr. 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 Postmenopausal. TECHNIQUE: DEXA scan of the lumbar spine and both hips. COMPARISON: None. FINDINGS: Lumbar Spine (L1-L4): g/cm2 (1.372)/T-score (3.0)/Z-score (5.4) findings are suggestive of normal with a low fracture risk. Left Femur Total: g/cm2 (0.974)/T-score (0.3)/Z-score (2.1) Left Femoral Neck: g/cm2 (0.742)/T-score (-1.0)/Z-score (1.1) Right Femur Total: g/cm2 (1.061)/T-score (1.0)/Z-score (2.8) Right Femoral Neck: g/cm2 (0.793)/T-score (-0.5)/Z-score (1.6) BD/Dexa Bone Density Study IMPRESSION: The patient is considered normal as outlined below according to [employer] (WHO) criteria with a low fracture risk. Reading Location: [facility] CC: Raghav Smith; Dr. Jorge L Hidalgo MD ~ [employer] Supervisor: Signed [facility] Breast imaging reportOrdered By: Tez Purdy on 08-09-2024 Study report [facility] Imaging Services [address] [place] [address] SCRN MAMM (CAD)W/MARY ANNE BILAT MR#: [id number] Acct: [id number] Name: LINDA RAI Rep #: [id number] : 1950 F 73 From: Koko Purdy MD PCP: Dr. Jorge L Hidalgo MD Status: [facility] CLI Study:SCRN MAMM (CAD)W/MARY ANNE BILAT Date of Exa m: 08/09/24 Exam# [id number] Ordering Dr: Raghav Smith NP PROCEDURE: SCRN MAMM (CAD)W/MARY ANNE BILAT REASON FOR EXAM: F, Age 73 y/o, no family history. Routine annual follow-up. TECHNIQUE: Bilateral screening digital breast tomosynthesis with 2D and 3D images. Computeraided detection. COMPARISON: Prior exam(s) dating back to December 02, 2021.. FINDINGS: The breasts are almost entirely fatty. Stable fat containing bilateral axillary lymph nodes. Stable examination. No suspicious masses, areas of developing architectural distortion, or suspicious calcifications. BI/SCRN MAMM (CAD)W/MARY ANNE BILAT IMPRESSION: BI-RADS 2: BENIGN. RECOMMEND ANNUAL MAMMOGRAPHIC SCREENING. Follow-up code: Routine Follow-up The patient will be notified of the results by letter. Reading Location: [facility] CC: Raghav Smith; Dr. Jorge L Hidalgo MD ~ [employer] Supervisor: Signed [facility] Dexa Bone Density Studyon Dexa Bone Density Study [facility] Imaging Services [address] [place], [place] [id number] Dexa Bone Density Study MR#: [id number] Acct: [id number] Name: LINDA RAI Rep #: [id number] : 1950 F 73 From: Tez james MD PCP: Dr. 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 Postmenopausal. TECHNIQUE: DEXA scan of the lumbar spine and both hips. COMPARISON: None. FINDINGS: Lumbar Spine (L1-L4): g/cm2 (1.372)/T-score (3.0)/Z-score (5.4) findings are suggestive of normal with a low fracture risk. Left Femur Total: g/cm2 (0.974)/T-score (0.3)/Z-score (2.1) Left Femoral Neck: g/cm2 (0.742)/T-score (-1.0)/Z-score (1.1) Right Femur Total: g/cm2 (1.061)/T-score (1.0)/Z-score (2.8) Right Femoral Neck: g/cm2 (0.793)/T-score (-0.5)/Z-score (1.6) BD/Dexa Bone Density Study IMPRESSION: The patient is considered normal as outlined below according to [employer] (WHO) criteria with a low fracture risk. Reading Location: [facility] CC: Raghav Smith; Dr. Jorge L Hidalgo MD [employer] Supervisor: Signed Normal [facility] SCRN MAMM (CAD)W/MARY ANNE BILATo n 08-09-2024 SCRN MAMM (CAD)W/MARY ANNE BILAT [facility] Imaging Services [address] [place] [address] SCRN MAMM (CAD)W/MARY ANNE BILAT MR#: [id number] Acct: [id number] Name: LINDA RAI Rep #: [id number] : 1950 F 73 From: Tez james MD PCP: Dr. Jorge L Hidalgo MD Status: REG CLI Study: SCRN MAMM (CAD)W/MARY ANNE BILAT Date of Exam: 11/28 Exam# [id number] Ordering Dr: Raghav Smith NP, NP PROCEDURE: SCRN MAMM (CAD)W/MARY ANNE BILAT REASON FOR EXAM: F, Age 73 y/o, no family history. Routine annual follow-up. TECHNIQUE: Bilateral screening digital breast tomosynthesis with 2D and 3D images. Computer aided detection. COMPARISON: Prior exam(s) dating back to December 02, 2021.. FINDINGS: The breasts are almost entirely fatty. Stable fat containing bilateral axillary lymph nodes. Stable examination. No suspicious masses, areas of developing architectural distortion, or suspicious calcifications. BI/SCRN MAMM (CAD)W/MARY ANNE BILAT IMPRESSION: BI-RADS 2: BENIGN. RECOMMEND ANNUAL MAMMOGRAPHIC SCREENING. Follow-up code: Routine Follow-up The patient will be notified of the results by letter. Reading Location: [id number] CC: Raghav Smith; Dr. Jorge L Hidalgo MD [employer] Supervisor: Signed Normal [facility] Cardiology Visit Reporton Cardiology Visit Report [facility] [address] [place] [address] OFFICE VISIT Date of Service: 08/02/24 MR#: [id number] Acct: [id number] Name: LINDA RAI Rep #: [id number] : 1950 Provider: SÁNCHEZ soni Age/Sex: 73/F Location: [facility] Status: Signed HPI HPI History of Present Illness Details: Pleasant 73-year-old lady with hypertension, obesity, diabetes mellitus, and aortic valve stenosis. She had presented with shortness of breath in March 2020 and underwent a stress test which was normal but at a low workload. She underwent a cardiac catheterization which demonstrated high-grade stenosis in the mid right coronary artery for which she received a drug-eluting stent. She says that more recently she has had chest discomfort on ambulation and also noted that her heart rate has been going up. She had a repeat echocardiogram which demonstrated an ejection fraction of 60% with no wall motion abnormalities and a peak mean gradient across the aortic valve of 70/38 mmHg. A PFO was also noted. She had heart catheterization 03/01/2022 that showed mild to moderate coronary disease with previously stented right coronary artery as patent. She was transferred to [facility] for TAVR evaluation. She proceeded with TAVR procedure on 04/12/2022 with a 23 mm sapient S3 ultra valve. Her echocardiogram on 05/20/2022 showed ejection fraction 65%, AV mean gradient of 11 mmHg, AV peak gradient of 22 mmHg, and aortic valve area of 1.5 cm???. She acknowledges intermittent right sided and midsternal chest discomfort. This is noted when taking a deep breath. She acknowledges infrequent palpitations described as fast. She acknowledges intermittent shortness of breath with activity. She denies lower extremity edema, claudication, fatigue, or weakness. She acknowledges occasional lightheadedness with position changes. She denies dizziness, near-syncope, or syncope. Intake Vital Signs 08/04/23 10:00 08/02/24 09:34 Height 5 ft 2 in 5 ft 2 in Weight: 209 lb BMI 38.2 BP 139/81 H Blood Pressure Location Lt brachial Position Sitting Respiration 18 Pulse 64 Pulse Source NIBP Intake Visit Reasons: 1 Y FU Traveling Operator Required: No Is patient in pain?: No Allergies etodolac Allergy (Verified 08/02/24 09:40) Swelling Medications ???Medication ???Instructions ???Recorded ???Confirmed ???Type atorvastatin 10 mg tablet 10 mg PO QHS 02/25/20 08/02/24 His tory glipizide 10 mg tablet, extended 10 mg PO DAILY 02/25/20 08/02/24 H istory release 24 hr metformin 500 mg tablet 1,000 mg PO BID 02/25/20 08/02/24 History acetaminophen 500 mg capsule 500 mg PO Q6H PRN Pain 1-10 Or 08/02/24 History Fever ibuprofen 200 mg capsule 200 mg PO Q6H PRN Pain Score 1-10 02/27/20 08/02/24 History aspirin 81 mg tablet,delayed 81 mg PO DAILY@0800 04/01/2008/02 Rx release spacer #1 ea 04/15/21 06/08/24 Rx calcium carbonate 500 mg PO DAILY 06/10/22 08/02/24 History fexofenadine 180 mg tablet 180 mg PO DAILY 06/10/22 08/02/24 History omega-3 fatty acids 1,000 mg 1,000 mg PO DAILY 06/10/22 5 History capsule vit C 250 mg-vit E 90 mg-zinc 40 1 tab PO BID 06/10/22 08/02/24 His tory mg-copper 1 pd-ooytjp-dxypom capsule (PreserVision AREDS-2) zinc gluconate 30 mg tablet 30 mg PO DAILY 06/17/22 08/02/24 H istory ipratropium bromide 21 mcg (0.03 2 spray intranasal BID-TID PRN 08/02/24 Rx %) nasal spray allergy symptoms #30 mL albuterol sulfate 2.5 mg/3 mL 2.5 mg (3 mL) inhalation Q4H PRN 0 11/25/22 08/02/24 Rx (0.083 %) solution for nebulization Sob /Or Wheezing #180 mL atenolol 25 mg tablet 25 mg PO DAILY STOP Metoprolol #30 12/05/22 08/02/24 Rx tabs telmisartan 40 mg tablet 40 mg PO DAILY 02/08/23 08/02/24 H istory famotidine 20 mg tablet 20 mg PO BID 03/10/23 08/02/24 His tory insulin glargine 100 unit/mL (3 50 unit subcut BID 03/10/23 History mL) subcutaneous pen (Basaglar KwikPen U-100 Insulin) pen needle, diabetic 31 gauge x #1,200 ea 03/10/23 06/08/24 Histor y 08/19 (Droplet Pen Needle) Advair HFA 230 mcg-21 2 inh inhalation BID #12 grams 08/02/24 Rx mcg/actuation aerosol inhaler (fluticasone propion-salmeterol) montelukast 10 mg tablet 10 mg PO DAILY #90 tabs 10/13/23 0 08/02/24 Rx fluticasone propionate 50 1 spray intranasal DAILY #3 ea 08/02/24 Rx mcg/actuation nasal spray,suspension amlodipine 5 mg tablet 5 mg PO QDAY 04/05/24 08/02/24 His tory furosemide 40 mg tablet 40 mg PO QDAY 04/05/24 08/02/24 Hi story albuterol sulfate 90 mcg/actuation 2 puff inhalation Q6H PRN Sob / Or 05/02/24 08/02/24 Rx aerosol inhaler Wheezing #8.5 grams azelastine 205.5 (more content not included)... Normal [facility] ALK Phos Isoenzymeon 025 ALK PHOS, S 122 IU/L High 44-121 [facility] Comment on above: Performed By: #### L 3250.0100 ####[facility] [address] [place], [place], [id number] BONE FRACTION 39 Normal 14-68 [facility] Comment on above: Performed By: #### L 3250.0100 ####[facility] [address] [place], [place], [address] INTESTINAL FRAC 0 Normal 0-18 [facility] Comment on above: Result Comment: Perf ormed at: CB - [facility] [address] [id number] Commutator Tester: Mich Fernandez PhD, Phone: [phone] Performed By: #### L 3250.0100 ####[facility] [address] [place], [address] LIVER FRACTION 61 Normal 18-85 [facility] Comment on above: Performed By: #### L 3250.0100 ####[facility] [address] [place], [address] Vitamin D 1,25-Dihydroxyon 0 07-16-2024 VIT D 1,25 DIHY 59.7 pg/mL Normal 24.8-81.5 [facility] Comment on above: Order Comment: Order Date: 04/12/24 Order Info: [id number] - [id number] Result Comment: Perf ormed at: [facility] [address] [id number] Commutator Tester: Gita Blanca MD, Phone: [phone] Performed By: #### L 506.1000, L3300.0960 #### [facility] [address] [place], [address] 1,25-dihydroxyvitamin D3 [Ma ss/Vol]Ordered By: Jorge L Hidalgo on 07-12-2024 Vitamin D 1,25-Dihydroxy 59.7 pg/mL 24.8-81.5 [facility] Comment on above: Performed at: [facility] [address] [id number] Director: Gita Blanca MD, Phone: [phone] [id number]-Gwekqmx DOrdered By: Nancy Hidalgo on 07-12-2024 Vitamin D 25-Hydroxy 35.7 ng/mL [facility] Comment on above: Vitamin D 25(OH) Sta tus Range Deficiency <20 ng/mL (50nmol/L) Insufficiency 20 - 30 ng/mL (50 - 75 nmol/L) Sufficiency 30 - 100 ng/mL (75 - 250 nmol/L) Toxicity >100 ng/mL (>250 nmol/L) ALP Bone [Catalytic fraction ]Ordered By: Jorge L Hidalgo on 07-12-2024 Alkaline Phosphatase Iso-Bone 39 % 14-68 [facility] ALP Intest [Catalytic fracti on]Ordered By: Jorge L Hidalgo on 07-12-2024 Alkaline Phosphatase Iso-Intestine 0 % 0-18 [facility] Comment on above: Performed at: [facility] [address] [id number] Director: Mich Fernandez PhD, Phone: [phone] ALP Liver [Catalytic fractio n]Ordered By: Jorge L Hidalgo on 07-12-2024 Alkaline Phosphatase Iso-Liver 61 % 18-85 [facility] Alkaline phosphatase, serumO rdered By: Jorge L Hidalgo on 07-12-2024 Alkaline Phosphatase Isoenzymes 122 IU/L High 44-121 [facility] Vitamin D,25 Hydroxyon 07-12 Vitamin D 25-OH 35.7 ng/mL Normal [facility] Comment on above: Order Comment: Order Date: 04/12/24 Order Info: [id number] - [id number] Result Comment: Raquel min D 25(OH) Status Range Deficiency <20 ng/mL (50nmol/L) Insufficiency 20 - 30 ng/mL (50 - 75 nmol/L) Sufficiency 30 - 100 ng/mL (75 - 250 nmol/L) Toxicity >100 ng/mL (>250 nmol/L) Performed By: #### L 506.1000, L3300.0960 #### [facility] [address] [place], [place], [id number] Respiratory Cultureon 2024 [facility] Ampicillin can be used for Beta-Lactamase negative isolates. Microorganism Spec Cult Trimeth/Sulfa, Chloramphenicol, Cefotaxime, Ciprofloxacin, Amoxicillin/Clavulan ic Acid, and Oral 2nd/3rd Generation Cephalosporins are effective against both Beta-Lactamase positive and Beta-Lactamase negative isolates. Haemophilus influenzae Amount Growth 3+ Beta Lactamase-Reportable Negative Normal [facility] Comment on above: Performed By: #### L 506.1000, L3300.0960 #### [facility] [address] [place], [address] Gram Stainon 06-08-2024 GS Acceptable Specimen? Yes (<25 Epithelial cells per/lpf) Gram Stain 4+ Gram negative cocco bacillus 2+ Gram positive rods 1+ Gram positive cocci 1+ Epithelial cells 2+ White Blood Cells Normal [facility] Comment on above: Performed By: #### L 506.1000, L3300.0960 #### [facility] [address] [place], [address] Gram stainOrdered By: SHELLY Rios on 06-08-2024 Microscopic observation Gram stain Nom (Unsp spec) [facility] Microorganism identified Cx Nom (Unsp spec)Ordered By: SHELLY Rios on 06-08-2024 Respiratory Culture Haemophilus influenzae Abnormal [facility] Pulmonary Visit Reporton Pulmonary Visit Report [facility] [place] [address] [place] [address] OFFICE VISIT Date of Service: 06/08/24 MR#: [id number] Acct: [id number] Name: LINDA RAI Rep #: [id number] : 1950 Provider: Veronica Rios NP Age/Sex: 73/F Location: [facility] Status: Signed Assessment and Plan Assessment and Plan (1) Asthma: Status: Chronic Qualifiers: Asthma complication type: with acute exacerbation Asthma persistence: persistent Asthma severity: severe Qualified Code(s): J45.51 - Severe persistent asthma with (acute) exacerbation Plan: Exacerbation of asthma today. I'm concern for early infiltrate with current symptoms and history so plan to cover her with both prednisone and antibiotic. Sputum for smear and culture. If symptoms worsen, notify this practice. Continue with current asthma regimen. Use albuterol nebulized every 4 hours during exacerbation. (2) Allergic rhinitis: Status: Chronic Qualifiers: Allergic rhinitis seasonality: seasonal Allergic rhinitis trigger: pollen Qualified Code(s): J30.1 - Allergic rhinitis due to pollen Plan: Continue to aggressively treat with current regimen. Reassess on follow up. Orders: Orders Culture, Sputum Today J45.50 - Severe persistent asthma, uncomplicated Medications: New doxycycline hyclate 100 mg PO BID 14 caps 0RF J45.50 - Severe persistent asthma, uncomplicated prednisone take 4 tabs for three days, then 3 tabs for three days, then 2 tabs for three days, then 1 tab for 3 days 10 mg PO QDAY 30 tabs 0RF J45.50 - Severe persistent asthma, uncomplicated Plan Details Follow Up: as scheduled HPI HPI Comments Details: This patient presents to the office today for an acute visit with a history of asthma. She is ambulatory and currently on room air. Her symptoms started on Tuesday evening with increased shortness of breath. On she started wheezing with dinner and then with dessert wheezing occurred again. Albuterol inhaler helped somewhat but albuterol neb has been working better for which she will get 3-4 hours of relief. She has noticed frequent wheezing and cough with activity and occasionally at rest. She has sputum production that is yellow and thick, 1-2 tablespoon in quantity. She started on Mucinex last night. She is compliant with the use of Advair 2 puffs twice daily. She does report rinsing her mouth out after each use. She denies any medication side effect such as sore throat or thrush. She is hoarse, especially with current illness. She is also compliant with Flonase daily as well as Singulair, Spiriva and Miladys daily. She denies any chest tightness, chest pain or palpitations. Chest congestion is present. She has not had any fever, chills or body aches. She is a lifetime non smoker. She had done well June until April but started wheezing and required z ortega and prednisone. She does not believe she returned to baseline from that exacerbation. She continues to treat acid reflux with alternating famotidine and Prilosec. Intake Vital Signs 04/05/24 07:35 06/08/24 08:16 Height 5 ft 2 in 5 ft 2 in Weight: 208 lb BMI 38.0 BP 146/77 H Blood Pressure Location Rt brachial Position Sitting Respiration 20 H Pulse 94 Pulse Source Monitor Temp 96.9 F L Temperature Source Temporal Artery Pulse Oximetry (%) 94 Oxygen Delivery Method room air Intake Visit Reasons: Acute Chief Complaint: establish care Traveling Operator Required: No Accompanied by: Self Allergies etodolac Allergy (Verified 06/08/24 09:51) Swelling Medications ???Medication ???Instructions ???Recorded ???Confirmed ???Type atorvastatin 10 mg tablet 10 mg PO QHS 02/25/20 06/08/24 History glipizide 10 mg tablet, extended 10 mg PO DAILY 02/25/20 06/08/24 History release 24 hr metformin 500 mg tablet 1,000 mg PO BID 02/25/20 06/08/24 History acetaminophen 500 mg capsule 500 mg PO Q6H PRN Pain 1-10 Or 02/27/20 06/08/24 History Fever ibuprofen 200 mg capsule 200 mg PO Q6H PRN Pain Score 1-10 02/27/20 06/08/24 History aspirin 81 mg tablet,delayed 81 mg PO DAILY@0800 04/01/20 06/08/24 Rx release spacer #1 ea 04/15/21 06/08/24 Rx calcium carbonate 500 mg PO DAILY 06/10/22 06/08/24 History fexofenadine 180 mg tablet 180 mg PO DAILY 06/10/22 06/08/24 History omega-3 fatty acids 1,000 mg 1,000 mg PO DAILY 06/10/22 06/08/24 History capsule vit C 250 mg-vit E 90 mg-zinc 40 1 tab PO BID 06/10/22 06/08/24 History mg-copper 1 ik-eoaoxx-qwvucp capsule (PreserVision AREDS-2) zinc gluconate 30 mg tablet 30 mg PO DAILY 06/17/22 06/08/24 History ipratropium bromide 21 mcg (0.03 2 spray intranasal BID-TID PRN 08/24/22 06/08/24 Rx %) nasal spray allergy symptoms #30 mL albuterol sulfate 2.5 mg/3 mL 2. (more content not included)... Normal [facility] Carotid Duplex Ultrasoundon 05-14-[address] [facility] [address] [facility] [place] [address] Carotid Duplex Ultrasound 05/14/24 1309 MR#: [id number] Acct: [id number] Name: LINDA RAI Rep #: [id number] : 1950 73 From: Jorge L Dean MD Attending Dr: Dr. Chay Zhou MD Status: REG CLI Ordering Dr: Chay Zhou MD Date: 05/14/24 Location: [facility] Sex: F C Admitted: Reason For Study: Retinal Ischemia Rt. Velocities/BP Lt. Velocities/BP Prox CCA 91/11 cm/sec. Prox CCA 90/13 cm/sec. Mid CCA 89/8 cm/sec. Mid CCA 99/16 cm/sec. Dist CCA 88/11 cm/sec. Dist CCA 88/10 cm/sec. Prox ICA 67/12 cm/sec. Prox ICA 95/11 cm/sec. Mid ICA 73/17 cm/sec. Mid ICA 84/13 cm/sec. Dist ICA 76/14 cm/sec. Dist ICA 72/18 cm/sec. Rt. ICA/CCA = 0.8. Lt. ICA/CCA = 1.0. Prox ECA 125/3 cm/sec. Prox ECA 153/0 cm/sec. Rt. Vert. 20/0 cm/sec. Lt. Vert. 56/13 cm/sec. Right Extracranial There is heterogeneous, irregular atherosclerotic plaque noted in the right common carotid artery. There is heterogeneous, irregular atherosclerotic plaque noted in the right internal carotid artery. There is heterogeneous, irregular atherosclerotic plaque noted in the right external carotid artery. Antegrade flow is noted in the right vertebral artery. Left Extracranial There is heterogeneous, irregular atherosclerotic plaque noted in the left common carotid artery. There is heterogeneous, irregular atherosclerotic plaque noted in the left internal carotid artery. There is heterogeneous, irregular atherosclerotic plaque noted in the left external carotid artery. Antegrade flow is noted in the left vertebral artery. Procedure Carotid Duplex 74421. This is a Carotid Duplex examination using B-mode, color flow and specral Doppler. Exam performed in department. VL/Carotid Duplex Ultrasound Interpretation Summary Mild (<50%) stenosis right extracranial internal carotid. Mild (<50%) stenosis left extracranial internal carotid. Patent and antegrade vertebrals bilaterally. Ordering Physician: Chay Zhou Referring Physician: Jorge L Hidalgo Performed By: Elsy Baldwin, PABLO, RVT 05/14/24 1621 Date Jorge L Dean MD CC: Dr. Jorge L Hidalgo MD; Dr. Chay Zhou MD Date Dictated: 05/14/24 1309 Date Transcribed: 05/14/24 162 [employer] Supervisor: Signed [facility] CBC W/Diff, Automatedon 10-3 -2023 Absolute Lymph 2.51 X10 3/uL Normal 0.83-4.51 [facility] Comment on above: Order Comment: Order Date: 01/20/24Order Info: [id number] - CBCD Performed By: #### L 500.4050, L501.5200, L502.0250, L506.1000, L509.1000, L501.9520, L100.0100 ####[facility] [address] [place], [address] Absolute Neut 5.9 X10 3/uL Normal 2.0-7.7 [facility] Comment on above: Order Comment: Order Date: 01/20/24Order Info: [id number] - CBCD Performed By: #### L 500.4050, L501.5200, L502.0250, L506.1000, L509.1000, L501.9520, L100.0100 ####[facility] [address] [place], [address] Basophils/100 WBC (Bld) 0.5 % Normal 0-1 [facility] Comment on above: Order Comment: Order Date: 01/20/24Order Info: [id number] - CBCD Performed By: #### L 500.4050, L501.5200, L502.0250, L506.1000, L509.1000, L501.9520, L100.0100 ####[facility] [address] [place], [address] Eosinophils/100 WBC (Bld) 5.6 % High 0-5 [facility] Comment on above: Order Comment: Order Date: 01/20/24Order Info: [id number] - CBCD Performed By: #### L 500.4050, L501.5200, L502.0250, L506.1000, L509.1000, L501.9520, L100.0100 ####[facility] [address] [place], [place], [address] Erythrocyte distribution width (RBC) [Ratio] 13.1 % Normal 11.6-14.6 [facility] Comment on above: Order Comment: Order Date: 01/20/24Order Info: [id number] - CBCD Performed By: #### L 500.4050, L501.5200, L502.0250, L506.1000, L509.1000, L501.9520, L100.0100 ####[facility] [address] [place], [place], [id number] Hematocrit (Bld) [Volume fraction] 39.5 % Normal 37-47 [facility] Comment on above: Order Comment: Order Date: 01/20/24Order Info: 0184-1 - CBCD Performed By: #### L 500.4050, L501.5200, L502.0250, L506.1000, L509.1000, L501.9520, L100.0100 ####[facility] [address] [facility] [place], [place], [address] Hemoglobin (Bld) [Mass/Vol] 13.1 g/dL Normal 12.0-15.0 [facility] Comment on above: Order Comment: Order Date: 01/20/24Order Info: 0184-1 - CBCD Performed By: #### L 500.4050, L501.5200, L502.0250, L506.1000, L509.1000, L501.9520, L100.0100 ####[facility] [address] [facility] [place], [place], [id number] IG% 0.500 Normal 0.0-0.9 [facility] Comment on above: Order Comment: Order Date: 01/20/24Order Info: [id number] - CBCD Result Comment: IG% - Immature Granulocytes (promyelocytes, myelocytes and metamyelocytes) > 1% indicates that a LEFT SHIFT is Present. Performed By: #### L 500.4050, L501.5200, L502.0250, L506.1000, L509.1000, L501.9520, L100.0100 ####[facility] [address] [place], [address] Lymphocytes/100 WBC (Bld) 25.7 % Normal 19-41 [facility] Comment on above: Order Comment: Order Date: 01/20/24Order Info: 183- - CBCD Performed By: #### L 500.4050, L501.5200, L502.0250, L506.1000, L509.1000, L501.9520, L100.0100 ####[facility] [address] [place], [address] MCH (RBC) [Entitic mass] 29.0 pg Normal 27.0-32.0 [facility] Comment on above: Order Comment: Order Date: 01/20/24Order Info: [id number] - CBCD Performed By: #### L 500.4050, L501.5200, L502.0250, L506.1000, L509.1000, L501.9520, L100.0100 ####[facility] [address] [place], [address] MCHC (RBC) [Mass/Vol] 33.2 g/dL Normal 32-36 [facility] Comment on above: Order Comment: Order Date: 01/20/24Order Info: 018- - CBCD Performed By: #### L 500.4050, L501.5200, L502.0250, L506.1000, L509.1000, L501.9520, L100.0100 ####[facility] [address] [place], [address] MCV (RBC) [Entitic vol] 87.6 fL Normal 81-99 [facility] Comment on above: Order Comment: Order Date: 01/20/24Order Info: 018- - CBCD Performed By: #### L 500.4050, L501.5200, L502.0250, L506.1000, L509.1000, L501.9520, L100.0100 ####[facility] [address] [place], [address] Monocytes/100 WBC (Bld) 7.3 % Normal 0-10 [facility] Comment on above: Order Comment: Order Date: 01/20/24Order Info: 0184-1 - CBCD Performed By: #### L 500.4050, L501.5200, L502.0250, L506.1000, L509.1000, L501.9520, L100.0100 ####[facility] [address] [place], [address] Neutrophils/100 WBC (Bld) 60.4 % Normal 47-70 [facility] Comment on above: Order Comment: Order Date: 01/20/24Order Info: 0184-1 - CBCD Performed By: #### L 500.4050, L501.5200, L502.0250, L506.1000, L509.1000, L501.9520, L100.0100 ####[facility] [address] [facility] [place], [address] Nucleated RBC (Bld) [#/Vol] 0 10*3/uL Normal 0-5 [facility] Comment on above: Order Comment: Order Date: 01/20/24Order Info: 0184-1 - CBCD Performed By: #### L 500.4050, L501.5200, L502.0250, L506.1000, L509.1000, L501.9520, L100.0100 ####[facility] [address] [place], [address] Platelet mean volume (Bld) [Entitic vol] 9.6 fL Normal 6.2-12.0 [facility] Comment on above: Order Comment: Order Date: 01/20/24Order Info: 0184-1 - CBCD Performed By: #### L 500.4050, L501.5200, L502.0250, L506.1000, L509.1000, L501.9520, L100.0100 ####[facility] [address] [place], [address] Platelets (Bld) [#/Vol] 318 10*3/uL Normal 150-450 [facility] Comment on above: Order Comment: Order Date: 01/20/24Order Info: 0184-1 - CBCD Performed By: #### L 500.4050, L501.5200, L502.0250, L506.1000, L509.1000, L501.9520, L100.0100 ####[facility] [address] [place], [address] RBC (Bld) [#/Vol] 4.51 10*6/uL Normal 4.2-5.4 [facility] Comment on above: Order Comment: Order Date: 01/20/24Order Info: 0184- - CBCD Performed By: #### L 500.4050, L501.5200, L502.0250, L506.1000, L509.1000, L501.9520, L100.0100 ####[facility] [address] [place], [address] RDW SD 41.7 fl Normal 35.1-43.9 [facility] Comment on above: Order Comment: Order Date: 01/20/24Order Info: 0184-1 - CBCD Performed By: #### L 500.4050, L501.5200, L502.0250, L506.1000, L509.1000, L501.9520, L100.0100 ####[facility] [address] [place], [address] WBC (Bld) [#/Vol] 9.8 10*3/uL Normal 4.4-11.0 [facility] Comment on above: Order Comment: Order Date: 01/20/24Order Info: 0184-1 - CBCD Performed By: #### L 500.4050, L501.5200, L502.0250, L506.1000, L509.1000, L501.9520, L100.0100 ####[facility] [address] [place], [address] Comprehensive Metabolic Prof mdon 04-05-2024 Albumin [Mass/Vol] 3.8 g/dL Normal 3.2-5.0 [facility] Comment on above: Order Comment: Order Date: 01/20/24Order Info: [id number] - CMPOrder Info: [id number] - MGOrder Info: 3016-3 - TSH Performed By: #### L 500.4050, L501.5200, L502.0250, L506.1000, L509.1000, L501.9520, L100.0100 ####[facility] [address] [place], [address] Albumin/Globulin [Mass ratio] 1.1 {ratio} Normal 0.9-2.4 [facility] Comment on above: Order Comment: Order Date: 01/20/24Order Info: [id number] - CMPOrder Info: [id number] - MGOrder Info: 3016-3 - TSH Performed By: #### L 500.4050, L501.5200, L502.0250, L506.1000, L509.1000, L501.9520, L100.0100 ####[facility] [address] [place], [address] ALK P 128 U/L High 45-117 [facility] Comment on above: Order Comment: Order Date: 01/20/24Order Info: [id number] - CMPOrder Info: [id number] - MGOrder Info: [id number] - TSH Performed By: #### L 500.4050, L501.5200, L502.0250, L506.1000, L509.1000, L501.9520, L100.0100 ####[facility] [address] [place], [address] ALT [Catalytic activity/Vol] 20 U/L Normal 13-56 [facility] Comment on above: Order Comment: Order Date: 01/20/24Order Info: [id number] - CMPOrder Info: [id number] - MGOrder Info: [id number] - TSH Performed By: #### L 500.4050, L501.5200, L502.0250, L506.1000, L509.1000, L501.9520, L100.0100 ####[facility] [address] [place], [address] AST [Catalytic activity/Vol] 18 U/L Normal 15-37 [facility] Comment on above: Order Comment: Order Date: 01/20/24Order Info: [id number] - CMPOrder Info: - MGOrder Info: [id number] - TSH Performed By: #### L 500.4050, L501.5200, L502.0250, L506.1000, L509.1000, L501.9520, L100.0100 ####[facility] [address] [place], [address] Bilirubin [Mass/Vol] 0.40 mg/dL Normal 0.20-1.00 [facility] Comment on above: Order Comment: Order Date: 01/20/24Order Info: [id number] - CMPOrder Info: [id number] - MGOrder Info: [id number] - TSH Result Comment: For patients on eltrombopag therapy, use of Dimension [place] TBIL is not recommended. Performed By: #### L 500.4050, L501.5200, L502.0250, L506.1000, L509.1000, L501.9520, L100.0100 ####[facility] [address] [place], [address] BUN/CRE 20.7 RATIO High 10-20 [facility] Comment on above: Order Comment: Order Date: 01/20/24Order Info: [id number] - CMPOrder Info: [id number] - MGOrder Info: [id number] - TSH Performed By: #### L 500.4050, L501.5200, L502.0250, L506.1000, L509.1000, L501.9520, L100.0100 ####[facility] [address] [place], [address] CA,Total 9.5 mg/dL Normal 8.5-10.1 [facility] Comment on above: Order Comment: Order Date: 01/20/24Order Info: 07-1 - CMPOrder Info: - MGOrder Info: [id number] - TSH Performed By: #### L 500.4050, L501.5200, L502.0250, L506.1000, L509.1000, L501.9520, L100.0100 ####[facility] [address] [place], [address] Chloride [Moles/Vol] 102 mmol/L Normal 98-107 [facility] Comment on above: Order Comment: Order Date: 01/20/24Order Info: 07- - CMPOrder Info: - MGOrder Info: [id number] - TSH Performed By: #### L 500.4050, L501.5200, L502.0250, L506.1000, L509.1000, L501.9520, L100.0100 ####[facility] [address] [place], [address] CO2 [Moles/Vol] 26.0 mmol/L Normal 21.0-32.0 [facility] Comment on above: Order Comment: Order Date: 01/20/24Order Info: [id number] - CMPOrder Info: - MGOrder Info: [id number] - TSH Performed By: #### L 500.4050, L501.5200, L502.0250, L506.1000, L509.1000, L501.9520, L100.0100 ####[facility] [address] [place], [address] Creatinine [Mass/Vol] 0.58 mg/dL Normal 0.55-1.02 [facility] Comment on above: Order Comment: Order Date: 01/20/24Order Info: 07-1 - CMPOrder Info: - MGOrder Info: 301-3 - TSH Result Comment: The validity of the calculated GFR GFRAA in patients over 70 years has not been determined. Clinical correlation is essential. Performed By: #### L 500.4050, L501.5200, L502.0250, L506.1000, L509.1000, L501.9520, L100.0100 ####[facility] [address] [place], [address] EST GFR - AA 130 mL/min Normal >60 [facility] Comment on above: Order Comment: Order Date: 01/20/24Order Info: 07- - CMPOrder Info: - MGOrder Info: [id number] - TSH Result Comment: Afri can Pakistani GFR Calc Performed By: #### L 500.4050, L501.5200, L502.0250, L506.1000, L509.1000, L501.9520, L100.0100 ####[facility] [address] [place], [address] GAP 8 Normal 5-15 [facility] Comment on above: Order Comment: Order Date: 01/20/24Order Info: [id number] - CMPOrder Info: - MGOrder Info: [id number] - TSH Performed By: #### L 500.4050, L501.5200, L502.0250, L506.1000, L509.1000, L501.9520, L100.0100 ####[facility] [address] [place], [address] GFR/1.73 sq M.predicted among non-blacks MDRD (S/P/Bld) [Vol rate/Area] 107 mL/min/{1.73_m2} Normal >60 [facility] Comment on above: Order Comment: Order Date: 01/20/24Order Info: 07-1 - CMPOrder Info: - MGOrder Info: [id number] - TSH Result Comment: Non- GFR Calc Performed By: #### L 500.4050, L501.5200, L502.0250, L506.1000, L509.1000, L501.9520, L100.0100 ####[facility] [address] [place], [address] Globulin (S) [Mass/Vol] 3.6 g/dL Normal 2.2-4.2 [facility] Comment on above: Order Comment: Order Date: 01/20/24Order Info: [id number] - CMPOrder Info: - MGOrder Info: [id number] - TSH Performed By: #### L 500.4050, L501.5200, L502.0250, L506.1000, L509.1000, L501.9520, L100.0100 ####[facility] [address] [place], [address] Glucose [Mass/Vol] 91 mg/dL Normal 74-106 [facility] Comment on above: Order Comment: Order Date: 01/20/24Order Info: [id number] - CMPOrder Info: - MGOrder Info: [id number] - TSH Performed By: #### L 500.4050, L501.5200, L502.0250, L506.1000, L509.1000, L501.9520, L100.0100 ####[facility] [address] [place], [address] Potassium [Moles/Vol] 3.7 mmol/L Normal 3.5-5.1 [facility] Comment on above: Order Comment: Order Date: 01/20/24Order Info: [id number] - CMPOrder Info: - MGOrder Info: [id number] - TSH Performed By: #### L 500.4050, L501.5200, L502.0250, L506.1000, L509.1000, L501.9520, L100.0100 ####[facility] [address] [place], [address] Sodium [Moles/Vol] 136 mmol/L Normal 136-145 [facility] Comment on above: Order Comment: Order Date: 01/20/24Order Info: [id number] - CMPOrder Info: [id number] - MGOrder Info: 3016-3 - TSH Performed By: #### L 500.4050, L501.5200, L502.0250, L506.1000, L509.1000, L501.9520, L100.0100 ####[facility] [address] [place], [address] T PROT 7.4 g/dL Normal 6.4-8.2 [facility] Comment on above: Order Comment: Order Date: 01/20/24Order Info: [id number] - CMPOrder Info: [id number] - MGOrder Info: [id number] - TSH Performed By: #### L 500.4050, L501.5200, L502.0250, L506.1000, L509.1000, L501.9520, L100.0100 ####[facility] [address] [place], [address] Urea nitrogen [Mass/Vol] 12 mg/dL Normal 7-18 [facility] Comment on above: Order Comment: Order Date: 01/20/24Order Info: [id number] - CMPOrder Info: [id number] - MGOrder Info: [id number] - TSH Performed By: #### L 500.4050, L501.5200, L502.0250, L506.1000, L509.1000, L501.9520, L100.0100 ####[facility] [address] [place], [address] Magnesiumon 04-05-2024 Magnesium [Mass/Vol] 1.9 mg/dL Normal 1.6-2.6 [facility] Comment on above: Order Comment: Order Date: 01/20/24Order Info: [id number] - CMPOrder Info: [id number] - MGOrder Info: 3016-3 - TSH Performed By: #### L 500.4050, L501.5200, L502.0250, L506.1000, L509.1000, L501.9520, L100.0100 ####[facility] [address] [place], [address] Microalb:Creat Ratio,Random URon 04-05-2024 MALB:CRE TNP Normal <30 mg/g CRE [facility] Comment on above: Order Comment: Order Date: 01/20/24Order Info: [id number] - MIACREOrder Info: [id number] - ALBU Performed By: #### L 500.4050, L501.5200, L502.0250, L506.1000, L509.1000, L501.9520, L100.0100 ####[facility] [address] [place], [address] MICROALBUMIN,UR 5.1 mg/L Normal NO RANGE EST. [facility] Comment on above: Order Comment: Order Date: 01/20/24Order Info: [id number] - MIACREOrder Info: [id number] - ALBU Performed By: #### L 500.4050, L501.5200, L502.0250, L506.1000, L509.1000, L501.9520, L100.0100 ####[facility] [address] [place], [address] UR CREAT < 13.00 Normal NO RANGE EST. [facility] Comment on above: Order Comment: Order Date: 01/20/24Order Info: [id number] - MIACREOrder Info: [id number] - ALBU Performed By: #### L 500.4050, L501.5200, L502.0250, L506.1000, L509.1000, L501.9520, L100.0100 ####[facility] [address] [place], [address] PTHINon 04-05-2024 PTH 89.3 pg/mL High 18.4-80.1 [facility] Comment on above: Order Comment: Order Date: 01/20/24Order Info: [id number] - PTHIN Performed By: #### L 500.4050, L501.5200, L502.0250, L506.1000, L509.1000, L501.9520, L100.0100 ####[facility] [address] [place], [address] Pulmonary Visit Reporton Pulmonary Visit Report [facility] [address] [place] [address] OFFICE VISIT Date of Service: 04/05/24 MR#: [id number] Acct: [id number] Name: LINDA RAI Rep #: [id number] : 1950 Provider: SÁNCHEZ Keys Age/Sex: 73/F [facility] Status: Signed Assessment and Plan Assessment and Plan (1) Allergic rhinitis: Status: Chronic Qualifiers: Allergic rhinitis trigger: pollen Allergic rhinitis seasonality: seasonal Qualified Code(s): J30.1 - Allergic rhinitis due to pollen (2) Asthma: Status: Chronic Qualifiers: Asthma severity: severe Asthma persistence: persistent Asthma complication type: uncomplicated Qualified Code(s): J45.50 - Severe persistent asthma, uncomplicated Plan Stable, no signs of exacerbation of allergic asthma today. No change in maintenance medications. No additional testing at this time. Contact the office with any signs of new or worsening symptoms. Follow-up in 6 months. HPI 6 M FU Chief Complaint: Hoarseness HPI Comments Details: This patient presents to the office today for follow-up of her asthma. She is ambulatory and currently on room air. She has not recently been seen in the ED or urgent care for any respiratory illness. She has not required any antibiotics or prednisone for any breathing problems. She is compliant with the use of Advair 2 puffs twice daily. She does report rinsing her mouth out after each use. She denies any medication side effect such as sore throat or thrush. She is hoarse. She is also compliant with Flonase daily as well as Singulair, Spiriva and Miladys daily. She does have shortness of breath on exertion, for example walking long distances or walking uphill. Currently she has a cough that is productive of clear-colored sputum. Wheezing sometimes occurs with exertion. She denies any chest tightness, chest pain or palpitations. She has not had any fever, chills or body aches. Intake Vital Signs 09/20/23 07:41 04/05/24 07:35 Height 5 ft 2 in 5 ft 2 in Weight: 211 lb 210 lb BMI 38.5 38.4 BP 134/68 H 131/61 H Blood Pressure Location Lt brachial Rt brachial Position Sitting Sitting Respiration 20 H 20 H Pulse 64 58 L Pulse Source Monitor Monitor Temp 97.7 F L 97.4 F L Temperature Source Temporal Artery Temporal Artery Pulse Oximetry (%) 98 97 Oxygen Delivery Method room air room air Intake Visit Reasons: 6 M FU Traveling Operator Required: No DME Vendor: n/a Accompanied by: Self Is patient in pain?: No Allergies etodolac Allergy (Verified 04/05/24 08:20) Swelling Medications ???Medication ???Instructions ???Recorded ???Confirmed ???Type atorvastatin 10 mg tablet 10 mg PO QHS 02/25/20 04/05/24 History glipizide 10 mg tablet, extended 10 mg PO DAILY 02/25/20 04/05/24 History release 24 hr metformin 500 mg tablet 1,000 mg PO BID 02/25/20 04/05/24 History acetaminophen 500 mg capsule 500 mg PO Q6H PRN Pain 1-10 Or 02/27/20 04/05/24 History Fever ibuprofen 200 mg capsule 200 mg PO Q6H PRN Pain Score 1-10 02/27/20 04/05/24 History aspirin 81 mg tablet,delayed 81 mg PO DAILY@0800 04/01/20 04/05/24 Rx release spacer #1 ea 04/15/21 04/05/24 Rx calcium carbonate 500 mg PO DAILY 06/10/22 04/05/24 History fexofenadine 180 mg tablet 180 mg PO DAILY 06/10/22 04/05/24 History omega-3 fatty acids 1,000 mg 1,000 mg PO DAILY 06/10/22 04/05/24 History capsule vit C 250 mg-vit E 90 mg-zinc 40 1 tab PO BID 06/10/22 04/05/24 History mg-copper 1 jc-jwvqbv-szqvak capsule (PreserVision AREDS-2) zinc gluconate 30 mg tablet 30 mg PO DAILY 06/17/22 04/05/24 History ipratropium bromide 21 mcg (0.03 2 spray intranasal BID-TID PRN 08/24/22 04/05/24 Rx %) nasal spray allergy symptoms #30 mL albuterol sulfate 2.5 mg/3 mL 2.5 mg (3 mL) inhalation Q4H PRN 11/25/22 04/05/24 Rx (0.083 %) solution for nebulization Sob /Or Wheezing #180 mL albuterol sulfate 90 mcg/actuation 2 puff inhalation Q6H PRN Sob /Or 11/25/22 04/05/24 Rx aerosol inhaler Wheezing #8.5 grams atenolol 25 mg tablet 25 mg PO DAILY STOP Metoprolol #30 12/05/22 04/05/24 Rx tabs telmisartan 40 mg tablet 40 mg PO DAILY 02/08/23 04/05/24 History azelastine 205.5 mcg (0.15 %) 1 spray intranasal BID PRN 03/10/23 04/05/24 History nasal spray famotidine 20 mg tablet 20 mg PO BID 03/10/23 04/05/24 History insulin glargine 100 unit/mL (3 50 unit subcut BID 03/10/23 04/05/24 History mL) subcutaneous pen (Nicholaglkarine Cortes U-100 Insulin) pen needle, diabetic 31 gauge x #1,200 ea 03/10/23 04/05/24 History 3/16 (Droplet Pen Needle) clopidogrel 75 mg tablet (Plavix) 75 mg PO DAILY #90 tabs 06/01/23 04/05/24 Rx hydrochlorothiazide 25 mg tablet 12.5 mg PO DAILY 07/22/23 04/05/24 History tiotropium bromid (more content not included)... Normal [facility] Thyroid Stim Hormone (TSH)on 04-05-2024 TSH 2.490 uIU/mL Normal 0.358-3.740 [facility] Comment on above: Order Comment: Order Date: 01/20/24Order Info: [id number] - CMPOrder Info: [id number] - MGOrder Info: [id number] - TSH Performed By: #### L 500.4050, L501.5200, L502.0250, L506.1000, L509.1000, L501.9520, L100.0100 ####[facility] [address] [place], [place], [address] Vitamin D,25 Hydroxyon 04-05 Vitamin D 25-OH 45.2 ng/mL Normal [facility] Comment on above: Order Comment: Order Date: 01/20/24Order Info: [id number] - [id number] Result Comment: Raquel min D 25(OH) Status Range Deficiency <20 ng/mL (50nmol/L) Insufficiency 20 - 30 ng/mL (50 - 75 nmol/L) Sufficiency 30 - 100 ng/mL (75 - 250 nmol/L) Toxicity >100 ng/mL (>250 nmol/L) Performed By: #### L 500.4050, L501.5200, L502.0250, L506.1000, L509.1000, L501.9520, L100.0100 ####[facility] [address] [place], [place], [address] Absolute lymphocyte countOrd ered By: Marlene Keys on 09-09-2023 Lymphocytes Auto (Unsp spec) [#/Vol] 2.00 10*3/uL 0.83-4.51 [facility] Alternaria alternata IgE ser umOrdered By: Marlene Keys on 09-09-2023 A. alternata IgE Qn (S) <0.10 kU/L Class 0 [facility] Automated lymphocyte count a s percentage of total leukocytesOrdered By: Marlene Keys on 09-09-2023 Lymphocytes/100 WBC Auto (Unsp spec) 27.5 % 19-41 [facility] Basophil percentageOrdered B y: Marlene Keys on 09-09-2023 Basophils/100 WBC (Bld) 0.5 % 0-1 [facility] Eosinophils/100 WBC (Bld) 8.1 % 0-5 [facility] Hemoglobin (Bld) [Mass/Vol] 12.5 g/dL 12.0-15.0 [facility] Monocytes/100 WBC (Bld) 8.2 % 0-10 [facility] Neutrophils (Bld) [#/Vol] 4.0 10*3/uL 2.0-7.7 [facility] Neutrophils/100 WBC (Bld) 55.2 % 47-70 [facility] WBC (Bld) [#/Vol] 7.3 10*3/uL 4.4-11.0 [facility] Determination of erythrocyte mean corpuscular volume (MCV)Ordered By: Marlene Keys on 09-09-2023 MCV (RBC) [Entitic vol] 88.0 fL 81-99 [facility] Erythrocyte distribution wid th ratioOrdered By: Marlene Keys on 09-09-2023 Erythrocyte distribution width (RBC) [Ratio] 13.6 % 11.6-14.6 [facility] Erythrocyte distribution wid th standard deviationOrdered By: Marlene Keys on 09-09-2023 Erythrocyte distribution width (RBC) [Entitic vol] 43.8 fL 35.1-43.9 [facility] Hematocrit Auto (Bld) [Volum e fraction]Ordered By: Marlene Keys on 09-09-2023 Hematocrit (Bld) [Volume fraction] 38.3 % 37-47 [facility] Immature granulocytes/100 WB C Auto (Bld)Ordered By: Marlene Keys on 09-09-2023 Immature granulocytes/100 WBC (Bld) 0.500 % 0.0-0.9 [facility] Comment on above: IG% - Immature Granu locytes (promyelocytes, myelocytes and metamyelocytes) > 1% indicates that a LEFT SHIFT is Present. Laboratory - Hematology and Cell countsOrdered By: Marlene Keys on 09-09-2023 MCH (RBC) [Entitic mass] 28.7 pg 27.0-32.0 [facility] MCHC (RBC) [Mass/Vol] 32.6 g/dL 32-36 [facility] Nucleated RBC/100 WBC (Bld) [Ratio] 0 % 0-5 [facility] Platelet mean volume (Bld) [Entitic vol] 9.8 fL 6.2-12.0 [facility] Platelets (Bld) [#/Vol] 314 10*3/uL 150-450 [facility] Laboratory - Miscellaneous t estsOrdered By: Marlene Keys on 09-09-2023 Service comment (Unsp spec) [Interp] Comment . [facility] Comment on above: Levels of Specific I gE Class Description of Class ----- < 0.10 0 Negative 0.10 - 0.31 0/I Equivocal/Low 0.32 - 0.55 I Low 0.56 - 1.40 II Moderate 1.41 - 3.90 III High 3.91 - 19.00 IV Very High 19.01 - 100.00 V Very High >100.00 Very High No Panel InformationOrdered By: Marlene Keys on 09-09-2023 Common Ragweed (Short) Allergen <0.10 kU/L Class 0 [facility] Bahamian Plantain Allergen (RAST) <0.10 kU/L Class 0 [facility] Mouse Urine Allergen IgE Antibody <0.10 kU/L [facility] 0 [facility] Comment on above: Performed at: [address] [id number] Director: Gita Blanca MD, Phone: [phone] RBC Auto (Bld) [#/Vol]Ordere d By: Marlene Keys on 09-09-2023 RBC (Bld) [#/Vol] 4.35 10*6/uL 4.2-5.4 [facility] Serum Bermuda grass IgE anti body assay (units/volume)Ordered By: Marlene Keys on 09-09-2023 Bermuda grass IgE Qn (S) <0.10 kU/L Class 0 [facility] Serum Dermatophagoides farin ae specific IgE antibody assay (units/volume)Ordered By: Marlene Keys on 09-09-2023 Pakistani house dust mite IgE Qn (S) <0.10 kU/L Class 0 [facility] Serum house dust mi te IgE antibody assay (units/volume)Ordered By: Marlene Keys on 09-09-2023 house dust mite IgE Qn (S) <0.10 kU/L Class 0 [facility] Serum [place] blue grass Ig E antibody assay (units/volume)Ordered By: Marlene Keys on 09-09-2023 [place] blue grass IgE Qn (S) <0.10 kU/L Class 0 [facility] Serum cat dander IgE antibod y assay (units/volume)Ordered By: Marlene Keys on 09-09-2023 Cat dander IgE Qn (S) <0.10 kU/L Class 0 [facility] Serum dog epithelium IgE ant ibody assay (units/volume)Ordered By: Marlene Keys on 09-09-2023 Dog epithelium IgE Qn (S) <0.10 kU/L Class 0 [facility] Serum white elm IgE antibody assay (units/volume)Ordered By: Marlene Keys on 09-09-2023 White Elm IgE Qn (S) <0.10 kU/L Class 0 [facility] Serum white oak IgE antibody assay (units/volume)Ordered By: Marlene Keys on 09-09-2023 [place] IgE Qn (S) <0.10 kU/L Class 0 [facility] Laboratory - Miscellaneous t estsOrdered By: Imtiaz Wick on 09-06-2023 Service comment (Unsp spec) [Interp] Comment . [facility] Comment on above: Levels of Specific I gE Class Description of Class ----- < 0.10 0 Negative 0.10 - 0.31 0/I Equivocal/Low 0.32 - 0.55 I Low 0.56 - 1.40 II Moderate 1.41 - 3.90 III High 3.91 - 19.00 IV Very High 19.01 - 100.00 V Very High >100.00 Very High No Panel InformationOrdered By: Imtiaz Wick on 09-06-2023 Scallop Allergen <0.10 kU/L Class 0 [facility] Sesame Seed Allergen IgE Antibody <0.10 kU/L Class 0 [facility] Comment on above: Performed at: - [address] [id number] Director: Gita Blanca MD, Phone: [phone] Shrimp Allergen <0.10 kU/L Class 0 [facility] Serum black walnut IgE antib hadley assay (units/volume)Ordered By: Imtiaz Wick on 09-06-2023 Black [place] IgE Qn (S) <0.10 kU/L Class 0 [facility] Serum clam IgE antibody assa y (units/volume)Ordered By: Imtiaz Wick on 09-06-2023 Clam IgE Qn (S) <0.10 kU/L Class 0 [facility] Serum codfish IgE antibody a ssay (units/volume)Ordered By: Imtiaz Wick on 09-06-2023 Codfish IgE Qn (S) <0.10 kU/L Class 0 [facility] Serum corn IgE antibody assa y (units/volume)Ordered By: Imtiaz Wick on 09-06-2023 [place] IgE Qn (S) <0.10 kU/L Class 0 [facility] Serum cow milk IgE antibody assay (units/volume)Ordered By: Imtiaz Wick on 09-06-2023 Cow milk IgE Qn (S) <0.10 kU/L Class 0 [facility] Serum egg white IgE antibody assay (units/volume)Ordered By: Imtiaz Wick on 09-06-2023 Egg white IgE Qn (S) <0.10 kU/L Class 0 [facility] Serum peanut IgE antibody as say (units/volume)Ordered By: Imtiaz Wick on 09-06-2023 Peanut IgE Qn (S) 0.11 kU/L Class 0/I [facility] Serum soybean IgE antibody a ssay (units/volume)Ordered By: Imtiaz Wick on 09-06-2023 Soybean IgE Qn (S) <0.10 kU/L Class 0 [facility] Serum wheat IgE antibody ass ay (units/volume)Ordered By: Imtiaz Wick on 09-06-2023 Wheat IgE Qn (S) <0.10 kU/L Class 0 [facility] Absolute lymphocyte countOrd ered By: Jorge L Hidalgo on 07-18-2023 Lymphocytes Auto (Unsp spec) [#/Vol] 2.83 10*3/uL 0.83-4.51 [facility] Acid fast bacilli (AFB) cult ureOrdered By: Jorge L Hidalgo on 07-18-2023 Mycobacterium sp identified Org specific cx Nom (Unsp spec) [facility] Automated lymphocyte count a s percentage of total leukocytesOrdered By: Jorge L Hidalgo on 07-18-2023 Lymphocytes/100 WBC Auto (Unsp spec) 21.8 % 19-41 [facility] Bacteria identified Respirat ory culture Nom (Unsp spec)Ordered By: Jorge L Hidalgo on 07-18-2023 Respiratory Culture Presumptive C albicans [facility] Respiratory Culture Presumptive C albicans [facility] Basophil percentageOrdered B y: Jorge L Hidalgo on 07-18-2023 Basophils/100 WBC (Bld) 0.5 % 0-1 [facility] Bilirubin [Mass/Vol] 0.50 mg/dL 0.20-1.00 [facility] Comment on above: For patients on eltr ombopag therapy, use of Dimension [place] TBIL is not recommended. Chloride [Moles/Vol] 101 mmol/L 98-107 [facility] Eosinophils/100 WBC (Bld) 1.7 % 0-5 [facility] Glucose [Mass/Vol] 98 mg/dL 74-106 [facility] Hemoglobin (Bld) [Mass/Vol] 12.8 g/dL 12.0-15.0 [facility] Monocytes/100 WBC (Bld) 6.5 % 0-10 [facility] Neutrophils (Bld) [#/Vol] 8.9 10*3/uL 2.0-7.7 [facility] Neutrophils/100 WBC (Bld) 68.7 % 47-70 [facility] Potassium [Moles/Vol] 3.4 mmol/L 3.5-5.1 [facility] Protein [Mass/Vol] 6.8 g/dL 6.4-8.2 [facility] Sodium [Moles/Vol] 137 mmol/L 136-145 [facility] WBC (Bld) [#/Vol] 13.0 10*3/uL 4.4-11.0 [facility] Determination of erythrocyte mean corpuscular volume (MCV)Ordered By: Jroge L Hidalgo on 07-18-2023 MCV (RBC) [Entitic vol] 88.5 fL 81-99 [facility] Erythrocyte distribution wid th ratioOrdered By: Jorge L Hidalgo on 07-18-2023 Erythrocyte distribution width (RBC) [Ratio] 13.4 % 11.6-14.6 [facility] Erythrocyte distribution wid th standard deviationOrdered By: Jorge L Hidalgo on 07-18-2023 Erythrocyte distribution width (RBC) [Entitic vol] 43.7 fL 35.1-43.9 [facility] Erythrocyte sedimentation ra teOrdered By: Jorge L Hidalgo on 07-18-2023 ESR (Bld) [Velocity] 8 mm/h 0-30 [facility] Fungus identified Cx Nom (Un sp spec)Ordered By: Jorge L Hidalgo on 07-18-2023 Fungal Culture Eliana albicans [facility] Gram stain for investigation of transfusion reactionOrdered By: Jorge L Hidalgo on 07-18-2023 Microscopic observation Gram stain Nom (Unsp spec) [facility] Microscopic observation Gram stain Nom (Unsp spec) [facility] Hematocrit Auto (Bld) [Volum e fraction]Ordered By: Jorge L Hidalgo on 07-18-2023 Hematocrit (Bld) [Volume fraction] 39.9 % 37-47 [facility] Immature granulocytes/100 WB C Auto (Bld)Ordered By: Jorge L Hidalgo on 07-18-2023 Immature granulocytes/100 WBC (Bld) 0.800 % 0.0-0.9 [facility] Comment on above: IG% - Immature Granu locytes (promyelocytes, myelocytes and metamyelocytes) > 1% indicates that a LEFT SHIFT is Present. Laboratory - Chemistry and C hemistry - challengeOrdered By: Jorge L Hidalgo on 07-18-2023 Albumin/Globulin [Mass ratio] 1.3 {ratio} 0.9-2.4 [facility] ALP [Catalytic activity/Vol] 80 U/L 45-117 [facility] ALT [Catalytic activity/Vol] 23 U/L 13-56 [facility] CO2 [Moles/Vol] 27.0 mmol/L 21.0-32.0 [facility] Globulin (S) [Mass/Vol] 3.0 g/dL 2.2-4.2 [facility] Urea nitrogen/Creatinine [Mass ratio] 23.2 mg/mg 10-20 [facility] Laboratory - Hematology and Cell countsOrdered By: Jorge L Hidalgo on 07-18-2023 MCH (RBC) [Entitic mass] 28.4 pg 27.0-32.0 [facility] MCHC (RBC) [Mass/Vol] 32.1 g/dL 32-36 [facility] Nucleated RBC/100 WBC (Bld) [Ratio] 0 % 0-5 [facility] Platelet mean volume (Bld) [Entitic vol] 9.6 fL 6.2-12.0 [facility] Platelets (Bld) [#/Vol] 361 10*3/uL 150-450 [facility] No Panel InformationOrdered By: Jorge L Hidalgo on 07-18-2023 C-Reactive Protein Extended Range < 2.90 mg/L 0.0-3.0 [facility] Comment on above: C-Reactive Protein ( CRP) provides useful information for thediagnosis, therapy and monitoring of inflammatory processesand associated diseases. For the evaluation of Relative Riskfor Cardiovascular Disease, a High Sensitivity CRP (HSCRP)should be ordered. Estimated GFR (MDRD) Amer 125 mL/min >60 [facility] Comment on above: GFR Calc Estimated GFR (MDRD) Non-Af Amer 103 mL/min >60 [facility] Comment on above: Non- GFR Calc RBC Auto (Bld) [#/Vol]Ordere d By: Jorge L Hidalgo on 07-18-2023 RBC (Bld) [#/Vol] 4.51 10*6/uL 4.2-5.4 [facility] Serum or plasma calcium shagufta urement (mass/volume)Ordered By: Jorge L Hidalgo on 07-18-2023 Calcium [Mass/Vol] 9.9 mg/dL 8.5-10.1 [facility] Serum or plasma creatinine m easurement (mass/volume)Ordered By: Jorge L Hidalgo on 07-18-2023 Creatinine [Mass/Vol] 0.60 mg/dL 0.55-1.02 [facility] Comment on above: The validity of the calculated GFR & GFRAA in patients over 70 years has not been determined. Clinical correlation is essential. Serum or plasma thyroid stim ulating hormone (TSH) measurement (units/volume)Ordered By: Jorge L Hidalgo on 07-18-2023 TSH Qn 1.12 uIU/mL 0.358-3.74 [facility] Serum or plasma urea nitroge n measurement (mass/volume)Ordered By: Jorge L Hidalgo on 07-18-2023 Urea nitrogen [Mass/Vol] 14 mg/dL 7-18 [facility] Thin prep Papanicolaou smear with manual screeningOrdered By: Jorge L Hidalgo on 07-18-2023 Thin prep Papanicolaou smear with manual screening 3.8 g/dL 3.2-5.0 [facility] Thin prep Papanicolaou smear with manual screening 14 U/L 15-37 [facility] Thin prep Papanicolaou smear with manual screening 9 5-15 [facility] Thin prep Papanicolaou smear with manual screening [facility] Basophil percentageOrdered B y: Jorge L Hidalgo on 06-24-2023 Chloride [Moles/Vol] 102 mmol/L 98-107 [facility] Glucose [Mass/Vol] 84 mg/dL 74-106 [facility] Potassium [Moles/Vol] 3.8 mmol/L 3.5-5.1 [facility] Sodium [Moles/Vol] 135 mmol/L 136-145 [facility] Laboratory - Chemistry and C hemistry - challengeOrdered By: Jorge L Hidalgo on 06-24-2023 CO2 [Moles/Vol] 27.0 mmol/L 21.0-32.0 [facility] Urea nitrogen/Creatinine [Mass ratio] 16.7 mg/mg 10-20 [facility] No Panel InformationOrdered By: Jorge L Hidalgo on 06-24-2023 Estimated GFR (MDRD) Amer 142 mL/min >60 [facility] Comment on above: GFR Calc Estimated GFR (MDRD) Non-Af Amer 118 mL/min >60 [facility] Comment on above: Non- GFR Calc Serum or plasma calcium shagufta urement (mass/volume)Ordered By: Jorge L Hidalgo on 06-24-2023 Calcium [Mass/Vol] 9.7 mg/dL 8.5-10.1 [facility] Serum or plasma creatinine m easurement (mass/volume)Ordered By: Jorge L Hidalgo on 06-24-2023 Creatinine [Mass/Vol] 0.54 mg/dL 0.55-1.02 [facility] Comment on above: The validity of the calculated GFR & GFRAA in patients over 70 years has not been determined. Clinical correlation is essential. Serum or plasma urea nitroge n measurement (mass/volume)Ordered By: Jorge L Hidalgo on 06-24-2023 Urea nitrogen [Mass/Vol] 9 mg/dL 7-18 [facility] Thin prep Papanicolaou smear with manual screeningOrdered By: Jorge L Hidalgo on 06-24-2023 Thin prep Papanicolaou smear with manual screening 6 5-15 [facility] Thin prep Papanicolaou smear with manual screening 279 mOsm/KG 280-301 [facility] Thin prep Papanicolaou smear with manual screening 30.5 mg/L NO RANGE EST. [facility] Urine albumin/creatinine rat io for detection of microalbuminuriaOrdered By: Jorge L Hidalgo on 06-24-2023 Albumin/Creatinine DL <= 1.0 mg/L (24H U) [Ratio] 83.8 mg/g CRE <30 [facility] Urine creatinine measurement (mass/volume)Ordered By: Jorge L Hidalgo on 06-24-2023 Creatinine (U) [Mass/Vol] 36.40 mg/dL NO RANGE EST. [facility] Absolute lymphocyte countOrd ered By: Jorge L Hidalgo on 05-10-2023 Lymphocytes Auto (Unsp spec) [#/Vol] 1.81 10*3/uL 0.83-4.51 [facility] Basophil percentageOrdered B y: Jorge L Hidalgo on 05-10-2023 Basophils/100 WBC (Bld) 0.6 % 0-1 [facility] Bilirubin [Mass/Vol] 0.50 mg/dL 0.20-1.00 [facility] Comment on above: For patients on eltr ombopag therapy, use of Dimension [place] TBIL is not recommended. Chloride [Moles/Vol] 97 mmol/L 98-107 [facility] Eosinophils/100 WBC (Bld) 4.9 % 0-5 [facility] Glucose [Mass/Vol] 127 mg/dL 74-106 [facility] Comment on above: Fasting Glucose resu lt greater than or equal to 126 mg/dL suggests DIABETES MELLITUS per A.D.A. criteria. Neutrophils (Bld) [#/Vol] 5.4 10*3/uL 2.0-7.7 [facility] Neutrophils/100 WBC (Bld) 65.4 % 47-70 [facility] Potassium [Moles/Vol] 3.6 mmol/L 3.5-5.1 [facility] Protein [Mass/Vol] 7.4 g/dL 6.4-8.2 [facility] Sodium [Moles/Vol] 131 mmol/L 136-145 [facility] WBC (Bld) [#/Vol] 8.2 10*3/uL 4.4-11.0 [facility] Blood erythrocytes count (nu mber/volume)Ordered By: Jorge L Hidalgo on 05-10-2023 RBC (Bld) [#/Vol] 4.57 10*6/uL 4.2-5.4 [facility] Blood hemoglobin measurement (mass/volume)Ordered By: Jorge L Hidalgo on 05-10-2023 Hemoglobin (Bld) [Mass/Vol] 13.2 g/dL 12.0-15.0 [facility] Blood lymphocytes/100 leukoc ytesOrdered By: Jorge L Hidalgo on 05-10-2023 Lymphocytes/100 WBC (Bld) 22.0 % 19-41 [facility] Blood monocytes/100 leukocyt esOrdered By: Jorge L Hidalgo on 05-10-2023 Monocytes/100 WBC (Bld) 6.6 % 0-10 [facility] Blood platelet mean volumeOr dered By: Jorge L Hidalgo on 05-10-2023 Platelet mean volume (Bld) [Entitic vol] 9.2 fL 6.2-12.0 [facility] Determination of erythrocyte mean corpuscular volume (MCV)Ordered By: Jorge L Hidalgo on 05-10-2023 MCV (RBC) [Entitic vol] 87.1 fL 81-99 [facility] Hematocrit Auto (Bld) [Volum e fraction]Ordered By: Jorge L Hidalgo on 05-10-2023 Hematocrit (Bld) [Volume fraction] 39.8 % 37-47 [facility] Laboratory - Chemistry and C hemistry - challengeOrdered By: Jorge L Hidalgo on 05-10-2023 ALP [Catalytic activity/Vol] 121 U/L 45-117 [facility] ALT [Catalytic activity/Vol] 20 U/L 13-56 [facility] CO2 [Moles/Vol] 26.0 mmol/L 21.0-32.0 [facility] Globulin (S) [Mass/Vol] 3.6 g/dL 2.2-4.2 [facility] Urea nitrogen/Creatinine [Mass ratio] 16.8 mg/mg 10-20 [facility] Laboratory - Hematology and Cell countsOrdered By: Jorge L Hidalgo on 05-10-2023 Erythrocyte distribution width (RBC) [Entitic vol] 41.6 fL 35.1-43.9 [facility] Erythrocyte distribution width (RBC) [Ratio] 13.2 % 11.6-14.6 [facility] Immature granulocytes/100 WBC (Bld) 0.500 % 0.0-0.9 [facility] Comment on above: IG% - Immature Granu locytes (promyelocytes, myelocytes and metamyelocytes) > 1% indicates that a LEFT SHIFT is Present. MCH (RBC) [Entitic mass] 28.9 pg 27.0-32.0 [facility] Nucleated RBC/100 WBC (Bld) [Ratio] 0 % 0-5 [facility] MCHC Auto (RBC) [Mass/Vol]Or dered By: Jorge L Hidalgo on 05-10-2023 MCHC (RBC) [Mass/Vol] 33.2 g/dL 32-36 [facility] No Panel InformationOrdered By: Jorge L Hidalgo on 05-10-2023 Estimated GFR (MDRD) Amer 127 mL/min >60 [facility] Comment on above: GFR Calc Estimated GFR (MDRD) Non-Af Amer 105 mL/min >60 [facility] Comment on above: Non- GFR Calc Thyroid Stimulating Hormone (TSH) 1.57 uIU/mL 0.358-3.74 [facility] Urine Microalbumin/Creatinine Ratio TNP [facility] Comment on above: Test not performed Platelets bldOrdered By: Gia Hidalgo on 05-10-2023 Platelets (Bld) [#/Vol] 351 10*3/uL 150-450 [facility] Serum or plasma albumin shagufta urement (mass/volume)Ordered By: Jorge L Hidalgo on 05-10-2023 Albumin [Mass/Vol] 3.8 g/dL 3.2-5.0 [facility] Serum or plasma albumin/glob ulin mass ratioOrdered By: Jorge L Hidalgo on 05-10-2023 Albumin/Globulin [Mass ratio] 1.1 {ratio} 0.9-2.4 [facility] Serum or plasma calcium shagufta urement (mass/volume)Ordered By: Jorge L Hidalgo on 05-10-2023 Calcium [Mass/Vol] 9.6 mg/dL 8.5-10.1 [facility] Serum or plasma creatinine m easurement (mass/volume)Ordered By: Jorge L Hidalgo on 05-10-2023 Creatinine [Mass/Vol] 0.59 mg/dL 0.55-1.02 [facility] Comment on above: The validity of the calculated GFR & GFRAA in patients over 70 years has not been determined. Clinical correlation is essential. Serum or plasma urea nitroge n measurement (mass/volume)Ordered By: Jorge L Hidalgo on 05-10-2023 Urea nitrogen [Mass/Vol] 10 mg/dL 7-18 [facility] Thin prep Papanicolaou smear with manual screeningOrdered By: Jorge L Hidalgo on 05-10-2023 Thin prep Papanicolaou smear with manual screening 16 U/L 15-37 [facility] Thin prep Papanicolaou smear with manual screening 8 5-15 [facility] Thin prep Papanicolaou smear with manual screening 14.5 mg/L [facility] Urine creatinine measurement (mass/volume)Ordered By: Jorge L Hidalgo on 05-10-2023 Creatinine (U) [Mass/Vol] mg/dL NO RANGE [facility] Whole blood hemoglobin A1c/t otal hemoglobin ratio (mass fraction)Ordered By: Jorge L Hidalgo on 05-10-2023 HbA1c (Bld) [Mass fraction] 6.7 % 3.8-5.6 [facility] Comment on above: Normal < 5.7 % Predi abetic 5.7 - 6.4 % Diabetic >or= 6.5 % Please note range changes. 36on 04-11-2023 36 Records scanned in [facility] 36 Dr Andrea's office faxing records. [facility] 36on 04-06-2023 36 Patient notified. Appt cancelled and I will call Zully's office tomorrow to get results. [facility] 36on 04-04-2023 36 Chart reviewed, Sherri Salinas notified to call Dr. Andrea's office for pt OV note/EKG and echo results, cancel JessicaBinh Nelson OV appt w/ echo that is scheduled next month, call pt and let her know she can follow up w/ Dr. Andrea cold reduction roller, she does not need to return to [place]. Normal [facility] 36 Patient had her EKG and Echo done last 03/31/23 She is sched on 08/04/23 w/ Dr Andrea. Does she need to come in and see us sooner? [facility] 36on 03-17-2023 36 I spoke w/ Dr. Andrea's office, they will contact pt for 1 year post TAVR echo & EKG. [facility]Q mailed to pt. [facility] Basophil percentageOrdered B y: Julio Baldwin on 11-25-2022 Chloride [Moles/Vol] 100 mmol/L 98-107 [facility] Glucose [Mass/Vol] 69 mg/dL 74-106 [facility] Potassium [Moles/Vol] 3.9 mmol/L 3.5-5.1 [facility] Sodium [Moles/Vol] 134 mmol/L 136-145 [facility] WBC (Bld) [#/Vol] 6.9 10*3/uL 4.4-11.0 [facility] Blood erythrocytes count (nu mber/volume)Ordered By: Julio Baldwin on 11-25-2022 RBC (Bld) [#/Vol] 4.41 10*6/uL 4.2-5.4 [facility] Blood hemoglobin measurement (mass/volume)Ordered By: Julio Baldwin on 11-25-2022 Hemoglobin (Bld) [Mass/Vol] 12.2 g/dL 12.0-15.0 [facility] Blood platelet mean volumeOr dered By: Julio Baldwin on 11-25-2022 Platelet mean volume (Bld) [Entitic vol] 10.2 fL 6.2-12.0 [facility] Determination of erythrocyte mean corpuscular volume (MCV)Ordered By: Julio Baldwin on 11-25-2022 MCV (RBC) [Entitic vol] 85.5 fL 81-99 [facility] Hematocrit Auto (Bld) [Volum e fraction]Ordered By: Julio Baldwin on 11-25-2022 Hematocrit (Bld) [Volume fraction] 37.7 % 37-47 [facility] Laboratory - Chemistry and C hemistry - challengeOrdered By: Julio Baldwin on 11-25-2022 CO2 [Moles/Vol] 26.0 mmol/L 21.0-32.0 [facility] Magnesium [Mass/Vol] 1.8 mg/dL 1.6-2.6 [facility] Natriuretic peptide B (Bld) [Mass/Vol] 104.7 pg/mL 0-100 [facility] Urea nitrogen/Creatinine [Mass ratio] 19.5 mg/mg 10-20 [facility] Laboratory - Hematology and Cell countsOrdered By: Julio Baldwin on 11-25-2022 Erythrocyte distribution width (RBC) [Entitic vol] 42.1 fL 35.1-43.9 [facility] Erythrocyte distribution width (RBC) [Ratio] 13.3 % 11.6-14.6 [facility] MCH (RBC) [Entitic mass] 27.7 pg 27.0-32.0 [facility] MCHC Auto (RBC) [Mass/Vol]Or dered By: Julio Baldwin on 11-25-2022 MCHC (RBC) [Mass/Vol] 32.4 g/dL 32-36 [facility] No Panel InformationOrdered By: Julio Baldwin on 11-25-2022 Estimated GFR (MDRD) Amer 135 mL/min >60 [facility] Comment on above: GFR Calc Estimated GFR (MDRD) Non-Af Amer 112 mL/min >60 [facility] Comment on above: Non- GFR Calc Thyroid Stimulating Hormone (TSH) 0.98 uIU/mL 0.358-3.74 [facility] Platelets bldOrdered By: Lb Baldwin on 11-25-2022 Platelets (Bld) [#/Vol] 277 10*3/uL 150-450 [facility] Serum or plasma calcium shagufta urement (mass/volume)Ordered By: Julio Baldwin on 11-25-2022 Calcium [Mass/Vol] 9.2 mg/dL 8.5-10.1 [facility] Serum or plasma creatinine m easurement (mass/volume)Ordered By: Julio Baldwin on 11-25-2022 Creatinine [Mass/Vol] 0.56 mg/dL 0.55-1.02 [facility] Comment on above: The validity of the calculated GFR & GFRAA in patients over 70 years has not been determined. Clinical correlation is essential. Serum or plasma urea nitroge n measurement (mass/volume)Ordered By: Julio Baldwin on 11-25-2022 Urea nitrogen [Mass/Vol] 11 mg/dL 7-18 [facility] Thin prep Papanicolaou smear with manual screeningOrdered By: Julio Baldwin on 11-25-2022 Thin prep Papanicolaou smear with manual screening 8 -15 [facility] No Panel InformationOrdered By: Zulay Maciel on 05-25-2022 Hepatitis B Surface Antigen Non-Reactive Nonreactive [facility] Hepatitis C Antibody Non-Reactive Nonreactive [facility] Comment on above: Non Reactive: < 0.8 Equivocal: >/= 0.8 to < 1.0 Reactive: >/= 1.0The CDC recommends that a reactive/equivocal HCV antibody result be followed up by the HCV Nucleic Acid Amplificationtest (444405) Serum hepatitis B virus core antibody detectionOrdered By: Zulay Maciel on 05-25-2022 HBV core Ab Ql (S) Negative Negative [facility] Comment on above: Performed at: [address] [id number] Director: Mich Fernandez PhD, Phone: [phone] Serum hepatitis B virus surf richard antibody IgG detectionOrdered By: Zulay Maciel on 05-25-2022 HBV surface IgG Ql (S) Non-Reactive [facility] Comment on above: Non Reactive: Incons istent with immunity less than <10 mIU/mL Reactive: Consistent with immunity greater than or equal to 10 mIU/mL 36on 05-24-2022 36 Spoke with patient, echo results reviewed. Pt verbalized understanding and will call office for any further questions/concerns. [facility] 36 ----- Message from NANCY Salazar CNP sent at 05/24/2022 7:53 AM EST ----- Please let patient know that echo looks good. We are still waiting on EM report from Jessica [facility] Office Visiton 05-20-2022 Follow-up visit [id number] Linda Rai 1950 F Date Provider Department Center 05/20/2022 [id number] [facility]FR[facility]O [facility] [address] Family History Problem Relation Age of Onset Coronary artery disease Mother High Blood Pressure Mother Cardiomyopathy Father No Known Problems Sister No Known Problems Sister No Known Problems Sister No Known Problems Sister No Known Problems Sister Heart attack Maternal Grandmother Heart attack Maternal Grandfather No Known Problems Paternal Grandmother No Known Problems Paternal Grandfather Family Status - Relation Status Age at Mother Father Sister Sister Alive Sister Alive Sister Alive Sister Alive Maternal Grandmother Maternal Grandfather Paternal Grandmother Paternal Grandfather Level of Service:55745 [place] OFFICE/OUTPATIENT ESTABLISHED MOD MDM 30-39 MIN Reason for Visit and Comments: 1 Month Follow Up [[id number]] - S/p TAVR Normal [facility] Progress Noteon 05-20-2022 Progress Note Awaiting EM report. EKG shows SR with HR 72 today. Discussed adding diltiazem to help control palpitations today verses waiting for official EM report. (would avoid beta anju in setting of severe asthma). She would like to wait. She is minimally symptomatic with palpitations. She would like to wait for report. Would plan to stop amlodipine if we add diltiazem so that we don't lower her BP too much. Normal [facility] Progress Note [facility] [address] [facility] [facility] [address] Dept: [phone] Dept Loc: [phone] Visit type: Established patient Reason for Visit: 1 Month Follow Up (S/p TAVR) Assessment and Plan 1. Nonrheumatic aortic valve stenosis Assessment & Plan: S/p femoral TAVR with 23 mm Arnie S3 Ultra on 04/12/22. Continue home DAPT. Repeat echo today. Reviewed lifelong SBE. She will consider Cardiac Rehab and will call if she wants a referral to [place] cardiac rehab. Orders: - ECG 12 lead - CLINIC PERFORMED 2. Coronary artery disease involving campo coronary artery of campo heart without angina pectoris Assessment & Plan: Patent RCA stent and mild-mod CAD on recent cath. Denies angina. Continue medical management with DAPT, atorvastatin. May benefit from higher dose atorvastatin. Orders: - ECG 12 lead - CLINIC PERFORMED 3. Palpitations Assessment & Plan: Awaiting EM report. EKG shows SR with HR 72 today. Discussed adding diltiazem to help control palpitations today verses waiting for official EM report. (would avoid beta anju in setting of severe asthma). She would like to wait. She is minimally symptomatic with palpitations. She would like to wait for report. Would plan to stop amlodipine if we add diltiazem so that we don't lower her BP too much. Orders: - ECG 12 lead - CLINIC PERFORMED 4. Primary hypertension Assessment & Plan: Well controlled Orders: - ECG 12 lead - CLINIC PERFORMED Follow up in about 1 year (around 05/20/2023) for Valve clinic follow up in one year with echocardiogram. Alissa HPI Linda Rai is a 71 yo patient known to Dr. Andrea with a history of aortic stenosis, CAD, HTN, HLD, DIANA and T2DM. Echo showed normal LV function, mean aortic gradient 38, peak velocity 4.1 and IAIN 0.7 cm2. Heart cath revealed patent mRCA stent, 65% dLAD stenosis and 60% ostial RPDA stenosis. She underwent femoral TAVR on 04/12/22 with a 23 mm Arnie S3 valve. She did well post procedure and was discharged home the following day. She felt well at her one week follow up but was having issues with an asthma flare. She called our office about 10 days later to report intermittent elevated HR in the setting of asthma flare up and on medrol dose pack. EKG was done the following day in Dr. Andrea's office and CBC, BMP and TSH were drawn. EKG showed SR with PACs. Labs were unremarkable. We were able to get a 48 hour holter monitor placed on 05/06/22. She presents today for a one month follow up. She reports improvement in her SOB when walking long distances or up an incline. Denies angina, orthopnea, PND, dizziness or edema. She continues to report extra beats and some episodes of fast HR that is regular and lasts several minutes. We have not received the EM report at this time. She is scheduled to see Dr. Andrea in the next 2 months. Review of Systems Constitutional: Negative for chills and fever. Respiratory: Positive for shortness of breath (improved). Negative for cough. Cardiovascular: Positive for palpitations. Negative for chest pain and leg swelling. Gastrointestinal: Negative for abdominal pain, blood in stool and vomiting. Genitourinary: Negative for difficulty urinating and hematuria. Neurological: Negative for dizziness and syncope. Psychiatric/Behavior al: Negative for confusion. Allergies Allergen Reactions Etodolac Hives Outpatient Medications Prior to Visit Medication Sig Dispense Refill acetaminophen (Tylenol) 500 MG tablet Take 500 mg by mouth every 6 hours as needed. albuterol 108 (90 Base) MCG/ACT inhaler Inhale 2 puffs every 6 hours as needed. amLODIPine (Norvasc) 10 MG tablet Take 10 mg by mouth in the morning. aspirin 81 MG chewable tablet Chew 81 mg in the morning. atorvastatin (Lipitor) 10 MG tablet Take 1 tablet by mouth in the morning. calcium carbonate (Os-Marcelino) 1250 (500 Ca) MG chewable tablet Chew 1 tablet in the morning. clopidogrel (Plavix) 75 MG tablet Take 75 mg by mouth in the morning. fexofenadine (Miladys) 180 MG tablet Take 180 mg by mouth in the morning. fluticasone (Flonase) 50 MCG/ACT nasal spray Administer 1 spray into each nostril in the morning. fluticasone-salmeter ol (Advair HFA) 230-21 MCG/ACT inhaler 2 puffs in the morning and 2 puffs in the evening. glipiZIDE XL (Glucotrol XL) 10 MG 24 hr tablet Take 10 mg by mouth in the morning. hydroCHLOROthiazide (HYDRODiuril) 25 MG tablet Take 1 tablet by mouth in the morning. ibuprofen 200 MG tablet Take 200 mg by mouth every 6 hours as needed. insulin glargine (Basaglar KwikPen) 100 UNIT/ML pen Inject 50 Units under the skin 2 times daily. Depending on BS lisinopril 20 MG tablet Take 20 mg by mouth in the morning and 20 mg before bedtime. metFORMIN (Glucophage) 500 MG tablet take 2 tablets by mouth twice a day FOR SUGAR Strength: 500 mg Do not start before April 15, 2022. 30 tablet 1 montelukast (Si (more content not included)... Normal [facility] [employer] [facility] Heart TransthoracicOrdere d By: Lavernekia Gutierrez on 05-20-2022 Aortic Sinus Valsalva 4.0 cm Sum nv [employer] Work Phone: Aortic Sinus Valsalva Index 2.08 cm/m2 [facility] [employer] Phone: [phone] Ascending Aorta 3.5 cm [facility] [employer] Phone: [phone] Ascending Aorta Index 1.82 cm/m2 [place] [employer] Phone: [phone] AV Area by VTI 1.5 cm2 [facility] [employer] Phone: [phone] AV AT 72.0 ms [facility] Phone: AV Mean Gradient 11 mmHg [facility] [employer] Phone: [phone] AV Peak Gradient 22 mmHg [facility] [employer] Phone: AV Peak Velocity 2.4 m/s [facility] [employer] Phone: [phone] AV VTI 49.0 cm [facility] [employer] Phone: IAIN/BSA VTI 0.8 cm2/m2 [facility] [employer] Phone: Est. RA Pressure 3 mmHg [facility] [employer] Phone: [phone] LV Ejection Fraction A2C 69 % [facility] Phone: LV Ejection Fraction A4C 77 % [facility] [employer] Phone: [phone] LVOT Area 4.2 cm2 [facility] [employer] Phone: LVOT Diameter 2.3 cm [facility] [employer] Phone: LVOT Stroke Volume Index 41.1 mL/m2 [facility] Phone: LVOT SV 78.9 ml [facility] Phone: LVOT VTI 19.0 cm [facility] [employer] Phone: [phone] LVOT:AV VTI Index 0.39 [employer] Phone: RV Mid Dimension 3.0 cm [facility] [employer] Phone: RVIDd 3.7 cm [facility] [employer] Phone: RVSP 18 mmHg [facility] [employer] Phone: [phone] Sinotubular Junction 3.2 cm [facility] [employer] Phone: TR Max Velocity 1.96 m/s [facility] Phone: TR Peak Gradient 15 mmHg [facility] Phone: [facility] Phone: Heart Transthoracicon Left Ventricle: Left ventricle size is normal. Mildly increased wall thickness. Normal left ventricular systolic function. The EF by visual approximation is 65%. Normal wall motion. Grade I diastolic dysfunction with normal LAP. Aortic Valve: Briscoe Arnie 3 Ultra bioprosthetic aortic valve with a size of 23 mm mm is well seated, technically difficult images. Trace paravalvular regurgitation. No stenosis. AV mean gradient is 11 mmHg. AV peak gradient is 22 mmHg. AV peak velocity is 2.4 m/s. AV AT is 72.0 ms. LVOT:AV VTI Index is 0.39. AV area by continuity VTI is 1.5 cm2. Left Ventricle Left ventricle size is normal. Mildly increased wall thickness. Normal left ventricular systolic function. The EF by visual approximation is 65%. Normal wall motion. Grade I diastolic dysfunction with normal LAP. Right Ventricle Right ventricle size is normal. Normal systolic function. Left Atrium Left atrium is severely dilated. Right Atrium Right atrium size is normal. IVC/SVC IVC diameter is normal and decreases greater than 50% during inspiration; therefore the estimated right atrial pressure is normal (~3 mmHg). Mitral Valve Mildly thickened leaflets. Mild annular calcification. No regurgitation. No stenosis noted. Tricuspid Valve Valve structure is normal. Trace regurgitation. RVSP is 18 mmHg. Aortic Valve Briscoe Arnie 3 Ultra bioprosthetic aortic valve with a size of 23 mm mm is well seated, technically difficult images. Trace paravalvular regurgitation. No stenosis. AV mean gradient is 11 mmHg. AV peak gradient is 22 mmHg. AV peak velocity is 2.4 m/s. AV AT is 72.0 ms. LVOT:AV VTI Index is 0.39. AV area by continuity VTI is 1.5 cm2. Pulmonic Valve Valve structure is normal. Trace regurgitation. Ascending Aorta Normal sized ascending aorta. Pericardium No pericardial effusion. Septum No interatrial shunt visualized on color Doppler. Study Details Image quality: good. The underlying ECG rhythm was sinus rhythm. Echo performed in conjunction with TAVR procedureNo contrast was given. CV CPACS 36on 05-19-2022 36 Called patient to confirm appt with Dottie and she told me she turned in her holter monitor to [facility], called [facility] and they said those records would be available next 05/27 and they will fax results to us Normal [facility] Progress Noteon 05-19-2022 Progress Note Well controlled Normal [facility] Progress Note Patent RCA stent and mild-mod CAD on recent cath. Denies angina. Continue medical management with DAPT, atorvastatin. May benefit from higher dose atorvastatin. Normal [facility] Progress Note S/p femoral TAVR with 23 mm Arnie S3 Ultra on 04/12/22. Continue home DAPT. Repeat echo today. Reviewed lifelong SBE. She will consider Cardiac Rehab and will call if she wants a referral to [facility]. Normal [facility] 36on 05-06-2022 36 Order faxed to [facility] at [phone] [facility] Basophil percentageOrdered B y: Cyndie Garcia on 05-06-2022 Bilirubin [Mass/Vol] 0.60 mg/dL 0.20-1.00 [facility] Comment on above: For patients on eltr ombopag therapy, use of Dimension [place] TBIL is not recommended. Chloride [Moles/Vol] 96 mmol/L 98-107 [facility] Cholesterol [Mass/Vol] 184 mg/dL <200 [facility] Comment on above: <200 mg/dL Desirable 200-240 mg/dL Borderline >240 mg/dL High Risk Glucose [Mass/Vol] 118 mg/dL 74-106 [facility] Comment on above: Fasting Glucose resu lt from 100 to 125 mg/dL suggests IMPAIRED HOMEOSTASIS per A.D.A. criteria. Potassium [Moles/Vol] 3.5 mmol/L 3.5-5.1 [facility] Protein [Mass/Vol] 6.8 g/dL 6.4-8.2 [facility] Sodium [Moles/Vol] 131 mmol/L 136-145 [facility] Triglyceride [Mass/Vol] 253 mg/dL <199 [facility] Comment on above: The drugs N-Acetylcy steine and Metamizole may falsely depress this assay.Serum Triglycerides Reference Interval Normal <150 mg/dL Borderline high 150 - 199 mg/dL High 200 - 499 mg/dL Very High > or = 500 mg/dL Laboratory - Chemistry and C hemistry - challengeOrdered By: Cyndie Garcia on 05-06-2022 ALP [Catalytic activity/Vol] 98 U/L 45-117 [facility] ALT [Catalytic activity/Vol] 23 U/L 13-56 [facility] CO2 [Moles/Vol] 24.0 mmol/L 21.0-32.0 [facility] Globulin (S) [Mass/Vol] 3.1 g/dL 2.2-4.2 [facility] Urea nitrogen/Creatinine [Mass ratio] 22.8 mg/mg 10-20 [facility] No Panel InformationOrdered By: Cyndie Garcia on 05-06-2022 Estimated GFR (MDRD) Amer 123 mL/min >60 [facility] Comment on above: GFR Calc Estimated GFR (MDRD) Non-Af Amer 102 mL/min >60 [facility] Comment on above: Non- GFR Calc Serum or plasma albumin shagufta urement (mass/volume)Ordered By: Cyndie Garcia on 05-06-2022 Albumin [Mass/Vol] 3.7 g/dL 3.2-5.0 [facility] Serum or plasma albumin/glob ulin mass ratioOrdered By: Cyndie Garcia on 05-06-2022 Albumin/Globulin [Mass ratio] 1.2 {ratio} 0.9-2.4 [facility] Serum or plasma calcium shagufta urement (mass/volume)Ordered By: Cyndie Garcia on 05-06-2022 Calcium [Mass/Vol] 9.2 mg/dL 8.5-10.1 [facility] Serum or plasma cholesterol in HDL measurement (mass/volume)Ordered By: Cyndie Garcia on 05-06-2022 Cholesterol in HDL [Mass/Vol] 50 mg/dL >40 [facility] Comment on above: The drugs N-Acetylcy steine and Metamizole may falsely depress this assay. Reference Range HDL <40 mg/dL Low HDL Cholesterol HDL >or= 60 mg/dL High HDL Cholesterol Serum or plasma cholesterol in VLDL measurement (mass/volume)Ordered By: Cyndie Garcia on 05-06-2022 Cholesterol in VLDL [Mass/Vol] 51 mg/dL 5-40 [facility] Serum or plasma creatinine m easurement (mass/volume)Ordered By: Cyndie Garcia on 05-06-2022 Creatinine [Mass/Vol] 0.61 mg/dL 0.55-1.02 [facility] Comment on above: The validity of the calculated GFR & GFRAA in patients over 70 years has not been determined. Clinical correlation is essential. Serum or plasma low density lipoprotein (LDL) cholesterol measurement (mass/volume)Ordered By: Cyndie Garcia on 05-06-2022 Cholesterol in LDL [Mass/Vol] 83 mg/dL 0-130 [facility] Serum or plasma urea nitroge n measurement (mass/volume)Ordered By: Cyndie Garcia on 05-06-2022 Urea nitrogen [Mass/Vol] 14 mg/dL 7-18 [facility] Thin prep Papanicolaou smear with manual screeningOrdered By: Cyndie Garcia on 05-06-2022 Thin prep Papanicolaou smear with manual screening 11 U/L 15-37 [facility] Thin prep Papanicolaou smear with manual screening 11 5-15 [facility] Whole blood hemoglobin A1c/t otal hemoglobin ratio (mass fraction)Ordered By: Cyndie Garcia on 05-06-2022 HbA1c (Bld) [Mass fraction] 6.7 % 3.8-5.6 [facility] Comment on above: Normal < 5.7 % Predi abetic 5.7 - 6.4 % Diabetic >or= 6.5 % Please note range changes. 36on 05-04-2022 36 Lab orders faxed. Normal [facility] 36 Patient called back, first available appointment for monitor is . Patient wants to speak with Jessica Nelson to ensure this is ok to wait until then as she is still having elevated HR. Normal [facility] Basophil percentageOrdered B y: Dr. Andrea on 05-04-2022 Chloride [Moles/Vol] 98 mmol/L 98-107 [facility] Glucose [Mass/Vol] 268 mg/dL 74-106 [facility] Comment on above: Glucose result great er than or equal to 200 mg/dLsuggests DIABETES MELLITUS per A.D.A. criteria. Potassium [Moles/Vol] 4.3 mmol/L 3.5-5.1 [facility] Sodium [Moles/Vol] 133 mmol/L 136-145 [facility] WBC (Bld) [#/Vol] 11.9 10*3/uL 4.4-11.0 [facility] Blood erythrocytes count (nu mber/volume)Ordered By: Dr. Andrea on 05-04-2022 RBC (Bld) [#/Vol] 4.54 10*6/uL 4.2-5.4 [facility] Blood hemoglobin measurement (mass/volume)Ordered By: Dr. Andrea on 05-04-2022 Hemoglobin (Bld) [Mass/Vol] 12.9 g/dL 12.0-15.0 [facility] Blood platelet mean volumeOr dered By: Dr. Andrea on 05-04-2022 Platelet mean volume (Bld) [Entitic vol] 9.4 fL 6.2-12.0 [facility] Determination of erythrocyte mean corpuscular volume (MCV)Ordered By: Dr. Andrea on 05-04-2022 MCV (RBC) [Entitic vol] 87.9 fL 81-99 [facility] Hematocrit Auto (Bld) [Volum e fraction]Ordered By: Dr. Andrea on 05-04-2022 Hematocrit (Bld) [Volume fraction] 39.9 % 37-47 [facility] Laboratory - Chemistry and C hemistry - challengeOrdered By: Dr. Andrea on 05-04-2022 CO2 [Moles/Vol] 24.0 mmol/L 21.0-32.0 [facility] Urea nitrogen/Creatinine [Mass ratio] 17.3 mg/mg 10-20 [facility] Laboratory - Hematology and Cell countsOrdered By: Dr. Andrea on 05-04-2022 Erythrocyte distribution width (RBC) [Entitic vol] 42.5 fL 35.1-43.9 [facility] Erythrocyte distribution width (RBC) [Ratio] 13.2 % 11.6-14.6 [facility] MCH (RBC) [Entitic mass] 28.4 pg 27.0-32.0 [facility] MCHC Auto (RBC) [Mass/Vol]Or dered By: Dr. Andrea on 05-04-2022 MCHC (RBC) [Mass/Vol] 32.3 g/dL 32-36 [facility] No Panel InformationOrdered By: Dr. Andrea on 05-04-2022 Estimated GFR (MDRD) Amer 82 mL/min >60 [facility] Comment on above: GFR Calc Estimated GFR (MDRD) Non-Af Amer 68 mL/min >60 [facility] Comment on above: Non- GFR Calc Thyroid Stimulating Hormone (TSH) 0.34 uIU/mL 0.358-3.74 [facility] Platelets bldOrdered By: Dr. Andrea on 05-04-2022 Platelets (Bld) [#/Vol] 373 10*3/uL 150-450 [facility] Serum or plasma calcium shagufta urement (mass/volume)Ordered By: Dr. Andrea on 05-04-2022 Calcium [Mass/Vol] 9.7 mg/dL 8.5-10.1 [facility] Serum or plasma creatinine m easurement (mass/volume)Ordered By: Dr. Andrea on 05-04-2022 Creatinine [Mass/Vol] 0.87 mg/dL 0.55-1.02 [facility] Comment on above: The validity of the calculated GFR & GFRAA in patients over 70 years has not been determined. Clinical correlation is essential. Serum or plasma urea nitroge n measurement (mass/volume)Ordered By: Dr. Andrea on 05-04-2022 Urea nitrogen [Mass/Vol] 15 mg/dL 7-18 [facility] Thin prep Papanicolaou smear with manual screeningOrdered By: Dr. Andrea on 05-04-2022 Thin prep Papanicolaou smear with manual screening 11 15 [facility] 36on 05-03-2022 36 I spoke w/ pt, reviewed ECHO VASC TECH recommendation, I provided [facility] Cardiac Testing phone #. Pt verbalizes understanding. [facility] 36 Faxed order to [facility] at [phone] [facility] 36 I spoke w/ pt, complaints of high heart rate, 110-125, started yesterday morning while taking a shower, and lasted until 7 PM last night. Todays' HR 58-62, feels better today. [place] off yesterday, did not over exert herself. Pt currently is on a Medrol dose ortega and Z ortega for an asthma flare up. Pt has not used inhaler for last 2 days because of improvement in wheezing. Alcon Nelson CNP notified to review and advise. [facility] ECG 12-LEADon 04-13-2022 ECG 12-LEAD IMPRESSION: Sinus rhythm Compared to ECG 04/12/2022 23:51:46 Sinus tachycardia no longer present ST (T wave) deviation no longer present Electronically Signed On 04-13-2022 12:46:12 EST by [facility] ECG 12-LEAD IMPRESSION: Sinus tachycardia Nonspecific ST-T wave changes Electronically Signed On 04-13-2022 12:35:40 EST by [facility] Brain Natriuretic Peptideon 04-01-2022 Natriuretic peptide B (Bld) [Mass/Vol] 180 pg/mL High 0 - 125 pg/mL [facility] with Auto Differentialon 04-01-2022 Absolute Baso # 0.0 10*3/uL 0.0 - 0.2 10*3/uL [facility] Absolute Neut # 6.8 10*3/uL 1.8 - 7.0 10*3/uL [facility] Basophils/100 WBC (Bld) 0.5 % 0.0 - 2.0 % [facility] Eosinophils (Bld) [#/Vol] 0.4 10*3/uL 0. 0 - 0.5 10*3/uL [facility] Eosinophils/100 WBC (Bld) 4.0 % 1.0 - 6.0 % [facility] Granulocytes/100 WBC (Bld) 72.3 % 40.0 - 80 .0 % [facility] Hematocrit (Bld) [Volume fraction] 36.8 % 35.0 - 47.0 % [facility] Hemoglobin (Bld) [Mass/Vol] 12.3 g/dL 11.7 - 16.0 g/dL [facility] Interpretation and review of laboratory results Abnormal [facility] Lymphocytes (Bld) [#/Vol] 1.6 10*3/uL 1. 0 - 4.3 10*3/uL [facility] Lymphocytes/100 WBC (Bld) 16.8 % Low 20.0 - 40. 0 % [facility] MCH (RBC) [Entitic mass] 29.2 pg 26. 0 - 34.0 pg [facility] MCHC (RBC) [Mass/Vol] 33.5 % 32.0 - 36.0 % [facility] MCV (RBC) [Entitic vol] 87.2 fL 79.0 - 98.0 fL [facility] Monocytes (Bld) [#/Vol] 0.6 10*3/uL 0.0 - 0.8 10*3/uL [facility] Monocytes/100 WBC (Bld) 6.4 % 2.0 - 10.0 % [facility] Platelet distribution width (Bld) [Ratio] 14.0 % 11.5 - 14.5 % [facility] Platelet mean volume (Bld) [Entitic vol] 7.5 fL 7.4 - 12.4 fL [facility] Comment on above: MPV is a calculated measurement using platelet volume ratio. Platelets (Bld) [#/Vol] 336 10*3/uL 140 - 440 10*3/uL [facility] RBC (Bld) [#/Vol] 4.22 10*6/uL 3.80 - 5.2 0 10*6/uL [facility] WBC (Bld) [#/Vol] 9.4 10*3/uL 3.6 - 10.7 10*3/uL [facility] Test Performed by [id number] [place] [address] LAB [facility] CR Chest PA/LATon 04-01-2022 CR Chest PA/LAT Patient Name: LINDA RAI Diagnostic Radiology ACCESSION EXAM DATE/TIME PROCEDURE ORDERING PROVIDER [id number] 04/01/2022 10:42 EDT CR Chest PA and LAT KERA NELSONDOTTIE CPT code 85244 Reason For Exam (CR Chest PA and LAT) aortic valve stenosis, etiology of cardiac valve disease Report CHEST, PA and LATERAL: INDICATION: Aortic stenosis COMPARISON: No previous studies are available for comparison. PA and lateral views of the chest were obtained. The heart is normal in size. The mediastinal silhouette is normal. The lungs are clear. There are no effusions or infiltrates. There is no pleural thickening. The osseous structures are unremarkable. IMPRESSION: Negative chest. Report Dictated on Final Dictated: 04/01/2022 1:14 pm Dictating Physician: DO KWONG ALFRED Signed Date and Time: 04/01/2022 1:14 pm Signed by: DO KWONG ALFRED Transcribed Date and Time: 04/01/2022 1:14 Normal [facility] CTA Chest/Abdomen/Pelvis w/ + w/o contraon 04-01-2022 CTA Chest/Abdomen/Pelvis w/ + w/o contra [facility]: [id number] ACCESSION EXAM DATE/TIME PROCEDURE ORDERING PROVIDER [id number] 04/01/2022 10:33 EDT CTA Chest/Abdomen/Pelvis MD MCRAE PETER w/ + w/o contra CPT code 40083 [id number] Reason For Exam (CTA Chest/Abdomen/Pelvis w/ + w/o contra) aortic valve stenosis, etiology of cardiac valve disease unspecified tavr protocol Report [facility] Valve [facility] Cardiovascular CTA CLINICAL INDICATION: 71-year-old female with severe aortic stenosis, being evaluated for transcatheter aortic valve implantation. Computed tomography of the heart, thoracoabdominal aorta, and iliofemoral system was performed using a [employer] Aquilion One 320 detector scanner. Images were reconstructed and analyzed on an advanced post-processing 3D workstation. Contrast: 150 mL Isovue-370 Total DLP: 1032 mGy-cm Study Quality: Fair. Images are limited by streak artifact. Extracardiac Findings: No focal consolidation is seen within the lungs. There is no pleural effusion or pneumothorax. No suspicious pulmonary nodules are identified. No lymphadenopathy is seen within the chest. The liver, gallbladder, spleen, pancreas, adrenal glands, and kidneys appear within normal limits. There is no lymphadenopathy within the abdomen or pelvis. The urinary bladder appears grossly normal. The uterus does not appear enlarged. Large and small bowel loops do not appear abnormally dilated or thickened. There is no free fluid or free air within the abdomen or pelvis. No lytic or blastic lesions are seen on the bone windows. Cardiac Chambers: The pericardium is unremarkable. The left and right ventricles are normal in size. The left atrium is moderately dilated. The left atrial appendage is normal in appearance. The right atrium is mildly dilated. Computed Tomography Report Coronary Arteries: The coronaries have normal origins. There is a pattern of right coronary dominance. There is extensive coronary artery calcification. The present study was not optimized for evaluation of the coronary arteries. Mitral Valve: The mitral annulus has mild calcification, without significant extension into the LVOT. The anterior mitral leaflet is free of the LVOT during systole. Aortic Valve: The aortic valve is tricuspid and heavily calcified. Aortic valve area by planimetry at 35% R-R Interval: 1.1 cm2 Predicted deployment angle (3-cusp view): NIUEAN 5, CAU 4 Aortic Annulus: Dimensions: 2.7 x 2.1 cm Area: 4.0 cm2 Perimeter: 74 mm Left coronary height: 15 mm Right coronary height: 14 mm Aorta and Iliofemoral System Note: All vascular measurements are minimal luminal diameters using a centerline technique. Aortic Root and Thoracic Aorta: Sinuses: 3.2 x 3.0 cm Sinotubular junction: 2.6 x 2.4 cm Mid ascending Aorta: 3.4 x 3.2 cm Abdominal Aorta: Infrarenal: 13 mm Bifurcation: 11 mm Right Iliac System: Calcification: Mild. Tortuosity: Mild. RCIA: 9 mm REIA: 7 mm RCFA: 7 mm Left Iliac System: Calcification: Mild. Tortuosity: Mild. LCIA: 9 mm RICARDO: 7 mm LCFA: 7 mm IMPRESSION: Aortic stenosis, with descriptive anatomy and annular / aortic root measurements as detailed above. Iliofemoral system as detailed above. Report Dictated on Final Dictated: 04/02/2022 7:03 pm Dictating Physician: MD RABAGO JONATHAN R Signed Date and Time: 04/02/2022 7:32 pm Signed by: MD RABAGO JONATHAN R Transcribed Date and Time: 04/02/2022 7:20 Normal [facility] Comp Metabolic Panelon 04-01 ALP [Catalytic activity/Vol] 123 U/L Normal 38-126 [facility] Comment on above: Performed By: #### T SGL #### [facility] #### BNP3, CMP3, HEMDF #### [address] [place] [address] [place], [place] ALT [Catalytic activity/Vol] 17 U/L Normal 0-34 [facility] Comment on above: Result Comment: The ALT test is performed by an updated assay method. Please note that the reference intervals have been changed and are now sex specific. Performed By: #### T SGL #### [facility] #### BNP3, CMP3, HEMDF #### [address] AST [Catalytic activity/Vol] 31 U/L Normal 15-46 [facility] Comment on above: Performed By: #### T SGL #### [facility] #### BNP3, CMP3, HEMDF #### [address] Bilirubin [Mass/Vol] 0.4 mg/dL Normal 0.2-1.3 [facility] Comment on above: Performed By: #### T SGL #### [facility] #### BNP3, CMP3, HEMDF #### [address] Urea nitrogen [Mass/Vol] 11 mg/dL Normal 9-20 [facility] Comment on above: Performed By: #### T SGL #### [facility] #### BNP3, CMP3, HEMDF #### [address] Calcium [Mass/Vol] 9.3 mg/dL Normal 8.4-10.4 [facility] Comment on above: Performed By: #### T SGL #### [facility] #### BNP3, CMP3, HEMDF #### [facility] [address] [place], [place] Glucose [Mass/Vol] 108 mg/dL High 70-100 [facility] Comment on above: Performed By: #### T SGL #### [facility] #### BNP3, CMP3, HEMDF #### [facility] [address] [place], [place] Anion gap [Moles/Vol] 5 mmol/L Normal 3-13 [facility] Comment on above: Performed By: #### T SGL #### [facility] #### BNP3, CMP3, HEMDF #### [facility] [address] [place], [place] CO2 [Moles/Vol] 27 mmol/L Normal 22-30 [facility] Comment on above: Performed By: #### T SGL #### [facility] #### BNP3, CMP3, HEMDF #### [facility] [address] [place], [place] Creatinine [Mass/Vol] 0.57 mg/dL Normal 0.52-1.25 [facility] Comment on above: Performed By: #### T SGL #### [facility] #### BNP3, CMP3, HEMDF #### [facility] [address] [place], [place] eGFR OTHER > 90.0 Normal >60 [facility] Comment on above: Result Comment: KDIG O guidelines provide the following GFR categories: Stage GFR(ml/min/1.73 m2) Terms G1 >=90 Normal or high G2 60-89 Mildly decreased* G3a 45-59 Mildly to moderately decreased G3b 30-44 Moderately to severely decreased G4 15-29 Severely decreased G5 <15 Kidney failure *Relative to young adult level. In the absence of evidence of kidney damage, neither GFR category G1 nor G2 fulfill the criteria for CKD. The CKD-EPI equation is validated in individuals 18 years of age and older. Currently the best equation for estimating glomerular filtration rate (GFR) from serum creatinine in children is the Bedside Keenan equation. It is less accurate in patients with extremes of muscle mass, restriction of dietary protein, ingestion of creatine, extra-renal metabolism of creatinine, or treatment with medications that affect renal tubular creatinine secretion. Performed By: #### T SGL #### [facility] #### BNP3, CMP3, HEMDF #### [facility] [address] [place], [place] GFR/1.73 sq M.predicted among blacks MDRD (S/P/Bld) [Vol rate/Area] mL/min/{1.73_m2} Normal >60 [facility] Comment on above: Performed By: #### T SGL #### [facility] #### BNP3, CMP3, HEMDF #### [facility] [address] [place], [place] Protein [Mass/Vol] 6.9 g/dL Normal 6.3-8.2 [facility] Comment on above: Performed By: #### T SGL #### [facility] #### BNP3, CMP3, HEMDF #### [address] [place], [place] Potassium [Moles/Vol] 3.9 mmol/L Normal 3.5-5.1 [facility] Comment on above: Performed By: #### T SGL #### [facility] #### BNP3, CMP3, HEMDF #### [facility] [address] [place], [place] Sodium [Moles/Vol] 126 mmol/L Low 135-145 [facility] Comment on above: Performed By: #### T SGL #### [facility] #### BNP3, CMP3, HEMDF #### [facility] [address] [place], [place] Albumin [Mass/Vol] 4.2 g/dL Normal 3.5-5.0 [facility] Comment on above: Performed By: #### T SGL #### [facility] #### BNP3, CMP3, HEMDF #### [address] [place], [place] Chloride [Moles/Vol] 93 mmol/L Low 98-107 [facility] Comment on above: Performed By: #### T SGL #### [facility] #### BNP3, CMP3, HEMDF #### [facility] [address] [place] [address] Comprehensive Metabolic Pane tristan 04-01-2022 Albumin [Mass/Vol] 4.2 g/dL 3.5 - 5.0 g/dL [facility] ALP (Bld) [Catalytic activity/Vol] 123 U/L 38 - 126 U/L [facility] ALT [Catalytic activity/Vol] 17 U/L 0 - 34 U/L [facility] Comment on above: The ALT test is perf ormed by an updated assay method. Please note that the reference intervals have been changed and are now sex specific. Anion gap [Moles/Vol] 5 mmol/L 3 - 13 mmol/L [facility] AST [Catalytic activity/Vol] 31 U/L 15 - 46 U/L [facility] Bilirubin [Mass/Vol] 0.4 mg/dL 0.2 - 1 .3 mg/dL [facility] Calcium [Mass/Vol] 9.3 mg/dL 8.4 - 10. 4 mg/dL [facility] Chloride [Moles/Vol] 93 mmol/L Low 98 - 10 7 mmol/L [facility] CO2 [Moles/Vol] 27 mmol/L 22 - 30 mmol/L [facility] Creatinine [Mass/Vol] 0.57 mg/dL 0.52 - 1.25 mg/dL [facility] eGFR mL/min 60 - P INF mL/min [facility] EGFR IF NonAfrican Pakistani mL/min 60 - PINF mL/min [facility] Comment on above: KDIGO guidelines pro vide the following GFR categories: Stage GFR(ml/min/1.73 m2) Terms G1 >=90 Normal or high G2 60-89 Mildly decreased* G3a 45-59 Mildly to moderately decreased G3b 30-44 Moderately to severely decreased G4 15-29 Severely decreased G5 <15 Kidney failure *Relative to young adult level. In the absence of evidence of kidney damage, neither GFR category G1 nor G2 fulfill the criteria for CKD. The CKD-EPI equation is validated in individuals 18 years of age and older. Currently the best equation for estimating glomerular filtration rate (GFR) from serum creatinine in children is the Bedside Keenan equation. It is less accurate in patients with extremes of muscle mass, restriction of dietary protein, ingestion of creatine, extra-renal metabolism of creatinine, or treatment with medications that affect renal tubular creatinine secretion. Glucose [Mass/Vol] 108 mg/dL High 70 - 100 mg/dL [facility] Potassium [Moles/Vol] 3.9 mmol/L 3.5 - 5.1 mmol/L [facility] Protein [Mass/Vol] 6.9 g/dL 6.3 - 8.2 g/dL [facility] Sodium [Moles/Vol] 126 mmol/L Low 135 - 145 mmol/L [facility] Urea nitrogen (BldV) [Mass/Vol] 11 mg/dL 9 - 20 mg/dL [facility] Hemogram w/ Autodiffon 04-01 Abs Baso Cnt 0.0 10*3/uL Normal 0.0-0.2 [facility] Comment on above: Performed By: #### T SGL #### [facility] #### BNP3, CMP3, HEMDF #### [address] [address] [place], [place] Abs Neutrophile Cnt 6.8 10*3/uL Normal 1.8-7.0 [facility] Comment on above: Performed By: #### T SGL #### [facility] #### BNP3, CMP3, HEMDF #### [address] [address] [place], [place] Basophils/100 WBC (Bld) 0.5 % Normal 0.0-2.0 [facility] Comment on above: Performed By: #### T SGL #### [facility] #### BNP3, CMP3, HEMDF #### [address] [address] [place], [place] Eosinophils (Bld) [#/Vol] 0.4 10*3/uL Normal 0.0-0.5 [facility] Comment on above: Performed By: #### T SGL #### [facility] #### BNP3, CMP3, HEMDF #### [address] [address] [place], [place] Eosinophils/100 WBC (Bld) 4.0 % Normal 1.0-6.0 [facility] Comment on above: Performed By: #### T SGL #### [facility] #### BNP3, CMP3, HEMDF #### [address] [address] [place], [place] Erythrocyte distribution width (RBC) [Ratio] 14.0 % Normal 11.5-14.5 [facility] Comment on above: Performed By: #### T SGL #### [facility] #### BNP3, CMP3, HEMDF #### [address] [address] [place], [place] Granulocytes/100 WBC (Bld) 72.3 % Normal 40.0-80.0 [facility] Comment on above: Performed By: #### T SGL #### [facility] #### BNP3, CMP3, HEMDF #### [address] [address] [place], [place] Hematocrit (Bld) [Volume fraction] 36.8 % Normal 35.0-47.0 [facility] Comment on above: Performed By: #### T SGL #### [facility] #### BNP3, CMP3, HEMDF #### [address] [address] [place], [place] Hemoglobin (Bld) [Mass/Vol] 12.3 g/dL Normal 11.7-16.0 [facility] Comment on above: Performed By: #### T SGL #### [facility] #### BNP3, CMP3, HEMDF #### [address] Lymphocytes (Bld) [#/Vol] 1.6 10*3/uL Normal 1.0-4.3 [facility] Comment on above: Performed By: #### T SGL #### [facility] #### BNP3, CMP3, HEMDF #### [address] Lymphocytes/100 WBC (Bld) 16.8 % Low 20.0-40.0 [facility] Comment on above: Performed By: #### T SGL #### [facility] #### BNP3, CMP3, HEMDF #### [facility] [address] [place], [place] MCH (RBC) [Entitic mass] 29.2 pg Normal 26.0-34.0 [facility] Comment on above: Performed By: #### T SGL #### [facility] #### BNP3, CMP3, HEMDF #### [facility] [address] [place], [place] MCHC 33.5 % Normal 32.0-36.0 [facility] Comment on above: Performed By: #### T SGL #### [facility] #### BNP3, CMP3, HEMDF #### [address] MCV (RBC) [Entitic vol] 87.2 fL Normal 79.0-98.0 [facility] Comment on above: Performed By: #### T SGL #### [facility] #### BNP3, CMP3, HEMDF #### [address] Monocytes (Bld) [#/Vol] 0.6 10*3/uL Normal 0.0-0.8 [facility] Comment on above: Performed By: #### T SGL #### [facility] #### BNP3, CMP3, HEMDF #### [address] Monocytes/100 WBC (Bld) 6.4 % Normal 2.0-10.0 [facility] Comment on above: Performed By: #### T SGL #### [facility] #### BNP3, CMP3, HEMDF #### [address] Platelet mean volume (Bld) [Entitic vol] 7.5 fL Normal 7.4-12.4 [facility] Comment on above: Result Comment: MPV is a calculated measurement using platelet volume ratio. Performed By: #### T SGL #### [facility] #### BNP3, CMP3, HEMDF #### [address] [place], [place] Platelets (Bld) [#/Vol] 336 10*3/uL Normal 140-440 [facility] Comment on above: Performed By: #### T SGL #### [facility] #### BNP3, CMP3, HEMDF #### [address] [address] [place], [place] RBC (Bld) [#/Vol] 4.22 10*6/uL Normal 3.80-5.20 [facility] Comment on above: Performed By: #### T SGL #### [facility] #### BNP3, CMP3, HEMDF #### [address] WBC (Bld) [#/Vol] 9.4 10*3/uL Normal 3.6-10.7 [facility] Comment on above: Performed By: #### T SGL #### [facility] #### BNP3, CMP3, HEMDF #### [address] [address] [place], [place] NT pro BNPon 04-01-2022 Natriuretic peptide B (Bld) [Mass/Vol] 180 pg/mL High 0-125 [facility] Comment on above: Performed By: #### T SGL #### [facility] #### BNP3, CMP3, HEMDF #### [address] [place], [place] No Panel Informationon 04-01 Interpretation and review of laboratory results Abnormal [facility] Test Performed by [facility], [address] [place] [address] LAB [facility] TS GELon 04-01-2022 TS GEL ABO Group: B Rh, Gel: POS Antibody Screen Gel: NEG Normal [facility] Comment on above: Performed By: #### T SGL #### [facility] #### BNP3, CMP3, HEMDF #### [address] [address] TYPE AND SCREENon 04-01-2022 ABO Grouping B [facility] Rh Type Positive [facility] Test Performed by [address] [address] [facility] XR CHEST (2 VW)on 04-01-2022 Patient Name: LINDA RAI Diagnostic Radiology ACCESSION EXAM DATE/TIME PROCEDURE ORDERING PROVIDER [id number] 04/01/2022 10:42 EDT CR Chest PA & LAT KERA NELSON MEGGAN CPT code 30312 Reason For Exam (CR Chest PA & LAT) aortic valve stenosis, etiology of cardiac valve disease Report CHEST, PA & LATERAL: INDICATION: Aortic stenosis COMPARISON: No previous studies are available for comparison. PA and lateral views of the chest were obtained. The heart is normal in size. The mediastinal silhouette is normal. The lungs are clear. There are no effusions or infiltrates. There is no pleural thickening. The osseous structures are unremarkable. IMPRESSION: Negative chest. Report Dictated on --- Final --- Dictated: 04/01/2022 1:14 pm Dictating Physician: DO KWONG ALFRED Signed Date and Time: 04/01/2022 1:14 pm Signed by: DO KWONG ALFRED Transcribed Date and Time: 04/01/2022 1:14 [facility] Kwong DO - 04/01/2022 Patient Name: LINDA RAI Diagnostic Radiology ACCESSION EXAM DATE/TIME PROCEDURE ORDERING PROVIDER [id number] 04/01/2022 10:42 EDT CR Chest PA & LAT KERA NELSON MEGGAN CPT code 66660 Reason For Exam (CR Chest PA & LAT) aortic valve stenosis, etiology of cardiac valve disease Report CHEST, PA & LATERAL: INDICATION: Aortic stenosis COMPARISON: No previous studies are available for comparison. PA and lateral views of the chest were obtained. The heart is normal in size. The mediastinal silhouette is normal. The lungs are clear. There are no effusions or infiltrates. There is no pleural thickening. The osseous structures are unremarkable. IMPRESSION: Negative chest. Report Dictated on --- Final --- Dictated: 04/01/2022 1:14 pm Dictating Physician: DO KWONG ALFRED Signed Date and Time: 04/01/2022 1:14 pm Signed by: DO KWONG ALFRED Transcribed Date and Time: 04/01/2022 1:14 [facility] Work Phone: Radiology Study observation (narrative) [facility] Work Phone: XR CHEST (2 VW)Ordered By: Rush Kwong on 04-01-2022 [facility] Work Phone: Basophil percentageon 2021 Chloride [Moles/Vol] 98 mmol/L 98-107 [facility] Glucose [Mass/Vol] 130 mg/dL 74-106 [facility] Comment on above: Fasting Glucose resu lt greater than or equal to 126 mg/dL suggests DIABETES MELLITUS per A.D.A. criteria. Potassium [Moles/Vol] 4.0 mmol/L 3.5-5.1 [facility] Sodium [Moles/Vol] 132 mmol/L 136-145 [facility] - Chemistry and C hemistry - challengeon 03-29-2022 CO2 [Moles/Vol] 28.0 mmol/L 21.0-32.0 [facility] Urea nitrogen/Creatinine [Mass ratio] 18.8 mg/mg 03-25 [facility] No Panel Informationon 03-29 Estimated GFR (MDRD) Amer 144 mL/min >60 [facility] Comment on above: GFR Calc Estimated GFR (MDRD) Non-Af Amer 119 mL/min >60 [facility] Comment on above: Non- GFR Calc Serum or plasma calcium shagufta urement (mass/volume)on 03-29-2022 Calcium [Mass/Vol] 9.4 mg/dL 8.5-10.1 [facility] Serum or plasma creatinine m easurement (mass/volume)on 03-29-2022 Creatinine [Mass/Vol] 0.53 mg/dL 0.55-1.02 [facility] Comment on above: The validity of the calculated GFR & GFRAA in patients over 70 years has not been determined. Clinical correlation is essential. Serum or plasma urea nitroge n measurement (mass/volume)on 03-29-2022 Urea nitrogen [Mass/Vol] 10 mg/dL 7-18 [facility] Thin prep Papanicolaou smear with manual screeningon 03-29-2022 Thin prep Papanicolaou smear with manual screening 6 5-15 [facility] Absolute lymphocyte counton 02-25-2022 Lymphocytes Auto (Unsp spec) [#/Vol] 1.98 10*3/uL 0.83-4.51 [facility] Work Phone: Basophil percentageon 2021 Basophils/100 WBC (Bld) 0.4 % 0-1 [facility] Work Phone: Chloride [Moles/Vol] 97 mmol/L 98-107 [facility] Work Phone: Eosinophils/100 WBC (Bld) 2.9 % 0-5 [facility] Work Phone: Glucose [Mass/Vol] 169 mg/dL 74-106 [facility] Work Phone: Comment on above: Fasting Glucose resu lt greater than or equal to 126 mg/dL suggests DIABETES MELLITUS per A.D.A. criteria. Neutrophils (Bld) [#/Vol] 6.0 10*3/uL 2.0-7.7 [facility] Work Phone: Neutrophils/100 WBC (Bld) 67.5 % 47-70 [facility] Work Phone: Potassium [Moles/Vol] 3.7 mmol/L 3.5-5.1 [facility] Work Phone: Sodium [Moles/Vol] 131 mmol/L 136-145 [facility] Work Phone: WBC (Bld) [#/Vol] 8.9 10*3/uL 4.4-11.0 [facility] Work Phone: Blood erythrocytes count (nu mber/volume)on 02-25-2022 RBC (Bld) [#/Vol] 4.36 10*6/uL 4.2-5.4 [facility] Work Phone: Blood hemoglobin measurement (mass/volume)on 02-25-2022 Hemoglobin (Bld) [Mass/Vol] 12.5 g/dL 12.0-15.0 [facility] Work Phone: Blood lymphocytes/100 leukoc yteson 02-25-2022 Lymphocytes/100 WBC (Bld) 22.2 % 19-41 [facility] Work Phone: Blood monocytes/100 leukocyt eson 02-25-2022 Monocytes/100 WBC (Bld) 6.6 % 0-10 [facility] Work Phone: Blood platelet mean volumeon 02-25-2022 Platelet mean volume (Bld) [Entitic vol] 9.4 fL 6.2-12.0 [facility] Work Phone: Determination of erythrocyte mean corpuscular volume (MCV)on 02-25-2022 MCV (RBC) [Entitic vol] 85.6 fL 81-99 [facility] Work Phone: Hematocrit Auto (Bld) [Volum e fraction]on 02-25-2022 Hematocrit (Bld) [Volume fraction] 37.3 % 37-47 [facility] Work Phone: Laboratory - Chemistry and C hemistry - challengeon 02-25-2022 CO2 [Moles/Vol] 25.0 mmol/L 21.0-32.0 [facility] Work Phone: Urea nitrogen/Creatinine [Mass ratio] 14.5 mg/mg 10-20 [facility] Work Phone: Laboratory - Hematology and Cell countson 02-25-2022 Erythrocyte distribution width (RBC) [Entitic vol] 42.3 fL 35.1-43.9 [facility] Work Phone: Erythrocyte distribution width (RBC) [Ratio] 13.5 % 11.6-14.6 [facility] Work Phone: Immature granulocytes/100 WBC (Bld) 0.400 % 0.0-0.9 [facility] Work Phone: Comment on above: IG% - Immature Granu locytes (promyelocytes, myelocytes and metamyelocytes) > 1% indicates that a LEFT SHIFT is Present. MCH (RBC) [Entitic mass] 28.7 pg 27.0-32.0 [facility] Work Phone: Nucleated RBC/100 WBC (Bld) [Ratio] 0 % 0-5 [facility] Work Phone: MCHC Auto (RBC) [Mass/Vol]on 02-25-2022 MCHC (RBC) [Mass/Vol] 33.5 g/dL 32-36 [facility] Work Phone: No Panel Informationon 02-25 Estimated GFR (MDRD) Amer 121 mL/min >60 [facility] Work Phone: Comment on above: GFR Calc Estimated GFR (MDRD) Non-Af Amer 100 mL/min >60 [facility] Work Phone: Comment on above: Non- GFR Calc Platelets bldon 02-25-2022 Platelets (Bld) [#/Vol] 330 10*3/uL 150-450 [facility] Work Phone: Serum or plasma calcium shagufta urement (mass/volume)on 02-25-2022 Calcium [Mass/Vol] 9.5 mg/dL 8.5-10.1 [facility] Work Phone: Serum or plasma creatinine m easurement (mass/volume)on 02-25-2022 Creatinine [Mass/Vol] 0.62 mg/dL 0.55-1.02 [facility] Work Phone: Comment on above: The validity of the calculated GFR & GFRAA in patients over 70 years has not been determined. Clinical correlation is essential. Serum or plasma urea nitroge n measurement (mass/volume)on 02-25-2022 Urea nitrogen [Mass/Vol] 9 mg/dL 7-18 [facility] Work Phone: Thin prep Papanicolaou smear with manual screeningon 02-25-2022 Thin prep Papanicolaou smear with manual screening 9 5-15 [facility] Work Phone: Absolute lymphocyte counton 01-06-2022 Lymphocytes Auto (Unsp spec) [#/Vol] 2.26 10*3/uL 0.83-4.51 [facility] Work Phone: Basophil percentageon 2021 Basophils/100 WBC (Bld) 0.2 % 0-1 [facility] Work Phone: [phone] Bilirubin [Mass/Vol] 0.40 mg/dL 0.20-1.00 [facility] Work Phone: Comment on above: For patients on eltr ombopag therapy, use of Dimension [place] TBIL is not recommended. Chloride [Moles/Vol] 99 mmol/L 98-107 [facility] Work Phone: Cholesterol [Mass/Vol] 164 mg/dL <200 [facility] Work Phone: Comment on above: <200 mg/dL Desirable 200-240 mg/dL Borderline >240 mg/dL High Risk Eosinophils/100 WBC (Bld) 5.9 % 0-5 [facility] Work Phone: Glucose [Mass/Vol] 85 mg/dL 74-106 [facility] Work Phone: Neutrophils (Bld) [#/Vol] 4.5 10*3/uL 2.0-7.7 [facility] Work Phone: Neutrophils/100 WBC (Bld) 55.6 % 47-70 [facility] Work Phone: Potassium [Moles/Vol] 3.7 mmol/L 3.5-5.1 [facility] Work Phone: Protein [Mass/Vol] 6.8 g/dL 6.4-8.2 [facility] Work Phone: Sodium [Moles/Vol] 131 mmol/L 136-145 [facility] Work Phone: Triglyceride [Mass/Vol] 164 mg/dL <199 [facility] Work Phone: Comment on above: The drugs N-Acetylcy steine and Metamizole may falsely depress this assay.Serum Triglycerides Reference Interval Normal <150 mg/dL Borderline high 150 - 199 mg/dL High 200 - 499 mg/dL Very High > or = 500 mg/dL WBC (Bld) [#/Vol] 8.1 10*3/uL 4.4-11.0 [facility] Work Phone: Blood erythrocytes count (nu mber/volume)on 01-06-2022 RBC (Bld) [#/Vol] 4.44 10*6/uL 4.2-5.4 [facility] Work Phone: Blood hemoglobin measurement (mass/volume)on 01-06-2022 Hemoglobin (Bld) [Mass/Vol] 13.0 g/dL 12.0-15.0 [facility] Work Phone: Blood lymphocytes/100 leukoc yteson 01-06-2022 Lymphocytes/100 WBC (Bld) 28.0 % 19-41 [facility] Work Phone: Blood monocytes/100 leukocyt eson 01-06-2022 Monocytes/100 WBC (Bld) 9.9 % 0-10 [facility] Work Phone: Blood platelet mean volumeon 01-06-2022 Platelet mean volume (Bld) [Entitic vol] 9.6 fL 6.2-12.0 [facility] Work Phone: Determination of erythrocyte mean corpuscular volume (MCV)on 01-06-2022 MCV (RBC) [Entitic vol] 86.7 fL 81-99 [facility] Work Phone: Hematocrit Auto (Bld) [Volum e fraction]on 01-06-2022 Hematocrit (Bld) [Volume fraction] 38.5 % 37-47 [facility] Work Phone: Laboratory - Chemistry and C hemistry - challengeon 01-06-2022 ALP [Catalytic activity/Vol] 113 U/L 45-117 [facility] Work Phone: ALT [Catalytic activity/Vol] 24 U/L 13-56 [facility] Work Phone: CO2 [Moles/Vol] 25.0 mmol/L 21.0-32.0 [facility] Work Phone: Globulin (S) [Mass/Vol] 3.2 g/dL 2.2-4.2 [facility] Work Phone: Urea nitrogen/Creatinine [Mass ratio] 17.6 mg/mg 10-20 [facility] Work Phone: Laboratory - Hematology and Cell countson 01-06-2022 Erythrocyte distribution width (RBC) [Entitic vol] 39.8 fL 35.1-43.9 [facility] Work Phone: Erythrocyte distribution width (RBC) [Ratio] 12.5 % 11.6-14.6 [facility] Work Phone: Immature granulocytes/100 WBC (Bld) 0.400 % 0.0-0.9 [facility] Work Phone: Comment on above: IG% - Immature Granu locytes (promyelocytes, myelocytes and metamyelocytes) > 1% indicates that a LEFT SHIFT is Present. MCH (RBC) [Entitic mass] 29.3 pg 27.0-32.0 [facility] Work Phone: Nucleated RBC/100 WBC (Bld) [Ratio] 0 % 0-5 [facility] Work Phone: MCHC Auto (RBC) [Mass/Vol]on 01-06-2022 MCHC (RBC) [Mass/Vol] 33.8 g/dL 32-36 [facility] Work Phone: No Panel Informationon 01-06 Estimated GFR (MDRD) Amer 135 mL/min >60 [facility] Work Phone: Comment on above: GFR Calc Estimated GFR (MDRD) Non-Af Amer 111 mL/min >60 [facility] Work Phone: Comment on above: Non- GFR Calc Urine Microalbumin/Creatinine Ratio 56.0 mg/g CRE <30 [facility] Work Phone: Platelets bldon 01-06-2022 Platelets (Bld) [#/Vol] 306 10*3/uL 150-450 [facility] Work Phone: Serum or plasma albumin shagufta urement (mass/volume)on 01-06-2022 Albumin [Mass/Vol] 3.6 g/dL 3.2-5.0 [facility] Work Phone: Serum or plasma albumin/glob ulin mass ratioon 01-06-2022 Albumin/Globulin [Mass ratio] 1.1 {ratio} 0.9-2.4 [facility] Work Phone: Serum or plasma calcium shagufta urement (mass/volume)on 01-06-2022 Calcium [Mass/Vol] 9.3 mg/dL 8.5-10.1 [facility] Work Phone: Serum or plasma cholesterol in HDL measurement (mass/volume)on 01-06-2022 Cholesterol in HDL [Mass/Vol] 49 mg/dL >40 [facility] [facility] Work Phone: Comment on above: The drugs N-Acetylcy steine and Metamizole may falsely depress this assay. Reference Range HDL <40 mg/dL Low HDL Cholesterol HDL >or= 60 mg/dL High HDL Cholesterol Serum or plasma cholesterol in VLDL measurement (mass/volume)on 01-06-2022 Cholesterol in VLDL [Mass/Vol] 33 mg/dL 5-40 [facility] Work Phone: Serum or plasma creatinine m easurement (mass/volume)on 01-06-2022 Creatinine [Mass/Vol] 0.57 mg/dL 0.55-1.02 [facility] Work Phone: Comment on above: The validity of the calculated GFR & GFRAA in patients over 70 years has not been determined. Clinical correlation is essential. Serum or plasma low density lipoprotein (LDL) cholesterol measurement (mass/volume)on 01-06-2022 Cholesterol in LDL [Mass/Vol] 82 mg/dL 0-130 [facility] Work Phone: Serum or plasma urea nitroge n measurement (mass/volume)on 01-06-2022 Urea nitrogen [Mass/Vol] 10 mg/dL 7-18 [facility] Work Phone: Thin prep Papanicolaou smear with manual screeningon 01-06-2022 Thin prep Papanicolaou smear with manual screening 20 U/L 15-37 [facility] Work Phone: Thin prep Papanicolaou smear with manual screening 7 5-15 [facility] Work Phone: Thin prep Papanicolaou smear with manual screening 53.5 mg/L NO RANGE EST. [facility] Work Phone: Urine creatinine measurement (mass/volume)on 01-06-2022 Creatinine (U) [Mass/Vol] 95.60 mg/dL NO RANGE EST. [facility] Work Phone: Whole blood hemoglobin A1c/t otal hemoglobin ratio (mass fraction)on 01-06-2022 HbA1c (Bld) [Mass fraction] 6.8 % 3.8-5.6 [facility] Work Phone: Comment on above: Normal < 5.7 % Predi abetic 5.7 - 6.4 % Diabetic >or= 6.5 % Please note range changes. COVID PCR, SCREENING CONGREG ATEon 11-28-2019 CORONAVIRUS 2019,PCR NOT DETECTED Normal Not Detected [facility] Comment on above: Result Comment: This assay is designed to detect the N, ORF1ab and/or S genes of SARS-CoV-2 via nucleic acid amplification. A Negative (NOT DETECTED) result does not preclude 2019-nCoV infection since the adequacy of sample collection and/or low viral burden may result in presence of viral nucleic acids below the clinical sensitivity of this test method. Negative (NOT DETECTED) result should not be used as the sole basis for treatment or other patient management decisions. Rather negative results should be combined with clinical observations, patient history, and epidemiological information to make patient management decisions. Fact sheet for providers: https://www.fda.gov/media/111899/download Fact sheet for patients: https://www.fda.gov/media/579172/download This test has received FDA Emergency Use Authorization (EUA) and has been verified by [facility]). This test is only authorized for the duration of time that circumstances exist to justify the authorization of the emergency use of in vitro diagnostic tests for the detection of SARS-CoV-2 virus and/or diagnosis of COVID-19 infection under section 564(b)(1) of the Act, 21 U.S.C. 360bbb-3(b)(1), unless the authorization is terminated or revoked sooner. [facility]) is certified under CLIA-88 as qualified to perform high complexity testing. This tests analytical performance characteristics have been determined by [facility]. Testing is performed at [facility] is located at [address] [place] [address] (CLIA License #[id number], CAP #[id number]). Performed By: #### C VCLA #### [facility] [address] [place] [address] COVID PCR, SCREENING CONGREG ATEon 11-27-2019 Lab Specimen Source Nasal, Nasopharyngeal Normal [facility] Comment on above: Performed By: #### C VCLA #### [facility] [address] [place] [address] Vital Signs Date Time Vital Sign Value Performing Clinician Danilo parnell 01-30-2025 08:33-0400 Body height 157.[address] Jorge L Hidalgo MD Work Phone: [facility] 01-30-2025 08:33-0400 Body mass index (BMI) [Ratio] 37.3 kg/m2 Dr. Jorge L Hidalgo MD Work Phone: [facility] 01-30-2025 08:33-0400 Body weight 92.[address] Jorge L Hidalgo MD Work Phone: [facility] 01-30-2025 08:33-0400 Diastolic blood pressure 78 mm[Hg] Dr. Jorge L Hidalgo MD Work Phone: 8(629)640-098565 [place] [address] 01-30-2025 08:33-0400 Heart rate 61 /min Dr. Jorge L Hidalgo MD Work Phone: [facility] 01-30-2025 08:33-0400 Respiratory rate 16 /min Dr. Jorge L Hidalgo MD Work Phone: 1(547)989-097065 [place] [address] 01-30-2025 08:33-0400 Systolic blood pressure 136 mm[Hg] Dr. Jorge L Hidalgo MD Work Phone: 8(031)903-999181 [place] [address] 10-05-2024 07:53-0400 Body mass index (BMI) [Ratio] 36.9 kg/m2 Dr. Jorge L Hidalgo MD Work Phone: 5(438)213-338081 [place] [address] 10-05-2024 07:53-0400 Body temperature 97.2 [degF] Dr. Jorge L Hidalgo MD Work Phone: 5(878)167-369381 [place] [address] 10-05-2024 07:53-0400 Body weight 91.[address] Jorge L Hidalgo MD Work Phone: 4(935)690-469981 [place] [address] 10-05-2024 07:53-0400 Diastolic blood pressure 67 mm[Hg] Dr. Jorge L Hidalgo MD Work Phone: 7(542)987-751462 [address] 10-05-2024 07:53-0400 Heart rate 59 /min Dr. Jorge L Hidalgo MD Work Phone: 5(882)594-802065 [place] [address] 10-05-2024 07:53-0400 Respiratory rate 18 /min Dr. Jorge L Hidalgo MD Work Phone: 9(865)751-659362 [address] 10-05-2024 07:53-0400 SaO2% (BldA) [Mass fraction] 97 % Dr. Jorge L Hidalgo MD Work Phone: 5(003)585-450362 [address] 10-05-2024 07:53-0400 Systolic blood pressure 141 mm[Hg] Dr. Jorge L Hidalgo MD Work Phone: 4(635)737-341781 [place] [address] 08-02-2024 09:34-0500 Body height 157.[address] Jorge L Hidalgo MD Work Phone: [facility] 08-02-2024 09:34-0500 Body mass index (BMI) [Ratio] 38.2 kg/m2 Dr. Jorge L Hidalgo MD Work Phone: [facility] 08-02-2024 09:34-0500 Body weight 94.[address] Jorge L Hidalgo MD Work Phone: 1(858)652-958965 [place] [address] 08-02-2024 09:34-0500 Diastolic blood pressure 81 mm[Hg] Dr. Jorge L Hidalgo MD Work Phone: 2(310)160-380981 [place] [address] 08-02-2024 09:34-0500 Heart rate 64 /min Dr. Jorge L Hidalgo MD Work Phone: 7(935)153-665281 [place] [address] 08-02-2024 09:34-0500 Respiratory rate 18 /min Dr. Jorge L Hidalgo MD Work Phone: 8(244)573-000081 [place] [address] 08-02-2024 09:34-0500 Systolic blood pressure 139 mm[Hg] Dr. Jorge L Hidalgo MD Work Phone: 5(249)949-305181 [place] [address] 06-08-2024 08:16-0500 Body mass index (BMI) [Ratio] 38 kg/m2 Dr. Jorge L Hidalgo MD Work Phone: 4(207)056-060081 [place] [address] 06-08-2024 08:16-0500 Body temperature 96.9 [degF] Dr. Jorge L Hidalgo MD Work Phone: 6(333)754-674065 [place] [address] 06-08-2024 08:16-0500 Body weight 94.[address] Jorge L Hidalgo MD Work Phone: 1(527)933-670265 [place] [address] 06-08-2024 08:16-0500 Diastolic blood pressure 77 mm[Hg] Dr. Jorge L Hidalgo MD Work Phone: 9(015)454-548462 [address] 06-08-2024 08:16-0500 Heart rate 94 /min Dr. Jorge L Hidalgo MD Work Phone: 0(695)540-159765 [place] [address] 06-08-2024 08:16-0500 Respiratory rate 20 /min Dr. Jorge L Hidalgo MD Work Phone: [facility] 06-08-2024 08:16-0500 SaO2% (BldA) [Mass fraction] 94 % Dr. Jorge L Hidalgo MD Work Phone: [facility] 06-08-2024 08:16-0500 Systolic blood pressure 146 mm[Hg] Dr. Jorge L Hidalgo MD Work Phone: 9(797)467-712065 [place] [address] 08-30-2023 11:15-0400 Body temperature 98 [degF] Dr. Jorge L Hidalgo Work Phone: 5(758)978-300265 [place] [address] 08-30-2023 11:15-0400 Body weight 96.[address] Jorge L Hidalgo Work Phone: 5(651)278-742065 [place] [address] 08-30-2023 11:15-0400 Diastolic blood pressure 68 mm[Hg] Dr. Jorge L Hidalgo Work Phone: 3(071)648-967862 [address] 08-30-2023 11:15-0400 Heart rate 68 /min Dr. Jorge L Hidalgo Work Phone: [facility] 08-30-2023 11:15-0400 Respiratory rate 14 /min Dr. Jorge L Hidalgo Work Phone: [facility] 08-30-2023 11:15-0400 SaO2% (BldA) [Mass fraction] 98 % Dr. Jorge L Hidalgo Work Phone: [facility] 08-30-2023 11:15-0400 Systolic blood pressure 130 mm[Hg] Dr. Jorge L Hidaglo Work Phone: [facility] 08-04-2023 10:00-0500 Body height 157.[address] Jorge L Hidalgo Work Phone: 7(413)574-579765 [place] [address] 08-04-2023 10:00-0500 Body mass index (BMI) [Ratio] 38.2 kg/m2 Dr. Jorge L Hidalgo Work Phone: 6(889)932-199765 [place] [address] 08-04-2023 10:00-0500 Body weight 94.[address] Jorge L Hidalgo Work Phone: 7(563)234-828865 [place] [address] 08-04-2023 10:00-0500 Diastolic blood pressure 56 mm[Hg] Dr. Jorge L Hidalgo Work Phone: [facility] 08-04-2023 10:00-0500 Heart rate 59 /min Dr. Jorge L Hidalgo Work Phone: [facility] 08-04-2023 10:00-0500 Respiratory rate 16 /min Dr. Jorge L Hidalgo Work Phone: [facility] 08-04-2023 10:00-0500 Systolic blood pressure 119 mm[Hg] Dr. Jorge L Hidalgo Work Phone: [facility] 07-22-2023 08:20-0500 Body height 157.[address] Jorge L Hidalgo Work Phone: [facility] 07-22-2023 08:20-0500 Body mass index (BMI) [Ratio] 37.5 kg/m2 Dr. Jorge L Hidalgo Work Phone: [facility] 07-22-2023 08:20-0500 Body temperature 98 [degF] Dr. Jorge L Hidalgo Work Phone: [facility] 07-22-2023 08:20-0500 Body weight 93.[address] Jorge L Hidalgo Work Phone: [facility] 07-22-2023 08:20-0500 Diastolic blood pressure 75 mm[Hg] Dr. Jorge L Hidalgo Work Phone: [facility] 07-22-2023 08:20-0500 Heart rate 61 /min Dr. Jorge L Hidalgo Work Phone: [facility] 07-22-2023 08:20-0500 Respiratory rate 18 /min Dr. Jorge L Hidalgo Work Phone: [facility] 07-22-2023 08:20-0500 SaO2% (BldA) [Mass fraction] 96 % Dr. Jorge L Hidalgo Work Phone: [facility] 07-22-2023 08:20-0500 Systolic blood pressure 131 mm[Hg] Dr. Jorge L Hidalgo Work Phone: [facility] 03-10-2023 15:28-0400 Body height 157.[address] Jorge L Hidalgo Work Phone: [facility] 03-10-2023 15:28-0400 Body mass index (BMI) [Ratio] 37.3 kg/m2 Dr. Jorge L Hidalgo Work Phone: [facility] 03-10-2023 15:28-0400 Body weight 92.[address] Jorge L Hidalgo Work Phone: [facility] 03-10-2023 15:28-0400 Diastolic blood pressure 66 mm[Hg] Dr. Jorge L Hidalgo Work Phone: [facility] 03-10-2023 15:28-0400 Heart rate 66 /min Dr. Jorge L Hidalgo Work Phone: [facility] 03-10-2023 15:28-0400 Respiratory rate 18 /min Dr. Jorge L Hidalgo Work Phone: [facility] 03-10-2023 15:28-0400 Systolic blood pressure 130 mm[Hg] Dr. Jorge L Hidalgo Work Phone: [facility] 02-08-2023 05:53-0400 Body mass index (BMI) [Ratio] 36.6 kg/m2 Dr. Jorge L Hidalgo Work Phone: [facility] 02-08-2023 05:53-0400 Body temperature 97.5 [degF] Dr. Jorge L Hidalgo Work Phone: [facility] 02-08-2023 05:53-0400 Body weight 90.[address] Jorge L Hidalgo Work Phone: [facility] 02-08-2023 05:53-0400 Diastolic blood pressure 66 mm[Hg] Dr. Jorge L Hidalgo Work Phone: [facility] 02-08-2023 05:53-0400 Heart rate 67 /min Dr. Jorge L Hidalgo Work Phone: [facility] 02-08-2023 05:53-0400 Respiratory rate 20 /min Dr. Jorge L Hidalgo Work Phone: [facility] 02-08-2023 05:53-0400 SaO2% (BldA) [Mass fraction] 97 % Dr. Jorge L Hidalgo Work Phone: [facility] 02-08-2023 05:53-0400 Systolic blood pressure 137 mm[Hg] Dr. Jorge L Hidalgo Work Phone: [facility] 11-25-2022 08:59-0400 Body height 157.[address] Jorge L Hidalgo Work Phone: [facility] 11-25-2022 08:59-0400 Body mass index (BMI) [Ratio] 37.3 kg/m2 Dr. Jorge L Hidalgo Work Phone: [facility] 11-25-2022 08:59-0400 Body temperature 97.6 [degF] Dr. Jorge L Hidalgo Work Phone: [facility] 11-25-2022 08:59-0400 Body weight 92.[address] Jorge L Hidalgo Work Phone: [facility] 11-25-2022 08:59-0400 Diastolic blood pressure 59 mm[Hg] Dr. Jorge L Hidalgo Work Phone: [facility] 11-25-2022 08:59-0400 Heart rate 75 /min Dr. Jorge L Hidalgo Work Phone: [facility] 11-25-2022 08:59-0400 Respiratory rate 20 /min Dr. Jorge L Hidalgo Work Phone: [facility] 11-25-2022 08:59-0400 SaO2% (BldA) [Mass fraction] 97 % Dr. Jorge L Hidalgo Work Phone: [facility] 11-25-2022 08:59-0400 Systolic blood pressure 126 mm[Hg] Dr. Jorge L Hidalgo Work Phone: [facility] 10-07-2022 14:59-0400 Body weight 93.[address] Jorge L Hidalgo Work Phone: [facility] 10-07-2022 14:59-0400 Diastolic blood pressure 69 mm[Hg] Dr. Jorge L Hidalgo Work Phone: [facility] 10-07-2022 14:59-0400 Heart rate 59 /min Dr. Jorge L Hidalgo Work Phone: [facility] 10-07-2022 14:59-0400 Respiratory rate 18 /min Dr. Jorge L Hidalgo Work Phone: [facility] 10-07-2022 14:59-0400 SaO2% (BldA) [Mass fraction] 98 % Dr. Jorge L Hidalgo Work Phone: [facility] 10-07-2022 14:59-0400 Systolic blood pressure 139 mm[Hg] Dr. Jorge L Hidalgo Work Phone: [facility] 10-07-2022 09:04-0400 Body height 157.[address] Jorge L Hidalgo Work Phone: [facility] 10-07-2022 09:04-0400 Body mass index (BMI) [Ratio] 37.3 kg/m2 Dr. Jorge L Hidalgo Work Phone: [facility] 10-07-2022 09:04-0400 Body weight 92.[address] Jorge L Hidalgo Work Phone: [facility] 10-07-2022 09:04-0400 Diastolic blood pressure 81 mm[Hg] Dr. Jorge L Hidalgo Work Phone: [facility] 10-07-2022 09:04-0400 Heart rate 58 /min Dr. Jorge L Hidalgo Work Phone: [facility] 10-07-2022 09:04-0400 Respiratory rate 18 /min Dr. Jorge L Hidalgo Work Phone: [facility] 10-07-2022 09:04-0400 Systolic blood pressure 135 mm[Hg] Dr. Jorge L Hidalgo Work Phone: [facility] 10-04-2022 00:38-0400 Body weight 92.[address] Jorge L Hidalgo Work Phone: [facility] 09-08-2022 08:40-0400 Body height 157.[address] Jorge L Hidalgo Work Phone: [facility] 09-08-2022 08:40-0400 Body weight 92.[address] Jorge L Hidalgo Work Phone: [facility] 08-24-2022 07:43-0400 Body height 157.[address] Jorge L Hidalgo Work Phone: 1(550)964-551265 [place] [address] 08-24-2022 07:43-0400 Body mass index (BMI) [Ratio] 36.6 kg/m2 Dr. Jorge L Hidalgo Work Phone: [facility] 08-24-2022 07:43-0400 Body temperature 97.3 [degF] Dr. Jorge L Hidalgo Work Phone: [facility] 08-24-2022 07:43-0400 Body weight 90.[address] Jorge L Hidalgo Work Phone: [facility] 08-24-2022 07:43-0400 Diastolic blood pressure 72 mm[Hg] Dr. Jorge L Hidalgo Work Phone: [facility] 08-24-2022 07:43-0400 Heart rate 66 /min Dr. Jorge L Hidalgo Work Phone: [facility] 08-24-2022 07:43-0400 Respiratory rate 17 /min Dr. Jorge L Hidalgo Work Phone: [facility] 08-24-2022 07:43-0400 SaO2% (BldA) [Mass fraction] 97 % Dr. Jorge L Hidalgo Work Phone: [facility] 08-24-2022 07:43-0400 Systolic blood pressure 151 mm[Hg] Dr. Jorge L Hidalgo Work Phone: [facility] 08-11-2022 08:30-0500 Body weight 93.[address] Jorge L Hidalgo Work Phone: [facility] 07-12-2022 10:09-0500 Body height 157.[address] Jorge L Hidalgo Work Phone: [facility] 07-12-2022 10:09-0500 Body weight 92.[address] Jorge L Hidalgo Work Phone: [facility] 07-12-2022 10:00-0500 Body mass index (BMI) [Ratio] 37.5 kg/m2 Dr. Jorge L Hidalgo Work Phone: [facility] 07-12-2022 10:00-0500 Body temperature 98.6 [degF] Dr. Jorge L Hidalgo Work Phone: [facility] 07-12-2022 10:00-0500 Diastolic blood pressure 74 mm[Hg] Dr. Jorge L Hidalgo Work Phone: [facility] 07-12-2022 10:00-0500 Heart rate 65 /min Dr. Jorge L Hidalgo Work Phone: [facility] 07-12-2022 10:00-0500 Respiratory rate 18 /min Dr. Jorge L Hidalgo Work Phone: [facility] 07-12-2022 10:00-0500 SaO2% (BldA) [Mass fraction] 96 % Dr. Jorge L Hidalgo Work Phone: [facility] 07-12-2022 10:00-0500 Systolic blood pressure 136 mm[Hg] Dr. Jorge L Hidalgo Work Phone: [facility] 03-01-2022 08:06-0400 Body height 157.[address] Jorge L Hidalgo Work Phone: [facility] Work Phone: 03-01-2022 08:06-0400 Body weight 94.[address] Jorge L Hidalgo Work Phone: [facility] Work Phone: 02-26-2022 07:26-0400 Body mass index (BMI) [Ratio] 38 kg/m2 Dr. Jorge L Hidalgo Work Phone: [facility] Work Phone: 02-25-2022 12:51-0400 Body mass index (BMI) [Ratio] 38 kg/m2 Dr. Jorge L Hidalgo Work Phone: [facility] Work Phone: 02-25-2022 12:51-0400 Body weight 94.[address] Jorge L Hidalgo Work Phone: [facility] Work Phone: 02-25-2022 12:51-0400 Diastolic blood pressure 73 mm[Hg] Dr. Jorge L Hidalgo Work Phone: [facility] Work Phone: 02-25-2022 12:51-0400 Heart rate 112 /min Dr. Jorge L Hidalgo Work Phone: [facility] Work Phone: 02-25-2022 12:51-0400 Respiratory rate 18 /min Dr. Jorge L Hidalgo Work Phone: [facility] Work Phone: 02-25-2022 12:51-0400 SaO2% (BldA) [Mass fraction] 98 % Dr. Jorge L Hidalgo Work Phone: [facility] Work Phone: 02-25-2022 12:51-0400 Systolic blood pressure 150 mm[Hg] Dr. Jorge L Hidalgo Work Phone: [facility] Work Phone: 02-22-2022 10:36-0400 Body mass index (BMI) [Ratio] 38 kg/m2 Dr. Jorge L Hidalgo Work Phone: [facility] Work Phone: 02-22-2022 10:36-0400 Body temperature 97.6 [degF] Dr. Jorge L Hidalgo Work Phone: [facility] Work Phone: 02-22-2022 10:36-0400 Body weight 94.[address] Jorge L Hidalgo Work Phone: [facility] Work Phone: 02-22-2022 10:36-0400 Diastolic blood pressure 68 mm[Hg] Dr. Jorge L Hidalgo Work Phone: [facility] Work Phone: 02-22-2022 10:36-0400 Heart rate 71 /min Dr. Jorge L Hidalgo Work Phone: [facility] Work Phone: 02-22-2022 10:36-0400 Respiratory rate 16 /min Dr. Jorge L Hidalgo Work Phone: [facility] Work Phone: 02-22-2022 10:36-0400 SaO2% (BldA) [Mass fraction] 97 % Dr. Jorge L Hidalgo Work Phone: [facility] Work Phone: 02-22-2022 10:36-0400 Systolic blood pressure 110 mm[Hg] Dr. Jorge L Hidalgo Work Phone: [facility] Work Phone: 09-02-2021 09:44-0400 Body height 157.[address] Julio Montes Work Phone: [facility] Work Phone: 09-02-2021 09:44-0400 Body mass index (BMI) [Ratio] 38 kg/m2 Dr. Julio Montes Work Phone: [facility] Work Phone: 09-02-2021 09:44-0400 Body temperature 97.5 [degF] Dr. Julio Montes Work Phone: [facility] Work Phone: 09-02-2021 09:44-0400 Body weight 94.[address] Julio Montes Work Phone: [facility] Work Phone: 09-02-2021 09:44-0400 Diastolic blood pressure 60 mm[Hg] Dr. Julio Montes Work Phone: [facility] Work Phone: 09-02-2021 09:44-0400 Heart rate 72 /min Dr. Julio Montes Work Phone: [facility] Work Phone: 09-02-2021 09:44-0400 Respiratory rate 20 /min Dr. Julio Montes Work Phone: [facility] Work Phone: 09-02-2021 09:44-0400 SaO2% (BldA) [Mass fraction] 96 % Dr. Julio Montes Work Phone: [facility] Work Phone: 09-02-2021 09:44-0400 Systolic blood pressure 126 mm[Hg] Dr. Julio Montes Work Phone: [facility] Work Phone: 08-11-2021 09:16-0500 Body mass index (BMI) [Ratio] 38.7 kg/m2 Dr. Julio Montes Work Phone: [facility] Work Phone: 08-11-2021 09:16-0500 Body temperature 97.3 [degF] Dr. Julio Montes Work Phone: [facility] Work Phone: 08-11-2021 09:16-0500 Body weight 96.[address] Julio Montes Work Phone: [facility] Work Phone: 08-11-2021 09:16-0500 Diastolic blood pressure 79 mm[Hg] Dr. Julio Montes Work Phone: [facility] Work Phone: 08-11-2021 09:16-0500 Heart rate 66 /min Dr. Julio Montes Work Phone: [facility] Work Phone: 08-11-2021 09:16-0500 Respiratory rate 18 /min Dr. Julio Montes Work Phone: [facility] Work Phone: 08-11-2021 09:16-0500 SaO2% (BldA) [Mass fraction] 96 % Dr. Julio Montes Work Phone: [facility] Work Phone: 08-11-2021 09:16-0500 Systolic blood pressure 143 mm[Hg] Dr. Julio Montes Work Phone: [facility] Work Phone: 08-06-2021 16:29-0500 Body weight 96.[address] Julio Montes Work Phone: [facility] Work Phone: 08-06-2021 16:29-0500 Diastolic blood pressure 69 mm[Hg] Dr. Julio Montes Work Phone: [facility] Work Phone: 08-06-2021 16:29-0500 Heart rate 74 /min Dr. Julio Montes Work Phone: [facility] Work Phone: 08-06-2021 16:29-0500 Respiratory rate 16 /min Dr. Julio Montes Work Phone: [facility] [facility] Work Phone: 08-06-2021 16:29-0500 SaO2% (BldA) [Mass fraction] 96 % Dr. Julio Montes Work Phone: [facility] Work Phone: 08-06-2021 16:29-0500 Systolic blood pressure 147 mm[Hg] Dr. Julio Montes Work Phone: [facility] Work Phone: 10-22-2020 09:34-0400 Body mass index (BMI) [Ratio] 39.9 kg/m2 Dr. Julio Montes Work Phone: [facility] Work Phone: Encounters Encounter Date Encounter Type Care Provider Facility Start: 02-27-2025 ambulatory Julio Baldwin NP Facility :[facility] Start: 02-01-2025 End: 02-01-[address] Jorge L Hidalgo MD Work Phone: -Ultrasound [facility] Start: 02-01-2025 End: 02-01-[address] Jorge L Hidalgo MD -Ultrasound [facility] Work Phone: Start: 01-31-2025 End: 02-01-[address] Jorge L Hidalgo MD Work Phone: -Cat Scan [facility] Start: 01-31-2025 End: 01-31-[address] Jorge L Hidalgo MD -Cat Scan [facility] Work Phone: Start: 01-30-2025 End: 01-30-2025 Patient encounter procedure Julio Baldwin NP-C -[facility] Work Phone: Start: 01-30-2025 End: 01-31-[address] Jorge L Hdialgo MD Work Phone: -[facility] Start: 01-28-2025 Non-patient / Non-visit Dr. Vishnu BAZZI -[facility] Start: 01-28-2025 End: 01-28-[address] Jorge L Hidalgo MD Work Phone: -Cardiovascular Services Start: 01-28-2025 End: 01-28-2025 Patient encounter procedure Julio Baldwin NP-C -Cardiovascular Services Work Phone: Start: 01-28-2025 End: 01-28-2025 ambulatory Jorge L Hidalgo Facility:[facility] Start: 01-18-2025 End: 01-18-[address] Jorge L Hidalgo MD Work Phone: -[facility] Start: 01-18-2025 End: 01-18-[address] Jorge L Hidalgo MD -Laboratory [place] Work Phone: Start: 01-18-2025 End: 01-18-2025 ambulatory Jorge L Hidalgo Facility:[facility] Start: 10-05-2024 End: 10-05-2024 Patient encounter procedure SHELLY Rios -[facility] Work Phone: Start: 10-05-2024 End: 10-05-2024 ambulatory Jorge L Hidalgo Facility:[facility] Start: 08-09-2024 End: 08-09-[address] Jorge L Hidalgo MD Work Phone: [facility] Work Phone: Start: 08-09-2024 End: 08-09-2024 Patient encounter procedure Raghav McMorrow AUTOMATIC PINSETTER MECHANIC-C -Outpatient Bone Densitometry Work Phone: Start: 08-09-2024 End: 08-09-2024 ambulatory Jorge L Hidalgo Facility:[facility] Start: 08-02-2024 End: 08-02-2024 Patient encounter procedure Julio Baldwin AUTOMATIC PINSETTER MECHANIC-C -[facility] Work Phone: Start: 08-02-2024 End: 08-02-2024 ambulatory Jorge L Hidalgo Facility:[facility] Start: 07-12-2024 End: 07-12-[address] Jorge L Hidalgo MD -Laboratory, [place] Work Phone: Start: 07-12-2024 End: 07-12-2024 ambulatory Jorge L Hidalgo Facility:[facility] Start: 06-08-2024 End: 06-08-2024 Patient encounter procedure SHELLY Rios -Laboratory, [place] Work Phone: Start: 06-08-2024 End: 06-08-2024 Patient encounter procedure SHELLY Rios -[facility] Work Phone: Start: 06-08-2024 End: 06-08-2024 ambulatory Jorge L Hidalgo Facility:[facility] Start: 06-08-2024 End: 06-08-2024 ambulatory Veronica Rios Facility:[facility] Start: 05-14-2024 ambulatory Chay Zhou Facility: [facility] Start: 05-14-2024 Non-patient / Non-visit Dr. Jorge L qureshi MD -[facility] Start: 05-14-2024 End: 05-14-[address] Chay Zhou MD -Cardiovascular Services Work Phone: Start: 05-14-2024 End: 05-14-2024 ambulatory Chay Zhou Facility:[facility] Start: 04-05-2024 End: 04-05-2024 ambulatory Jorge L Hidalgo Facility:[facility] Start: 04-05-2024 End: 04-05-2024 ambulatory Jorge L Hidalgo Facility:[facility] Start: 09-09-2023 End: 09-09-[address] Jorge L Hidalgo Work Phone: [facility] Work Phone: Start: 09-09-2023 End: 09-09-[address] Jorge L Hidalgo Work Phone: [facility]-Laboratory Work Phone: Start: 09-06-2023 End: 09-06-[address] Jorge L Hidalgo Work Phone: [facility] Work Phone: Start: 09-06-2023 End: 09-06-[address] Jorge L Hidalgo Work Phone: [facility]-Laboratory Work Phone: Start: 09-02-2023 End: 09-02-[address] Jorge L Hidalgo Work Phone: [facility] Work Phone: Start: 09-02-2023 End: 09-02-[address] Jorge L Hidalgo Work Phone: [facility]-Radiology, [facility] Work Phone: Start: 08-30-2023 End: 08-30-[address] Jorge L Hidalgo Work Phone: [facility] Work Phone: Start: 08-24-2023 End: 08-24-[address] Jorge L Hidalgo Work Phone: [facility] Work Phone: Start: 08-24-2023 End: 08-24-[address] Jorge L Hidalgo Work Phone: [facility] Work Phone: Start: 08-08-2023 Non-patient / Non-visit Dr. Elian Hidalgo Work Phone: [facility] Start: 08-08-2023 End: 08-08-[address] Jorge L Hidalgo Work Phone: [facility] Work Phone: Start: 08-08-2023 End: 08-08-[address] [facility] Start: 08-04-2023 End: 08-04-[address] Jorge L Hidalgo Work Phone: [facility] Work Phone: Start: 07-27-2023 End: 07-27-[address] Jorge L Hidalgo Work Phone: [facility] Work Phone: Start: 07-22-2023 End: 07-22-[address] Jorge L Hidalgo Work Phone: [facility]-Pulmonary Medicine [facility] Work Phone: Start: 07-18-2023 End: 07-18-[address] Jorge L Hidalgo Work Phone: [facility] Work Phone: Start: 07-18-2023 End: 07-18-[address] Jorge L Hidalgo Work Phone: [facility] Start: 07-12-2023 End: 07-12-[address] Jorge L Hidalgo Work Phone: [facility] Work Phone: Start: 07-12-2023 End: 07-12-[address] Jorge L Hidalgo Work Phone: [facility] Work Phone: Start: 06-24-2023 End: 06-24-[address] Jorge L Hidalgo Work Phone: [facility] Work Phone: Start: 06-24-2023 End: 06-24-[address] Jorge L Hidalgo Work Phone: [facility] Start: 05-10-2023 End: 05-10-[address] Jorge L Hidalgo Work Phone: [facility] Work Phone: Start: 05-10-2023 End: 05-10-[address] Jorge L Hidalgo Work Phone: [facility] Start: 03-31-2023 Non-patient / Non-visit Dr. Elian Hidalgo Work Phone: [facility] Work Phone: Start: 03-31-2023 Non-patient / Non-visit Dr. Elian Hidalgo Work Phone: [facility] Start: 03-31-2023 End: 03-31-[address] Jorge L Hidalgo Work Phone: [facility] Work Phone: Start: 03-31-2023 End: 03-31-[address] Jorge L Hidalgo Work Phone: [facility]-Cardiovascular Services Work Phone: Start: 03-17-2023 Telephone encounter Dottie garcia CUSTOMER ASSOCIATE - ECHO VASC TECH Work Phone: [facility] Card[facility] Comment on above: OTHER Start: 03-10-2023 End: 03-10-[address] Jorge L Hidalgo Work Phone: [facility] Work Phone: Start: 02-22-2023 Orders Only Dottie VILLA RN - ECHO VASC TECH Work Phone: [facility] Cardiology Comment on above: Severe aortic stenos is (Primary Dx) Start: 02-08-2023 End: 02-08-[address] [facility] L [facility] Work Phone: Start: 2022 Non-patient / Non-visit Dr. Elian Hidalgo Work Phone: [facility] Work Phone: Start: 11-25-2022 End: 11-25-[address] Jorge L Hidalgo Work Phone: [facility] Work Phone: Start: 11-25-2022 End: 11-25-[address] Jorge L Hidalgo Work Phone: [facility]-Laboratory Start: 11-25-2022 End: 11-25-[address] [facility] L [facility]idalgo [facility] Start: 10-11-2022 End: 11-03-[address] Jorge L Hidalgo Work Phone: [facility] Work Phone: Start: 10-11-2022 End: 11-03-[address] Jorge L Hidalgo Work Phone: [facility]-Cardiac Rehab Start: 10-07-2022 End: 10-07-[address] Jorge L Hidalgo Work Phone: [facility] Vascular Surgery Start: 10-07-2022 End: 10-07-[address] Jorge L Hidalgo Work Phone: [facility] Start: 10-01-2022 End: 10-03-[address] Jorge L Hidalgo Work Phone: [facility] Work Phone: Start: 10-01-2022 End: 10-03-[address] Jorge L Hidalgo Work Phone: [facility]-Cardiac Rehab Start: 09-03-2022 End: 09-03-[address] Jorge L Hidalgo Work Phone: [facility] Work Phone: Start: 09-03-2022 End: 09-03-[address] Jorge L Hidalgo Work Phone: [facility]-Cardiac Rehab Start: 08-24-2022 End: 08-24-[address] Jorge L Hidalgo Work Phone: [facility]-Pulmonary Medicine [facility] Start: 08-13-[address] Jorge L jerez Work Phone: [facility]-Cardiovascular Services Start: 08-02-2022 End: 08-03-[address] Jorge L Hidalgo Work Phone: [facility]-Cardiac Rehab Start: 07-21-[address] Jorge L Hidalgo Work Phone: [facility]-Cardiac Rehab Start: 07-12-2022 End: 07-12-[address] Jorge L Hidalgo Work Phone: [facility] Work Phone: Start: 07-12-2022 End: 07-12-[address] Jorge L Hidalgo Work Phone: [facility]-Cardiac Rehab Start: 06-17-2022 End: 06-17-[address] Jorge L Hidalgo Work Phone: [facility] Start: 06-10-2022 Non-patient / Non-visit Dr. Elian Hidalgo Work Phone: [facility] Start: 05-25-2022 End: 05-25-[address] Jorge L Hidalgo Work Phone: [facility] Work Phone: Start: 05-25-2022 End: 05-25-[address] Jorge L Hidalgo Work Phone: [facility] Start: 05-20-2022 End: 05-20-2022 ambulatory [facility] Start: 05-20-2022 End: 05-21-2022 ambulatory [facility] Start: 05-12-2022 End: 05-12-[address] Jorge L Hidalgo Work Phone: [facility] Work Phone: Start: 05-12-2022 End: 05-12-[address] Jorge L Hidalgo Work Phone: [facility]-Pulmonary Services/Neurology Start: 05-06-2022 End: 05-06-[address] Jorge L Hidalgo Work Phone: [facility] Work Phone: Start: 05-06-2022 End: 05-06-[address] Jorge L Hidalgo Work Phone: [facility]-Laboratory Start: 05-04-2022 End: 05-04-[address] Jorge L Hidalgo Work Phone: [facility] Work Phone: Start: 05-04-2022 End: 05-04-[address] Jorge L Hidalgo Work Phone: [facility] Start: 04-23-2022 End: 04-23-2022 ambulatory [facility] Start: 04-01-2022 End: 04-01-2022 Subsequent hospital visit by physician Dottie Nelson CUSTOMER ASSOCIATE - ECHO VASC TECH Work Phone: [facility] [facility] Comment on above: Arrived Nonrheumatic aortic (valve) stenosis (Primary Dx) Start: 04-01-2022 ambulatory [facility] Start: 03-29-2022 End: 03-29-[address] Jorge L Hidalgo Work Phone: [facility] Work Phone: Start: 03-29-2022 End: 03-29-[address] Jorge L Hidalgo Work Phone: [facility]-Laboratory Start: 03-04-2022 End: 03-04-[address] Jorge L Hidalgo Work Phone: [facility] Work Phone: Start: 03-04-2022 End: 03-04-[address] Jorge L Hidalgo Work Phone: [facility] Start: 03-01-2022 End: 03-01-2022 Admission to same day surgery center Dr. Jorge L Hidalgo Work Phone: [facility]-Online Merchandising Coordinator/Special Procedures Start: 03-01-2022 End: 03-01-[address] Jorge L Hidalgo Work Phone: [facility] Work Phone: Start: 02-25-2022 End: 02-25-[address] Jorge L Hidalgo Work Phone: [facility] Work Phone: Start: 02-25-2022 End: 02-25-[address] Jorge L Hidalgo Work Phone: [facility] Start: 02-22-2022 End: 02-22-[address] Jorge L [facility]idalgo [facility] Start: 02-10-2022 Non-patient / Non-visit Dr. Elian Hidalgo Work Phone: [facility] Start: 02-10-2022 End: 02-10-[address] Jorge L Hidalgo Work Phone: [facility] Work Phone: Start: 02-10-2022 End: 02-10-[address] Jorge L Hidalgo Work Phone: [facility]-Cardiovascular Services Start: 01-06-2022 End: 01-06-2022 Patient encounter procedure [facility] Start: 12-02-2021 End: 12-02-[address] Julio Montes Work Phone: [facility]-Outpatient Breast Imaging Start: 09-02-2021 End: 09-02-[address] Jul[facility] Montes [facility] Start: 08-11-2021 End: 08-11-[address] Julio Montes [facility] Start: 08-06-2021 End: 08-06-[address] Julio Montes Work Phone: [facility] Procedures Date Procedure Procedure Detail Performing Clinician Start: 02-01-2025 Ultrasound elastogra phy of liver Dr. Jorge L Hidalgo MD Work Phone: Start: 01-31-2025 CT of thorax with contrast Dr. Jorge L Hidalgo MD Work Phone: Start: 01-18-2025 X-ray of chest, PA a nd lateral views Dr. Jorge L Hidalgo MD Work Phone: Start: 01-18-2025 Urine microalbumin/creatinine ratio measurement Dr. Jorge L Hidalgo MD Work Phone: Start: 08-09-2024 Dual energy X-ray absorptiometry Dr. Jorge L Hidalgo MD Work Phone: Start: 08-09-2024 Screening mammography Barbara Hidalgo MD Work Phone: Start: 06-08-2024 Gram stain microscopy Barbara Hidalgo MD Work Phone: Start: 06-08-[address]24 [address] l culture Dr. Jorge L Hidalgo MD Work Phone: Start: 09-02-[address] Jorge L Hidalgo Work Phone: Start: 08-24-[address] Jorge L jerez Work Phone: Start: 07-27-2023 CT of chest without contrast Dr. Jorge L Hidalgo Work Phone: Start: 07-18-2023 Acid fast bacilli culture Dr. Jorge L Hidalgo Work Phone: Start: 07-18-2023 Cytopathology proced ure, preparation of smear, genital source Dr. Jorge L Hidalgo Work Phone: Start: 07-18-2023 Investigation of transfusion reaction Dr. Jorge L Hidalgo Work Phone: Start: 07-18-[address] Elian Hidalgo Work Phone: Start: 07-18-[address] l culture Dr. Jorge L Hidalgo Work Phone: Start: 07-18-2023 Radiography of nasal sinuses Dr. Jorge L Hidalgo Work Phone: Start: 07-12-2023 Plain chest X-ray Dr. Nancy Hidalgo Work Phone: Start: 04-01-2022 Antibody screen Dottie Nelson CUSTOMER ASSOCIATE - ECHO VASC TECH Work Phone: Start: 04-01-2022 Blood typing serologic abo Dottie Nelson CUSTOMER ASSOCIATE - ECHO VASC TECH Work Phone: Start: 04-01-2022 Comprehensive metabo lic panel Dottie Nelson CUSTOMER ASSOCIATE - ECHO VASC TECH Work Phone: Start: 04-01-2022 Radiologic exam ches t 2 views Dottie Nelson CUSTOMER ASSOCIATE - ECHO VASC TECH Work Phone: Start: 03-04-2022 CT of thorax with contrast Dr. Jorge L Hidalgo Work Phone: Start: 02-25-2022 Plain chest X-ray Dr. Nancy Hidalgo Work Phone: Start: 12-02-2021 End: 12-02-[address] 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 Start: 01-31-2025 CT of thorax with contrast Chest WITH Contrast [facility] Start: 01-30-2025 Evaluation of diagno stic study results [facility] Start: 09-06-2023 [facility] Start: 04-07-2023 End: 04-07-2023 Patient encounter procedure 04/07/2023 1:30 PM EDT Office Visit [facility] [address] [place] [id number] Dottie Nelson, CUSTOMER ASSOCIATE - ECHO VASC TECH [address] [place] [address] [facility] Start: 02-22-2023 End: 02-22-2025 US Heart Transthoracic Transthoracic echocardiogram (TTE) complete with contrast, bubble, strain, and 3D PRN CV Echocardiography Routine Severe aortic stenosis Expected: 02/22/2023 (Approximate), Expires: 02/22/2025 [facility] Work Phone: Comment on above: Expected: 02/22/2023 (Approximate), Expires: 02/22/2025 Start: 02-04-2023 Influenza vaccination Influenza Vacc ine (#1) [facility] Start: 12-02-2022 Screening for malign ant neoplasm of breast Mammogram [facility] Start: 08-11-[address] [facility] Start: 08-01-2022 COVID-19 Vaccine (5 - Pfizer series) COVID-19 Vaccine (5 - Pfizer series) [facility] Start: 07-12-[address] [facility] Start: 06-17-2022 Patient referral [facility] Work Phone: Start: 02-04-2022 Influenza vaccination Influenza Vacc ine (#1) [facility] Start: 01-04-2022 Influenza vaccination Flu vaccine (# 1) [facility] Start: 05-29-2021 COVID-19 Vaccine (4 - Booster for Pfizer series) COVID-19 Vaccine (4 - Booster for Pfizer series) [facility] Start: 06-11-2017 Pneumococcal 65+ yea rs Vaccine (2 - PPSV23 if available, else PCV20) Pneumococcal 65+ years Vaccine (2 - PPSV23 if available, else PCV20) [facility] Start: 06-11-2017 Pneumococcal Vaccine : 65+ Years (2 - PPSV23 if available, else PCV20) Pneumococcal Vaccine: 65+ Years (2 - PPSV23 if available, else PCV20) [facility] Start: 08-06-2016 Pneumococcal Vaccine : 65+ Years (2 - PPSV23 if available, else PCV20) Pneumococcal Vaccine: 65+ Years (2 - PPSV23 if available, else PCV20) [facility] Start: 08-06-2016 Pneumococcal Vaccine : 65+ Years (2 - PPSV23 or PCV20) Pneumococcal Vaccine: 65+ Years (2 - PPSV23 or PCV20) [facility] Start: 2008 Hepatitis B Vaccines (1 of 3 - Risk 3-dose series) Hepatitis B Vaccines (1 of 3 - Risk 3-dose series) [facility] Start: 12-07-2003 Screening for osteoporosis DEXA (modify frequency per FRAX score) [facility] Start: 1998 Screening for malign ant neoplasm of breast Breast cancer screen [facility] Start: 1998 Shingles vaccine (1 of 2) Shingles vaccine (1 of 2) [facility] Start: 1998 Zoster Vaccines (1 of 2) Zoster Vacc tim (1 of 2) [facility] Start: 1993 Screening for malign ant neoplasm of colon [facility] Start: 1988 [facility]id panel [facility] Start: 1988 Screening for malign ant neoplasm of breast Mammogram [facility] Start: 12-07-1967 Urine screening for protein Diabetes: Urine Protein Screening [facility] Start: 1966 Hepatitis C screening S [facility] Start: 1960 Depression Screen Depression Screen [facility] Start: 1960 Depression Screening Depression Scre ening [facility] Start: 1958 Diabetic foot examination Diabetes: Foot Exam [facility] Start: 1958 Glaucoma screening Diabetes: R etinopathy Screening [facility] Start: 1958 Preventive dental service Diabetes: Dental Exam [facility] Start: 1948 Hemoglobin A1c measurement Diabetes: Hemoglobin A1C [facility] Start: 1948 Hepatitis B Vaccines (1 of 3 - 3-dose series) Hepatitis B Vaccines (1 of 3 - 3-dose series) [facility] Start: 1948 Lipid panel Lipid Panel [facility] Start: 1948 Medicare Annual Well ness (AWV) Medicare Annual Wellness (AWV) [facility] Start: 1948 Screening for malign ant neoplasm of colon [facility] Start: 1948 Screening for osteoporosis Bone Density Scan [facility] Acid fast bacilli culture [facility] Alternaria alternata IgE Ab [Units/volume] in Serum [facility] Pakistani house dust mite IgE Ab [Units/volume] in Serum [facility] Bacteria identified in Sputum by Culture [facility] Bermuda grass IgE Ab [Units/volume] in Serum [facility] Cat dander IgE Ab [Units/volume] in Serum [facility] Catheterization of l eft heart [facility] Work Phone: CBC W Auto Different ial panel - Blood [facility] Clam IgE Ab [Units/volume] in Serum [facility] Codfish IgE Ab [Units/volume] in Serum [facility] Common Ragweed IgE A b [Units/volume] in Serum [facility] [place] IgE Ab [Units/volume] in Serum [facility] Cow milk IgE Ab [Units/volume] in Serum [facility] [facility] CT Chest W contrast IV [facility] Work Phone: End: 04-01-2022 CTA CHEST ABDOMEN PELVIS W CONTRAST [facility] Work Phone: Comment on above: Once for 1 Occurrenc es starting 04/01/2022 until 04/01/2022 Dog epithelium IgE A b [Units/volume] in Serum [facility] Egg white IgE Ab [Units/volume] in Serum [facility] house dust mite IgE Ab [Units/volume] in Serum [facility] Fungus identified in Unspecified specimen by Culture [facility] IgE [Units/volume] i n Serum or Plasma [facility] IgE [Units/volume] i n Serum or Plasma [facility] [place] blue grass IgE Ab [Units/volume] in Serum [facility] Measurement of Aspergillus flavus antibody [facility] Measurement of Aspergillus fumigatus antibody [facility] Measurement of Aspergillus niger antibody [facility] Mouse urine proteins RAST [facility] Mycobacterium sp identified in Unspecified specimen by Organism specific culture [facility] Neutrophil cytoplasm ic Ab.classic [Units/volume] in Serum [facility] NM Heart Views W str ess and W radionuclide IV [facility] P-ANCA measurement [facility] Patient referral [facility] Work Phone: Peanut IgE Ab [Units/volume] in Serum [facility] Plantain (Bahamian) RAST [facility] PREPARE RBC (CROSSMATCH) PREPARE RBC (CROSSMATCH) Blood Bank Routine 04/01/2022 10:54 AM EDT [facility] Work Phone: End: 04-01-2022 Prepare RBC Crossmatch Prepare RBC Crossmatch Blood Bank Routine Once for 1 Occurrences starting 04/01/2022 until 04/01/2022 [facility] Work Phone: Comment on above: Once for 1 Occurrenc es starting 04/01/2022 until 04/01/2022 Scallop RAST [facility] Sesame seed RAST [facility] Shrimp IgE Ab [Units/volume] in Serum [facility] Soybean IgE Ab [Units/volume] in Serum [facility] US Carotid arteries [facility] US Carotid arteries [facility] Heart [facility] Work Phone: [facility] [place] RAST [facility] Wheat IgE Ab [Units/volume] in Serum [facility] [place] IgE Ab [Units/volume] in Serum [facility] [place] IgE Ab [Units/volume] in Serum [facility] Immunizations Immunization Date Immunization Notes Care Provider [facility] 03-10-2021 influenza virus vaccine, unspecified formulation Dottie Nelson CUSTOMER ASSOCIATE - ECHO VASC TECH Work Phone: [facility] 03-10-[address] Julio Montes Work Phone: [facility] Payers Date Payer Category Payer Self-pay [id number] 2016 Unknown [id number] 2016 Unknown 2013 Medicare [id number] 2013 Medicare 1950 Unknown [id number] 1950 Unknown [id number] 2.16 [id number] Unknown [id number] 2.16.8 40.1.049771.3.579.2.462 Unknown [id number] 2.16.8 40.1.738222.3.579.2.462 Unknown [id number] 2.16.8 40.1.621298.3.579.2.462 Unknown [id number] 2.16.8 40.1.392661.3.579.2.462 Unknown [id number] 2.16.8 40.1.760282.3.579.2.462 Unknown [id number] 2.16.8 40.1.256015.3.579.2.462 Unknown [id number] 2.16.8 40.1.172393.3.579.2.462 Unknown [id number] 2.16.8 40.1.662358.3.579.2.462 Unknown [id number] 2.16.8 40.1.824859.3.579.2.462 Unknown [id number] 2.16.8 40.1.325101.3.579.2.462 Unknown [id number] 2.16.8 40.1.123192.3.579.2.462 Unknown [id number] 2.16.8 40.1.416503.3.579.2.462 Unknown [id number] 2.16.8 40.1.703799.3.579.2.462 Unknown [id number] 2.16.8 40.1.007839.3.579.2.462 Unknown [id number] 2.16.8 40.1.165325.3.579.2.462 Unknown [id number] 2.16.8 40.1.273194.3.579.2.462 Unknown [id number] 2.16.8 40.1.348735.3.579.2.462 Social History Date Type Detail Facility Start: 09-02-2021 End: 08-30-2023 Tobacco smoking status KYIS Unknown if ever smoked [facility] Start: 1950 Sex Assigned At Female [facility] Start: 1950 Sex Assigned At Not on file S [employer] Work Phone: Start: 04-23-2022 End: 09-20-2023 Tobacco smoking status KYIS Never smoked tobacco [facility] Start: 04-23-2022 Tobacco use and exposure Smokeless tobacco non-user [facility] Start: 05-20-2022 Alcohol intake Lifetime non-d chi (finding) [facility] Start: 05-20-20[address] of [address] [facility] Start: 05-20-[address] [facility] Start: 05-10-2022 End: 05-20-2022 Exposure to SARS-CoV-2 (event) Not sure [facility] Start: 08-20-2024 Sex Female (finding) [facility] Equipment Procedure Code Equipment Code Equipment Origin al Text Equipment Identifier Dates Valve Aortic Edw ards Arnie 3 Ultra Commander Od23 Mm Delivery System - [id number] - [id number] Start: 04-12-2022 Pen Needle, Diab etic (Droplet Pen Needle) 31 gauge x 3/16 needle Start: 03-10-2023 Pen Needle, Diab etic (Droplet Pen Needle) 31 gauge x 3/16 needle Start: 03-10-2023 Pen Needle, Diab etic (Droplet Pen Needle) 31 gauge x 3/16 needle Start: 03-10-2023 Pen Needle, Diab etic (Droplet Pen Needle) 31 gauge x 3/16 needle Start: 03-10-2023 Pen Needle, Diab etic (Droplet Pen Needle) 31 gauge x 3/16 needle Start: 03-10-2023 Pen Needle, Diab etic (Droplet Pen Needle) 31 gauge x 3/16 needle Start: 03-10-2023 Pen Needle, Diab etic (Droplet Pen Needle) 31 gauge x 3/16 needle Start: 03-10-2023 Pen Needle, Diab etic (Droplet Pen Needle) 31 gauge x 3/16 needle Start: 03-10-2023 Pen Needle, Diab etic (Droplet Pen Needle) 31 gauge x 3/16 needle Start: 03-10-2023 Pen Needle, Diab etic (Droplet Pen Needle) 31 gauge x 3/16 needle Start: 03-10-2023 Pen Needle, Diab etic (Droplet Pen Needle) 31 gauge x 3/16 needle Start: 03-10-2023 Pen Needle, Diab etic (Droplet Pen Needle) 31 gauge x 3/16 needle Start: 03-10-2023 Pen Needle, Diab etic (Droplet Pen Needle) 31 gauge x 3/16 needle Start: 03-10-2023 Pen Needle, Diab etic (Droplet Pen Needle) 31 gauge x 3/16 needle Start: 03-10-2023 Pen Needle, Diab etic (Droplet Pen Needle) 31 gauge x 3/16 needle Start: 03-10-2023 Pen Needle, Diab etic (Droplet Pen Needle) 31 gauge x 3/16 needle Start: 03-10-2023 Clinical Notes 03-31-2020 to 02-01-2025 Note Date & Type Note Facility 02-01-2025 Radiology Diagnostic study note [facility] Imaging Services [address] [place], [place] [address] Chest WITH Contrast MR#: [id number] Acct: [id number] Name: LINDA RAI Rep #: [id number] : 1950 F 74 From: Koko Purdy MD PCP: Dr. Jorge L Hidalgo MD Status: REG CLI Study:Chest WITH Contrast Date of Exam: 01/31/25 Exam# [id number] Ordering Dr: Elian Hidalgo MD PROCEDURE: CHEST WITH CONTRAST 01/31/2025 REASON FOR EXAM: R ANTERIR CHEST WALL PAIN WITH PROGRESSIVE SOB, KNOWN COPD. SHARON Shortness of breath with exertion. Known bronchiectasis. TECHNIQUE: Procedure Code: CTCHW Modality: CT Procedure: CHEST WITH CONTRAST Coronal and Sagittal reconstruction series were provided. CONTRAST: Isovue-300 VOLUME: 100 mL One or more dose reduction techniques were used (e.g., Automated exposure control, adjustment of the mA and/or kV according to patient size, use of iterative reconstruction technique). RADIATION DOSE SUMMARY: CTDlvol: 17.8 mGy DLP: 657.61 mGycm COMPARISON: Prior study dated July 27, 2023. FINDINGS: Hardware: None Lymph nodes: No significant lymphadenopathy is seen. Small bilateral axillary lymph nodes. Heart and Vasculature: The heart is not enlarged. Coronary artery calcification. Aortic valve replacement. Lungs and Airways: Stable mild increased interstitial markings at the lung basessuggestive of mild basilar scarring. This is unchanged. Pleura: No pleural effusion. Upper Abdomen: Unremarkable Bones: Degenerative changes of the thoracic spine. Small hypodensity in the right lobe of the thyroid suggestive of colloid cyst. CT/Chest WITH Contrast IMPRESSION: Coronary artery calcification (CAC) is is present Stable examination. Reading Location: [id number] CC: Dr. Jorge L Hidalgo MD ~ Reverberatory Furnace Supervisor: Signed [facility] 02-01-2025 Radiology Diagnostic study note [facility] Imaging Services [address] [place] [address] ABD Limited w/ Elastography MR#: [id number] Acct: [id number] Name: LINDA RAI Rep #: [id number] : 1950 F 74 From: Koko Purdy MD PCP: Dr. Jorge L Hidalgo MD Status: REG CLI Study:ABD Limited w/ Elastography Date of Exa m: 02/01/25 Exam# [id number] Ordering Dr: Elian Hidalgo MD PROCEDURE: ABD LIMITED W/ ELASTOGRAPHY REASON FOR EXAM: BILIARY DISEASE Elevated liver function tests. COMPARISON: None TECHNIQUE: Procedure Code: USABDLELPARO Modality: US Procedure: ABD LIMITED W/ ELASTOGRAPHY Right upper quadrant abdominal ultrasound. [place] ElastQ Imaging shear wave elastography for non-invasive assessment of liver tissue stiffness. [place] EPIQ Elite. FINDINGS: LIVER: Size: Enlarged (hepatomegaly) Length: 20.5 cm Echotexture: Diffusely echogenic suggesting fatty infiltration Contour: Normal Lesions: None identified Elastography: EQI Med: 10 kPa EQI Med Geri: 1.82 m/s IQR/Med: 18.4 %* GALLBLADDER: No stones sludge wall thickening or tenderness. COMMON BILE DUCT: Normal measuring 3 mm . PANCREAS: Normal Visualized portions of the right kidney are unremarkable. No right upper quadrant ascites. US/ABD Limited w/ Elastography IMPRESSION: MODERATE TO SEVERE HEPATIC FIBROSIS Hepatomegaly. Diffuse fatty infiltration of the liver. Reference Values: SRU <1.37 m/s (5.7kPa): No to mild fibrosis 1.37 m/s - 2.2 m/s: Moderate to severe fibrosis >2.2 m/s (15kPa): Significant fibrosis / cirrhosis METAVIR Score F2 or higher: 1.34 m/s (5.7kPa) F3 or higher: 1.55 m/s (7.3kPa) F4: 1.80 m/s (10kPa) * If the IQR/Med is >30%, the variance in the measurements is a large and the accuracy of the measurement may be in question. Reading Location: [facility] CC: Dr. Jorge L Hidalgo MD ~ Reverberatory Furnace Supervisor: Signed [facility] 01-30-2025 Evaluation note Diagnosis Onset Date Resolution Chest pain acute January 30, 2025 8:23am Dyspnea acute January 30, 2025 8:23am Essential (primary) hypertension chronic January 30, 2025 8:23am History of coronary artery stent placement March 31, 2020 chronic January 30, 2025 8:23am Hyperlipidemia chronic January 8:23am Nonrheumatic aortic (valve) stenosis chronic January 30, 2025 8:23am [facility] Work Phone: 1(767) 267-769908-18-2025 Radiology Diagnostic study note [facility] Imaging Services [address] [place] [id number] Chest PA and Lateral MR#: [id number] Acct: [id number] Name: LINDA RAI Rep #: [id number] : 1950 F 74 From: Favian Strauss DO PCP: Dr. Jorge L Hidalgo MD Status: REG CLI Study:Chest PA and Lateral Date of Exam: 01/18/25 Exam# [id number] Ordering Dr: Elian Hidalgo MD PROCEDURE: CHEST PA AND LATERAL 01/18/2025 REASON FOR EXAM: R CHEST WALL PIAN, SOB, COPD. CONCERN BRONCHIECTASIS TECHNIQUE: CHEST PA AND LATERAL COMPARISON: Chest x-ray study dated 07/12/2023 FINDINGS: Hardware: Radiopaque stent is projected over the cardiac region Cardiomediastinal silhouette is stable. Arteriosclerotic vascular disease of the aorta is noted. Trachea is midline. Pulmonary vasculature is within normal limits. Lungs are expanded and clear without evidence of atelectasis, consolidation, effusion, pneumothoraces or pneumonic infiltrate. Diffuse osteopenia of the bony thorax is noted. There is a dextroscoliosis of the thoracic spine and a levoscoliosis of the lumbar spine. Degenerative changes of the thoracic and lumbar spine are noted. Degenerative disc disease is seen involving multiple thoracic and lumbar disc spaces. RAD/Chest PA and Lateral IMPRESSION: No acute cardiopulmonary process is identified radiographically. Arteriosclerotic vascular disease of the aorta. Reading Location: [id number] CC: Dr. Jorge L Hidalgo MD ~ Reverberatory Furnace Supervisor: Signed [facility]05-02-2025 Evaluation note* Diagnosis Onset Date Resolution Status Admit Date Oral candidiasis acute October 05, 2024 8:10am Allergic rhinitis chronic October 8:10am Asthma chronic October 05, 2024 8:10am [facility] Work Phone: 1(640) 645-749905-02-2025 Evaluation note* Diagnosis Onset Date Resolution Status Admit Date Oral candidiasis acute October 05, 2024 8:10am Allergic rhinitis chronic October 8:10am Asthma chronic October 05, 2024 8:10am Chest pain acute January 30 025 8:23am Dyspnea acute January 30 025 8:23am Essential (primary) hypertension chronic January 30 8:23am History of coronary artery stent placement March 31, 2020 chronic January 30, 2025 8:23am Hyperlipidemia chronic January 8:23am Nonrheumatic aortic (valve) stenosis chronic January 30 8:23am [facility] Work Phone: 1(818) 958-501901-03-2025 Evaluation note* Diagnosis Onset Date Resolution Status Admit Date Allergic rhinitis chronic June 08, 2024 9:43am Asthma chronic June 08 025 9:43am Dyspnea acute August 02, 2024 9:22am Essential (primary) hypertension chronic August 02 025 9:22am History of coronary artery stent placement March 31, 2020 chronic July 9:22am Hyperlipidemia chronic July 082024 9:22am Nonrheumatic aortic (valve) stenosis chronic August 02 025 9:22am [facility] Work Phone: 1(187) 623-746111-06-2023 Telephone encounter Note* Telephone Encounter - Toma Salinas RN - 04/11/2023 11:21 AM EST Records [id number] Miscellaneous Notes* Telephone Encounter - Toma Salinas RN - 04/11/2023 11:21 AM EST Records scanned in * Telephone Encounter - Toma Salinas RN - 04/11/2023 10:[address] Andrea's office faxing records. * Telephone Encounter - Toma Salinas RN - 04/06/2023 5:09 PM EDT Patient notified. Appt cancelled and I will call Zully's office tomorrow to get results. * Telephone Encounter - Ronda Murrell RN - 04/04/2023 12:08 PM EDT Chart reviewed, Sherri Salinas notified to call Dr. Andrea's office for pt OV note/EKG and echo results,cancel Alcon Nelson OV appt w/ echo that is scheduled next month, call pt and let her know she can follow up w/ Dr. Andrea cold reduction roller, she does not need to return to [place]. * Telephone Encounter - Toma Salinas RN - 04/04/2023 12:02 PM EDT Patient had her EKG and Echo done last 03/31/23 She is sched on 08/04/23 w/ Dr Andrea. Does she need to come in and see us sooner? * Telephone Encounter - Ronda Murrell RN - 03/17/2023 4:09 PM EDT I spoke w/ Dr. Andrea's office, they will contact pt for 1 year post TAVR echo & EKG. KCCQ mailed to pt. documented in this encounterSM[facility] [id number] Telephone encounter Note* Telephone Encounter - Toma Salinas RN - 04/11/2023 10:[address] Andrea's office faxing records. [id number] Telephone encounter Note* Telephone Encounter - Toma Salinas RN - 04/06/2023 5:09 PM EDT Patient notified. Appt cancelled and I will call Zully's office tomorrow to get results. [place] [id number] Miscellaneous Notes* Telephone Encounter - Toma Salinas RN - 04/06/2023 5:09 PM EDT Patient notified. Appt cancelled and I will call Zully's office tomorrow to get results. * Telephone Encounter - Ronda Murrell RN - 04/04/2023 12:08 PM EDT Chart reviewed, Sherri Salinas notified to call Dr. Andrea's office for pt OV note/EKG and echo results,cancel Alcon Nelson OV appt w/ echo that is scheduled next month, call pt and let her know she can follow up w/ Dr. Andrea mcfp, she does not need to return to [place]. * Telephone Encounter - Toma Salinas RN - 04/04/2023 12:02 PM EDT Patient had her EKG and Echo done last 03/31/23 She is sched on 08/04/23 w/ Dr Andrea. Does she need to come in and see us sooner? * Telephone Encounter - Ronda Murrell RN - 03/17/2023 4:09 PM EDT I spoke w/ Dr. Andrea's office, they will contact pt for 1 year post TAVR echo & EKG. KCCQ mailed to pt. documented in this encounterSMount Carmel Health [id number] Telephone encounter Note* Telephone Encounter - Ronda Murrell RN - 04/04/2023 12:08 PM EDT Chart reviewed, Sherri Salinas notified to call Dr. Andrea's office for pt OV note/EKG and echo results,cancel Alcon Nelson OV appt w/ echo that is scheduled next month, call pt and let her know she can follow up w/ Dr. Andrea mcfp, she does not need to return to [place]. [facility] [id number] Miscellaneous Notes* Telephone Encounter - Ronda Murrell RN - 04/04/2023 12:08 PM EDT Chart reviewed, Sherri Salinas notified to call Dr. Andrea's office for pt OV note/EKG and echo results,cancel Alcon Nelson OV appt w/ echo that is scheduled next month, call pt and let her know she can follow up w/ Dr. Andrea cold reduction roller, she does not need to return to [place]. * Telephone Encounter - Toma Salinas RN - 04/04/2023 12:02 PM EDT Patient had her EKG and Echo done last 03/31/23 She is sched on 08/04/23 w/ Dr Andrea. Does she need to come in and see us sooner? * Telephone Encounter - Ronda Murrell RN - 03/17/2023 4:09 PM EDT I spoke w/ Dr. Andrea's office, they will contact pt for 1 year post TAVR echo & EKG. KCCQ mailed to pt. documented in this [place]10-30-2023 Telephone encounter Note* Telephone Encounter - Toma Salinas RN - 04/04/2023 12:02 PM EDT Patient had her EKG and Echo done last 03/31/23 She is sched on 08/04/23 w/ Dr Andrea. Does she need to come in and see us sooner? [facility] [id number] Telephone encounter Note* Telephone Encounter - Ronda Murrell RN - 03/17/2023 4:09 PM EDT I spoke w/ Dr. Andrea's office, they will contact pt for 1 year post TAVR echo & EKG. KCCQ mailed to pt. [facility] [id number] Note Attestation signed by Shaka Mcrae MD [...] medications was provided. The patient verbalized understanding, questio (more content not included)...[facility] 04-13-2022 NoteIMPRESSION: Sinus rhythm Poor R wave progression Electronically Signed On 04-13-2022 8:12:22 EST by [facility]10-26-2020 Evaluation note* Diagnosis Onset Date Resolution Status Dyspnea acute Essential (primary) hypertension chronic History of coronary artery stent placement March chronic Hyperlipidemia chronic Nonrheumatic aortic (valve) stenosis chronic Asthma acute Hypersomnia acute Nonrheumatic aortic (valve) stenosis [facility] Work Phone: [phone]) 405-862710-26-2020 Evaluation note* Diagnosis Onset Date Resolution Status Asthma acute Nonrheumatic aortic (valve) stenosis chronic Dyspnea acute Essential (primary) hypertension chronic History of coronary artery stent placement March chronic Hyperlipidemia chronic Nonrheumatic aortic (valve) stenosis [facility] Work Phone: [phone]) 693-747710-26-2020 Evaluation note* Diagnosis Onset Date Resolution Status Dyspnea acute Palpitations acute Essential (primary) hypertension chronic History of coronary artery stent placement March chronic Hyperlipidemia chronic Nonrheumatic aortic (valve) stenosis [facility] Work Phone: [phone]) 657-622110-26-2020 Evaluation note* Diagnosis Onset Date Resolution Status Dyspnea acute Palpitations acute Essential (primary) hypertension chronic History of coronary artery stent placement March chronic Hyperlipidemia chronic Nonrheumatic aortic (valve) stenosis chronic Asthma acute Obesity acute [facility] Work Phone: [phone]) 936-774410-26-2020 Evaluation note* Diagnosis Onset Date Resolution Status Asthma acute Obesity acute Dyspnea acute Essential (primary) hypertension chronic History of coronary artery stent placement March chronic Hyperlipidemia chronic Nonrheumatic aortic (valve) stenosis chronic Carotid artery stenosis [facility] Work Phone: [phone]) 710-463110-26-2020 Evaluation note* Diagnosis Onset Date Resolution Status Obesity acute Asthma chronic Dyspnea acute Essential (primary) hypertension chronic History of coronary artery stent placement March chronic Hyperlipidemia chronic Nonrheumatic aortic (valve) stenosis chronic Carotid artery stenosis acut e Chest pain acute Asthma chronic [facility] Work Phone: [phone]) 645-655510-26-2020 Evaluation note* Diagnosis Onset Date Resolution Status Asthma chronic Nonrheumatic aortic (valve) stenosis chronic Dyspnea acute Essential (primary) hypertension chronic History of coronary artery stent placement March chronic Hyperlipidemia chronic Nonrheumatic aortic (valve) stenosis chronic [facility] Work Phone: [phone]) 571-501510-26-2020 Evaluation note* Diagnosis Onset Date Resolution Status Dyspnea acute Essential (primary) hypertension chronic History of coronary artery stent placement March chronic Hyperlipidemia chronic Nonrheumatic aortic (valve) stenosis chronic [facility] Work Phone: [phone]) 180-329010-26-2020 Evaluation note* Diagnosis Onset Date Resolution Status Allergic rhinitis chronic Asthma chronic Dyspnea acute Essential (primary) hypertension chronic History of coronary artery stent placement March chronic Hyperlipidemia chronic Nonrheumatic aortic (valve) stenosis [facility] Work Phone: [phone] 260-484410-26-2020 Evaluation note* Diagnosis Onset Date Resolution Status Allergic rhinitis chronic Asthma chronic Dyspnea acute Essential (primary) hypertension chronic History of coronary artery stent placement March chronic Hyperlipidemia chronic Nonrheumatic aortic (valve) stenosis chronic [facility]otid [facility]: Chief complaint+Reason for visit Narrative* Chief Complaint Amb Documentation 3 M FU Heart valve Replacement S/P TAVR procedure SCREENING 6 M FU S/P TAVR procedure S/P TAVR procedure Reason for Visit Dyspnea Palpitations Essential (primary) hypertension History of coronary artery stent placement Hyperlipidemia Nonrheumatic aortic (valve) stenosis Asthma Obesity [facility] Work Phone: Chief complaint+Reason for visit Narrative* Chief Complaint Heart valve Replacem ent S/P TAVR procedure SCREENING 6 M FU S/P TAVR procedure S/P TAVR procedure 3 M FU CAROTID S/P TAVR procedure Reason for Visit Asthma Obesity Dyspnea Essential (primary) hypertension History of coronary artery stent placement Hyperlipidemia Nonrheumatic aortic (valve) stenosis Carotid artery stenosis [facility] Work Phone: Chief complaint+Reason for visit Narrative* Chief Complaint S/P TAVR procedure SCREENING 6 M FU S/P TAVR procedure S/P TAVR procedure 3 M FU CAROTID S/P TAVR procedure chest pain/tightness EORDERS Reason for Visit Obesity Asthma Dyspnea Essential (primary) hypertension History of coronary artery stent placement Hyperlipidemia Nonrheumatic aortic (valve) stenosis Carotid artery stenosis Chest pain Asthma [facility] Work Phone: Evaluation noteNo assessment information available [facility] Work Phone: Evaluation note* Diagnosis Severe aortic stenosis- Primary Aortic valve disorders [facility] this [facility]* Diagnosis Onset Date Resolution Status Allergic rhinitis chronic Asthma chronic [facility] Work Phone: Evaluation note* Diagnosis Nonrheumatic aortic (valve) stenosis- Primary Nonrheumatic aortic (valve) stenosis [facility] (narrative)No reason for referral information [facility] Work Phone: Summary Purpose Family History No Family History Records Found Relationship Condition Age at Onset Recorded Date/T laverne father Cardiac disease Unknown mother Hypertension Unknown Relationship Condition Age at Onset Recorded Date/T laverne father Cardiac disease Unknown mother Hypertension Unknown Coronary artery disease Unknown grandmother Myocardial infarction Unknown grandfather Myocardial infarction Unknown Advance Directives No Advanced Directives Records Found Advance Directive Response Recorded Date/ Time Advance Directives No March 31, 2020 8:37am Living Will No April 10 1:37pm Power of Surface Supply Breathing Apparatus Yes April 10, 2020 1:37pm Advance Directive Response Recorded Date/ Time Advance Directives No February 8:06am Living Will No March 01, 2022 8:06am Power of Surface Supply Breathing Apparatus No February 8:06am Advance Directive Response Recorded Date/ Time Advance Directives No February 7:06am Living Will No March 01, 2022 7:06am Power of Surface Supply Breathing Apparatus No February 7:06am Advance Directive Response Recorded Date/ Time Advance Directives on File No 2022 10:00am Advance Directives No February 7:06am Living Will No July 12 10:00am Power of Surface Supply Breathing Apparatus Yes July 12, 2022 10:00am Advance Directive Response Recorded Date/ Time Advance Directives on File No 2022 11:00am Advance Directives No February 8:06am Living Will No July 12 11:00am Power of Surface Supply Breathing Apparatus Yes July 12, 2022 11:00am Advance Directive Response Recorded Date/ Time Advance Directives No February 8:06am Living Will No July 12 11:00am Power of Surface Supply Breathing Apparatus Yes July 12, 2022 11:00am Latest Code Status on File Code Status Date Activated Date Inactivated Comments Full Code 04/12/2022 9:05 AM 04/13/2022 3:41 PM Latest Code Status on File Code Status Date Activated Date Inactivated Comments Full Code 04/12/2022 9:05 AM 04/13/2022 3:41 PM Advance Directive Response Recorded Date/ Time Advance Directives No February 7:06am Living Will No July 12 10:00am Power of Surface Supply Breathing Apparatus Yes July 12, 2022 10:00am Advance Directive Response Recorded Date/ Time Living Will No July 12 11:00am Power of Surface Supply Breathing Apparatus Yes July 12, 2022 11:00am Advance Directives No February 8:06am Advance Directive Response Recorded Date/ Time Living Will No July 12 11:00am Do you have a Healthcare Power of Surface Supply Breathing Apparatus? Yes July 12, 2022 11:00am Advance Directives No February 8:06am Advance Directive Response Recorded Date/ Time Advance Directives No February 8:06am Chief Complaint and Reason for Visit Chief Complaint 9 m fu 3 M FU Cough SCREENING Reason for Visit Dyspnea Essential (primary) hypertension History of coronary artery stent placement Hyperlipidemia Nonrheumatic aortic (valve) stenosis Asthma Hypersomnia Nonrheumatic aortic (valve) stenosis Chief Complaint SCREENING Chief Complaint SCREENING NONRHEUMATIC AORTIC VALVE STENOSIS Chief Complaint SCREENING NONRHEUMATIC AORTIC VALVE STENOSIS 6 M FU 6 M FU CAD SEVERE Reason for Visit Asthma Nonrheumatic aortic (valve) stenosis Dyspnea Essential (primary) hypertension History of coronary artery stent placement Hyperlipidemia Nonrheumatic aortic (valve) stenosis Chief Complaint SCREENING NONRHEUMATIC AORTIC VALVE STENOSIS 6 M FU 6 M FU CAD SEVERE LUNG MASS, DYSPNEA, CHEST PAIN Reason for Visit Asthma Nonrheumatic aortic (valve) stenosis Dyspnea Essential (primary) hypertension History of coronary artery stent placement Hyperlipidemia Nonrheumatic aortic (valve) stenosis Chief Complaint NONRHEUMATIC AORTIC VALVE STENOSIS 6 M FU 6 M FU CAD SEVERE LUNG MASS, DYSPNEA, CHEST PAIN Reason for Visit Asthma Nonrheumatic aortic (valve) stenosis Dyspnea Essential (primary) hypertension History of coronary artery stent placement Hyperlipidemia Nonrheumatic aortic (valve) stenosis Chief Complaint NONRHEUMATIC AORTIC VALVE STENOSIS 6 M FU 6 M FU CAD SEVERE LUNG MASS, DYSPNEA, CHEST PAIN 1 mo post TAVR ekg, palps & Tachy E ORDER TACHYCARDIA Reason for Visit Asthma Nonrheumatic aortic (valve) stenosis Dyspnea Essential (primary) hypertension History of coronary artery stent placement Hyperlipidemia Nonrheumatic aortic (valve) stenosis Chief Complaint NONRHEUMATIC AORTIC VALVE STENOSIS 6 M FU 6 M FU CAD SEVERE LUNG MASS, DYSPNEA, CHEST PAIN 1 mo post TAVR ekg, palps & Tachy E ORDER TACHYCARDIA REDO HM/BAD LEADS ON [id number] Reason for Visit Asthma Nonrheumatic aortic (valve) stenosis Dyspnea Essential (primary) hypertension History of coronary artery stent placement Hyperlipidemia Nonrheumatic aortic (valve) stenosis Chief Complaint NONRHEUMATIC AORTIC VALVE STENOSIS 6 M FU 6 M FU CAD SEVERE LUNG MASS, DYSPNEA, CHEST PAIN 1 mo post TAVR ekg, palps & Tachy E ORDER TACHYCARDIA REDO HM/BAD LEADS ON [id number] SKIN Reason for Visit Asthma Nonrheumatic aortic (valve) stenosis Dyspnea Essential (primary) hypertension History of coronary artery stent placement Hyperlipidemia Nonrheumatic aortic (valve) stenosis Chief Complaint 1 mo post TAVR ekg, palps & Tachy E ORDER TACHYCARDIA REDO HM/BAD LEADS ON [id number] SKIN Amb Documentation 3 M FU Heart valve Replacement S/P TAVR procedure Reason for Visit Dyspnea Palpitations Essential (primary) hypertension History of coronary artery stent placement Hyperlipidemia Nonrheumatic aortic (valve) stenosis Chief Complaint REDO HM/BAD LEADS ON [id number] SKIN Amb Documentation 3 M FU Heart valve Replacement S/P TAVR procedure SCREENING 6 M FU S/P TAVR procedure Reason for Visit Dyspnea Palpitations Essential (primary) hypertension History of coronary artery stent placement Hyperlipidemia Nonrheumatic aortic (valve) stenosis Asthma Obesity Chief Complaint Amb Documentation 6 M FU 5 M FU PREPROCEDURAL Amb Documentation Reason for Visit Asthma Nonrheumatic aortic (valve) stenosis Dyspnea Essential (primary) hypertension History of coronary artery stent placement Hyperlipidemia Nonrheumatic aortic (valve) stenosis Chief Complaint 6 M FU 5 M FU PREPROCEDURAL Amb Documentation Reason for Visit Asthma Nonrheumatic aortic (valve) stenosis Dyspnea Essential (primary) hypertension History of coronary artery stent placement Hyperlipidemia Nonrheumatic aortic (valve) stenosis Chief Complaint 5 M FU PREPROCEDURAL Amb Documentation Reason for Visit Dyspnea Essential (primary) hypertension History of coronary artery stent placement Hyperlipidemia Nonrheumatic aortic (valve) stenosis Chief Complaint PREPROCEDURAL Amb Documentation Wheezing, ongoing Chief Complaint PREPROCEDURAL Amb Documentation Wheezing, ongoing Request per pcp/post Covid/Asthma Reason for Visit Allergic rhinitis Asthma Chief Complaint Wheezing, ongoing Request per pcp/post Covid/Asthma CHRONIC COUGH POST COVID 1 Y FU SAMANTHA Reason for Visit Allergic rhinitis Asthma Dyspnea Essential (primary) hypertension History of coronary artery stent placement Hyperlipidemia Nonrheumatic aortic (valve) stenosis Chief Complaint Wheezing, ongoing Request per pcp/post Covid/Asthma CHRONIC COUGH POST COVID 1 Y FU SAMANTHA SINUSITIS 1 Y FU Reason for Visit Allergic rhinitis Asthma Dyspnea Essential (primary) hypertension History of coronary artery stent placement Hyperlipidemia Nonrheumatic aortic (valve) stenosis Carotid artery stenosis Chief Complaint Wheezing, ongoing Request per pcp/post Covid/Asthma CHRONIC COUGH POST COVID 1 Y FU SAMANTHA SINUSITIS 1 Y FU DYSPHAGIA 13 MM TABLET INT LABS Reason for Visit Allergic rhinitis Asthma Dyspnea Essential (primary) hypertension History of coronary artery stent placement Hyperlipidemia Nonrheumatic aortic (valve) stenosis Carotid artery stenosis Chief Complaint Admit Date Retinal ischemia May 14, 2024 1 2:47pm Acute June 08, 2024 9: 43am E-ORDER July 12, 2024 2 :39pm 1 Y FU August 02, 2024 9:22am SCREENING August 09, 2024 9:03 am Reason for Visit Admit Date Allergic rhinitis June 08, 2024 9: 43am Asthma June 08, 2024 9: 43am Dyspnea August 02, 2024 9:22am Essential (primary) hypertension 2024 9:22am History of coronary artery stent placeme nt August 02, 2024 9:22am Hyperlipidemia August 02, 2024 9:22am Nonrheumatic aortic (valve) stenosis Feb ruary 2024 9:22am Chief Complaint Admit Date 6 M FU October 05, 2024 8:10am R chest wall pian, SOB, COPD. concern br onchiectas January 18, 2025 9:15am Reason for Visit Admit Date Oral candidiasis October 05, 2024 8:10am Allergic rhinitis October 05, 2024 8:10am Asthma October 05, 2024 8:10am Chief Complaint Admit Date 6 M FU October 05, 2024 8:10am R chest wall pian, SOB, COPD. concern br onchiectas January 18, 2025 9:15am EVALUATE TAVR January 28, 2025 8: 44am 6 M FU January 30, 2025 8: 23am Reason for Visit Admit Date Oral candidiasis October 05, 2024 8:10am Allergic rhinitis October 05, 2024 8:10am Asthma October 05, 2024 8:10am Chest pain January 30, 2025 8: 23am Dyspnea January 30, 2025 8: 23am Essential (primary) hypertension January 30, 2025 8:23am History of coronary artery stent placeme nt January 30, 2025 8:23am Hyperlipidemia January 30, 2025 8: 23am Nonrheumatic aortic (valve) stenosis Aug ust 2024 8:23am Chief Complaint Admit Date 6 M FU October 05, 2024 8:10am R chest wall pian, SOB, COPD. concern br onchiectas January 18, 2025 9:15am EVALUATE TAVR January 28, 2025 8: 44am 6 M FU January 30, 2025 8: 23am SOB January 31, 2025 3: 39pm BILIARY DISEASE February 01, 2025 7: 44am Chief Complaint Admit Date R chest wall pian, SOB, COPD. concern br onchiectas January 18, 2025 9:15am EVALUATE TAVR January 28, 2025 8: 44am 6 M FU January 30, 2025 8: 23am SOB January 31, 2025 3: 39pm BILIARY DISEASE February 01, 2025 7: 44am Reason for Visit Admit Date Chest pain January 30, 2025 8: 23am Dyspnea January 30, 2025 8: 23am Essential (primary) hypertension January 30, 2025 8:23am History of coronary artery stent placeme nt January 30, 2025 8:23am Hyperlipidemia January 30, 2025 8: 23am Nonrheumatic aortic (valve) stenosis Aug ust 2024 8:23am Reason for Referral Specialty Diagnoses / Procedures Referred By Contac t Referred To Contact Cardiology Diagnoses Severe aortic stenosis Procedures Transthoracic echocardiogram (TTE) complete with contrast, bubble, strain, and 3D PRN W[place] ECHO TTHRC R-T 2D W/WOM-MODE COMPL SPEC&COLR D WY TTE W OR WO FOL WCON,Dottie Priest, CUSTOMER ASSOCIATE - ECHO VASC TECH [address] [place] [address] Referral ID Status Reason Start Date Expiration Date V isits Requested Visits Authorized [id number] Pending Review 02/22/2023 08/21/2023 1 1 Specialty Diagnoses / Procedures Referred By Contac t Referred To Contact Cardiology Diagnoses Nonrheumatic aortic (valve) stenosis Procedures Transthoracic echocardiogram (TTE) complete with contrast, bubble, strain, and 3D PRN WY ECHO TTHRC R-T 2D W/WOM-MODE COMPL SPEC&COLR D WY TTE W OR WO FOL WCON,Dottie Priest, CUSTOMER ASSOCIATE - ECHO VASC TECH [address] [place] [address] Referral ID Status Reason Start Date Expiration Date V isits Requested Visits Authorized [id number] Closed Perform Procedure 04/01/2022 09/28/2022 1 1 Additional Source Comments INFORMATION SOURCE (unrecogn ized section and content) DATE CREATED AUTHOR 12/24/2019 [facility] DATE CREATED AUTHOR AUTHOR'S ORGANIZ ATION [facility] DATE CREATED AUTHOR AUTHOR'S ORGANIZ ATION 04/12/2023 [facility] DATE CREATED AUTHOR AUTHOR'S ORGANIZ ATION 02/22/2025 [facility] Goals (unrecognized section and content) Goals may be documented in a n alternate sectionGoals may be documented in an alternate sectionGoals may be documented in an alternate sectionGoals may be documented in an alternate sectionGoals may be documented in an alternate sectionGoals may be documented in an alternate sectionGoals may be documented in an alternate sectionGoals may be documented in an alternate sectionGoals may be documented in an alternate sectionGoals may be documented in an alternate sectionGoals may be documented in an alternate sectionGoals may be documented in an alternate sectionGoals may be documented in an alternate sectionGoals may be documented in an alternate sectionGoals may be documented in an alternate sectionGoals may be documented in an alternate sectionGoals may be documented in an alternate sectionGoals may be documented in an alternate sectionGoals may be documented in an alternate sectionGoals may be documented in an alternate sectionGoals may be documented in an alternate sectionGoals may be documented in an alternate sectionGoals may be documented in an alternate sectionGoals may be documented in an alternate sectionGoals may be documented in an alternate sectionGoals may be documented in an alternate sectionGoals may be documented in an alternate sectionGoals may be documented in an alternate sectionGoals may be documented in an alternate sectionGoals may be documented in an alternate sectionGoals may be documented in an alternate sectionGoals may be documented in an alternate section Care Teams (unrecognized sec tion and content) Team Status: Active Member Role Status Dates Dr. Julio Montes MD Family Provider Active Dr. Jorge L Hidalgo MD Primary Care Provider Active Team Status: Inactive Member Role Status Dates Dr. Jorge L Hidalgo MD Primary Care Provider, Referring P rovider Active Dr. Jesus Andrea MD Active Julio Baldwin AUTOMATIC PINSETTER MECHANIC, AUTOMATIC PINSETTER MECHANIC-C Attending Provider Active Team Status: Inactive Member Role Status Dates Dr. Jorge L Hidalgo MD Primary Care Provider, Referring P rovider Active Dr. Jesus Andrea MD Attending Provider Active Team Status: Active Member Role Status Dates Dr. Jorge L Hidalgo MD Primary Care Provider Active Anna Mccollum Attending Provider Active Team Status: Inactive Member Role Status Dates Dr. Jorge L Hidalgo MD Primary Care Provider Active FARIBA KEVIN Attending Provider, Referring Prov ider Active Team Status: Inactive Member Role Status Dates Dr. Jorge L Hidalgo MD Primary Care Provider Active Cyndie Statsuhail , AUTOMATIC PINSETTER MECHANIC-C Attending Pr ovider, Referring Provider, Other Provider Active Team Status: Inactive Member Role Status Dates Dr. Jorge L Hidalgo MD Primary Care Provider Active Dr. Jesus Andrea MD Attending Provider Active DOTTIE NELSON NP-C Other Provider Active Cyndie Garcia , AUTOMATIC PINSETTER MECHANIC-C Other Provider Active Team Status: Inactive Member Role Status Dates Dr. Jorge L Hidalgo MD Primary Care Provider Active Cyndie Garcia , AUTOMATIC PINSETTER MECHANIC-C Attending Provider, Referr ing Provider Active Team Status: Inactive Member Role Status Dates Dr. Jorge L Hidalgo MD Primary Care Provider Active Zulay Maciel PA, PA Attending Provider, Referring Pr ovider Active Team Status: Inactive Member Role Status Dates Dr. Jorge L Hidalgo MD Primary Care Provider Active Dr. Jesus Andrea MD Attending Provider Active Team Status: Active Member Role Status Dates Dr. Jorge L Hidalgo MD Primary Care Provider Active Dr. Jesus Andrea MD Attending Provider Active Team Status: Inactive Member Role Status Dates Dr. Jorge L Hidalgo MD Primary Care Provider, Referring P rovider Active Marlene Keys NP, AUTOMATIC PINSETTER MECHANIC-C Attending Provider Active Team Status: Active Member Role Status Dates Dr. Jorge L Hidalgo MD Primary Care Provider Active Self Referred Attending Provider Active Team Status: Inactive Member Role Status Dates Dr. Jorge L Hidalgo MD Primary Care Provider, Referring P rovider Active Julio Baldwin AUTOMATIC PINSETTER MECHANIC, AUTOMATIC PINSETTER MECHANIC-C Attending Provider Active Team Status: Inactive Member Role Status Dates Dr. Jorge L Hidalgo MD Primary Care Provider, Referring P rovider Active Dr. Jorge L Dean MD Attending Provider Active Team Status: Inactive Member Role Status Dates Dr. Jorge L Hidalgo MD Primary Care Provider Active Dr. Jesus Andrea MD Attending Provider, Referring Pro vider Active Team Status: Inactive Member Role Status Dates Dr. Jorge L Hidalgo MD Primary Care Provider Active Julio Baldwin AUTOMATIC PINSETTER MECHANIC, AUTOMATIC PINSETTER MECHANIC-C Attending Provider, Referring Pro vider Active Vice President Biostatistics Relationship Specialty Start Date End Date Jorge L Hidalgo [address] [facility] [address] [place] [address] PCP - General Family Medicine 04/12/22 Jesus Andrea [address] [place] [phone] Software Sales Representative Internal Medicine Cardiovascular Disease 05/24/22 Vice President Biostatistics Relationship Specialty Start Date End Date Jorge L Hidalgo [address] [facility] [address] [place] [address] PCP - General Family Medicine 04/12/22 Zully, [place] [address] [facility] [place] [address] Software Sales Representative Internal Medicine Cardiovascular Disease 05/24/22 Team Status: Inactive Member Role Status Dates Dr. Jorge L Hidalgo MD Primary Care Provider, Referring P rosal Active Dr. Adalid Shelton MD Attending Provider Active Team Status: Active Member Role Status Dates Dr. Jorge L Hidalgo MD Primary Care Provider Active Julio Baldwin AUTOMATIC PINSETTER MECHANIC, AUTOMATIC PINSETTER MECHANIC-C Attending Provider Active Team Status: Active Member Role Status Dates Dr. Jorge L Hidalgo MD Primary Care Provider Active Grecia Collado AUTOMATIC PINSETTER MECHANIC, AUTOMATIC PINSETTER MECHANIC-C Attending Provider Active Team Status: Inactive Member Role Status Dates Dr. Jorge L Hidalgo MD Primary Care Provider Active Dr. Jesus Andrea MD Attending Provider Active Jesus DUNHAM MD Referring Provider Active Vice President Biostatistics Relationship Specialty Start Date End Date Jorge L Hidalgo [address] [facility] [address] [place] [phone] PCP - General Family Medicine 04/12/22 Zully, Jesus [address] [place] [address] Software Sales Representative Internal Medicine Cardiovascular Disease 05/24/22 Team Status: Inactive Member Role Status Dates Dr. Jorge L Hidalgo MD Primary Care Provider, Attending P rosal Active Team Status: Inactive Member Role Status Dates Louise Valadez MD Attending Provider, Referring Provide r Active Dr. Jorge L Hidalgo MD Primary Care Provider Active Team Status: Inactive Member Role Status Dates Dr. Jorge L Hidalgo MD Primary Care Provide r, Attending Provider, Referring Provider Active Dr. Duke Swain MD Other Provider Active Team Status: Active Member Role Status Dates Dr. Jorge L Hidalgo MD Primary Care Provider Active Dr. Jorge L Dean MD Attending Provider Active Team Status: Inactive Member Role Status Dates Dr. Jorge L Hidalgo MD Primary Care Provider Active STANISLAV Castro Attending Provider, Referring Provid er Active Team Status: Inactive Member Role Status Dates Dr. Jorge L Hidalgo MD Primary Care Provide r, Attending Provider, Referring Provider Active Team Status: Active Member Role Status Dates Dr. Jorge L Hidalgo MD Primary Care Provider Active Dr. Jorge L Dean MD Attending Provider Active STANISLAV Castro Referring Provider Active Team Status: Inactive Member Role Status Dates Dr. Jorge L Hidalgo MD Primary Care Provider, Referring P rovider Active STANISLAV Castro Attending Provider Active Team Status: Inactive Member Role Status Dates Dr. Jorge L Hidalgo MD Primary Care Provider Active Dr. Imtiaz Wick MD Attending Provider, Referring Pr ovider Active Team Status: Active Member Role Status Dates Dr. Jorge L Hidalgo MD Primary Care Provider Active Marlene Keys AUTOMATIC PINSETTER MECHANIC, AUTOMATIC PINSETTER MECHANIC-C Attending Provider, Referrin g Provider Active Team Status: Active Member Role Status Dates Dr. Jorge L Hidalgo MD Primary Care Provider Active Dr. Imtiaz Wick MD Attending Provider, Referring Pr ovider Active Team Status: Inactive Member Role Status Dates Dr. Jorge L Hidalgo MD Primary Care Provider Active Marlene Keys AUTOMATIC PINSETTER MECHANIC, AUTOMATIC PINSETTER MECHANIC-C Attending Provider, Referrin g Provider Active Vice President Biostatistics Relationship Specialty Start Date End Date Jorge L Hidalgo [address] [place] [phone] PCP - General Family Medicine 04/12/22 Jesus [facility] [place] [phone] Software Sales Representative Internal Medicine Cardiovascular Disease 05/24/22 Team Status: Active Member Role Status Dates Dr. Jorge L Hidalgo MD Primary Care Provider Active Team Status: Inactive Member Role Status Dates Dr. Jorge L Hidalgo MD Primary Care Provider Active Start: May 14, 2024 End: May 14, 2024 Dr. Chay Zhou MD Attending Provider Active Start: May 14, 2024 End: May 14, 2024 Dr. Chay Zhou MD Referring Provider Active Start: May 14, 2024 End: May 14, 2024 Team Status: Active Member Role Status Dates Dr. Jorge L Hidalgo MD Primary Care Provider Active Start: May 14, 2024 Dr. Jorge L Dean MD Attending Provider Active S tart: May 14, 2024 Dr. Chay Zhou MD Referring Provider Active Start: May 14, 2024 Team Status: Inactive Member Role Status Dates Dr. Jorge L Hidalgo MD Primary Care Provider Active Start: June 08, 2024 End: June 08, 2024 Dr. Jorge L Hidalgo MD Referring Provider Active St art: June 08, 2024 End: June 08, 2024 Veronica Rios NP-C Attending Provider Active Start: June 08, 2024 End: June 08, 2024 Team Status: Inactive Member Role Status Dates Dr. Jorge L Hidalgo MD Primary Care Provider Active Start: June 08, 2024 End: June 08, 2024 Veronica Rios NP-C Attending Provider Active Start: June 08, 2024 End: June 08, 2024 SÁNCHEZ Patel Referring Provider Active Start: June 08, 2024 End: June 08, 2024 Team Status: Inactive Member Role Status Dates Dr. Jorge L Hidalgo MD Primary Care Provider Active Start: July 12, 2024 End: July 12, 2024 Dr. Jorge L Hidalgo MD Attending Provider Active St art: July 12, 2024 End: July 12, 2024 Dr. Jorge L Hidalgo MD Referring Provider Active St art: July 12, 2024 End: July 12, 2024 Team Status: Inactive Member Role Status Dates Dr. Jorge L Hidalgo MD Primary Care Provider Active Start: August 02, 2024 End: August 02, 2024 Dr. Jorge L Hidalgo MD Referring Provider Active St art: August 02, 2024 End: August 02, 2024 Julio Baldwin NP AUTOMATIC PINSETTER MECHANIC-C Attending Provider Active S tart: August 02, 2024 End: August 02, 2024 Team Status: Inactive Member Role Status Dates Dr. Jorge L Hidalgo MD Primary Care Provider Active Start: August 09, 2024 End: August 09, 2024 Raghav Smith AUTOMATIC PINSETTER MECHANIC, AUTOMATIC PINSETTER MECHANIC-C Attending Provider Active Start: August 09, 2024 End: August 09, 2024 Raghav Smith AUTOMATIC PINSETTER MECHANIC, AUTOMATIC PINSETTER MECHANIC-C Referring Provider Active Start: August 09, 2024 End: August 09, 2024 Team Status: Active Member Role/Relationship Status Dates Dr. Jorge L Hidalgo MD Primary Care Provider Active Team Status: Inactive Member Role/Relationship Status Dates Dr. Jorge L Hidalgo MD Referring Provider Active St art: October 05, 2024 End: October 05, 2024 Veronica Rios NP-C Attending Provider Active Start: October 05, 2024 End: October 05, 2024 Team Status: Inactive Member Role/Relationship Status Dates Dr. Jorge L Hidalgo MD Primary Care Provider Active Start: January 18, 2025 End: January 18, 2025 Dr. Jorge L Hidalgo MD Attending Provider Active St art: January 18, 2025 End: January 18, 2025 Dr. Jorge L Hidalgo MD Referring Provider Active St art: January 18, 2025 End: January 18, 2025 Team Status: Active Member Role/Relationship Status Dates Dr. Jorge L Hidalgo MD Primary Care Provider Active Start: January 28, 2025 Julio Baldwin AUTOMATIC PINSETTER MECHANIC, [employer] Attending Provider Active S tart: January 28, 2025 Julio Baldwin AUTOMATIC PINSETTER MECHANIC, AUTOMAT[employer] PINSETTER MECHANIC-C Referring Provider Active S tart: January 28, 2025 Team Status: Active Member Role/Relationship Status Dates Dr. Jorge L Hidalgo MD Primary Care Provider Active Start: January 28, 2025 Dr. Jesus Andrea MD Attending Provider Active S tart: January 28, 2025 Team Status: Inactive Member Role/Relationship Status Dates Dr. Jorge L Hidalgo MD Primary Care Provider Active Start: January 30, 2025 End: January 30, 2025 Dr. Jorge L Hidalgo MD Referring Provider Active St art: January 30, 2025 End: January 30, 2025 Julio Baldwin AUTOMATIC PINSETTER MECHANIC, AUTOMATIC PINSETTER MECHANIC-C Attending Provider Active S tart: January 30, 2025 End: January 30, 2025 Team Status: Inactive Member Role/Relationship Status Dates Dr. Jorge L Hidalgo MD Primary Care Provider Active Start: January 28, 2025 End: January 28, 2025 Julio H Roof AUTOMATIC PINSETTER MECHANIC, AUTOMATIC PINSETTER MECHANIC-C Attending Provider Active S tart: January 28, 2025 End: January 28, 2025 Julio Baldwin AUTOMATIC PINSETTER MECHANIC, AUTOMATIC PINSETTER MECHANIC-C Referring Provider Active S tart: January 28, 2025 End: January 28, 2025 Team Status: Active Member Role/Relationship Status Dates Dr. Jorge L Hidalgo MD Primary Care Provider Active Start: January 31, 2025 Dr. Jorge L Hidalgo MD Attending Provider Active St art: January 31, 2025 Dr. Jorge L Hidalgo MD Referring Provider Active St art: January 31, 2025 Team Status: Active Member Role/Relationship Status Dates Dr. Jorge L Hidalgo MD Primary Care Provider Active Start: February 01, 2025 Dr. Jorge L Hidalgo MD Attending Provider Active St art: February 01, 2025 Dr. Jorge L Hidalgo MD Referring Provider Active St art: February 01, 2025 Team Status: Inactive Member Role/Relationship Status Dates Dr. Jorge L Hidalgo MD Primary Care Provider Active Start: January 18, 2025 End: January 18, 2025 Dr. Jorge L Hidalgo MD Attending Provider Active St art: January 18, 2025 End: January 18, 2025 Dr. Jorge L Hidalgo MD Referring Provider Active St art: January 18, 2025 End: January 18, 2025 Team Status: Inactive Member Role/Relationship Status Dates Dr. Jorge L Hidalgo MD Primary Care Provider Active Start: January 28, 2025 End: January 28, 2025 Julio Baldwin AUTOMATIC PINSETTER MECHANIC, AUTOMATIC PINSETTER MECHANIC-C Attending Provider Active S tart: January 28, 2025 End: January 28, 2025 Julio Baldwin AUTOMATIC PINSETTER MECHANIC, AUTOMATIC PINSETTER MECHANIC-C Referring Provider Active S tart: January 28, 2025 End: January 28, 2025 Team Status: Active Member Role/Relationship Status Dates Dr. Jorge L Hidalgo MD Primary Care Provider Active Start: January 28, 2025 Dr. Jesus Andrea MD Attending Provider Active S tart: January 28, 2025 Team Status: Inactive Member Role/Relationship Status Dates Dr. Jorge L Hidalgo MD Primary Care Provider Active Start: January 30, 2025 End: January 30, 2025 Dr. Jorge L Hidalgo MD Referring Provider Active St art: January 30, 2025 End: January 30, 2025 Julio Baldwin AUTOMATIC PINSETTER MECHANIC, AUTOMATIC PINSETTER MECHANIC-C Attending Provider Active S tart: January 30, 2025 End: January 30, 2025 Team Status: Inactive Member Role/Relationship Status Dates Dr. Jorge L Hidalgo MD Primary Care Provider Active Start: January 31, 2025 End: January 31, 2025 Dr. Jorge L Hidalgo MD Attending Provider Active St art: January 31, 2025 End: January 31, 2025 Dr. Jorge L Hidalgo MD Referring Provider Active St art: January 31, 2025 End: January 31, 2025 Team Status: Active Member Role/Relationship Status Dates Dr. Jorge L Hidalgo MD Primary Care Provider Active Start: February 01, 2025 Dr. Jorge L Hidalgo MD Attending Provider Active St art: February 01, 2025 Dr. Jorge L Hidalgo MD Referring Provider Active St art: February 01, 2025 Team Status: Inactive Member Role/Relationship Status Dates Dr. Jorge L Hidalgo MD Primary Care Provider Active Start: February 01, 2025 End: February 01, 2025 Dr. Jorge L Hidalgo MD Attending Provider Active St art: February 01, 2025 End: February 01, 2025 Dr. Jorge L Hidalgo MD Referring Provider Active St art: February 01, 2025 End: February 01, 2025 Reason for Visit (unrecogniz ed section and content) Reason Onset Date Comments OTHER 03/17/2023 FOR RECORDS PERTAINING TO PATIENTS WHO ARE [...] BE BASED ON THE PRIMARY CLINICAL RECORDS. [facility] [employer] [facility]. provides no warranty or guarantee of the accuracy or completeness of information in this document.
--- NOTE | 2025-02-27 16:48 | STRESSREP ---
Stress Test Report Pharmacologic myocardial perfusion stress test. 74-year-old lady with a history of coronary artery disease. Resting EKG demonstrates normal sinus rhythm with a rate of 61 bpm. Resting blood pressure is 142/70 mmHg. 0.4 mg of regadenoson was infused per usual protocol followed by rapid intravenous saline flush injection. Continuous EKG monitoring was performed. The maximum heart rate was 81 bpm which was 56% of max impacted heart rate the maximum workload was 1 metabolic equivalent. At rest there were no ST or T wave changes noted to suggest ischemia and at peak infusion nonspecific ST changes were noted which did not meet the criteria for ischemia. No clinical angina is noted. The final blood pressure was 138/70 mmHg. Myocardial perfusion protocol. 15 mCi of technetium 99m sestamibi was injected at rest. 0.4 mg of regadenoson was infused per usual protocol. At peak infusion 45 mCi of technetium 99m sestamibi was injected stress images were obtained stress and rest images were reconstructed and compared in the short axis vertical long and horizontal long axis. Gated images were also obtained. Perfusion SPECT analysis: Review of the stress images demonstrate normal uptake of tracer noted in all areas of the myocardium. The resting images similar demonstrated normal uptake of tracer noted in all areas of the myocardium. No areas of reversibility are noted to suggest ischemia and no previous infarct is noted. Gated SPECT analysis: The gated ejection fraction is 66%. Conclusion: Normal pharmacologic myocardial perfusion stress test. Preserved ejection fraction.
== END | disposition home or self-care (01) ==
LOC: CVS 06:25
PROVIDERS: PCP Family Medicine; Referring Provider Nurse Practitioner Family; Visit Provider Nurse Practitioner Family
DX: R06.09 Other forms of dyspnea (principal); I35.0 Nonrheumatic aortic (valve) stenosis; I10 Essential (primary) hypertension; E78.2 Mixed hyperlipidemia; Z95.5 Presence of coronary angioplasty implant and graft
CPT/HCPCS: 78452; 93017; A9500; A4216; J2785

== ENCOUNTER → 2025-03-15 | Outpatient (CLI) | payer MEDICARE, BC, SELFPAY ==
[2022-09-08 08:40] VITALS: BMI 37.3
== END | disposition home or self-care (01) ==
LOC: PSN 10:28
PROVIDERS: PCP Family Medicine; Referring Provider Nurse Practitioner Family; Visit Provider Nurse Practitioner Family
DX: J45.51 Severe persistent asthma with (acute) exacerbation (principal)
CPT/HCPCS: 94060; 94726; 94729

== ENCOUNTER → 2025-03-19 | Outpatient (CLI) | payer MEDICARE, BC, SELFPAY ==
[2022-09-08 08:40] VITALS: BMI 37.3
[2025-03-19 12:30] VITALS: PULSE 100; PULSE 110; PULSE 112; PULSE 113; PULSE 64; PULSE 70; PULSE 98; O2SAT 97; O2SAT 98
--- NOTE | 2025-03-22 10:35 | PCM.PSN.6M ---
PSN 6 Minute Walk Test 6 Minute Walk Test 6 Minute Walk Test: 6 Minute Walk Test PSN:6-Minute Walk Test Start: 03/19/25 12:42 Freq: Status: Active Protocol: [id number] Document 03/19/25 12:30 AEH (Rec: 03/19/25 12:46 AEH [id number]) 6 Minute Walk Test Date Performed 03/19/25 Time Performed 12:30 Height 5 ft 2 in Weight: 203 lb Weight in Pounds 203.[address]: [place] Assistive device None used: Pre-test Oxygen Delivery Room Air Method Pulse Ox (%) 98 Pulse Rate (60-100 64 beats/min) Dyspnea Gerald Scale ( 0 0-10) Exertion Gerald Scale 6 (6-20) 1st minute Oxygen Delivery Room Air Method Pulse Ox (%) 97 Pulse Rate (60-100 98 beats/min) 2nd minute Oxygen Delivery Room Air Method Pulse Ox (%) 98 Pulse Rate (60-100 100 beats/min) 3rd minute Oxygen Delivery Room Air Method Pulse Ox (%) 97 Pulse Rate (60-100 110 H beats/min) 4th minute Oxygen Delivery Room Air Method Pulse Ox (%) 97 Pulse Rate (60-100 113 H beats/min) 5th minute Oxygen Delivery Room Air Method Pulse Ox (%) 97 Pulse Rate (60-100 113 H beats/min) 6th minute Oxygen Delivery Room Air Method Pulse Ox (%) 97 Pulse Rate (60-100 112 H beats/min) Dyspnea Gerald Scale ( 3 0-10) Exertion Gerald Scale 12 (6-20) Post-test Oxygen Delivery Room Air Method Pulse Ox (%) 98 Pulse Rate (60-100 70 beats/min) Full Laps Walked 16 Partial Lap, Number 5 of Tiles Walked Total Distance 949 Walked (ft) Interpretation Interpretation: The patient ambulated 949 feet over the course of 6 minutes beginning on room air without assistive devices. Pretesting oxygen saturation was noted to be 98% on room air. With ambulation, the urban oxygen saturation was 97%. There was no significant exertional oxygen desaturation. Recommendations Recommendations: There is no indication for the use of supplemental oxygen at this time.
== END | disposition home or self-care (01) ==
LOC: PSN 12:18
PROVIDERS: PCP Family Medicine; Referring Provider Nurse Practitioner Family; Visit Provider Nurse Practitioner Family
DX: R06.09 Other forms of dyspnea (principal)
CPT/HCPCS: 94618

== ENCOUNTER → 2025-04-09 | Outpatient (CLI) | payer MEDICARE, BC, SELFPAY ==
[2022-09-08 08:40] VITALS: BMI 37.3
== END | disposition home or self-care (01) ==
LOC: SL 11:39
PROVIDERS: PCP Family Medicine; Referring Provider Nurse Practitioner Family; Visit Provider Nurse Practitioner Family
DX: R06.09 Other forms of dyspnea (principal)
CPT/HCPCS: 94762

== ENCOUNTER 2025-04-17 09:08 | Outpatient (CLI) | payer MEDICARE, BC, SELFPAY ==
[2022-09-08 08:40] VITALS: BMI 37.3
[2025-04-17 10:07] LABS: Hematocrit 39.8 % (37-47); Hemoglobin 13.3 g/dL (12.0-15.0); Immature Granulocytes Count 0.040 X10^3/uL (0.0-0.0); Mean Corp Hgb Conc 33.4 g/dL (32-36); Mean Corpuscular Volume 85.8 fL (81-99); Mean Platelet Vol. 9.8 fl (6.2-12.0); NRBC Flagged by Analyzer 0 % (0-5); Platelet Count 333 K/mm3 (150-450); RBC Distribution Width CV 12.8 % (11.6-14.6); RBC Distribution Width SD 39.8 fl (35.1-43.9); Red Blood Count 4.64 M/mm3 (4.2-5.4); White Blood Count 9.4 K/mm3 (4.4-11.0)
[2025-04-17 10:37] LABS: Prothrombin Time (Protime)PT. 13.0 SECONDS (11.7-14.9)
[2025-04-17 10:47] LABS: AST(SGOT) 24 U/L (<=31); Alanine Aminotransfer ALT/SGPT 9 U/L (<=34); Albumin, Serum 4.5 g/dL (3.4-4.8); Alkaline Phosphatase 115 U/L (35-104); Anion Gap 14 (5-15); BUN 10 mg/dL (4-19); BUN/Creat Ratio 20.3 RATIO (10-20); CPK Total, Creatine Kinase 59 U/L (24-195); Calcium,Total 10.0 mg/dL (7.6-11.0); Carbon Dioxide 24.0 mmol/L (21.0-32.0); Chloride 97 mmol/L (98-108); Cholesterol 182 mg/dL (<=200); Globulin 2.8 g/dL (2.2-4.2); Glucose 90 mg/dL (70-99); Low Density Lipoprotein Calc. 101 mg/dL; Potassium 3.9 mmol/L (3.3-5.1); Triglycerides 180 mg/dL; Very Low Density Lipoprotein 36 mg/dL (5-40); cholesterol:hdl ratio screen 3.67
[2025-04-17 11:28] LABS: CRP 5.00 mg/L (0.0-3.0); Iron 55 ug/dL (50-170); Iron Binding Capacity,Total 388 ug/dL (250-450); Iron Binding Capacity,Unsat 333 ug/dL (228-428); LDH 196 U/L (84-246)
[2025-04-18 13:08] LABS: Anti-Smooth Muscle ABS 6 Units (0-19); GGTP 77 IU/L (0-60)
[2025-04-18 15:08] LABS: ANTINUCLEAR ANTIBODIES DIRECT Negative (Negative)
== END 2025-04-17 23:59 | disposition home or self-care (01) ==
LOC: LAB 09:11
PROVIDERS: PCP Family Medicine; Referring Provider Internal Medicine; Visit Provider Internal Medicine
DX: K76.0 Fatty (change of) liver, not elsewhere classified (principal); K71.9 Toxic liver disease, unspecified; R77.2 Abnormality of alphafetoprotein
CPT/HCPCS: 36415; 80053; 80061; 82550; 82977; 83036; 83516; 83540; 83550; 83615; 85025; 85610; 86038; 86140; 86225